=== PATIENT | male | born 1960 | race Caucasian/White ===

== ENCOUNTER → 2016-08-21 | Outpatient (REF) | payer MEDICAID, SELFPAY | LOC: M SMT 13:02 | PROVIDERS: ATTEND Nurse Practitioner Family | DX: R97.20 Elevated prostate specific antigen [PSA] (principal) ==

== ENCOUNTER → 2016-12-20 | Outpatient (CLI) | payer MEDICAID ==
[2016-12-20 13:02] LABS: MEAN CORPUSCULAR HEMOGLOBIN 27.3 pg (27.0-33.0); MEAN CORPUSCULAR HGB CONC 32.2 g/dl (32.0-36.5); MEAN CORPUSCULAR VOLUME 84.7 fl (80.0-96.0); RED CELL DISTRIBUTION WIDTH 13.4 % (11.5-14.5); WHITE BLOOD COUNT 7.4 K/mm3 (4.0-10.0)
[2016-12-20 13:53] LABS: ALKALINE PHOSPHATASE 109 U/L (45-117); ALT/SGPT 53 U/L (12-78); ANION GAP 9 MEQ/L (8-16); AST/SGOT 28 U/L (15-37); BLOOD UREA NITROGEN 16 MG/DL (7-18); CALCIUM LEVEL 9.8 MG/DL (8.5-10.1); CARBON DIOXIDE LEVEL 26 MEQ/L (21-32); CHLORIDE LEVEL 97 MEQ/L (98-107); CREATININE FOR GFR 0.75 MG/DL (0.70-1.30); GLOMERULAR FILTRATION RATE > 60.0 (>56); GLUCOSE, FASTING 99 MG/DL (70-105); SODIUM LEVEL 132 MEQ/L (136-145)
[2016-12-20 13:54] LABS: ALBUMIN 3.5 GM/DL (3.2-5.2); ALBUMIN/GLOBULIN RATIO 0.92 (1.00-1.93); BILIRUBIN,TOTAL 0.2 MG/DL (0.2-1.0); TOTAL PROTEIN 7.3 GM/DL (6.4-8.2)
[2016-12-20 14:11] LABS: POTASSIUM SERUM 5.5 MEQ/L (3.5-5.1)
== END ==
LOC: M WUC 10:09
PROVIDERS: ATTEND Nurse Practitioner Adult Health
DX: G40.909 Epilepsy, unspecified, not intractable, without status epilepticus (principal)

== ENCOUNTER → 2017-01-02 | Outpatient (REF) | payer MEDICAID ==
[2017-01-02 15:55] LABS: MEAN CORPUSCULAR HEMOGLOBIN 27.4 pg (27.0-33.0); MEAN CORPUSCULAR HGB CONC 33.3 g/dl (32.0-36.5); MEAN CORPUSCULAR VOLUME 82.3 fl (80.0-96.0); RED CELL DISTRIBUTION WIDTH 13.5 % (11.5-14.5); WHITE BLOOD COUNT 8.8 K/mm3 (4.0-10.0)
[2017-01-02 16:45] LABS: ALBUMIN 3.6 GM/DL (3.2-5.2); ALBUMIN/GLOBULIN RATIO 0.97 (1.00-1.93); ALKALINE PHOSPHATASE 109 U/L (45-117); ALT/SGPT 46 U/L (12-78); ANION GAP 10 MEQ/L (8-16); AST/SGOT 27 U/L (15-37); BILIRUBIN,TOTAL 0.2 MG/DL (0.2-1.0); BLOOD UREA NITROGEN 18 MG/DL (7-18); CALCIUM LEVEL 10.1 MG/DL (8.5-10.1); CARBON DIOXIDE LEVEL 25 MEQ/L (21-32); CHLORIDE LEVEL 94 MEQ/L (98-107); CREATININE FOR GFR 0.77 MG/DL (0.70-1.30); GLOMERULAR FILTRATION RATE > 60.0 (>56); GLUCOSE, FASTING 92 MG/DL (70-105); SODIUM LEVEL 129 MEQ/L (136-145); TOTAL PROTEIN 7.3 GM/DL (6.4-8.2)
[2017-01-04 14:11] LABS: PSA TOTAL 1.7 ng/mL (0.0-4.0)
== END ==
LOC: M SFHCPLAZ 14:44
PROVIDERS: ATTEND Nurse Practitioner Family
DX: G40.909 Epilepsy, unspecified, not intractable, without status epilepticus (principal); I10 Essential (primary) hypertension; R97.20 Elevated prostate specific antigen [PSA]

== ENCOUNTER → 2017-01-29 | Outpatient (REF) | payer MEDICAID | LOC: M SFHCPLAZ 11:41 | PROVIDERS: ATTEND Nurse Practitioner Adult Health | DX: I10 Essential (primary) hypertension (principal); E03.9 Hypothyroidism, unspecified; M85.80 Other specified disorders of bone density and structure, unspecified site; E55.9 Vitamin D deficiency, unspecified ==

== ENCOUNTER → 2017-01-29 | Outpatient (CLI) | payer MEDICAID ==
[2017-01-29 19:17] LABS: ANION GAP 4 MEQ/L (8-16); BLOOD UREA NITROGEN 16 MG/DL (7-18); CALCIUM LEVEL 9.7 MG/DL (8.5-10.1); CARBON DIOXIDE LEVEL 28 MEQ/L (21-32); CHLORIDE LEVEL 96 MEQ/L (98-107); CREATININE FOR GFR 0.74 MG/DL (0.70-1.30); GLOMERULAR FILTRATION RATE > 60.0 (>56); GLUCOSE, FASTING 99 MG/DL (70-105); SODIUM LEVEL 128 MEQ/L (136-145)
[2017-01-29 19:21] LABS: POTASSIUM SERUM 5.2 MEQ/L (3.5-5.1)
== END ==
LOC: M WUC 13:31
PROVIDERS: ATTEND Nurse Practitioner Adult Health
DX: I10 Essential (primary) hypertension (principal); E03.9 Hypothyroidism, unspecified; M85.80 Other specified disorders of bone density and structure, unspecified site; E55.9 Vitamin D deficiency, unspecified

== ENCOUNTER → 2017-03-21 | Outpatient (CLI) | payer MEDICAID ==
--- NOTE | 2017-03-21 11:35 | REP ---
Chest two views HISTORY: Shortness of breath Comparison: None The lungs are clear. The heart is normal in size. The pulmonary vasculature is normal in appearance. The bony structure is intact. IMPRESSION: No acute disease. Signed by Arcadio Rudoplh MD 03/21/2017 11:25 A
--- NOTE | 2017-03-21 12:32 | REP ---
KUB, ONE VIEW: HISTORY: Bloating. Air is present in small and large intestine. A single dilated loop of intestine is present. There are no air-fluid levels. There is no pneumoperitoneum. A moderate amount of stool is present. IMPRESSION: Nonspecific bowel gas pattern. Signed by Arcadio Rudolph MD 03/21/2017 12:34 P
== END ==
LOC: M WUC 11:00
PROVIDERS: ATTEND Nurse Practitioner Adult Health
DX: R06.02 Shortness of breath (principal); R14.0 Abdominal distension (gaseous)

== ENCOUNTER → 2017-07-02 | Outpatient (REF) | payer MEDICAID ==
[2017-07-02 19:55] LABS: ANION GAP 7 MEQ/L (8-16); BLOOD UREA NITROGEN 17 MG/DL (7-18); CALCIUM LEVEL 9.9 MG/DL (8.5-10.1); CARBON DIOXIDE LEVEL 27 MEQ/L (21-32); CHLORIDE LEVEL 97 MEQ/L (98-107); CREATININE FOR GFR 0.78 MG/DL (0.70-1.30); GLOMERULAR FILTRATION RATE > 60.0 (>56); GLUCOSE, FASTING 94 MG/DL (70-105); POTASSIUM SERUM 5.1 MEQ/L (3.5-5.1); SODIUM LEVEL 131 MEQ/L (136-145)
== END ==
LOC: M SFHCPLAZ 15:01
PROVIDERS: ATTEND Nurse Practitioner Adult Health
DX: E03.9 Hypothyroidism, unspecified (principal); E55.9 Vitamin D deficiency, unspecified; I10 Essential (primary) hypertension

== ENCOUNTER → 2017-11-05 | Outpatient (REF) | payer MEDICAID ==
[2017-11-05 17:53] LABS: TOTAL 25(OH) VITAMIN D 30.3 NG/ML (30.0-100.0)
[2017-11-05 18:01] LABS: ALBUMIN 3.8 GM/DL (3.2-5.2); ALBUMIN/GLOBULIN RATIO 1.06 (1.00-1.93); ALKALINE PHOSPHATASE 79 U/L (45-117); ALT/SGPT 46 U/L (12-78); ANION GAP 6 MEQ/L (8-16); AST/SGOT 36 U/L (7-37); BILIRUBIN,TOTAL 0.1 MG/DL (0.2-1.0); BLOOD UREA NITROGEN 16 MG/DL (7-18); CALCIUM LEVEL 9.6 MG/DL (8.5-10.1); CARBON DIOXIDE LEVEL 27 MEQ/L (21-32); CHLORIDE LEVEL 99 MEQ/L (98-107); CREATININE FOR GFR 0.69 MG/DL (0.70-1.30); FERRITIN 8 NG/ML (26-388); GLOMERULAR FILTRATION RATE > 60.0 (>56); GLUCOSE, FASTING 89 MG/DL (70-100); IRON (FE) 18 UG/DL (65-175); PERCENT SATURATION 3.9 % (19.7-50.0); SODIUM LEVEL 132 MEQ/L (136-145); TOTAL IRON BINDING CAPACITY 462 UG/DL (250-450); TOTAL PROTEIN 7.4 GM/DL (6.4-8.2); VALPROIC ACID (DEPAKOTE) 99.6 UG/ML (50.0-100.0)
[2017-11-05 18:27] LABS: HEMATOCRIT 35.1 % (42.0-52.0); HEMOGLOBIN 10.7 g/dl (14.0-18.0); MEAN CORPUSCULAR HEMOGLOBIN 23.1 pg (27.0-33.0); MEAN CORPUSCULAR HGB CONC 30.5 g/dl (32.0-36.5); MEAN CORPUSCULAR VOLUME 75.8 fl (80.0-96.0); PLATELET COUNT, AUTOMATED 432 10^3/uL (150-450); RED BLOOD COUNT 4.63 10^6/uL (4.30-6.10); WHITE BLOOD COUNT 7.4 10^3/uL (4.0-10.0)
== END ==
LOC: M SFHCPLAZ 15:19
DX: D64.9 Anemia, unspecified (principal); I10 Essential (primary) hypertension; E03.9 Hypothyroidism, unspecified; E55.9 Vitamin D deficiency, unspecified

== ENCOUNTER → 2018-04-22 | Outpatient (CLI) | payer MEDICAID ==
[~2018-04-22] MED LIST: E-Z-PAQUE 96% w/w SUSP 176GM BTL As Ordered; PROHANCE 279.3MG/ML 15ML VIAL (A9576) As Ordered; VARIBAR NECTAR 40% w/v 240ML SUSP BTL As Ordered; VARIBAR PUDDING 40% w/v 230ML TUBE As Ordered
== END ==
LOC: M RAD 09:17
DX: G31.9 Degenerative disease of nervous system, unspecified (principal); F03.90 Unspecified dementia, unspecified severity, without behavioral disturbance, psychotic disturbance, mood disturbance, and anxiety; R56.9 Unspecified convulsions
CPT/HCPCS: A9576

== ENCOUNTER → 2018-04-24 | Outpatient (CLI) | payer MEDICAID | LOC: M ST 13:30 | DX: Q90.9 Down syndrome, unspecified (principal) | CPT/HCPCS: 74230 ==

== ENCOUNTER → 2018-05-07 | Outpatient (REF) | payer MEDICAID ==
[2018-05-07 15:55] LABS: HEMATOCRIT 39.2 % (42.0-52.0); MEAN CORPUSCULAR HGB CONC 33.2 g/dl (32.0-36.5); MEAN CORPUSCULAR VOLUME 78.4 fl (80.0-96.0); PLATELET COUNT, AUTOMATED 359 10^3/uL (150-450); RED CELL DISTRIBUTION WIDTH 17.8 % (11.5-14.5); WHITE BLOOD COUNT 7.7 10^3/uL (4.0-10.0)
[2018-05-07 16:45] LABS: ALBUMIN 3.3 GM/DL (3.2-5.2); ALBUMIN/GLOBULIN RATIO 0.97 (1.00-1.93); ALKALINE PHOSPHATASE 82 U/L (45-117); ALT/SGPT 39 U/L (12-78); ANION GAP 10 MEQ/L (8-16); AST/SGOT 36 U/L (7-37); BILIRUBIN,TOTAL 0.1 MG/DL (0.2-1.0); BLOOD UREA NITROGEN 12 MG/DL (7-18); CALCIUM LEVEL 9.3 MG/DL (8.8-10.2); CARBON DIOXIDE LEVEL 23 MEQ/L (21-32); CHLORIDE LEVEL 91 MEQ/L (98-107); CHOLESTEROL LEVEL 148 MG/DL (<200); CREATININE FOR GFR 0.65 MG/DL (0.70-1.30); FERRITIN 23 NG/ML (26-388); GLOMERULAR FILTRATION RATE > 60.0 (>49); GLUCOSE, FASTING 89 MG/DL (70-100); HDL CHOLESTEROL 54 MG/DL (>40); IRON (FE) 112 UG/DL (65-175); LDL CHOLESTEROL 59 MG/DL (<100); NON-HDL-C 94 MG/DL; PERCENT SATURATION 29.7 % (19.7-50.0); POTASSIUM SERUM 5.3 MEQ/L (3.5-5.1); SODIUM LEVEL 124 MEQ/L (136-145); TOTAL 25(OH) VITAMIN D 34.7 NG/ML (30.0-100.0); TOTAL IRON BINDING CAPACITY 377 UG/DL (250-450); TOTAL PROTEIN 6.7 GM/DL (6.4-8.2); TRIGLYCERIDES LEVEL 175 MG/DL (<150)
== END ==
LOC: M SFHCPLAZ 14:44
DX: E55.9 Vitamin D deficiency, unspecified (principal); E03.9 Hypothyroidism, unspecified; D64.9 Anemia, unspecified; I10 Essential (primary) hypertension; G40.909 Epilepsy, unspecified, not intractable, without status epilepticus

== ENCOUNTER → 2018-11-11 | Outpatient (REF) | payer MEDICAID ==
[2018-11-11 13:27] LABS: HEMATOCRIT 42.1 % (42.0-52.0); HEMOGLOBIN 14.7 g/dl (13.5-17.5); MEAN CORPUSCULAR HGB CONC 34.9 g/dl (32.0-36.5); MEAN CORPUSCULAR VOLUME 91.7 fl (80.0-96.0); PLATELET COUNT, AUTOMATED 346 10^3/uL (150-450); RED BLOOD COUNT 4.59 10^6/uL (4.30-6.10); WHITE BLOOD COUNT 8.8 10^3/uL (4.0-10.0)
[2018-11-11 14:04] LABS: ALBUMIN 3.7 GM/DL (3.2-5.2); ALT/SGPT 49 U/L (12-78); BILIRUBIN,TOTAL 0.3 MG/DL (0.2-1.0); BLOOD UREA NITROGEN 14 MG/DL (7-18); CALCIUM LEVEL 9.9 MG/DL (8.8-10.2); CARBON DIOXIDE LEVEL 28 MEQ/L (21-32); CHLORIDE LEVEL 92 MEQ/L (98-107); CHOLESTEROL LEVEL 189 MG/DL (<200); CHOLESTEROL RISK RATIO 3.258 (<5); CREATININE FOR GFR 0.62 MG/DL (0.70-1.30); FERRITIN 46 NG/ML (26-388); GLOMERULAR FILTRATION RATE > 60.0 (>49); GLUCOSE, FASTING 75 MG/DL (70-100); HDL CHOLESTEROL 58 MG/DL (>40); LDL CHOLESTEROL 82 MG/DL (<100); NON-HDL-C 131 MG/DL; POTASSIUM SERUM 5.2 MEQ/L (3.5-5.1); SODIUM LEVEL 127 MEQ/L (136-145); TOTAL PROTEIN 6.9 GM/DL (6.4-8.2); TRIGLYCERIDES LEVEL 246 MG/DL (<150)
[2018-11-11 14:05] LABS: TOTAL 25(OH) VITAMIN D 38.2 NG/ML (30.0-100.0)
== END ==
LOC: M SFHCPLAZ 11:16
PROVIDERS: ATTEND Nurse Practitioner Adult Health
DX: G40.909 Epilepsy, unspecified, not intractable, without status epilepticus (principal); D64.9 Anemia, unspecified; E03.9 Hypothyroidism, unspecified; E55.9 Vitamin D deficiency, unspecified; I10 Essential (primary) hypertension

== ENCOUNTER → 2019-06-21 | Outpatient (REF) | payer MEDICAID ==
[2019-06-21 12:29] LABS: HEMATOCRIT 44.8 % (42.0-52.0); MEAN CORPUSCULAR HGB CONC 33.5 g/dl (32.0-36.5); MEAN CORPUSCULAR VOLUME 95.5 fl (80.0-96.0); PLATELET COUNT, AUTOMATED 357 10^3/uL (150-450); RED BLOOD COUNT 4.69 10^6/uL (4.30-6.10)
[2019-06-21 13:11] LABS: ALBUMIN 3.7 GM/DL (3.2-5.2); ALT/SGPT 52 U/L (12-78); BILIRUBIN,TOTAL 0.2 MG/DL (0.2-1.0); BLOOD UREA NITROGEN 13 MG/DL (7-18); CALCIUM LEVEL 10.2 MG/DL (8.8-10.2); CARBON DIOXIDE LEVEL 28 MEQ/L (21-32); CHLORIDE LEVEL 96 MEQ/L (98-107); CHOLESTEROL LEVEL 184 MG/DL (<200); CHOLESTEROL RISK RATIO 2.787 (<5); CREATININE FOR GFR 0.62 MG/DL (0.70-1.30); FERRITIN 26 NG/ML (26-388); GLOMERULAR FILTRATION RATE > 60.0 (>49); GLUCOSE, FASTING 71 MG/DL (70-100); HDL CHOLESTEROL 66 MG/DL (>40); IRON (FE) 202 UG/DL (65-175); LDL CHOLESTEROL 71 MG/DL (<100); NON-HDL-C 118 MG/DL; PERCENT SATURATION 55.8 % (19.7-50.0); POTASSIUM SERUM 4.8 MEQ/L (3.5-5.1); SODIUM LEVEL 133 MEQ/L (136-145); TOTAL IRON BINDING CAPACITY 362 UG/DL (250-450); TOTAL PROTEIN 7.2 GM/DL (6.4-8.2); TRIGLYCERIDES LEVEL 234 MG/DL (<150)
[2019-06-21 15:20] LABS: TOTAL 25(OH) VITAMIN D 43.1 NG/ML (30.0-100.0)
== END ==
LOC: M SFHCPLAZ 10:32
PROVIDERS: ATTEND Nurse Practitioner Adult Health
DX: D64.9 Anemia, unspecified (principal); E03.9 Hypothyroidism, unspecified; I10 Essential (primary) hypertension; G40.909 Epilepsy, unspecified, not intractable, without status epilepticus; E55.9 Vitamin D deficiency, unspecified

== ENCOUNTER → 2020-02-17 | Outpatient (REF) | payer MEDICAID ==
[2020-02-17 12:03] LABS: HEMATOCRIT 42.3 % (42.0-52.0); HEMOGLOBIN 14.5 g/dl (13.5-17.5); MEAN CORPUSCULAR HEMOGLOBIN 32.1 pg (27.0-33.0); MEAN CORPUSCULAR HGB CONC 34.3 g/dl (32.0-36.5); MEAN CORPUSCULAR VOLUME 93.6 fl (80.0-96.0); PLATELET COUNT, AUTOMATED 370 10^3/uL (150-450); RED BLOOD COUNT 4.52 10^6/uL (4.30-6.10); WHITE BLOOD COUNT 8.4 10^3/uL (4.0-10.0)
[2020-02-17 12:16] LABS: ALBUMIN 3.6 GM/DL (3.2-5.2); ALT/SGPT 37 U/L (12-78); BILIRUBIN,TOTAL 0.3 MG/DL (0.2-1.0); BLOOD UREA NITROGEN 10 MG/DL (7-18); CALCIUM LEVEL 9.9 MG/DL (8.8-10.2); CARBON DIOXIDE LEVEL 27 MEQ/L (21-32); CHLORIDE LEVEL 93 MEQ/L (98-107); CHOLESTEROL LEVEL 157 MG/DL (<200); CHOLESTEROL RISK RATIO 2.706 (<5); CREATININE FOR GFR 0.65 MG/DL (0.70-1.30); FERRITIN 55 NG/ML (26-388); GLOMERULAR FILTRATION RATE > 60.0 (>49); GLUCOSE, FASTING 72 MG/DL (70-100); HDL CHOLESTEROL 58 MG/DL (>40); LDL CHOLESTEROL 59 MG/DL (<100); NON-HDL-C 99 MG/DL; POTASSIUM SERUM 4.8 MEQ/L (3.5-5.1); SODIUM LEVEL 127 MEQ/L (136-145); TOTAL PROTEIN 6.9 GM/DL (6.4-8.2); TRIGLYCERIDES LEVEL 201 MG/DL (<150)
[2020-02-17 12:18] LABS: TOTAL 25(OH) VITAMIN D 42.7 NG/ML (30.0-100.0)
== END ==
LOC: M SFHCPLAZ 10:02
PROVIDERS: ATTEND Nurse Practitioner Adult Health
DX: D64.9 Anemia, unspecified (principal); I10 Essential (primary) hypertension; G40.909 Epilepsy, unspecified, not intractable, without status epilepticus; E03.9 Hypothyroidism, unspecified; E55.9 Vitamin D deficiency, unspecified

== ENCOUNTER → 2020-07-03 | Outpatient (REF) | payer MEDICAID ==
[2020-07-03 18:13] LABS: HEMATOCRIT 43.7 % (42.0-52.0); MEAN CORPUSCULAR HEMOGLOBIN 32.1 pg (27.0-33.0); MEAN CORPUSCULAR HGB CONC 34.3 g/dl (32.0-36.5); MEAN CORPUSCULAR VOLUME 93.6 fl (80.0-96.0); PLATELET COUNT, AUTOMATED 376 10^3/uL (150-450); RED BLOOD COUNT 4.67 10^6/uL (4.30-6.10); WHITE BLOOD COUNT 8.6 10^3/uL (4.0-10.0)
[2020-07-03 18:43] LABS: ALT/SGPT 27 U/L (12-78); BILIRUBIN,TOTAL 0.3 MG/DL (0.2-1.0); BLOOD UREA NITROGEN 12 MG/DL (7-18); CALCIUM LEVEL 10.3 MG/DL (8.8-10.2); CARBON DIOXIDE LEVEL 28 MEQ/L (21-32); CHLORIDE LEVEL 91 MEQ/L (98-107); CREATININE FOR GFR 0.75 MG/DL (0.70-1.30); GLOMERULAR FILTRATION RATE > 60.0 (>49); GLUCOSE, FASTING 68 MG/DL (70-100); POTASSIUM SERUM 5.3 MEQ/L (3.5-5.1); SODIUM LEVEL 126 MEQ/L (136-145); TOTAL 25(OH) VITAMIN D 46.2 NG/ML (30.0-100.0); TOTAL PROTEIN 7.1 GM/DL (6.4-8.2); VALPROIC ACID (DEPAKOTE) 121.7 UG/ML (50.0-100.0)
== END ==
LOC: M SFHCPLAZ 14:06
PROVIDERS: ATTEND Nurse Practitioner Adult Health
DX: D64.9 Anemia, unspecified (principal); G40.909 Epilepsy, unspecified, not intractable, without status epilepticus; E03.9 Hypothyroidism, unspecified; E55.9 Vitamin D deficiency, unspecified; I10 Essential (primary) hypertension

== ENCOUNTER 2020-11-05 09:13 | Inpatient (IN) | payer MEDICAID ==
[~2020-11-05] VITALS: Ht 167.6 cm; Wt 72.0 kg
[2020-11-05] MEDS ORDERED: ECOT81TA5 PO (09:31)
[2020-11-05] MEDS ORDERED: DIVA250T7 PO ×2 (09:31→15:41)
[2020-11-05] MEDS ORDERED: CALCTAB89 PO (09:31)
[2020-11-05] MEDS ORDERED: FELB600T5 PO (09:36)
[2020-11-05] MEDS ORDERED: VITA-243 PO (09:36)
[2020-11-05] MEDS ORDERED: GABA-282 PO (09:36)
[2020-11-05] MEDS ORDERED: IRON27TA2 PO (09:36)
[2020-11-05] MEDS ORDERED: OXYB10TA23 PO (09:36)
[2020-11-05] MEDS ORDERED: ENAL-36 PO (09:36)
[2020-11-05] MEDS ORDERED: MAGN400C2 PO (09:36)
[2020-11-05] MEDS ORDERED: LEVO50TA5 PO (09:36)
[2020-11-05] MEDS ORDERED: PARO20TA4 PO (09:36)
[2020-11-05] MEDS ORDERED: STOO100C15 PO (09:36)
[2020-11-05] MEDS ORDERED: NS 1,000 ML IV ONE (09:50)
--- NOTE | 2020-11-05 09:57 | REP ---
INDICATION: Syncope/near-syncope. COMPARISON: 03/21/2017 PA and lateral chest. TECHNIQUE: Portable AP chest with the patient sitting. FINDINGS: The left costophrenic angle appears effaced, left pleural effusion versus artifact from portable positioning. Cardiac size appears enlarged, cardiomegaly versus artifact from portable positioning. The lung valdez are otherwise clear. The adriana, mediastinum, and skeletal structures are unremarkable. IMPRESSION: Effaced left costophrenic angle and cardiomegaly versus artifacts from portable positioning. <Electronically signed by Choco Granger > 11/05/20 0953
[2020-11-05 10:33] LABS: BASO % 0.2 % (0.0-1.0); EOS # 0.1 10^3/uL (0.0-0.5); EOS % 0.8 % (0.0-3.0); HEMATOCRIT 34.8 % (42.0-52.0); HEMOGLOBIN 11.8 g/dl (13.5-17.5); LYMPH # 1.7 10^3/uL (1.5-5.0); LYMPH % 15.6 % (24.0-44.0); MEAN CORPUSCULAR HGB CONC 33.9 g/dl (32.0-36.5); MEAN CORPUSCULAR VOLUME 94.3 fl (80.0-96.0); MONO % 17.5 % (2.0-8.0); NEUTROPHILS # 7.1 10^3/uL (1.5-8.5); NEUTROPHILS % 65.3 % (36.0-66.0); PLATELET COUNT, AUTOMATED 370 10^3/uL (150-450); RED BLOOD COUNT 3.69 10^6/uL (4.30-6.10)
[2020-11-05 10:44] LABS: INR 1.04; PROTHROMBIN TIME 13.8 SECONDS (12.5-14.3)
[2020-11-05 10:45] LABS: PARTIAL THROMBOPLASTIN TIME 30.5 SECONDS (24.2-38.5)
[2020-11-05 11:02] LABS: ALBUMIN 2.2 GM/DL (3.2-5.2); ALT/SGPT 148 U/L (12-78); BILIRUBIN,DIRECT 0.3 MG/DL (0.0-0.2); BILIRUBIN,TOTAL 0.4 MG/DL (0.2-1.0); BLOOD UREA NITROGEN 15 MG/DL (7-18); CALCIUM LEVEL 9.8 MG/DL (8.8-10.2); CARBON DIOXIDE LEVEL 28 MEQ/L (21-32); CHLORIDE LEVEL 89 MEQ/L (98-107); CK-MB VALUE MASS < 1.0 NG/ML (<3.6); CPK CREATINE PHOSPHOKINASE 33 U/L (39-308); CREATININE FOR GFR 0.55 MG/DL (0.70-1.30); FREE T4 1.18 NG/DL (0.76-1.46); GLOMERULAR FILTRATION RATE > 60.0 (>49); GLUCOSE, FASTING 94 MG/DL (70-100); MAGNESIUM LEVEL 1.8 MG/DL (1.8-2.4); MB/CK RELATIVE INDEX 3.03 (< OR =4); POTASSIUM SERUM 4.8 MEQ/L (3.5-5.1); SODIUM LEVEL 123 MEQ/L (136-145); TROPONIN I < 0.02 NG/ML (< 0.10); VALPROIC ACID (DEPAKOTE) 84.6 UG/ML (50.0-100.0)
[2020-11-05 11:14] LABS: MONO # 1.9 10^3/uL (0.0-0.8); WHITE BLOOD COUNT 10.8 10^3/uL (4.0-10.0)
[2020-11-05 12:11] LABS: OSMOLALITY URINE 561 MOSM/KG (50-1400)
[2020-11-05 12:34] LABS: SODIUM,RANDOM URINE 17 MEQ/L
[2020-11-05 12:55] LABS: OSMOLALITY SERUM 261 MOSM/KG (280-301)
[2020-11-05 14:27] LABS: LIPASE 27 U/L (73-393)
--- NOTE | 2020-11-05 15:03 | REP ---
INDICATION: elevated lfts. COMPARISON: None. TECHNIQUE: Multiple ultrasonographic images of the abdominal right upper quadrant. FINDINGS: There is no cholelithiasis, gallbladder wall thickening or pericholecystic fluid. There is no intrahepatic or extrahepatic biliary duct dilatation. The common biliary duct measures 5.3 mm in diameter. The hepatic parenchyma is homogeneous and otherwise unremarkable. There are no hepatic masses or cysts. The pancreas is obscured by bowel gas. The right kidney is normal size measuring 12.6 x 6.0 x 5.3 cm. There is no right renal calculus, hydronephrosis, solid mass or cystic mass. There is no abdominal right upper quadrant free fluid. The study is extremely limited and technically difficult, the patient unable to suspend respirations or roll into a decubitus position. Patient has dementia. IMPRESSION: Limited study as discussed above. The pancreas is obscured by bowel gas. Overlies, negative abdominal right upper quadrant ultrasound. <Electronically signed by Choco Granger > 11/05/20 [id number]
[2020-11-05 15:30] LABS: RSV AMPLIFICATION NEGATIVE (NEGATIVE)
[2020-11-05] MEDS ORDERED: FERR325T16 PO (15:41)
[2020-11-05] MEDS ORDERED: D 202000 PO (15:42)
--- NOTE | 2020-11-05 17:24 | HPEPDOC ---
General Date of Admission 11/05/20 Date of Service: Nov 05, 2020 Chief Complaint The patient is a 60-year-old male admitted with a reason for visit of Weakness. Source: Family, RN/, Old records History of Present Illness 60 year old male with Down's syndrome, mental retardation, dementia with occasional behavioral issues, seizure lives at home with 24 x7 care, has gait i nstability and ambulates with a walker has been noticed to be very weak and tired and sometimes listless from 10/31/20. Incidentally he received his first COVID vaccine on 10/27/20. For the past 1 day he has been so weak that the caregiver could not even get him out of the bed. Normally patient is very constipated and has bowel movement every 4 to 5 days this week he has had more bowel movement and are smaller and softer in nature. No noted fever at home. Caregivers have been offering him more fluids this week. As per sister he likes to drink fluids and never refuses any fluid offered to him. His appetite has been variable. As per sister he does have difficulty swallowing as he keeps his head bent forward and he sometimes needs to be fed. Patient denied any SOB . Denied any abdominal pain. He was having difficulty in voiding so a walter was placed. In the ED he was noted to be hyponatremic to 123, also his AST and ALT and ALP were elevated. GB ultrasound did not show any gall stones or GB pathology. But the technologist noted that there may be some fluid around the heart. A stat echo was ordered. Dion was admitted for hyponatremia, transaminitis and suspected large pericardial effusion rule out tamponade. Home Medications Scheduled Ascorbic Acid (Vitamin C) 500 Mg Tablet, 1,000 MG PO DAILY, (Reported) Aspirin (Ecotrin) 81 Mg Tablet.dr, 81 MG PO QHS, (Reported) Calcium Carbonate (Calcium) 600 Mg Tablet, 600 MG PO BID, (Reported) Cholecalciferol (Vitamin D3) (Vitamin D3) 50 Mcg Tablet, 50 MCG PO DAILY, (Reported) Divalproex Sodium (Divalproex Sodium ER) 250 Mg Tab.er.24h, 750 MG PO DAILY, (Reported) Divalproex Sodium (Divalproex Sodium ER) 250 Mg Tab.er.24h, 500 MG PO QHS, (Reported) Docusate Sodium (Stool Softener) 100 Mg Capsule, 200 MG PO BID, (Reported) Enalapril Maleate (Enalapril Maleate) 10 Mg Tablet, 10 MG PO BID, (Reported) Felbamate (Felbamate) 600 Mg Tablet, 1,800 MG PO BID, (Reported) Ferrous Gluconate (Ferrous Gluconate) 324 Mg Tablet, 324 MG PO DAILY, (Reported) Gabapentin (Gabapentin) 300 Mg Capsule, 300 MG PO BID, (Reported) Levothyroxine Sodium (Levothyroxine Sodium) 50 Mcg Tablet, 50 MCG PO DAILY, (Reported) Magnesium Oxide (Magnesium) 400 Mg Capsule, 400 MG PO DAILY, (Reported) Oxybutynin Chloride (Oxybutynin Chloride ER) 10 Mg Tab.er.24, 10 MG PO DAILY, (Reported) Paroxetine HCl (Paroxetine) 20 Mg Tablet, 40 MG PO DAILY, (Reported) Allergies Coded Allergies: No Known Allergies (Verified , 02/21/03) Past Medical History Medical History DOWN SYNDROME WITH MENTAL RETARDATION AND BEHAVIORS SEIZURE DISORDER DEMENTIA MRI OF THE BRAIN 2012 MODERATE GENERALIZED CEREBRAL ATROPHY PERSISTENT BIFRONTAL ENCEPHALOMALACIA, PERSISTENT VENTRICULOMEGALY URINARY INCONTINENCE ESSENTIAL HYPERTENSION VITAMIN D DEFICIENCY OSTEOPOROSIS HYPOTHYROIDISM SEVERE LOU ON CPAP5 CM WATER PRESSURE URINARY INCONTINENCE WITHOUT SENSORY AWARENESS Unsure if urologic or behavioral on oxybutynin. ELEVATED PSA SEVERE CERVICAL SPONDYLOSIS WITH NECK PAIN AND FORAMINAL NERVE COMPRESSION PER CT OF THE SPINE TO 2013. ANGER/ DEPRESSION/ INSOMNIA HEMORRHOIDS, DIVERTICULOSIS COLONIC POLYPS: TUBULAR ADENOMA and TUBULOVILLOUS ADENOMA, OLD COMPRESSION FRACTURE OF THE T1 VERTEBRA Family History FATHER: , TYPE II DIABETES MOTHER: ALIVE SIBLINGS: ALIVE 2 BROTHER(S) , 3 SISTER(S) - HEALTHY. BROTHER HAS HAD KIDNEY STONES Social History * Smoker: Denies Alcohol: Denies Drugs: denies A-FIB/CHADSVASC A-FIB History Current/History of A-Fib/PAF?: No Review of Systems Constitutional: Reports: Weakness, Fatigue; Denies: Chills, Fever, Night Sweats Eyes: Denies: Pain, Vision change ENT: Reports: Dysphagia; Denies: Head Aches, Ear Pain Skin: Denies: Rash, Lesions, Breakdown Pulmonary: Denies: Dyspnea, Cough Cardiovascular: Denies: Chest Pain, Palpitations, Orthopnea, Paroxysmal Noc. Dyspnea, Lt Headedness Gastrointestinal: Reports: Constipation; Denies: Nausea, Vomiting, Abdominal Pain, Diarrhea Genitourinary: Reports: Incontinence; Denies: Dysuria, Frequency, Retention Hematologic: Denies: Bruising, Bleeding Excessively Physical Examination General Exam: Positive: Alert, Cooperative, No Acute Distress Eye Exam: Positive: PERRLA, Conjunctiva & lids normal, EOMI; Negative: Sclera icteric ENT Exam: Positive: Atraumatic, Mucous membr. moist/pink, Pharynx Normal Neck Exam: Positive: Supple; Negative: thyromegaly Chest Exam: Positive: Clear to auscultation, Diminished (at leonardo bases) Heart Exam: Positive: Rate Normal, Regular Rhythm, Normal S1, Normal S2; Negative: Murmurs, Rubs Telemetry: Positive: No significant arrhythmia Abdomen Exam: Positive: Normal bowel sounds, Soft; Negative: Tenderness Extremity Exam: Positive: Edema (trace edema), Normal pulses; Negative: Clubbing, Cyanosis Skin Exam: Positive: Nl turgor and temperature; Negative: Breakdown, Lesion Vital Signs Vital Signs Date Time Temp Pulse Resp B/P (MAP) Pulse Ox O2 Delivery O2 Flow Rate FiO2 11/05/20 16:00 86 129/77 (94) 96 11/05/20 09:37 Room Air 11/05/20 09:26 98.3 18 Laboratory Data Labs 24H Laboratory Tests 2 11/05/20 09:46: Urine Color YELLOW, Urine Appearance HAZY, Urine pH 6.0, Urine Specific Harwood 1.021, Urine Protein 1+H, Urine Glucose (UA) NEGATIVE, Urine Ketones NEGATIVE, Urine Blood 2+H, Urine Nitrite NEGATIVE, Urine Bilirubin NEGATIVE, Urine Urobilinogen 4.0H, Urine Leukocyte Esterase NEGATIVE, Urine WBC (Auto) 3, Urine RBC (Auto) 65H, Urine Hyaline Casts (Auto) 0, Urine Bacteria (Auto) 1+H, Urine Squamous Epithelial Cells 0, Urine Calcium Oxalate Cryst (Auto) SMALL, Urine Amorphous Sediment SMALLH, Urine Mucus (Auto) SMALL, Urine Sperm (Auto) , Urine Osmolality 561, Urine Random Sodium 17 11/05/20 09:58: Immature Granulocyte % (Auto) 0.6, Neutrophils (%) (Auto) 65.3, Lymphocytes (%) (Auto) 15.6L, Monocytes (%) (Auto) 17.5H, Eosinophils (%) (Auto) 0.8, Basophils (%) (Auto) 0.2, Neutrophils # (Auto) 7.1, Lymphocytes # (Auto) 1.7, Monocytes # (Auto) 1.9H, Eosinophils # (Auto) 0.1, Basophils # (Auto) 0.0, Nucleated Red Blood Cells % (auto) 0.0, Prothrombin Time 13.8, Prothromb Time International Ratio 1.04, Activated Partial Thromboplast Time 30.5, Anion Gap 6L, Glomerular Filtration Rate > 60.0, Osmolality 261L, Lactic Acid Level 1.1, Calcium Level 9.8, Magnesium Level 1.8, Total Bilirubin 0.4, Direct Bilirubin 0.3H, Aspartate Amino Transf (AST/SGOT) 103H, Alanine Aminotransferase (ALT/SGPT) 148H, Alkaline Phosphatase 366H, Total Creatine Kinase 33L, Creatine Kinase MB < 1.0, Creatine Kinase MB Relative Index 3.03, Troponin I < 0.02, Total Protein 6.0L, Albumin 2.2L, Albumin/Globulin Ratio 0.6, Lipase 27L, Thyroid Stimulating Hormone (TSH) 2.760, Free Thyroxine 1.18, Valproic Acid (Depakene) Level 84.6 11/05/20 14:43: Coronavirus (COVID-19)(PCR) NEGATIVE, Influenza Type A (RT-PCR) NEGATIVE, Influenza Type B (RT-PCR) NEGATIVE, Respiratory Syncytial Virus (PCR) NEGATIVE CBC/BMP Laboratory Tests 11/05/20 09:58 Assessment/Plan 60 year old male with Down's syndrome, mental retardation, dementia with occasional behavioral issues, seizure, dysphagia, chronic hyponatremia, chronic constipation, lives at home with 24 x7 care, has gait instability and ambulates with a walker has been noticed to be very weak and tired and sometimes listless from 10/31/20. Incidentally he received his first COVID vaccine on 10/27/20. For the past 1 day he has been so weak that the caregiver could not even get him out of the bed. In the ED he was noted to be hyponatremic to 123, also his AST and ALT and ALP were elevated. GB ultrasound did not show any gall stones or GB pathology. But the technologist noted that there may be some fluid around the heart. A stat echo was ordered. Patient was admitted for hyponatremia, tra nsaminitis and suspected large pericardial effusion rule out tamponade. Weakness/ inability to ambulate most likely due to Hyponatremia with baseline gait instability hyponatremia made it worse. Hyponatremia Has low urine sodium and high urine osmolality, urine Na < 20 and high urine osmolality > 200 This could be either due to hypovolemia vs SIADH Patient got 1 L of NS. Will repeat BMP and urine studies now. If sodium lower then likely SIADH. If sodium has improved then likely hypovolemia. Though patient likely has chronic SIADH also as his sodium is always in the 128 range. will put on fluid restriction consult nephrology . Hold paroxetine. Transaminitis: ? hepatic congestion Both Felbamate and valproate can cause elevation of transaminases however patient has been on these for years so less likely Patient may have right heart failure and hepatic congestion. His abdomen is benign so i do not think he has any biliary / GB etiology Pericardial effusion stat echo ordered will get CT chest Consult Dr Siddiqui. Acute urinary retention walter placement produced 500 cc Has h/o urinary incontinence but no major retension issues inteh past managed with oxybutynin. Seizure disorder will continue home meds. valproate and felbamate. Hypertension will hold enalapril at present. Hypothyroid synthroid LOU may use own CPAP. Plan / VTE VTE Prophylaxis Ordered?: Yes MARTIN MIGUEL MD Nov 05, 2020 17:20
[2020-11-05 19:19] LABS: ALBUMIN 2.2 GM/DL (3.2-5.2); ALT/SGPT 131 U/L (12-78); BILIRUBIN,TOTAL 0.4 MG/DL (0.2-1.0); BLOOD UREA NITROGEN 14 MG/DL (7-18); CALCIUM LEVEL 9.2 MG/DL (8.8-10.2); CARBON DIOXIDE LEVEL 25 MEQ/L (21-32); CHLORIDE LEVEL 92 MEQ/L (98-107); CREATININE FOR GFR 0.42 MG/DL (0.70-1.30); GLOMERULAR FILTRATION RATE > 60.0 (>49); GLUCOSE, FASTING 83 MG/DL (70-100); POTASSIUM SERUM 4.7 MEQ/L (3.5-5.1); SODIUM LEVEL 124 MEQ/L (136-145); TOTAL PROTEIN 5.7 GM/DL (6.4-8.2); URIC ACID 3.4 MG/DL (3.5-7.2)
[2020-11-05 19:45] VITALS: BP 137/78
[2020-11-05 20:00] VITALS: BP 127/76
[2020-11-05] MEDS: DIVALPROEX 500MG *ER* TAB PO SCH (20:19)
[2020-11-05] MEDS: GABAPENTIN 300 MG CAP PO SCH (20:19)
[2020-11-05] MEDS: FELBAMATE 600 MG PO SCH (21:00)
[2020-11-05 22:00] VITALS: BP 131/78
[2020-11-05 23:26] LABS: OSMOLALITY URINE 705 MOSM/KG (50-1400)
[2020-11-05 23:57] LABS: SODIUM,RANDOM URINE 14 MEQ/L
[2020-11-06] VITALS: BP 141/86
[2020-11-06] MEDS: SODIUM CHLORIDE 1 GM TAB PO SCH ×3 (00:49→20:35)
[2020-11-06 04:00] VITALS: BP 125/82
[2020-11-06 05:08] LABS: BASO # 0.1 10^3/uL (0.0-0.2); BASO % 0.5 % (0.0-1.0); EOS # 0.3 10^3/uL (0.0-0.5); EOS % 2.1 % (0.0-3.0); HEMATOCRIT 34.2 % (42.0-52.0); HEMOGLOBIN 11.6 g/dl (13.5-17.5); LYMPH # 1.9 10^3/uL (1.5-5.0); LYMPH % 15.6 % (24.0-44.0); MEAN CORPUSCULAR HEMOGLOBIN 32.3 pg (27.0-33.0); MEAN CORPUSCULAR HGB CONC 33.9 g/dl (32.0-36.5); MEAN CORPUSCULAR VOLUME 95.3 fl (80.0-96.0); MONO # 1.8 10^3/uL (0.0-0.8); MONO % 14.9 % (2.0-8.0); NEUTROPHILS # 8.1 10^3/uL (1.5-8.5); NEUTROPHILS % 66.2 % (36.0-66.0); PLATELET COUNT, AUTOMATED 396 10^3/uL (150-450); RED BLOOD COUNT 3.59 10^6/uL (4.30-6.10)
[2020-11-06] MEDS: LEVOTHYROXINE 50MCG TABLET (0.05MG) PO SCH (05:16)
[2020-11-06 05:30] LABS: WHITE BLOOD COUNT 12.2 10^3/uL (4.0-10.0)
[2020-11-06 05:31] LABS: ALBUMIN 2.1 GM/DL (3.2-5.2); ALT/SGPT 117 U/L (12-78); BILIRUBIN,TOTAL 0.5 MG/DL (0.2-1.0); BLOOD UREA NITROGEN 16 MG/DL (7-18); CARBON DIOXIDE LEVEL 26 MEQ/L (21-32); CHLORIDE LEVEL 95 MEQ/L (98-107); CREATININE FOR GFR 0.33 MG/DL (0.70-1.30); GLOMERULAR FILTRATION RATE > 60.0 (>49); GLUCOSE, FASTING 91 MG/DL (70-100); POTASSIUM SERUM 4.7 MEQ/L (3.5-5.1); SODIUM LEVEL 126 MEQ/L (136-145); TOTAL PROTEIN 5.9 GM/DL (6.4-8.2)
--- NOTE | 2020-11-06 07:20 | CR ---
CONSULTATION DATE: 11/05/2020 REASON FOR CONSULTATION: The patient is seen at the request of Dr. Tripp for pericardial effusion. HISTORY OF PRESENT ILLNESS: The patient is a 60-year-old white male with Down syndrome and intellectual disability, who cannot give a very good history. He does not know why he has been brought to the hospital. He is not complaining of shortness of breath nor is he complaining of chest pain. He denies a cough, although I am really not sure if any of what he is telling me is accurate. His family is not here to take a history. According to the medical record of Dr. Tripp, his family has noticed him to be very weak, tired, and listless over the past week. He has been so weak that he could not be gotten out of bed by his funeral pre arrangement specialist. There has been no noted fever. He has been offered more fluids than usual this week. PAST MEDICAL HISTORY: 1. The above Down syndrome. 2. Dementia. 3. Seizures. 4. Urinary incontinence. 5. Osteoporosis. 6. Hypothyroidism. 7. Spondylosis of his neck. 8. Diverticulosis. 9. Colonic polyps. HABITS: Does not smoke. Does not drink. There are no illicit drugs. TRAVEL HISTORY: Unobtainable. OCCUPATIONAL HISTORY: None. FAMILY HISTORY: Not pertinent to the acute situation. REVIEW OF SYSTEMS: Unobtainable. PHYSICAL EXAMINATION: GENERAL: Well-developed, well-nourished white male who responds very slowly to questions. VITAL SIGNS: At the time of examination shows a temperature of 97.6 with a heart rate of 90 in a sinus rhythm, respiratory rate of 22 without the use of accessory muscles who is 92% saturated on 3 liters nasal cannula, and whose blood pressure is 137/78. EYES: Pupils equal, round, and reactive to light. Extraocular muscles intact. Sclerae nonicteric. NOSE: Without deformity. MOUTH: Shows the mucous membranes to be pink and moist. Lips and commisures without lesions and there is no thrush. NECK: Fixed. I cannot tell if there is jugular venous distention. LUNGS: Shows equal breath sounds on either side. I do not hear rhonchi, rales, or rubs. CARDIAC: Shows well-formed heart sounds without murmurs, clicks, gallops, or rubs. In particular, I do not hear a pericardial effusion rub. I cannot feel his PMI. ABDOMEN: Soft and nontender. Bowel sounds are positive. I do not appreciate hepatomegaly. There is no CVA tenderness. EXTREMITIES: Shows trace pretibial edema and 1+ ankle edema. SKIN: Warm, dry, and perfuse without cyanosis or mottling including that of the nail beds and knees. NEUROLOGIC: Shows gross motor and gross sensation intact. Gait is not tested. INVESTIGATIONS: His sodium is 123 with a potassium of 4.8 with a chloride of 89 and a total CO2 of 28. BUN and creatinine are 15 and 0.55. Glucose is 94 with a calcium of 9.8. His albumin is 2.2. His serum osmolality is 261, which is low. TSH is 2.7. PT/INR 13.8 and 1.04 respectively with a PTT of 30 seconds. His white count is 10.8 with a hemoglobin and hematocrit of 11.8 and 34.8 respectively with a platelet count of 360,000. Differential shows 65% neutrophils, 15% lymphocytes, and 17% monocytes. There are no immature forms and no toxic granulations. His random urine sodium is 17 with a urine osmolality of 561. His portable chest x-ray shows an enlarged heart with increased cardiac silhouette. Left costophrenic angle is slightly blunted and the right is fairly sharp. His chest CT shows a concentric pericardial effusion mostly posterior and to the right side. Its maximum measurement posteriorly is 2.3 cm. He has a small left pleural effusion and also a miniscule right pleural effusion. There is some compression atelectasis of the left lower lobe. Adrenals have a normal configuration. His kidneys are not visualized. His echocardiogram does not show diastolic collapse either in the ventricle or the atrium. It looks as though he has some respiratory variation in the IVC. I cannot tell what his pulmonary artery pressures are. IMPRESSION: 1. Pericardial effusion noncompressive. 2. Bilateral pleural effusions small. 3. Hyponatremia clinically slightly hypervolemic. 4. Down syndrome. 5. Hypothyroidism. PLAN AND DISCUSSION: He does not need any acute surgical intervention tonight. We should follow-up with an echo in three days. I would correct his sodium with fluid restriction. He is in no real neurology danger from his hyponatremia at this point in time. I will follow-up with echocardiography tomorrow to see what his pulmonary artery pressures are. There may be an element of right heart failure. Certainly his ejection fraction looked adequate on the echo in the transverse views.
[2020-11-06 08:00] VITALS: BP 123/78
[2020-11-06] MEDS: FELBAMATE 600 MG PO SCH ×3 (09:00→20:35)
--- NOTE | 2020-11-06 09:05 | REP ---
INDICATION: pericadiel effusion. COMPARISON: 11/05/2020. And chest CT of 11/05/2020. TECHNIQUE: Portable AP and lateral views of the chest with the patient semi upright. FINDINGS: On the comparison CT there were bibasilar pleural effusions and bi basilar atelectasis, worse in the left lower lobe. This is again identified today seen to better advantage on the lateral view but much better appreciated on the comparison CT. On the comparison CT there is a pericardial effusion. Cardiac size was enlarged. On the study today cardiomegaly is again identified. There is kyphosis which foreshortens the visualized lung valdez on the AP view. There are mildly distended bowel loops in a nonspecific pattern the visualized upper abdomen. IMPRESSION: Bilateral pleural effusions with bibasilar atelectasis. The findings are worse on the left and similar to the comparison CT. Cardiomegaly. Pericardial effusion on the comparison CT. <Electronically signed by Choco Granger > 11/06/20 0901
--- NOTE | 2020-11-06 09:10 | REP ---
INDICATION: pericardial efussion. Repeat dictation. Preliminary report is provided at the time of the exam by juju CHAPPELL. COMPARISON: No comparison chest CT study is available.. TECHNIQUE: Helical scanning is acquired. 3 mm axial images are generated. Coronal and sagittal MPR and coronal MIP images are generated. 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 The patient is mandible overlies the lung apices. On axial CT images there are small bilateral pleural effusions left larger than right. A moderate pericardial effusion is seen. There is evidence of left atrial enlargement. The ascending aorta is mildly dilated as well measuringrrrrrrrrrrrrrrrrrrr 4.0 cm in AP dimension at the level of the right main pulmonary artery. No hilar or mediastinal mass or adenopathy is observed. There is compressive atelectasis in the lower lobes of the lungs bilaterally, left more so than right. Lung valdez are otherwise clear. IMPRESSION: Moderate pericardial effusion. Small bilateral pleural effusions, left greater than right. 4.0 cm ascending aorta mildly dilated. Compressive atelectasis in the lower lobes of the lungs bilaterally. <Electronically signed by Armin Iraheta > 11/06/20 0906
[2020-11-06] MEDS: oxyBUTYnin *DITROPAN XL* 5 MG TABCR PO SCH (09:26)
[2020-11-06] MEDS: GABAPENTIN 300 MG CAP PO SCH ×2 (09:26→20:35)
[2020-11-06] MEDS: DIVALPROEX 250MG *ER* TAB PO SCH (09:27)
[2020-11-06 09:32] LABS: CORTISOL AM 25.8 UG/DL (4.3-22.4)
--- NOTE | 2020-11-06 09:37 | ECHO ---
DATE OF PROCEDURE: 11/05/2020 Age: 60 Gender: Male PATIENT LOCATION: Emergency department. REFERRING PHYSICIAN: Carlos Zimmer M.D. REASON FOR STUDY: Pericardial effusion. 2D MEASUREMENTS: IVS 0.9 cm LV 3.8 cm LVPW 1.1 cm LA 4.2 cm Aorta 3.2 cm RV 2.2 cm IVC 2.6 cm DOPPLER MEASUREMENT Peak velocity across the aortic valve 1.5 m/s Peak velocity across the LVOT 1.5 m/s Mitral E 0.59 Mitral A 0.42 with a ratio of 1.9 2D COMMENTS: 1. Normal left ventricular size, wall thickness, and normal global left ventricular systolic function. The estimated left ventricular systolic ejection fraction is 60% to 65%. 2. Mildly enlarged left atrium. Normal right atrium and right ventricle. 3. The atrial septum appeared to be normal without evidence of defect or shunt. 4. Moderate to large pericardial effusion noted without any chamber collapse. The inferior vena cava, however, was dilated at 2.6 cm. 5. Mildly calcified aortic valve with normal leaflet excursion. Normal mitral valve and tricuspid valve. The pulmonic valve and proximal pulmonary artery branches were not well visualized. 6. The inferior vena cava was dilated at 2.6 cm without any significant collapse noted with respiration. Doppler detects mild mitral regurgitation. Assessment of the left ventricular diastolic function was normal. IMPRESSION: 1. Normal global left ventricular systolic function. Assessment of the left ventricular diastolic function also appeared to be normal. 2. Mildly enlarged left atrium with mild mitral regurgitation. 3. Not mentioned above, the ascending aorta was mildly enlarged at 3.9 cm. 4. Moderate to large pericardial effusion noted without evidence of chamber collapse, but the inferior vena cava was enlarged without any significant respiratory variation. Also noted were findings consistent with right pleural effusion. Case was discussed with the provider. WESLEY
[2020-11-06 10:02] LABS: SODIUM,RANDOM URINE < 10 MEQ/L
[2020-11-06 10:38] LABS: OSMOLALITY URINE 866 MOSM/KG (50-1400)
--- NOTE | 2020-11-06 11:01 | IPNPDOC ---
Subjective Date Seen The patient was seen on 11/06/20. Subjective Chief Complaint/HPI Patient does not offer any complaint this morning. No issues overnight. Denies any SOB or chest pain. Objective Physical Examination General Exam: Positive: Alert, Cooperative, No Acute Distress Eye Exam: Positive: PERRLA, Conjunctiva & lids normal, EOMI; Negative: Sclera icteric ENT Exam: Positive: Atraumatic, Mucous membr. moist/pink, Pharynx Normal Neck Exam: Positive: Supple; Negative: thyromegaly Chest Exam: Positive: Clear to auscultation, Diminished (at leonardo bases) Heart Exam: Positive: Rate Normal, Regular Rhythm, Normal S1, Normal S2; Negative: Murmurs, Rubs Telemetry: Positive: No significant arrhythmia Abdomen Exam: Positive: Normal bowel sounds, Soft; Negative: Tenderness Extremity Exam: Negative: Clubbing, Cyanosis, Edema Skin Exam: Positive: Nl turgor and temperature; Negative: Breakdown, Lesion Assessment /Plan Assessment 60 year old male with Down's syndrome, mental retardation, dementia with occasional behavioral issues, seizure, dysphagia, chronic hyponatremia, chronic constipation, lives at home with 24 x7 care, has gait instability and ambulates with a walker has been noticed to be very weak and tired and sometimes listless from 10/31/20. Incidentally he received his first COVID vaccine on 10/27/20. For the past 1 day he has been so weak that the caregiver could not even get him out of the bed. In the ED he was noted to be hyponatremic to 123, also his AST and ALT and ALP were elevated. GB ultrasound did not show any gall stones or GB pathology. But the technologist noted that there may be some fluid around the heart. A stat echo was ordered. Patient was admitted for hyponatremia, transaminitis and suspected large pericardial effusion rule out tamponade. Weakness/ inability to ambulate most likely due to Hyponatremia with baseline gait instability hyponatremia made it worse. PT, OT Hyponatremia Has low urine sodium and high urine osmolality, urine Na < 20 and high urine osmolality > 200 This could be either due to hypovolemia vs SIADH Patient got 1 L of NS. not much improvement of Na. Urine studies this morning suggest he is volume depleted at this point. Patient likely has chronic SIADH also as his sodium is always in the 128 range with intravascular depetion at this time. consult nephrology . Hold paroxetine. Transaminitis: ? hepatic congestion Both Felbamate and valproate can cause elevation of transaminases however patient has been on these for years so less likely Patient may have right heart failure and hepatic congestion. His abdomen is benign so i do not think he has any biliary / GB etiology Pericardial effusion non compressive no surgical intervention needed at this time. Dr Siddiqui following scheduled for another echo. Acute urinary retention walter placement produced 500 cc Has h/o urinary incontinence but no major retention issues in the past managed with oxybutynin. Follows with urology Seizure disorder will continue home meds. valproate and felbamate. Hypertension will hold enalapril at present. Hypothyroid synthroid LOU may use own CPAP. Plan/VTE VTE Prophylaxis Ordered?: Yes VS, I&O, 24H, Fishbone Vital Signs/I&O Vital Signs Date Time Temp Pulse Resp B/P (MAP) Pulse Ox O2 Delivery O2 Flow Rate FiO2 11/06/20 04:00 2.0 11/06/20 04:00 98.4 92 20 125/82 (96) 94 Nasal Cannula I&O- Last 24 Hours up to 6 AM 11/06/20 06:00 Intake Total 200 ml Output Total 1250 ml Balance -1050 ml Laboratory Data 24H LABS Laboratory Tests 2 11/05/20 14:43: Coronavirus (COVID-19)(PCR) NEGATIVE, Influenza Type A (RT-PCR) NEGATIVE, Influenza Type B (RT-PCR) NEGATIVE, Respiratory Syncytial Virus (PCR) NEGATIVE 11/05/20 18:09: Anion Gap 7L, Glomerular Filtration Rate > 60.0, Uric Acid 3.4L, Calcium Level 9.2, Total Bilirubin 0.4, Aspartate Amino Transf (AST/SGOT) 77H, Alanine Aminotransferase (ALT/SGPT) 131H, Alkaline Phosphatase 348H, Total Protein 5.7L, Albumin 2.2L, Albumin/Globulin Ratio 0.6 11/05/20 22:00: Urine Osmolality 705, Urine Random Sodium 14 11/06/20 04:47: Anion Gap 5L, Glomerular Filtration Rate > 60.0, Calcium Level 9.0, Total Bilirubin 0.5, Aspartate Amino Transf (AST/SGOT) 60H, Alanine Aminotransferase (ALT/SGPT) 117H, Alkaline Phosphatase 417H, Total Protein 5.9L, Albumin 2.1L, Albumin/Globulin Ratio 0.6, Immature Granulocyte % (Auto) 0.7, Neutrophils (%) (Auto) 66.2H, Lymphocytes (%) (Auto) 15.6L, Monocytes (%) (Auto) 14.9H, Eosinophils (%) (Auto) 2.1, Basophils (%) (Auto) 0.5, Neutrophils # (Auto) 8.1, Lymphocytes # (Auto) 1.9, Monocytes # (Auto) 1.8H, Eosinophils # (Auto) 0.3, Basophils # (Auto) 0.1, Nucleated Red Blood Cells % (auto) 0.0, Cortisol AM Sample 25.8H 11/06/20 09:23: Urine Random Sodium < 10 CBC/BMP Laboratory Tests 11/05/20 18:09 11/06/20 04:47 MARTIN MIGUEL MD Nov 06, 2020 11:01
[2020-11-06 12:00] VITALS: BP 124/87
--- NOTE | 2020-11-06 13:17 | IPN ---
PROGRESS NOTE DATE: 11/06/2020 SUBJECTIVE: The patient is seen and examined at bedside in the ICU. No acute events overnight. He is very slow to respond but denies any current complaints or discomfort. He has no chest pain. He is not short of breath but it was very difficult to get even those limited answers out of him. Per the nursing staff, there have been no changes overnight. OBJECTIVE: VITAL SIGNS: T-max 97.6 overnight, 98.4 this morning, pulse of 92 and regular, respiratory rate of 20, blood pressure is 125/82, satting 94% on 2 liters nasal cannula. GENERAL: The patient is a well-nourished male who appears his stated age, resting comfortably in bed with his head leaned somewhat to the right side. HEENT: Normocephalic, atraumatic. EOMI. Sclera is nonicteric. Mucous membranes are moist. Nares are patent and atraumatic. NECK: No JVD appreciated. No cervical or supraclavicular lymphadenopathy. CARDIOVASCULAR: Regular rate and rhythm. Normal S1 and S2. No murmurs, rubs or gallops. LUNGS: Faint and expiratory crackles were appreciated on examination although it was difficult to really appreciate these as he was not taking full breaths, possibly diminished breath sounds bilaterally. ABDOMEN: Soft, nontender, nondistended. No hepatosplenomegaly. EXTREMITIES: Mild 1+ edema extending up to the level of the knee. LABORATORY DATA: White blood cell count of 12.2, hemoglobin 11.6, hematocrit 34.2, platelet count of 396,000. Sodium of 126, potassium is 4.7, chloride is 95, bicarbonate 26, BUN 16, creatinine 0.33, glucose 91. Calcium is 9. AST is 60, ALT of 117. Alkaline phosphatase of 417. Total protein 5.9. Albumin is 2.1, a.m. cortisol 25.8, UA showing urine osmolality of 866, urine sodium of less than 10, valproic level of 84.6. IMAGING: Two view chest x-ray: cardiomegaly with possible L-sided effusion superimposed on top but difficult to appreciate due to the cardiomegaly. Poor inspiratory effort appreciated as his lung windows are very small. ASSESSMENT/PLAN: Noncompressive pericardial effusion. We will repeat his echocardiogram in 48 hours to track its changes. Currently, there is no surgical intervention regarding her pericardial effusion. Will continue to track his pleural effusion, however imaging today shows them to be relatively small and I see no need for further intervention at this time. Will continue to follow along. [facility]
[2020-11-06] MEDS ORDERED: SLF 3 ML SYR IV PRN (15:50)
[2020-11-06 16:00] VITALS: BP 131/81
[2020-11-06 16:32] LABS: NT-PRO BNP 690 PG/ML (<125)
[2020-11-06] MEDS: FUROSEMIDE 20 MG TAB PO SCH (17:07)
--- NOTE | 2020-11-06 17:27 | ECGEPIP ---
[facility] - ED Test Date: 2020-11-05 Pat Name: LUDY GARCIA Department: Room: - Gender: Male Learning Coordinator: RS : 1960 Requested By: LIANNE Hoskins Order Number: [id number] Reading MD: Heidy Sarmiento Measurements Intervals [place] Rate: 85 P: 37 VA: 168 QRS: 57 QRSD: 88 T: 72 QT: 324 QTc: 385 Interpretive Statements Normal sinus rhythm T wave abnormality, consider ischemia No prior Electronically Signed on 11-06-2020 17:27:07 EDT by Heidy Sarmiento
[2020-11-06 20:00] VITALS: BP 128/85
[2020-11-06] MEDS: DIVALPROEX 500MG *ER* TAB PO SCH (20:35)
[2020-11-06] MEDS: SLF 3 ML SYR IV SCH (20:36)
--- NOTE | 2020-11-06 22:50 | CR ---
CONSULTATION DATE: 11/06/2020 REQUESTING PHYSICIAN: Jenni Tripp M.D. REASON FOR CONSULTATION: Acute on chronic hypoosmolar hyponatremia. HISTORY OF PRESENT ILLNESS: History is obtained from chart review and also with discussion with hospitalist. Mr. Leo Machado is a 60-year-old male with a past medical history of Down Syndrome, mental retardation, dementia with occasional behavioral issues and seizure disorder. He lives at home with 24-hour 7-days a week care. He has a history of chronic hyponatremia on review of prior labs going back to 2018. His serum sodium fluctuates between 123 and 133. The last time the patient had a normal documented serum sodium was back in May of 2016. He is on chronic antiepileptics along with SSRI. The patient had his first COVID vaccine on October 27, 2020 and then over the next two days he was noted to be weak, tired and listless, and caregiver could not get him out of bed one day prior to admission and he was subsequently brought into the Emergency Room for further evaluation. In the Emergency Room, he was noted to have a serum sodium of 123 with elevated LFTs and imaging also showed pleural effusions and pericardial effusion. A nephrology evaluation was requested for help in the management of his acute on chronic hyponatremia. REVIEW OF SYSTEMS: Unable to obtain secondary to clinical condition (Down Syndrome/mental retardation). PAST MEDICAL HISTORY: Down Syndrome with mental retardation, seizure disorder, dementia, cerebral atrophy, bifrontal encephalomalacia, persistent ventriculomegaly, urinary incontinence, hypertension, osteoporosis, hypothyroidism, obstructive sleep apnea, elevated PSA, cervical spondylosis, hemorrhoids, diverticulosis, anger/depression/insomnia, colonic polyps. PAST SURGICAL HISTORY: None is seen in the chart. FAMILY HISTORY: Father is and had diabetes. Mother is alive and brother with kidney stones. SOCIAL HISTORY: No alcohol, drugs or tobacco. ALLERGIES: No known drug allergies. HOME MEDICATIONS: 1. Vitamin C 1,000 mg p.o. daily. 2. Aspirin 81 mg p.o. q.h.s. 3. Calcium carbonate 600 mg p.o. b.i.d. 4. Vitamin D3 50 mcg p.o. daily. 5. Divalproex 750 mg in the morning and 500 mg p.o. q.h.s. 6. Docusate 200 mg p.o. b.i.d. 7. Enalapril 10 mg p.o. b.i.d. 8. Felbamate1.8 grams p.o. b.i.d. 9. Ferrous Gluconate 324 mg p.o. daily. 10.Gabapentin 300 mg p.o. b.i.d. 11.Levothyroxine 50 mcg p.o. daily. 12.Magnesium Oxide 400 mg p.o. daily. 13.Oxybutynin 10 mg p.o. daily. 14.Paroxetine 40 mg p.o. daily. PHYSICAL EXAMINATION: VITAL SIGNS: Temperature 98.2, pulse 98, respiratory rate 24, blood pressure 124/87, saturating 92% on 1 liter nasal cannula. Weight in the bed scale 75 kg. GENERAL: Patient is seen at the bedside, lying in bed with head propped up on a pillow, drowsy but easily arousable, and in no apparent distress. Makes poor eye contact. HEENT: Extraocular muscles are intact. Tongue is moist. Jugular veins are not elevated. HEART: Heart sounds are regular, S1, S2. LUNGS: Show diminished breath sounds at the bases bilaterally, but I could not appreciate crackles. ABDOMEN: Soft and nontender. GENITOURINARY: Shows indwelling Sinha catheter. EXTREMITIES: Show 1+ leg edema bilaterally. NEUROLOGIC: He was awake and alert. He was able to tell me his name, his birthday and that he was in the hospital and was able to count fingers. LABORATORY STUDIES: Today's laboratories studies show sodium 126, potassium 4.7, bicarbonate 26, BUN 16, creatinine 0.3. AST 60, ALT 117, albumin 2.1. TSH and T4 are normal. A.M. Cortisol is 25. Hemoglobin 11.6, platelets 396,000. IMAGING STUDIES: Chest CT done yesterday shows small bilateral pleural effusions and a moderate pericardial effusion. INPATIENT MEDICATIONS: 1. Depakote 500 mg p.o. q.h.s. and 750 mg p.o. daily. 2. Gabapentin 300 mg p.o. b.i.d. 3. Levothyroxine 50 mcg p.o. daily. 4. Oxybutynin 10 mg p.o. daily. 5. Felbamate1.8 grams p.o. b.i.d. 6. Sodium chloride 2 grams p.o. b.i.d. PROBLEMS: 1. Acute on chronic hypo-osmolar hypervolemic hyponatremia: Labs are reviewed back to 2015, patient's serum sodium has ranged from 123 to 133. The last time he was normonatremic was back in May 2016 with Na= 137 at that time. He presently has significantly high urine osmolality (866 on labs today) and hyponatremia is most likely related to chronic SIADH. Interfering medications (paroxetine, antiepileptics) Patient is on salt tablets 2 grams p.o. b.i.d. and sodium has improved from 123 to 126. I would continue with salt tablet at this time. I would not give him I.V. fluid given the moderate pericardial effusion along with small bilateral pleural effusions. Thyroid and AM cortisol studies all returned acceptable. 2. Moderate pericardial effusion and small bilateral pleural effusions: BNP is added on today's labs and is mildly elevated at 690, however, the conundrum being a urine sodium of less than 10 on the most recent urine studies. I am going to give him a small dose of Lasix 20 mg p.o. times one this evening and we will see how he does with it. If patient tolerates low dose loop diuretic without decline in serum sodium, then we will continue diuretic therapy. He is appropriately on 1.5L fluid restriction. 3. Transaminitis: Patient's LFTs are slowly improving and he is given a small dose of diuretic. There is a question of mild hepatic congestion. Felbamate can also cause liver injury, his LFTs however are improving. 4. Hypoalbuminemia: His serum albumin is only 2.1. He may benefit from albumin infusion given the third spacing of his fluid. If he tolerates lasix then I will add albumin 25gm 25% q8h. 5. Hypothyroidism: His thyroid panel was appropriate, he continues on the same dose of Levothyroxine. Likewise his a.m. Cortisol was also acceptable. DISPOSITION: We will not get frequent sodium monitoring as patient is chronically hyponatremic and does not have any new changes in mentation, and indeed his serum sodium already seems to be coming back to his usual baseline. [facility]
[2020-11-07] VITALS: BP 139/89
[2020-11-07 04:00] VITALS: BP 138/86
[2020-11-07 04:26] LABS: BASO # 0.1 10^3/uL (0.0-0.2); BASO % 0.4 % (0.0-1.0); EOS # 0.2 10^3/uL (0.0-0.5); EOS % 1.3 % (0.0-3.0); HEMATOCRIT 33.1 % (42.0-52.0); LYMPH # 1.7 10^3/uL (1.5-5.0); LYMPH % 14.6 % (24.0-44.0); MEAN CORPUSCULAR HEMOGLOBIN 31.5 pg (27.0-33.0); MEAN CORPUSCULAR HGB CONC 33.2 g/dl (32.0-36.5); MEAN CORPUSCULAR VOLUME 94.8 fl (80.0-96.0); MONO % 17.2 % (2.0-8.0); NEUTROPHILS # 7.6 10^3/uL (1.5-8.5); NEUTROPHILS % 65.7 % (36.0-66.0); PLATELET COUNT, AUTOMATED 437 10^3/uL (150-450); RED BLOOD COUNT 3.49 10^6/uL (4.30-6.10)
[2020-11-07 04:29] LABS: WHITE BLOOD COUNT 11.5 10^3/uL (4.0-10.0)
[2020-11-07 04:52] LABS: ALBUMIN 2.1 GM/DL (3.2-5.2); ALT/SGPT 139 U/L (12-78); BILIRUBIN,TOTAL 0.5 MG/DL (0.2-1.0); BLOOD UREA NITROGEN 18 MG/DL (7-18); CALCIUM LEVEL 9.2 MG/DL (8.8-10.2); CARBON DIOXIDE LEVEL 26 MEQ/L (21-32); CHLORIDE LEVEL 98 MEQ/L (98-107); CREATININE FOR GFR 0.52 MG/DL (0.70-1.30); GLOMERULAR FILTRATION RATE > 60.0 (>49); GLUCOSE, FASTING 102 MG/DL (70-100); POTASSIUM SERUM 5.2 MEQ/L (3.5-5.1); SODIUM LEVEL 129 MEQ/L (136-145)
[2020-11-07] MEDS: LEVOTHYROXINE 50MCG TABLET (0.05MG) PO SCH (05:51)
[2020-11-07] MEDS: SLF 3 ML SYR IV SCH ×3 (05:52→20:46)
[2020-11-07 08:00] VITALS: BP 136/78
--- NOTE | 2020-11-07 08:11 | REP ---
INDICATION: pericadiel effusion. COMPARISON: Portable chest dated 11/06/2020. TECHNIQUE: AP portable chest with the patient semi upright. FINDINGS: There are bilateral pleural effusions and bibasilar infiltrates, somewhat worse on the left, unchanged. There is cardiomegaly, unchanged. IMPRESSION: No interval change. <Electronically signed by Choco Granger > 11/07/20 0852
[2020-11-07] MEDS: GABAPENTIN 300 MG CAP PO SCH ×3 (09:59→21:00)
[2020-11-07] MEDS: FELBAMATE 600 MG PO SCH ×3 (09:59→21:00)
[2020-11-07] MEDS: oxyBUTYnin *DITROPAN XL* 5 MG TABCR PO SCH (09:59)
[2020-11-07] MEDS: SODIUM CHLORIDE 1 GM TAB PO SCH ×3 (09:59→21:00)
[2020-11-07] MEDS: DIVALPROEX 250MG *ER* TAB PO SCH (09:59)
--- NOTE | 2020-11-07 10:29 | IPNPDOC ---
Subjective Date Seen The patient was seen on 11/07/20. Subjective Chief Complaint/HPI Denies any abdominal pain or SOB. He does have a very noisy respirations. He keeps his neck bent forward in chin to chest position which as per sister is normal for him. No fever or chills, no chest pain. Nurse noted coughing with every oral intake. he was able to take his pills in apple sauce without any problem. As per mother he always has coughing when he eats at home also. Objective Physical Examination General Exam: Positive: Alert, Cooperative, No Acute Distress Eye Exam: Positive: PERRLA, Conjunctiva & lids normal, EOMI; Negative: Sclera icteric ENT Exam: Positive: Atraumatic, Mucous membr. moist/pink, Pharynx Normal Neck Exam: Positive: Supple; Negative: thyromegaly Chest Exam: Positive: Clear to auscultation, Diminished (at leonardo bases) Heart Exam: Positive: Rate Normal, Regular Rhythm, Normal S1, Normal S2; Negative: Murmurs, Rubs Telemetry: Positive: No significant arrhythmia Abdomen Exam: Positive: Normal bowel sounds, Soft; Negative: Tenderness Extremity Exam: Negative: Clubbing, Cyanosis, Edema Skin Exam: Positive: Nl turgor and temperature; Negative: Breakdown, Lesion Assessment /Plan Assessment 60 year old male with Down's syndrome, mental retardation, dementia with occasional behavioral issues, seizure, dysphagia, chronic hyponatremia, chronic constipation, lives at home with 24 x7 care, has gait instability and ambulates with a walker has been noticed to be very weak and tired and sometimes listless from 10/31/20. Incidentally he received his first COVID vaccine on 10/27/20. For the past 1 day he has been so weak that the caregiver could not even get him out of the bed. In the ED he was noted to be hyponatremic to 123, also his AST and ALT and ALP were elevated. GB ultrasound did not show any gall stones or GB pathology. But the technologist noted that there may be some fluid around the heart. A stat echo was ordered. Patient was admitted for hyponatremia, transaminitis and suspected large pericardial effusion rule out tamponade. Weakness/ inability to ambulate most likely due to Hyponatremia with baseline gait instability hyponatremia made it worse. PT, OT Hyponatremia Due to SIADH with possible intravascular volume depression. Now at baseline. On lasix and salt tabs. Paroxetine stopped. Hyperkalemia given patiromer Transaminitis: ? hepatic congestion Both Felbamate and valproate can cause elevation of transaminases however patient has been on these for years so less likely Patient may have right heart failure and hepatic congestion. His abdomen is benign so i do not think he has any biliary / GB etiology will get hepatitis panel. Pericardial effusion non compressive no surgical intervention needed at this time. Dr Siddiqui following scheduled for another echo. Bilateral pleural effusion with bilateral compressive atelectasis. fluid overload with likely pulmonary hypertension adn right heart failure. Dysphagia will get specch and swallow eval. Acute urinary retention walter placement produced 500 cc Has h/o urinary incontinence but no major retention issues in the past managed with oxybutynin. Follows with urology Seizure disorder will continue home meds. valproate and felbamate. Hypertension will hold enalapril at present. Hypothyroid synthroid LOU may use own CPAP. Plan/VTE VTE Prophylaxis Ordered?: Yes VS, I&O, 24H, Fishbone Vital Signs/I&O Vital Signs Date Time Temp Pulse Resp B/P (MAP) Pulse Ox O2 Delivery O2 Flow Rate FiO2 11/07/20 08:00 98.8 100 20 136/78 (97) 99 Nasal Cannula 1.0 I&O- Last 24 Hours up to 6 AM 11/07/20 06:00 Intake Total 400 ml Output Total 720 ml Balance -320 ml Laboratory Data 24H LABS Laboratory Tests 2 11/07/20 03:52: Immature Granulocyte % (Auto) 0.8, Neutrophils (%) (Auto) 65.7, Lymphocytes (%) (Auto) 14.6L, Monocytes (%) (Auto) 17.2H, Eosinophils (%) (Auto) 1.3, Basophils (%) (Auto) 0.4, Neutrophils # (Auto) 7.6, Lymphocytes # (Auto) 1.7, Monocytes # (Auto) 2.0H, Eosinophils # (Auto) 0.2, Basophils # (Auto) 0.1, Nucleated Red Blood Cells % (auto) 0.0, Anion Gap 5L, Glomerular Filtration Rate > 60.0, Calcium Level 9.2, Total Bilirubin 0.5, Aspartate Amino Transf (AST/SGOT) 85H, Alanine Aminotransferase (ALT/SGPT) 139H, Alkaline Phosphatase 516H, Total Protein 6.0L, Albumin 2.1L, Albumin/Globulin Ratio 0.5 CBC/BMP Laboratory Tests 11/07/20 03:52 MARTIN MIGUEL MD Nov 07, 2020 10:29
[2020-11-07] MEDS ORDERED: PATIROMER SORBITEX CALCIUM 8.4 GM POWDER PACKET (VELTASSA) PO ONE (11:00)
[2020-11-07 11:02] LABS: HEPATITIS B SURFACE ANTIGEN NEGATIVE (NEGATIVE)
[2020-11-07 11:29] LABS: HEPATITIS C VIRUS ABY INDEX < 0.0 INDEX (<0.8)
[2020-11-07 11:30] LABS: HEPATITIS B CORE ANTIBODY IGM NEGATIVE (NEGATIVE)
[2020-11-07 11:32] LABS: HEPATITIS A ANTIBODY IGM NEGATIVE (NEGATIVE)
--- NOTE | 2020-11-07 13:33 | IPN ---
THORACIC SURGERY PROGRESS NOTE DATE: 11/07/2020 SUBJECTIVE: No acute events overnight. Patient is seen and examined at bedside and continues to not endorse any acute complaints. He is able to say hello and does not admit to being in any pain. OBJECTIVE: VITAL SIGNS: Temperature 98.8, pulse 100 with a regular rhythm, respiratory rate 20, blood pressure 136/78, saturating 99% on 1 liter nasal cannula. INTAKE AND OUTPUT: He has had 550 mL of intake in the last 24 hours and 1020 mL of output in the last 24 hours. GENERAL: Patient is a well-nourished male who appears his stated age, resting in bed with his head leaned anteriorly and to the right laterally. He does open his eyes and will respond somewhat to communication. HEENT: Normocephalic, atraumatic. Extraocular movements intact. Sclerae nonicteric. Mucous membranes moist. Nares patent and atraumatic. NECK: No jugular venous distention (JVD) appreciated. No cervical or supraclavicular lymphadenopathy. CARDIOVASCULAR: Regular rate and rhythm. Normal S1, S2. No murmurs, gallops or rubs. LUNGS: Dullness to percussion on the left. E to A egophony on the left. Inspiratory crackles appreciated. No wheezes or rhonchi. Mildly diminished breath sounds bilaterally. ABDOMEN: Soft, nontender. Mildly distended. No hepatosplenomegaly appreciated. EXTREMITIES: Show 1+ pitting edema extending up to the level of the knee bilaterally. PSYCHIATRIC: Patient is alert. Unable to ascertain if he is oriented. LABORATORY DATA: White blood cell count 11.5, hemoglobin 11, hematocrit 33.1, platelet count 437. CMP showing sodium 129, potassium 5.2, chloride 98, bicarbonate 26, BUN 18, creatinine 0.52, glucose 102. Total bilirubin 0.5, AST 85, ALT 139, alkaline phosphatase 516, total protein 6, albumin 2.1. Hepatitis A, B, C serology is pending. IMAGING: Chest x-ray is of poor quality, likely secondary to the patient's inability to sit upright adequately and his overall hunched-forward appearance. The right lung has sharp costophrenic angles and normal mediastinal borders with no evidence of infiltrate. The left lung is obscured by an enlarged heart, as there is definite cardiomegaly on examination, so it is difficult to identify the left costophrenic angle. There are no obvious acute infiltrates on the AP view. On the lateral view, it does seem as though there is some fluid in between the left upper and left lower lobe as well as a spine sign being present, concerning for possible pleural effusion on the left side versus infiltrate ASSESSMENT/PLAN: Patient is a 60-year-old male with left-sided pleural effusions and imaging showing a noncompressive pericardial effusion. He is not showing any signs of going into tamponade or worsening. His sodium level is improving back to baseline. His transaminitis is being worked up by the primary team. Still no current surgical intervention is necessary for his pericardial effusion. We will wait an additional 24 hours and tomorrow we will repeat an echocardiogram to see how the effusion has changed.
[2020-11-07 14:00] VITALS: BP 142/69
[2020-11-07 16:00] VITALS: BP 134/90
[2020-11-07] MEDS: FUROSEMIDE 20 MG TAB PO SCH (18:29)
[2020-11-07 20:00] VITALS: BP 150/87
[2020-11-07] MEDS: DIVALPROEX 500MG *ER* TAB PO SCH ×2 (20:43→21:00)
[2020-11-08] VITALS (7 sets, daily range): BP systolic 140–168; BP diastolic 67–90
[2020-11-08] MEDS: SLF 3 ML SYR IV SCH ×3 (05:42→22:00)
[2020-11-08] MEDS: LEVOTHYROXINE 50MCG TABLET (0.05MG) PO SCH (05:42)
[2020-11-08 05:54] LABS: BASO % 0.3 % (0.0-1.0); EOS # 0.1 10^3/uL (0.0-0.5); EOS % 0.6 % (0.0-3.0); HEMATOCRIT 35.3 % (42.0-52.0); HEMOGLOBIN 11.8 g/dl (13.5-17.5); LYMPH # 1.2 10^3/uL (1.5-5.0); LYMPH % 8.3 % (24.0-44.0); MEAN CORPUSCULAR HEMOGLOBIN 32.2 pg (27.0-33.0); MEAN CORPUSCULAR HGB CONC 33.4 g/dl (32.0-36.5); MEAN CORPUSCULAR VOLUME 96.4 fl (80.0-96.0); MONO # 2.3 10^3/uL (0.0-0.8); MONO % 16.1 % (2.0-8.0); NEUTROPHILS # 10.6 10^3/uL (1.5-8.5); NEUTROPHILS % 74.1 % (36.0-66.0); PLATELET COUNT, AUTOMATED 507 10^3/uL (150-450); RED BLOOD COUNT 3.66 10^6/uL (4.30-6.10)
[2020-11-08 06:17] LABS: ALBUMIN 2.1 GM/DL (3.2-5.2); ALT/SGPT 108 U/L (12-78); BILIRUBIN,TOTAL 0.4 MG/DL (0.2-1.0); BLOOD UREA NITROGEN 19 MG/DL (7-18); CALCIUM LEVEL 9.4 MG/DL (8.8-10.2); CARBON DIOXIDE LEVEL 25 MEQ/L (21-32); CHLORIDE LEVEL 100 MEQ/L (98-107); CREATININE FOR GFR 0.41 MG/DL (0.70-1.30); GLOMERULAR FILTRATION RATE > 60.0 (>49); GLUCOSE, FASTING 103 MG/DL (70-100); POTASSIUM SERUM 4.8 MEQ/L (3.5-5.1); SODIUM LEVEL 133 MEQ/L (136-145); TOTAL PROTEIN 6.2 GM/DL (6.4-8.2); WHITE BLOOD COUNT 14.3 10^3/uL (4.0-10.0)
[2020-11-08] MEDS ORDERED: SODIUM CHLORIDE 1 GM TAB PO SCH (09:00)
[2020-11-08] MEDS: GABAPENTIN 300 MG CAP PO SCH (09:00)
--- NOTE | 2020-11-08 09:05 | REP ---
INDICATION: aspiration pneumonia. COMPARISON: The chest CT dated 11/05/2020. TECHNIQUE: Chest CT without IV contrast. FINDINGS: There are bilateral pleural effusions with the left pleural effusion being larger. This is unchanged. There is a left lower lobe infiltrate versus compression atelectasis from the left pleural effusion. This is slightly larger. The left please the obstruction now and 9-10 at GI of these does the of the brain fundus up wraparound distal soft cast is not subcu line be able see portion better attic fat on the is 2.3 cm depth posterolaterally on the left. This is unchanged.. There is mild compression atelectasis of the right lower lobe from the right pleural effusion. This is unchanged. There are no new infiltrates. There are no upper lobe infiltrates. This is unchanged. There is a pericardial effusion as previously. This measures 2.3 cm depth along the left posterolateral margin of the heart. This is unchanged. Ascending thoracic aorta mildly dilated as previously. IMPRESSION: There are bilateral pleural effusions, left pleural effusion is slightly larger. This is un changed. There is a left lower lobe infiltrate versus compression atelectasis from the effusion, however, this appears to have increased in size. There are no new infiltrates. There are no upper lobe infiltrates. Pericardial effusion, unchanged. No other interval changes. <Electronically signed by Choco Granger > 11/08/20 0902
[2020-11-08] MEDS ORDERED: D5W/0.9% SODIUM CHLORIDE 1,000 ML IV SCH (09:45)
--- NOTE | 2020-11-08 09:50 | IPNPDOC ---
Subjective Date Seen The patient was seen on 11/08/20. Subjective Chief Complaint/HPI having low grade fever over night. Patient likely is having aspirations. WBC is higher also. CT chest with increased Left lower lobe infiltrate vs atelectasis with likely increased left pleural effusion. Pig tail cath placement on th left by IR. Objective Physical Examination General Exam: Positive: Alert, Cooperative, No Acute Distress, Other (keeps his head bent forward in chin to chest position. ) Eye Exam: Positive: PERRLA, Conjunctiva & lids normal, EOMI; Negative: Sclera icteric ENT Exam: Positive: Atraumatic, Mucous membr. moist/pink, Pharynx Normal Neck Exam: Positive: Supple; Negative: thyromegaly Chest Exam: Positive: Diminished (at leonardo bases), Other (bilateral basal crackles. ) Heart Exam: Positive: Rate Normal, Regular Rhythm, Normal S1, Normal S2; Negative: Murmurs, Rubs Telemetry: Positive: No significant arrhythmia Abdomen Exam: Positive: Normal bowel sounds, Soft; Negative: Tenderness Extremity Exam: Negative: Clubbing, Cyanosis, Edema Skin Exam: Positive: Nl turgor and temperature; Negative: Breakdown, Lesion Assessment /Plan Assessment 60 year old male with Down's syndrome, mental retardation, dementia with occasional behavioral issues, seizure, dysphagia, chronic hyponatremia, chronic constipation, lives at home with 24 x7 care, has gait instability and ambulates with a walker has been noticed to be very weak and tired and sometimes listless from 10/31/20. Incidentally he received his first COVID vaccine on 10/27/20. For the past 1 day he has been so weak that the caregiver could not even get him out of the bed. In the ED he was noted to be hyponatremic to 123, also his AST and ALT and ALP were elevated. GB ultrasound did not show any gall stones or GB pathology. But the technologist noted that there may be some fluid around the heart. A stat echo was ordered. Patient was admitted for hyponatremia, transa minitis and suspected large pericardial effusion rule out tamponade. Dysphagia/Aspiration pneumonia having low grade fever over night. Patient likely is having aspirations. WBC is higher also. CT chest with increased Left lower lobe infiltrate vs atelectasis. will start on Zosyn Speech and swallow eval. discussed with Brother Noble about PEG tube placement. Family is discussing will change meds to IV formulations , NPO ivf Blood cultures Hyponatremia Due to SIADH with possible intravascular volume depression. Now at baseline. On lasix and salt tabs. Paroxetine stopped. Pericardial effusion non compressive Dr Siddiqui following scheduled for another echo on 11/08/20 Bilateral pleural effusion with bilateral compressive atelectasis. fluid overload with likely pulmonary hypertension and right heart failure. s/p pig tail catheter placement on the left 500 cc drained Transaminitis: ? hepatic congestion Both Felbamate and valproate can cause elevation of transaminases however patient has been on these for years so less likely Patient may have right heart failure and hepatic congestion. His abdomen is benign so i do not think he has any biliary / GB etiology hepatitis panel is negative. Acute urinary retention walter placement produced 500 cc Has h/o urinary incontinence but no major retention issues in the past managed with oxybutynin which is now held. Follows with urology Weakness/ inability to ambulate most likely due to Hyponatremia with baseline gait instability hyponatremia made it worse. PT, OT Seizure disorder will continue home meds. valproate and felbamate. Hypertension will hold enalapril at present. Hypothyroid synthroid LOU may use own CPAP. Plan/VTE VTE Prophylaxis Ordered?: Yes VS, I&O, 24H, Fishbone Vital Signs/I&O Vital Signs Date Time Temp Pulse Resp B/P (MAP) Pulse Ox O2 Delivery O2 Flow Rate FiO2 11/08/20 08:00 98.9 90 20 168/85 (112) 92 Nasal Cannula 11/07/20 08:00 1.0 I&O- Last 24 Hours up to 6 AM 11/08/20 06:00 Intake Total 120 ml Output Total 650 ml Balance -530 ml Laboratory Data 24H LABS Laboratory Tests 2 11/08/20 05:37: Immature Granulocyte % (Auto) 0.6, Neutrophils (%) (Auto) 74.1H, Lymphocytes (%) (Auto) 8.3L, Monocytes (%) (Auto) 16.1H, Eosinophils (%) (Auto) 0.6, Basophils (%) (Auto) 0.3, Neutrophils # (Auto) 10.6H, Lymphocytes # (Auto) 1.2L, Monocytes # (Auto) 2.3H, Eosinophils # (Auto) 0.1, Basophils # (Auto) 0.0, Nucleated Red Blood Cells % (auto) 0.0, Anion Gap 8, Glomerular Filtration Rate > 60.0, C alcium Level 9.4, Total Bilirubin 0.4, Aspartate Amino Transf (AST/SGOT) 41H, Alanine Aminotransferase (ALT/SGPT) 108H, Alkaline Phosphatase 476H, Total Protein 6.2L, Albumin 2.1L, Albumin/Globulin Ratio 0.5 CBC/BMP Laboratory Tests 11/08/20 05:37 MARTIN MIGUEL MD Nov 08, 2020 09:50
[2020-11-08] MEDS ORDERED: PILL CUTTER 1 EACH XX PRN (09:55)
[2020-11-08] MEDS: FUROSEMIDE 20 MG TAB PO SCH ×2 (10:17→16:18)
[2020-11-08] MEDS: FELBAMATE 600 MG PO SCH ×2 (10:17→22:28)
--- NOTE | 2020-11-08 10:43 | REP ---
INDICATION: pericadiel effusion. COMPARISON: 11/07/2020. TECHNIQUE: Portable AP and lateral chest with the patient semi upright.. FINDINGS: The bilateral pleural effusions and bibasilar infiltrates are unchanged. There is cardiomegaly, unchanged. IMPRESSION: No significant interval change. <Electronically signed by Choco Granger > 11/08/20 [id number]
[2020-11-08 11:11] LABS: LDH LACTATE DEHYDROGENASE 116 U/L (87-241)
[2020-11-08] MEDS ORDERED: DIVALPROEX SPRINKLE 125 MG CAP PO SCH ×2 (12:00→21:00)
--- NOTE | 2020-11-08 12:21 | IPN ---
INPATIENT PROGRESS NOTE DATE: 11/07/2020 SUBJECTIVE: Patient seen and examined this morning at the be0 side. He is a limited historian, but tells me he is comfortable and denies any complaint. His serum sodium continues to correct. PHYSICAL EXAMINATION: Temperature 99.7, pulse 102, respiratory rate 22, blood pressure 142/69, saturating 98% on room air. Intake yesterday was only recorded as 550. Urine output yesterday was recorded as 1 liter. Weight on the bed scale today is 74.7 kg. General: Patient is seen sitting in bed with the head of the bed elevated and with his neck significantly flexed and tilted forward. He is drowsy, but easily arousable and opens his eyes and responds slowly to simple questioning when questions are repeatedly stated. HEENT: Extraocular muscles are intact. Tongue is moist. Neck: Jugular veins were difficult to assess, but did not appear elevated, but the patient was sitting upright. Heart: Sounds are regular S1 and S2. There is no friction murmur. There is clear breath sounds bilaterally in the superior aspect and diminished at the base. Abdomen: Soft and nontender. Extremities: Show 1+ leg edema. Skin: Warm and dry. LABORATORY DATA: White count 11.5, hemoglobin 11, platelets 437. Sodium 129, potassium 5.2, bicarbonate 26, BUN 18, creatinine 0.85. AST and ALT remain elevated. Albumin 2.1. IMAGING: Chest x-ray done today shows bilateral pleural effusions and cardiomegaly. INPATIENT MEDICATIONS: Reviewed by myself. He has gotten 2 doses of Lasix 20 mg by mouth now and he continues salt tab 2 gram by mouth twice a day and Veltassa 8.4 gram by mouth times 1 dose is ordered. Remainder of medications are unchanged as compared to yesterday. PROBLEMS/PLAN: 1. Acute on chronic hypoosmolar hypervolemic hyponatremia: The last time patient had a normal serum sodium was back in May,. He is chronically hyponatremic. I would just try to get his sodium up around 130. Today at 129 his urine osmolality is significantly elevated and hyponatremia is likely related to chronic SIADH with interfering medications including anti-epileptics and SSRI. Given his elevated urine osmolality and pleural effusions and pericardial effusion he is receiving Lasix 20 mg twice a day and he is on an oral fluid restriction of 1.5 liters daily. I am cutting down his salt tablet in view of effusions. 2. Moderate pericardial effusion and small bilateral pleural effusions in the setting of significant hypoalbuminemia with serum albumin of only 2: The patient seems to have a decreased effective circulating volume given urine sodium was less than 10. Continue 1.5 liter fluid restriction and trial of low dose Lasix was given and the patient did tolerate without any drop in his serum sodium hence we will continue with Lasix at this time. 3. Hyperkalemia: Potassium restriction is added to the diet. Lasix will also help with potassium excretion and 1 dose of Veltassa is also ordered. 4. Transaminitis: Etiology is uncertain. LFTs bumped up again today. His alkaline phosphatase is also rising. Defer further work-up to primary service. 5. Urinary retention: Continue with Sinha catheter at this time.
[2020-11-08] MEDS ORDERED: LIDOCAINE 1% MDV 20ML VIAL As Ordered ONE (12:46)
--- NOTE | 2020-11-08 12:49 | IPN ---
THORACIC SURGERY PROGRESS NOTE DATE: 11/08/2020 SUBJECTIVE: No acute events overnight. Patient has had poor oral intake per nursing staff. When asked directly if he was in any discomfort or having any shortness of breath, he says no. He did have a fever overnight and, because of his coughing after eating, a chest CT was ordered after concern for possible aspiration pneumonia by the primary team. OBJECTIVE: VITAL SIGNS: Maximum temperature (T-max) of 100.9 overnight, current temperature as of 0800 hours of 98.9, pulse of 90 and regular, respiratory rate 20, blood pressure 168/85, saturating 92% on nasal cannula. He desaturated as low as 87 on room air, it appears, yesterday evening requiring supplemental oxygen. INTAKE AND OUTPUT: In the last 24 hours, he has had 120 mL of oral intake with 200 mL of urine output. GENERAL: Patient is a well-nourished male who appears stated age with head leaned anteriorly and to the right laterally, laying at a 45 degree angle in bed, in no acute distress. HEENT: Head is normocephalic, atraumatic. Extraocular movements intact. Sclerae nonicteric. Mucous membranes are moist. Nares are patent and atraumatic. NECK: There is no sense of jugular venous distention (JVD). CARDIOVASCULAR: It is difficult to appreciate his heart because of his upper airway breath sounds; however, from what can be heard, there is a regular rate and rhythm and normal S1 and S2. Unable to appreciate a friction rub. No murmurs or gallops. LUNGS: Breath sounds are diminished bilaterally. There continues to be dullness to percussion on the left with E to A egophony on the left and mild inspiratory crackles are appreciated. No wheezes, rhonchi. ABDOMEN: Obese, soft, nontender. Possibly mildly distended. No hepatosplenomegaly appreciated. EXTREMITIES: There is 1-2 mm of pitting edema up to the level of the knee bilaterally. PSYCHIATRIC: Patient is awake and alert. Unable to ascertain if he is oriented, as he only seems to respond with yes or no. LABORATORY DATA: White blood cell count 14.3, hemoglobin 11.8, hematocrit 35.3, platelet count 507. Sodium 133, potassium 4.8, chloride 100, bicarbonate 25, BUN 19, creatinine 0.41, glucose 103. Total bilirubin 0.4, AST 41, ALT 108, alkaline phosphatase 476, LDH is pending, total protein 6.2, albumin 2.1. IMAGING: His chest x-ray is largely unchanged from the days prior, though it is difficult to still see what is happening on the left side. He does have some mild coning of his right costophrenic angle. There is a spine sign appreciated on the lateral view on chest CT. On chest CT, it seems like his left-sided pleural effusion has gotten somewhat larger despite the radiology report. His pericardial effusion also seems to have gotten somewhat larger as well. The right pleural effusion is largely unchanged from the 11/05/2020 study. ASSESSMENT AND PLAN: Patient is a 60-year-old male with a left-sided pleural effusion and a pericardial effusion. We will order a repeat echocardiogram today to look for signs of tamponade given his new chest CT findings. It does seem as though he is having a worsening pleural effusion as well despite his diuresis, so we will also put in for an interventional radiology (IR) guided diagnostic and therapeutic thoracentesis of the effusion in his left lower lobe with pleural fluid analysis and cytology studies. While we were at bedside for his echocardiogram, it did not show overt signs of tamponade. We will await the read from Dr. Putnam regarding the worsening of his pericardial effusion to decide whether or not to take him to the operating room. As such, we will make him nothing by mouth at this time and put him on D5 normal saline. We have reached out to nephrology, as they are currently diuresing him and do not want him to be on intravenous (IV) fluids. They are okay with him being on 30 mL of D5 normal saline while they continue their current management plan. Once the echocardiogram read is back saying that he does not have signs of worsening pericardial effusion, he can be switched back to his pureed diet and taken off of the IV fluids.
--- NOTE | 2020-11-08 14:28 | REP ---
INDICATION: s/p pigtail catheter placement. COMPARISON: 11/08/2020 8:12 a.m. TECHNIQUE: SINGLE PORTABLE AP VIEW OF THE CHEST WAS PERFORMED. FINDINGS: Pigtail drainage catheter overlies the left pleural space inferiorly. There is decreased left pleural fluid. Parenchymal opacities are seen in the lower left lung zone. There is a very tiny left apical pneumothorax. There appears to be a small right effusion with mild right base parenchymal opacity. Cardiac silhouette is moderately enlarged. There is calcification and ectasia of the thoracic aorta. IMPRESSION: Pigtail drainage catheter overlying left inferior pleural space with decreased amount of left pleural fluid and a very tiny left apical pneumothorax. <Electronically signed by Choco Yang > 11/08/20 [id number]
[2020-11-08 14:29] LABS: PH BODY FLUID 7.729 UNITS (NOT ESTABLISHED); SOURCE, BODY FLUID pH PLEURAL
[2020-11-08 14:33] LABS: APPEARANCE, BODY FLUID HAZY (CLEAR); PLEURAL FL COLOR YELLOW (COLORLESS); SOURCE, BODY FLUID PLEURAL
[2020-11-08 15:34] LABS: AMYLASE, BODY FLUID 25 U/L (NOT ESTABLISHED); CHOLESTEROL, BODY FLUID 69 MG/DL (NOT ESTABLISHED); LDH, BODY FLUID 60 U/L (NOT ESTABLISHED); SOURCE, BODY FLUID ALBUMIN PLEURAL; SOURCE, BODY FLUID AMYLASE PLEURAL; SOURCE, BODY FLUID CHOL PLEURAL; SOURCE, BODY FLUID GLUCOSE PLEURAL; SOURCE, BODY FLUID LDH PLEURAL; SOURCE, BODY FLUID TOT PROTEIN PLEURAL; SOURCE, BODY FLUID TRIG PLEURAL; TOTAL PROTEIN, BODY FLUID 3.3 G/DL (NOT ESTABLISHED); TRIGLYCERIDE, BODY FLUID 13 MG/DL (NOT ESTABLISHED)
[2020-11-08] MEDS ORDERED: ALBUTEROL SULFATE 2.5 MG/0.5 ML INH NEB SOLN NEB PRN (16:50)
--- NOTE | 2020-11-08 18:11 | REP ---
INDICATION: PIGTAIL CATHETER. COMPARISON: None. TECHNIQUE: The procedure was performed personal supervision of Dr. Yang. The risks and benefits of the procedure were explained and informed consent obtained by the healthcare proxy. The left pleural effusion was localized using ultrasound guidance. The skin was prepped and draped in a sterile fashion. 1% lidocaine was used as a local anesthetic. Using ultrasound guidance a 10 [place] skater APDL catheter was inserted using trocar technique. 200 cc of yellow fluid was withdrawn and sent to the lab for analysis. The catheter was affixed to the skin a sterile dressing applied. Catheter was connected to a pleura vac. The patient tolerated the procedure and there were no immediate complications after the appropriate amount to monitor convalescence the patient was discharged from department FINDINGS: None IMPRESSION: Ultrasound-guided left thoracentesis with catheter placement. 200 cc of yellow fluid was withdrawn and sent to the lab for analysis <Electronically signed by Eugenio Flores > 11/08/20 [id number] <Electronically signed by Choco Yang > 11/08/20 [id number]
[2020-11-08] MEDS: FUROSEMIDE 20MG/2ML VIAL (J1940) IV SCH (19:15)
[2020-11-08] MEDS: PIPERACILLIN/TAZOBACTAM SOD 3.375 GM in D5W MINI-BAG PLUS 50 ML IV SCH (20:45)
[2020-11-08] MEDS: D5W IV SCH (22:03)
[2020-11-08] MEDS: VALPROATE SOD IV SCH (22:03)
[2020-11-09] VITALS: BP 162/88
[2020-11-09] MEDS: PIPERACILLIN/TAZOBACTAM SOD 3.375 GM in D5W MINI-BAG PLUS 50 ML IV SCH ×4 (01:16→17:15)
[2020-11-09 02:20] VITALS: BP 160/80
--- NOTE | 2020-11-09 03:00 | IPNPDOC ---
Text Note Date of Service The patient was seen on 11/09/20. VS,Fishbone, I+O VS, Fishbone, I+O Laboratory Tests 11/08/20 05:37 Vital Signs Date Time Temp Pulse Resp B/P (MAP) Pulse Ox O2 Delivery O2 Flow Rate FiO2 11/09/20 02:20 99.9 101 36 160/80 (106) 93 Nasal Cannula 2.0 I&O- Last 24 Hours up to 6 AM 11/09/20 06:00 Intake Total 120 ml Output Total 1800 ml Balance -1680 ml LIZZETTE HUNTER MD Nov 09, 2020 03:00
--- NOTE | 2020-11-09 03:14 | IPNPDOC ---
Subjective Date Seen The patient was seen on 11/09/20. Subjective Chief Complaint/HPI The patient is a 60-year-old male with Down syndrome and intellectual disability who had a left-sided pleural effusions and imaging showing a noncompressive pericardial effusion. I was notified by nursing that patient RR is 36 HR 101. I assessed the patient in person and ordered for a STAT XR chest and STAT ABG and fingerstick check. Upon chart reviewing his RR usu runs around 34 and vitals on 11/08/20 at 1600 reported a RR of 30; 2200 report of 19; however, those were readings prior to patient falling asleep. The patient's head and neck is in a flexed posture when he sleeps and i suspect that that may be a component for his breathing as this posturing can cause the chest muscles to tighten which limits further the ability of his rib cage to expand. I will order for a 1x dose of toradol for pain. While in the room with patient, he became more awake and alert and was able to respond to painful stimuli with the ABG draw. Unable to check for airleak as patient gives limited effort when asked to cough. His repeat vitals and bp is 160/80 manually, O2 sat 93% on 2L NC and temp 99.9. Will order for 24h continuous pulse ox monitoring. I was also able to reach out to Resident (Dr. Crouch) communications associate with Cardiothoracic surgery who reports that a bedside ECHO was performed yesterday at bedside per Dr. Putnam who interpreted and no signs of compressive pericardial effusion. Patient is on appropriate IV abx coverage. Will monitor closely tonight. Objective Physical Examination General Exam: Positive: Alert, Cooperative, No Acute Distress, Other (keeps his head bent forward in chin to chest position. ) Eye Exam: Positive: PERRLA, Conjunctiva & lids normal, EOMI; Negative: Sclera icteric ENT Exam: Positive: Atraumatic, Mucous membr. moist/pink, Pharynx Normal Neck Exam: Positive: Supple; Negative: thyromegaly Chest Exam: Positive: Diminished (at leonardo bases), Other (bilateral basal crackles. ) Heart Exam: Positive: Rate Normal, Regular Rhythm, Normal S1, Normal S2; Negative: Murmurs, Rubs Telemetry: Positive: No significant arrhythmia Abdomen Exam: Positive: Normal bowel sounds, Soft; Negative: Tenderness Extremity Exam: Negative: Clubbing, Cyanosis, Edema Skin Exam: Positive: Nl turgor and temperature; Negative: Breakdown, Lesion Assessment /Plan Plan/VTE VTE Prophylaxis Ordered?: Yes VS, I&O, 24H, [facility] Vital Signs/I&O Vital Signs Date Time Temp Pulse Resp B/P (MAP) Pulse Ox O2 Delivery O2 Flow Rate FiO2 11/09/20 02:20 99.9 101 36 160/80 (106) 93 Nasal Cannula 2.0 I&O- Last 24 Hours up to 6 AM 11/09/20 05:59 Intake Total 120 ml Output Total 2200 ml Balance -2080 ml Laboratory Data 24H LABS Laboratory Tests 2 11/08/20 05:37: Immature Granulocyte % (Auto) 0.6, Neutrophils (%) (Auto) 74.1H, Lymphocytes (%) (Auto) 8.3L, Monocytes (%) (Auto) 16.1H, Eosinophils (%) (Auto) 0.6, Basophils (%) (Auto) 0.3, Neutrophils # (Auto) 10.6H, Lymphocytes # (Auto) 1.2L, Monocytes # (Auto) 2.3H, Eosinophils # (Auto) 0.1, Basophils # (Auto) 0.0, Nucleated Red Blood Cells % (auto) 0.0, Anion Gap 8, Glomerular Filtration Rate > 60.0, Calcium Level 9.4, Total Bilirubin 0.4, Aspartate Amino Transf (AST/SGOT) 41H, Alanine Aminotransferase (ALT/SGPT) 108H, Alkaline Phosphatase 476H, Lactate Dehydrogenase 116, Total Protein 6.2L, Albumin 2.1L, Albumin/Globulin Ratio 0.5 11/08/20 13:20: Body Fluid pH 7.729, Body Fluid pH Source PLEURAL, Body Fluid WBC (Auto) 176H, Body Fluid RBC (Auto) 2, Body Fluid Mononuclear Cells % Auto 44.9H, Fluid Polymorphonuclear Cell % Auto 55.1H, Body Fluid Glucose Source PLEURAL, Body Fluid Glucose 114, Body Fluid Protein Source PLEURAL, Body Fluid Total Protein 3.3, Body Fluid Albumin Source PLEURAL, Body Fluid Albumin 1.6, Body Fluid LDH Source PLEURAL, Body Fluid Lactate Dehydrogenase 60, Body Fluid Amylase Source PLEURAL, Body Fluid Amylase 25, Body Fluid Cholesterol 69, Body Fluid Cholesterol Source PLEURAL, Body Fluid Triglyceride Source PLEURAL, Body Fluid Triglycerides 13, Pleural Fluid Source PLEURAL, Pleural Fluid Color YELLOW, Pleural Fluid Appearance HAZY 11/09/20 02:58: Bedside Glucose (Misc Panel) 96 CBC/BMP Laboratory Tests 11/08/20 05:37 Microbiology Microbiology 11/08/20 Blood Culture, Received Pending 11/08/20 Blood Culture, Received Pending 11/08/20 Acid Fast Stain, Received Pending 11/08/20 Mycobacterial Culture, Received Pending 11/08/20 Fungal Smear, Received Pending 11/08/20 Fungal Culture, Received Pending 11/08/20 Gram Stain, Received Pending 11/08/20 Anaerobic Culture, Received Pending 11/08/20 Body Fluid Culture, Received Pending GME ATTESTATION GME ATTESTATION My faculty preceptor for this patient encounter was physically present during the encounter and was fully available. All aspects of the patient interview, examination, medical decision making process, and medical care plan development were reviewed and approved by the faculty preceptor. The faculty preceptor is aware and concurs with the plan as stated in the body of this note and will attest to such by his/her cosignature. Abdoul Sawant DO Nov 09, 2020 03:14 LIZZETTE HUNTER MD Nov 15, 2020 05:32
[2020-11-09] MEDS ORDERED: KETOROLAC 30 MG/ML 1ML VIAL IV ONE (03:20)
[2020-11-09 03:24] LABS: ABG BASE EXCESS 1.5 (-2.0-2.0); ABG HCO3 24.1 MEQ/L (22.0-26.0); ABG O2 SATURATION 96.9 % (95.0-99.0); ABG PARTIAL PRESSURE CO2 31.9 mmHg (35.0-45.0); ABG PARTIAL PRESSURE O2 80.7 mmHg (75.0-100.0); ABG STANDARD HCO3 25.8 MEQ/L (22.0-26.0); ABG TOTAL CO2 25.1 MEQ/L (23.0-31.0); ABG pH (ARTERIAL) 7.496 UNITS (7.350-7.450)
[2020-11-09] MEDS: VALPROATE SOD IV SCH ×4 (04:37→21:39)
[2020-11-09] MEDS: D5W IV SCH ×4 (04:37→21:39)
[2020-11-09 05:59] LABS: BASO % 0.3 % (0.0-1.0); EOS # 0.1 10^3/uL (0.0-0.5); EOS % 0.5 % (0.0-3.0); HEMATOCRIT 36.8 % (42.0-52.0); HEMOGLOBIN 12.1 g/dl (13.5-17.5); LYMPH # 1.7 10^3/uL (1.5-5.0); LYMPH % 12.1 % (24.0-44.0); MEAN CORPUSCULAR HEMOGLOBIN 31.8 pg (27.0-33.0); MEAN CORPUSCULAR HGB CONC 32.9 g/dl (32.0-36.5); MEAN CORPUSCULAR VOLUME 96.6 fl (80.0-96.0); MONO # 2.1 10^3/uL (0.0-0.8); MONO % 15.1 % (2.0-8.0); NEUTROPHILS # 10.1 10^3/uL (1.5-8.5); NEUTROPHILS % 71.3 % (36.0-66.0); PLATELET COUNT, AUTOMATED 537 10^3/uL (150-450); RED BLOOD COUNT 3.81 10^6/uL (4.30-6.10)
[2020-11-09] MEDS: SLF 3 ML SYR IV SCH ×2 (06:01→14:33)
[2020-11-09 06:17] LABS: WHITE BLOOD COUNT 14.2 10^3/uL (4.0-10.0)
[2020-11-09 06:20] LABS: ALT/SGPT 68 U/L (12-78); BILIRUBIN,TOTAL 0.5 MG/DL (0.2-1.0); BLOOD UREA NITROGEN 19 MG/DL (7-18); CALCIUM LEVEL 9.4 MG/DL (8.8-10.2); CARBON DIOXIDE LEVEL 26 MEQ/L (21-32); CHLORIDE LEVEL 99 MEQ/L (98-107); CREATININE FOR GFR 0.47 MG/DL (0.70-1.30); GLOMERULAR FILTRATION RATE > 60.0 (>49); GLUCOSE, FASTING 101 MG/DL (70-100); POTASSIUM SERUM 4.8 MEQ/L (3.5-5.1); SODIUM LEVEL 132 MEQ/L (136-145); TOTAL PROTEIN 6.3 GM/DL (6.4-8.2)
[2020-11-09 08:00] VITALS: BP 153/81
[2020-11-09] MEDS: FELBAMATE 600 MG PO SCH ×2 (09:00→21:00)
[2020-11-09] MEDS: ENOXAPARIN 40MG/0.4ML SYRINGE (J1650 PER 10MG) SC SCH (09:26)
[2020-11-09] MEDS: FUROSEMIDE 20MG/2ML VIAL (J1940) IV SCH ×2 (09:26→17:16)
[2020-11-09] MEDS: KETOROLAC 30 MG/ML 1ML VIAL IV SCH ×3 (09:26→21:38)
--- NOTE | 2020-11-09 09:52 | REP ---
INDICATION: Pericardial effusion COMPARISON: 11/09/2020, 3:14 a.m. TECHNIQUE: PA/Lateral FINDINGS: Pigtail drainage catheter is again seen inferiorly on the left, unchanged. Very small left pneumothorax is stable. Mild parenchymal opacity in the left base is unchanged. Small right effusion is unchanged. The heart is enlarged. The mediastinal silhouette is unchanged. IMPRESSION: Stable exam. <Electronically signed by Choco Yang > 11/09/20 0926
[2020-11-09] MEDS: ALBUTEROL SULFATE 2.5 MG/0.5 ML INH NEB SOLN NEB SCH ×3 (10:16→20:17)
[2020-11-09 12:00] VITALS: BP 163/71
--- NOTE | 2020-11-09 12:06 | IPNPDOC ---
Subjective Date Seen The patient was seen on 11/09/20. Subjective Chief Complaint/HPI Patient has difficulty in holding up his head and always keeps it bent forward. He has h/o epilepsy from the from the age of 2 so he is person with developmental disability and any kind of MOLST form will have to go though the state. Family cannot decide to with hold any kind of treatment. His has been tachypneic since yesterday with very noisy respirations. since this morning and he is lethargic and not very responsive. He is unable to even raise his hands. He continues to have aspiration episodes. Echo from yesterday did not show any tamponade. CXR from today remains unchanged with small right pleural effusion, pig tail cath on the left with minimal pneumothorax Objective Physical Examination General Exam: Positive: Mild Distress, Other (keeps his head bent forward in chin to chest position. lethargic.) ENT Exam: Positive: Atraumatic, Other ENT (dry mucous membranes) Neck Exam: Positive: Supple; Negative: thyromegaly Chest Exam: Positive: Wheezing (mild wheezing), Diminished (at leonardo bases), Other (bilateral basal crackles. ) Heart Exam: Positive: Rate Normal, Regular Rhythm, Normal S1, Normal S2; Negative: Murmurs, Rubs Telemetry: Positive: No significant arrhythmia Abdomen Exam: Positive: Normal bowel sounds, Soft; Negative: Tenderness Extremity Exam: Negative: Clubbing, Cyanosis, Edema Skin Exam: Positive: Nl turgor and temperature; Negative: Breakdown, Lesion Assessment /Plan Assessment 60 year old male with Down's syndrome, mental retardation, dementia with occasional behavioral issues, seizure, dysphagia, chronic hyponatremia, chronic constipation, lives at home with 24 x7 care, has gait instability and ambulates with a walker has been noticed to be very weak and tired and sometimes listless from 10/31/20. Incidentally he received his first COVID vaccine on 10/27/20. For the past 1 day he has been so weak that the caregiver could not even get him out of the bed. In the ED he was noted to be hyponatremic to 123, also his AST and ALT and ALP were elevated. GB ultrasound did not show any gall stones or GB pathology. But the technologist noted that there may be some fluid around the heart. A stat echo was ordered. Patient was admitted for hyponatremia, transaminitis and suspected large pericardial effusion rule out tamponade. Dysphagia/Aspiration pneumonia CT chest with increased Left lower lobe infiltrate vs atelectasis. on Zosyn Speech and swallow eval. discussed with Brother Noble about PEG tube placement. Family is discussing will change meds to IV formulations , NPO ivf Blood cultures Hyponatremia Due to SIADH with possible intravascular volume depression. Now at baseline. On lasix Paroxetine stopped. Pericardial effusion non compressive Dr Siddiqui following another echo on 11/08/20 no features of tamponade. Bilateral pleural effusion with bilateral compressive atelectasis. fluid overload with likely pulmonary hypertension and right heart failure. s/p pig tail catheter placement on the left 500 cc drained Transaminitis: ? hepatic congestion , improving. Patient may have right heart failure and hepatic congestion. hepatitis panel is negative, abdomen benign. Felbamate is another possibility but he has been on it since childhood. Acute urinary retention walter placement produced 500 cc Has h/o urinary incontinence but no major retention issues in the past managed with oxybutynin which is now held. Follows with urology Weakness/ inability to ambulate most likely due to Hyponatremia with baseline gait instability hyponatremia made it worse. PT, OT Seizure disorder from the age of 2 will continue home meds. valproate and felbamate. Hypertension will hold enalapril at present. Hypothyroid synthroid LOU may use own CPAP. Developmental disability brother reports that he does not have Down's syndrome as documented in PMDs records. however he does have epilepsy from the age of 2 so has developmental disability any MOLST decisions has to be through the state. Plan/VTE VTE Prophylaxis Ordered?: Yes VS, I&O, 24H, Fishbone Vital Signs/I&O Vital Signs Date Time Temp Pulse Resp B/P (MAP) Pulse Ox O2 Delivery O2 Flow Rate FiO2 11/09/20 08:00 98.5 90 36 153/81 (105) 94 Nasal Cannula 2.0 I&O- Last 24 Hours up to 6 AM 11/09/20 06:00 Intake Total 320 ml Output Total 2350 ml Balance -2030 ml Laboratory Data 24H LABS Laboratory Tests 2 11/08/20 13:20: Body Fluid pH 7.729, Body Fluid pH Source PLEURAL, Body Fluid WBC (Auto) 176H, Body Fluid RBC (Auto) 2, Body Fluid Mononuclear Cells % Auto 44.9H, Fluid Polymorphonuclear Cell % Auto 55.1H, Body Fluid Glucose Source PLEURAL, Body Fluid Glucose 114, Body Fluid Protein Source PLEURAL, Body Fluid Total Protein 3.3, Body Fluid Albumin Source PLEURAL, Body Fluid Albumin 1.6, Body Fluid LDH Source PLEURAL, Body Fluid Lactate Dehydrogenase 60, Body Fluid Amylase Source PLEURAL, Body Fluid Amylase 25, Body Fluid Cholesterol 69, Body Fluid Ch olesterol Source PLEURAL, Body Fluid Triglyceride Source PLEURAL, Body Fluid Triglycerides 13, Pleural Fluid Source PLEURAL, Pleural Fluid Color YELLOW, Pleural Fluid Appearance HAZY 11/09/20 02:58: Bedside Glucose (Misc Panel) 96 11/09/20 03:15: Blood Gas Bicarbonate Standard 25.8, Arterial Blood pH 7.496H, Arterial Blood Partial Pressure CO2 31.9L, Arterial Blood Partial Pressure O2 80.7, Arterial Blood Total CO2 25.1, Arterial Blood HCO3 24.1, Arterial Blood Base Excess 1.5, Arterial Blood Oxygen Saturation 96.9 11/09/20 05:35: Immature Granulocyte % (Auto) 0.7, Neutrophils (%) (Auto) 71.3H, Lymphocytes (%) (Auto) 12.1L, Monocytes (%) (Auto) 15.1H, Eosinophils (%) (Auto) 0.5, Basophils (%) (Auto) 0.3, Neutrophils # (Auto) 10.1H, Lymphocytes # (Auto) 1.7, Monocytes # (Auto) 2.1H, Eosinophils # (Auto) 0.1, Basophils # (Auto) 0.0, Nucleated Red Blood Cells % (auto) 0.0, Anion Gap 7L, Glomerular Filtration Rate > 60.0, Calcium Level 9.4, Total Bilirubin 0.5, Aspartate Amino Transf (AST/SGOT) 24, Alanine Aminotransferase (ALT/SGPT) 68, Alkaline Phosphatase 451H, Total Protein 6.3L, Albumin 2.0L, Albumin/Globulin Ratio 0.5 CBC/BMP Laboratory Tests 11/09/20 05:35 Microbiology Microbiology 11/08/20 Blood Culture, Received Pending 11/08/20 Blood Culture, Received Pending 11/08/20 Acid Fast Stain, Received Pending 11/08/20 Mycobacterial Culture, Received Pending 11/08/20 Fungal Smear, Received Pending 11/08/20 Fungal Culture, Received Pending 11/08/20 Gram Stain - Final, Resulted 11/08/20 Anaerobic Culture, Resulted Pending 11/08/20 Body Fluid Culture, Received Pending MARTIN MIGUEL MD Nov 09, 2020 11:56
--- NOTE | 2020-11-09 12:38 | IPN ---
PROGRESS NOTE DATE: 11/09/2020 SUBJECTIVE: Called overnight regarding concern from nursing staff about increased tachypnea and possible altered mental status, as well as concerns for possible tamponade; however, I believe this was because the echo report was not in the system. A chest x-ray was done that showed improvement in the left-sided pleural effusions that was largely unchanged from the chest x-ray done post thoracentesis and an ABG was done that showed low pCO2 consistent with his tachypnea. He was also febrile overnight and had been started on Zosyn the day prior. Outside of that, there were no other interventions given outside of giving some Toradol for some supposed pain relief. He was also made n.p.o. status because of concerns for aspiration pneumonia, as he was seen visibly coughing and having food come out of his nostrils. OBJECTIVE: VITAL SIGNS: T-max of 102.5 yesterday afternoon and 100.7 overnight. This morning, temperature of 98.5. Pulse 90, respiratory rate 36, blood pressure 153/81, saturating 94% on 2 liters nasal cannula. INTAKE AND OUTPUT: He had 200 mL of output from the pigtail on initial drainage with a total of 470 yesterday. Urine total of 1860 yesterday and 220 mL of intake yesterday. GENERAL: The patient is a well-nourished appearing male who appears stated age with his head now lying more laterally and breathing somewhat more easily than he has when I have seen him prior, in no acute distress. HEENT: Head is normocephalic, atraumatic. Extraocular movements are intact. Sclerae nonicteric. Mucous membranes are moist. Nares are patent and atraumatic. NECK: No JVD. CARDIOVASCULAR: Regular rate and rhythm. Normal S1 and S2. No appreciable friction rub. No murmurs or gallops. LUNGS: Breath sounds diminished bilaterally; however, they are clearer throughout than they were yesterday. There is no dullness to percussion this morning on either side. There are no wheezes. There are transmitted upper airway sounds that sound similar to rhonchi and he is unable to cough to clear out these sounds. Initially on entering the room this morning, he was doing some abdominal breathing; however, later when he was repositioned, this had lessened significantly. ABDOMEN: Obese, soft, and nontender. Mildly distended. No hepatosplenomegaly appreciated. EXTREMITIES: 1 mm pitting edema to the level of the mid lora bilaterally. PSYCHIATRIC: The patient is awake, alert, and arousable. Unable to establish orientation. LABORATORY DATA: White blood cell count 14.2, hemoglobin 12.1, hematocrit 36.8, platelet count 537,000. BMP showing sodium 132, potassium 4.8, chloride 99, bicarb 26, BUN 19, creatinine 0.47, glucose 101. Total bilirubin 0.5, AST 24, ALT 68, alkaline phosphatase 451, total protein 6.3, albumin 2.0. Serum LDH 116. ABG showing pH 7.496, pCO2 of 31.9, pO2 of 80.7. Pleural fluid showing white blood cells 176, red blood cells 244.9%, mononuclear 55.1% PMNs. Fluid glucose 114. Fluid total protein 3.3. Fluid albumin 1.6. Fluid LDH 60. Fluid amylase 25. Fluid cholesterol 69. Fluid triglycerides 13. Hepatitis panel is negative. Blood cultures are pending. Gram stain is showing no cells or organisms. Pathology and cytology are both pending. IMAGING DATA: Chest x-ray both the portable chest x-ray from early this morning and the PA two view chest x-ray were done and are largely unchanged. They show the pigtail catheter in adequate positioning in the left lower lobe. The left-sided pleural effusions are significantly diminished from baseline and the left-sided heart borders are much clearer than they were previously. There is no tracheal deviation. There are no signs of acute infiltrate. The right lung windows are clear. ASSESSMENT AND PLAN: The patient is a 60-year-old male admitted for left-sided pleural effusion and pericardial effusion. The echocardiogram done yesterday did not show any further signs of compression; but at least at bedside, did appear to demonstrate somewhat enlargement of the fluid within the pericardium. We are still awaiting Dr. Putnam's formal read, however. Dr. Siddiqui spoke with him and there were no signs of compression. We will repeat this study this upcoming Friday in 72 hours to further assess if there is any progression of the pericardial effusion. The patient is n.p.o. status for his aspiration pneumonia and that is likely the cause of his tachypnea, as well as his fevers. He is on Zosyn, which I think is appropriate. He is diuresing well and we will continue with nephrology's plans at this time for diuresis. The thoracentesis results showed findings consistent with a transudative effusion, which is secondary to his showing transudative effusion, which could be consistent with his possible liver disease that he was experiencing on admission that seems to be improving. We will continue to follow along with this patient. Please do not hesitate to reach out to us with any questions or concerns. Dictated by Michele Crouch, DO in conjunction with attending Shayne Santana
[2020-11-09 16:00] VITALS: BP 130/74
[2020-11-09 20:00] VITALS: BP 138/78
--- NOTE | 2020-11-09 21:57 | IPN ---
NEPHROLOGY PROGRESS NOTE DATE: 11/09/2020 SUBJECTIVE: Mr. Machado is seen this morning at his bedside. The patient is non-communicative at present. He is resting in his bed and nursing staff reports periodic episodes of tachycardia with abdominal breathing. His chest tube has been draining pleural fluid. The pericardial effusion was felt to be small in size and did not require a pericardial drainage. In the meantime, the patient has been quite lethargic and not able to swallow appropriately so he has been made n.p.o. OBJECTIVE: PHYSICAL EXAMINATION: VITAL SIGNS: Temperature is 99.3 degrees Fahrenheit, heart rate 92 per minute, respiratory rate is about 30 per minute. Oxygen saturation 95% on 2 liters oxygen. INTAKE AND OUTPUT: Records from yesterday show a total output 2,110 mL. Out of it urine was 1,860 and chest tube output 470 mL. Today his weight is down to 71 kg. HEENT: Head is atraumatic. NECK: His neck is turned to the right side with significant kyphosis deformity. Neck veins are difficult to be assessed. HEART: Regular and without a pericardial friction rub. LUNGS: Diminished breath sounds. ABDOMEN: Soft and bowel sounds present. EXTREMITIES: Without any cyanosis or clubbing. NEUROLOGICAL: He remains poorly responsive. LABORATORY STUDIES: Today's labs show a sodium level of 132, potassium 4.8, CO2 26, BUN 19 and creatinine 0.47. Glucose 101 and calcium 9.4. AST is down to 24, ALT 68 and alkaline phosphatase 451. Total protein 6.3 and albumin 2.0. PROBLEMS: 1. Hyponatremia - sodium level has improved and stabilized without any significant casino change attendant the last 24 hours. At this point we will continue to diurese him as he has been in a negative fluid balance and would avoid any hypotonic fluids. He is receiving Furosemide 20 mg twice daily intravenously and we will continue with the same. 2. Pleural and pericardial effusion probably multifactorial. The patient has very low serum albumin and he can probably benefit from intravenous albumin infusions as he is currently n.p.o. He is being diuresed with good urine output.
[2020-11-10] VITALS (25 sets, daily range): BP systolic 93–174; BP diastolic 59–104
[2020-11-10] MEDS: PIPERACILLIN/TAZOBACTAM SOD 3.375 GM in D5W MINI-BAG PLUS 50 ML IV SCH ×5 (01:04→23:58)
[2020-11-10] MEDS: SLF 3 ML SYR IV SCH ×4 (01:04→22:35)
[2020-11-10] MEDS: ALBUTEROL SULFATE 2.5 MG/0.5 ML INH NEB SOLN NEB SCH ×4 (01:46→19:36)
[2020-11-10] MEDS: KETOROLAC 30 MG/ML 1ML VIAL IV SCH ×4 (02:51→20:11)
[2020-11-10] MEDS: VALPROATE SOD IV SCH ×4 (02:52→20:10)
[2020-11-10] MEDS: D5W IV SCH ×4 (02:52→20:10)
[2020-11-10] MEDS ORDERED: NS 500 ML IV ONE (03:20)
--- NOTE | 2020-11-10 03:22 | IPNPDOC ---
Text Note Date of Service The patient was seen on 11/10/20. NOTE 315am I was informed by the patient's RN that his HR suddenly increased to 170. At the time of my evaluation the patient was very alert and didn't appear to be in pain and was tracking our movements. He was slightly diaphoretic and warm. I was unable to perform vagal massage on him bc his neck was flexed. EKG showed sinus tachycardia #Sinus tachy possibly 2/2 dehydration He is NPO and being diuresed Per 's note we are to avoid hypotonic fluids and may consider albumin Plan: f/u Trop, Mg / I obtained consent from his brother Noble to infuse albumin VS,Hernán, I+O VS, Hernán, I+O Laboratory Tests 11/09/20 05:35 Vital Signs Date Time Temp Pulse Resp B/P (MAP) Pulse Ox O2 Delivery O2 Flow Rate FiO2 11/10/20 00:15 1.0 11/10/20 00:00 99.1 84 20 136/66 (89) 97 Nasal Cannula I&O- Last 24 Hours up to 6 AM 11/10/20 06:00 Intake Total 256.2 ml Output Total 1335 ml Balance -1078.8 ml LIZZETTE HUNTER MD Nov 10, 2020 03:22
[2020-11-10 03:32] LABS: BASO # 0.1 10^3/uL (0.0-0.2); BASO % 0.6 % (0.0-1.0); EOS # 0.6 10^3/uL (0.0-0.5); EOS % 4.6 % (0.0-3.0); HEMATOCRIT 38.2 % (42.0-52.0); HEMOGLOBIN 12.6 g/dl (13.5-17.5); LYMPH # 1.9 10^3/uL (1.5-5.0); LYMPH % 15.3 % (24.0-44.0); MEAN CORPUSCULAR HEMOGLOBIN 31.5 pg (27.0-33.0); MEAN CORPUSCULAR VOLUME 95.5 fl (80.0-96.0); MONO # 1.8 10^3/uL (0.0-0.8); MONO % 14.5 % (2.0-8.0); NEUTROPHILS # 7.9 10^3/uL (1.5-8.5); NEUTROPHILS % 64.4 % (36.0-66.0); PLATELET COUNT, AUTOMATED 555 10^3/uL (150-450)
[2020-11-10 03:40] LABS: WHITE BLOOD COUNT 12.3 10^3/uL (4.0-10.0)
[2020-11-10 03:57] LABS: MAGNESIUM LEVEL 2.1 MG/DL (1.8-2.4); TROPONIN I < 0.02 NG/ML (< 0.10)
[2020-11-10 04:19] LABS: ALBUMIN 2.1 GM/DL (3.2-5.2); ALT/SGPT 50 U/L (12-78); BILIRUBIN,TOTAL 0.6 MG/DL (0.2-1.0); BLOOD UREA NITROGEN 32 MG/DL (7-18); CALCIUM LEVEL 9.2 MG/DL (8.8-10.2); CARBON DIOXIDE LEVEL 26 MEQ/L (21-32); CHLORIDE LEVEL 98 MEQ/L (98-107); CREATININE FOR GFR 0.49 MG/DL (0.70-1.30); GLOMERULAR FILTRATION RATE > 60.0 (>49); GLUCOSE, FASTING 85 MG/DL (70-100); SODIUM LEVEL 134 MEQ/L (136-145); TOTAL PROTEIN 6.6 GM/DL (6.4-8.2)
[2020-11-10] MEDS ORDERED: ISOVUE-370 76% 100ML VIAL As Ordered ONE (05:12)
[2020-11-10 06:21] LABS: BASO # 0.1 10^3/uL (0.0-0.2); BASO % 0.6 % (0.0-1.0); EOS # 0.5 10^3/uL (0.0-0.5); EOS % 3.8 % (0.0-3.0); HEMATOCRIT 37.4 % (42.0-52.0); HEMOGLOBIN 12.5 g/dl (13.5-17.5); LYMPH # 1.3 10^3/uL (1.5-5.0); LYMPH % 9.6 % (24.0-44.0); MEAN CORPUSCULAR HEMOGLOBIN 32.1 pg (27.0-33.0); MEAN CORPUSCULAR HGB CONC 33.4 g/dl (32.0-36.5); MEAN CORPUSCULAR VOLUME 95.9 fl (80.0-96.0); MONO % 14.9 % (2.0-8.0); NEUTROPHILS # 9.6 10^3/uL (1.5-8.5); NEUTROPHILS % 70.7 % (36.0-66.0); PLATELET COUNT, AUTOMATED 562 10^3/uL (150-450)
[2020-11-10 06:39] LABS: WHITE BLOOD COUNT 13.6 10^3/uL (4.0-10.0)
[2020-11-10 06:48] LABS: ALBUMIN 2.3 GM/DL (3.2-5.2); ALT/SGPT 44 U/L (12-78); BILIRUBIN,TOTAL 0.8 MG/DL (0.2-1.0); BLOOD UREA NITROGEN 28 MG/DL (7-18); CALCIUM LEVEL 9.7 MG/DL (8.8-10.2); CARBON DIOXIDE LEVEL 26 MEQ/L (21-32); CHLORIDE LEVEL 97 MEQ/L (98-107); CREATININE FOR GFR 0.46 MG/DL (0.70-1.30); GLOMERULAR FILTRATION RATE > 60.0 (>49); GLUCOSE, FASTING 75 MG/DL (70-100); POTASSIUM SERUM 4.5 MEQ/L (3.5-5.1); SODIUM LEVEL 131 MEQ/L (136-145); TOTAL PROTEIN 6.2 GM/DL (6.4-8.2)
[2020-11-10] MEDS ORDERED: ACETAMINOPHEN 650 MG SUPP PR PRN (07:40)
[2020-11-10] MEDS: FUROSEMIDE 20MG/2ML VIAL (J1940) IV SCH ×2 (08:47→16:16)
[2020-11-10] MEDS: METOPROLOL 5 MG/5 ML VIAL IV SCH ×3 (08:49→09:15)
[2020-11-10] MEDS: ENOXAPARIN 40MG/0.4ML SYRINGE (J1650 PER 10MG) SC SCH (08:49)
[2020-11-10 08:50] LABS: ABG BASE EXCESS 1.9 (-2.0-2.0); ABG O2 SATURATION 98.9 % (95.0-99.0); ABG PARTIAL PRESSURE CO2 34.5 mmHg (35.0-45.0); ABG PARTIAL PRESSURE O2 127.9 mmHg (75.0-100.0); ABG STANDARD HCO3 26.2 MEQ/L (22.0-26.0); ABG TOTAL CO2 26.1 MEQ/L (23.0-31.0); ABG pH (ARTERIAL) 7.478 UNITS (7.350-7.450)
[2020-11-10] MEDS: ACETAMINOPHEN 650 MG SUPP PR PRN (08:50)
[2020-11-10] MEDS ORDERED: COLCHICINE 0.6 MG TABLET NG SCH (09:00)
[2020-11-10] MEDS: GABAPENTIN 300 MG CAP PO SCH ×2 (09:00→20:11)
--- NOTE | 2020-11-10 09:13 | IPNPDOC ---
Subjective Date Seen The patient was seen on 11/10/20. Subjective Chief Complaint/HPI Patient suddenly became tachycardic to 160s overnight . EKG which i reviewed this morning shows Afib with rvr. Patient is also febrile to [address] angio does last night negative for any PE. He is extremely tachypneic breathing in 30s awake but not able to talk except for yes or no. Blood gas this morning showed respiratory alkalosis. Looks like he has sepsis however cannot determine the source. Pig tail cath in place on the left. Pericardial effusion stable Objective Physical Examination General Exam: Positive: Moderate Distress, Other (keeps his head bent forward in chin to chest position. Awake) ENT Exam: Positive: Atraumatic, Other ENT (dry mucous membranes) Neck Exam: Positive: Supple; Negative: thyromegaly Chest Exam: Positive: Wheezing (mild wheezing), Diminished (at leonardo bases), Other (bilateral basal crackles. ) Heart Exam: Positive: Tachycardic, Irregular Rhythm, Normal S1, Normal S2; Negative: Murmurs, Rubs Telemetry: Positive: Atrial fibrillation Abdomen Exam: Positive: BS Hypoactive, Soft; Negative: Tenderness Extremity Exam: Positive: Other (edema inthe hands. ); Negative: Clubbing, Cyanosis, Edema Skin Exam: Positive: Nl turgor and temperature; Negative: Breakdown, Lesion Assessment /Plan Assessment 60 year old male with Down's syndrome, mild mental retardation, dementia, seizure, dysphagia, chronic hyponatremia, chronic constipation, lives at home with 24 x7 care, has gait instability and ambulates with a walker has been noticed to be very weak and tired and sometimes listless from 10/31/20. Incidentally he received his first COVID vaccine on 10/27/20. For the past 1 day he has been so weak that the caregiver could not even get him out of the bed. In the ED he was noted to be hyponatremic to 123, also his AST and ALT and ALP were elevated. GB ultrasound did not show any gall stones or GB pathology. But the technologist noted that there may be some fluid around the heart. A stat echo was ordered. Patient was admitted for hyponatremia, transaminitis and suspected large pericardial effusion rule out tamponade. Now patietn appears to be septic and is in afib with RVR. Afib with RVR will give metoprolol. Sepsis ? source ? infected pericardial effusion Blood cultures negative, cultures from the pleural fluid is also negative. on Zosyn. Pericardial effusion non compressive Dr Siddiqui following another echo on 11/08/20 no features of tamponade. Dysphagia ?Aspiration pneumonia CT chest with increased Left lower lobe infiltrate vs atelectasis. on Zosyn Speech and swallow eval. discussed with Brother Noble about PEG tube placement. Family is discussing will change meds to IV formulations. Blood cultures Hyponatremia Due to SIADH with possible intravascular volume depression. Now at baseline. On lasix Paroxetine stopped. Bilateral pleural effusion with bilateral compressive atelectasis. fluid overload with likely pulmonary hypertension and right heart failure. s/p pig tail catheter placement on the left 500 cc drained Transaminitis: ? hepatic congestion , improving. Patient may have right heart failure and hepatic congestion. hepatitis panel is negative, abdomen benign. Felbamate is another possibility but he has been on it since childhood. Acute urinary retention walter placement produced 500 cc Has h/o urinary incontinence but no major retention issues in the past managed with oxybutynin which is now held. Follows with urology Weakness/ inability to ambulate most likely due to Hyponatremia with baseline gait instability hyponatremia made it worse. PT, OT Seizure disorder from the age of 2 will continue home meds. valproate and felbamate. Hypertension will hold enalapril at present. Hypothyroid synthroid LOU may use own CPAP. Developmental disability brother reports that he does not have Down's syndrome as documented in PMDs records. however he does have epilepsy from the age of 2 so has developmental disability any MOLST decisions has to be through the state. Plan/VTE VTE Prophylaxis Ordered?: Yes VS, I&O, 24H, Fishbone Vital Signs/I&O Vital Signs Date Time Temp Pulse Resp B/P (MAP) Pulse Ox O2 Delivery O2 Flow Rate FiO2 11/10/20 08:49 165 182/81 11/10/20 08:00 102.2 48 97 Nasal Cannula 1.0 11/10/20 06:09 96 I&O- Last 24 Hours up to 6 AM 11/10/20 06:00 Intake Total 306.2 ml Output Total 1655 ml Balance -1348.8 ml Laboratory Data 24H LABS Laboratory Tests 2 11/09/20 15:03: 11/10/20 03:20: Immature Granulocyte % (Auto) 0.6, Neutrophils (%) (Auto) 64.4, Lymphocytes (%) (Auto) 15.3L, Monocytes (%) (Auto) 14.5H, Eosinophils (%) (Auto) 4.6H, Basophils (%) (Auto) 0.6, Neutrophils # (Auto) 7.9, Lymphocytes # (Auto) 1.9, Monocytes # (Auto) 1.8H, Eosinophils # (Auto) 0.6H, Basophils # (Auto) 0.1, Nucleated Red Blood Cells % (auto) 0.0, Anion Gap 10, Glomerular Filtration Rate > 60.0, Calcium Level 9.2, Magnesium Level 2.1, Total Bilirubin 0.6, Aspartate Amino Transf (AST/SGOT) 15, Alanine Aminotransferase (ALT/SGPT) 50, Alkaline Phosphatase 424H, Troponin I < 0.02, Total Protein 6.6, Albumin 2.1L, Albumin/Globulin Ratio 0.5 11/10/20 06:00: Immature Granulocyte % (Auto) 0.4, Neutrophils (%) (Auto) 70.7H, Lymphocytes (%) (Auto) 9.6L, Monocytes (%) (Auto) 14.9H, Eosinophils (%) (Auto) 3.8H, Basophils (%) (Auto) 0.6, Neutrophils # (Auto) 9.6H, Lymphocytes # (Auto) 1.3L, Monocytes # (Auto) 2.0H, Eosinophils # (Auto) 0.5, Basophils # (Auto) 0.1, Nucleated Red Blood Cells % (auto) 0.0, Anion Gap 8, Glomerular Filtration Rate > 60.0, Calcium Level 9.7, Total Bilirubin 0.8, Aspartate Amino Transf (AST/SGOT) 19, Alanine Aminotransferase (ALT/SGPT) 44, Alkaline Phosphatase 377H, Total Protein 6.2L, Albumin 2.3L, Albumin/Globulin Ratio 0.6 11/10/20 08:37: 11/10/20 08:40: Blood Gas Bicarbonate Standard 26.2H, Arterial Blood pH 7.478H, Arterial Blood Partial Pressure CO2 34.5L, Arterial Blood Partial Pressure O2 127.9H, Arterial Blood Total CO2 26.1, Arterial Blood HCO3 25.0, Arterial Blood Base Excess 1.9, Arterial Blood Oxygen Saturation 98.9 CBC/BMP Laboratory Tests 11/10/20 03:20 11/10/20 06:00 Microbiology Microbiology 11/08/20 Blood Culture - Preliminary, Resulted No growth after 24 hours . All specim... 11/08/20 Blood Culture - Preliminary, Resulted No growth after 24 hours . All specim... 11/08/20 Acid Fast Stain, Received Pending 11/08/20 Mycobacterial Culture, Received Pending 11/08/20 Fungal Smear, Received Pending 11/08/20 Fungal Culture, Received Pending 11/08/20 Gram Stain - Final, Complete 11/08/20 Anaerobic Culture - Final, Complete 11/08/20 Body Fluid Culture - Final, Complete MARTIN MIGUEL MD Nov 10, 2020 09:13
[2020-11-10] MEDS ORDERED: BUPIVACAINE LIPOSOME/PF 1.3% 20ML VIAL (13.3MG/ML)(EXPAREL)(C9290 PER1MG) As Ordered ONE (09:40)
[2020-11-10] MEDS ORDERED: BUPIVACAINE HCL 0.5% 10ML VIAL As Ordered ONE (09:40)
[2020-11-10] MEDS: FELBAMATE 600 MG PO SCH ×2 (10:15→20:11)
--- NOTE | 2020-11-10 10:23 | ECGEPIP ---
[facility] Test Date: 2020-11-10 Pat Name: LUDY GARCIA Department: Room: [place] [address] Gender: Male [employer] Brazier: jenifer : 1960 Requested By: LIZZETTE HUNTER Order Number: [id number] Reading MD: Rosendo Meléndez Measurements Intervals [place] Rate: 160 P: AK: QRS: 16 QRSD: 86 T: 3 QT: 282 QTc: 460 Interpretive Statements Atrial fibrillation with rapid ventricular response Nonspecific ST and T wave abnormality Compared to prior tracing of 11/05/2020, atrial fibrillation is new Electronically Signed on 11-10-2020 10:23:33 EDT by Rosendo Meléndez
[2020-11-10] MEDS: COLCHICINE 0.6 MG TABLET PO SCH ×2 (11:12→20:11)
--- NOTE | 2020-11-10 11:31 | IPN ---
PROGRESS NOTE DATE: 11/10/2020 The formal progress note will be dictated by Dr. Crouch. This is a summary of my plan and discussion. SUBJECTIVE: Mr. Machado was found today to be in more clinical distress and respiratory distress with a respiratory rate that ranged between 24 to 48. He was also more obtunded even more than yesterday. His temperature was up to 102.2 at 8 o'clock this morning. Here before we have been assigning his septic picture to continued aspiration pneumonia; however, the pericardial effusion is looming in the background as a potential source of infection. On serial points of physical examination does not show a pericardial friction rub, although he is very tachycardic having gone into atrial fibrillation with a rapid ventricular response up to 165. He is being treated with metoprolol IV to control his heart rate. He has upper extremity peripheral edema on both right and left sides with minimal lower extremity edema. Because of his neck in flexion, I cannot educational technology coordinator jugular venous distention. There is no pulses paradoxus. Even in the absence of tamponade signs, there is the possibility of an infective pericarditis as the source of his fever. CT angio was done today, which did not show a pulmonary embolism and which showed the pericardial effusion to be unchanged posteriorly and laterally and less anteriorly. Most of the effusion is directed on the left side. Prior to making the final decision to take him to the operating room, I obtained yet another stat echocardiogram. The echocardiogram confirms my impression of the CT scan with a great diminution of his pericardial effusion. The left posterior effusion is still about 2 cm, which is the same as it was and the same as on the CT scan. There are absolutely no compressive signs. His IVC is slightly dilated, but has respiratory variation. I do not think that he is at all in tamponade. His white count is still elevated at 13.6, which is not essentially changed since admission. His hyponatremia is markedly better with a sodium of 131 and his BUN and creatinine are 28 and 0.46. His blood gases today showed a pH of 7.47, pCO2 of 34, and a pO2 of 127 with a base excess of 1.9. Blood gas was done on 1 liter nasal cannula. I was nearly committed to taking him to the operating room until I saw the echo. The echocardiogram shows an improvement in his pericardial effusion. If this was truly a bacterial infective pericarditis with a pericardial effusion, I would expect the pericardial effusion to be worse. He is on broad-spectrum antibiotics including Zosyn. I have asked infectious disease to see him; however, I do think that the most probable explanation is his chronic aspiration. He has been seen to choke on food and medications every time they feed him and in fact, he has been made n.p.o. That does not preclude him aspirating his saliva. He has his teeth in place and could certainly be continually aspirating. His pleural fluid was drained a few days ago, which did not grow any organisms and which was essentially transudative with an LDH of 60 in the pleural fluid with a corresponding serum LDH of 116. Pathology cell block is pending, but looked inflammatory to the director recreation. I am therefore going to hold off taking him to the operating room for a pericardial window. His procedure will be quite difficulty, both from an anesthesia point of view with gaining access to his airway because of his neck flexion and also, from a surgical point of view as his pericardium is tucked way under his sternum and it would be a challenging, but not impossible, pericardial drainage and window. One of my biggest concerns is that there is just a small rim of pericardial effusion anteriorly on the CT scan, which measures no more than 5 mm. He is already on Toradol as an anti-inflammatory and I will add cholchicine. I will give him 0.6 mg b.i.d. and watch for GI symptomatology. Nursing staff think that they can get him to swallow his oral medications. Because of his tachypnea, I will transfer him to the ICU.
--- NOTE | 2020-11-10 11:52 | IPN ---
PROGRESS NOTE DATE: 11/10/2020 SUBJECTIVE: Overnight, the patient became tachycardic and nursing called overnight staff to bedside. A CBC, CMP, magnesium, phosphorus, and EKG were performed. The lab work was unremarkable. The EKG was initially read as sinus tachycardia. The patient went down for a CTA out of concern for a pulmonary embolism. The read on the CTA is pending; however, it does not appear that there are any signs of pulmonary emboli on the CT scan. The patient also became more tachypneic despite not requiring increased oxygen demands. Currently he has no new complaints. He has the same level of alertness as he did prior and he is not complaining of any pain currently. The patient was clinically deemed to be dry and that was that assigned reason for the then thought of sinus tachycardia; so per Dr. Ernandez's note, he was given an albumin infusion. OBJECTIVE: VITAL SIGNS: Temperature of 102.2, pulse 154 and irregular, respiratory rate of 48, blood pressure of 149/95, satting 97% on 1 liter nasal cannula. INTAKE AND OUTPUT: 356 of IV intake in the last 24 hours with 1755 output predominantly urine and 175 mL of serosanguineous chest tube drainage with no signs of an air leak. GENERAL: The patient is a sick appearing male who appears stated age, with his head in the same anterolateral position as it typically is, breathing fast with use of accessory muscles for respirations predominantly belly breathing in mild distress. HEENT: Head is normocephalic, atraumatic. Extraocular movements are still intact. Sclerae are nonicteric. Mucous membranes are moist; however, there is leftover food remnants and on a later examination, it was discovered that a pill was found in the posterior pharynx and was swept out. Nares are patent. NECK: Difficult to assess, but on closer exam there are no signs of JVD or cervical or supraclavicular lymphadenopathy. CARDIOVASCULAR: Irregular, tachycardic rate with an irregular rhythm. Normal S1 and S2. No friction rub. No murmurs or gallops. LUNGS: Minimal adventitious breath sounds bilaterally. There are some crackles in the left lower lobe. There is no dullness to percussion bilaterally. There are no wheezes. There continue to be ongoing transmitted upper airway sounds that are difficult to clear. He continues to use secondary muscles of respiration predominantly his abdominal muscles. ABDOMEN: Obese, soft, and nontender. No distention. No hepatosplenomegaly. Bowel sounds are minimally present. EXTREMITIES: 1 to 2 mm of pitting edema greater in the upper extremities than the lower extremities bilaterally up to the level of the elbow. PSYCHIATRIC: The patient is awake, alert, and arousable. NEUROLOGIC: Cranial nerve 2, 3, 4, and 6 are intact. Unable to establish whether 5, 7, or 8 are intact. He is making an attempt to swallow, which is suggestive of cranial nerve 9 being intact. He does still have a gag reflex suggestive of cranial nerve 10. He makes minimal effort on shoulder shrugging. As said previously, it appears cranial nerve 12 may be intact as well, but it is difficult to ascertain as we were unable to truly see inside his mouth and while he does respond to simple commands such as squeezing, he does not appear to respond to others or may be ignoring others. Strength: He has minimal squeezing ability in his bilateral upper extremities at the level of the hands, he will not lift his arms up at all, so probably closer to +1 or +2/5. Lower extremities he makes no effort; however, he does have downgoing Babinski sign. It does appear that he has intact reflexes in his bilateral lower extremities probably 1+/4 at the level of the knees bilaterally. Unable to assess his DTRs in his ankles, +1/4 in his bilateral upper extremities at the level of the elbow for cervical 5 and 6. Unable to assess his gait. It is difficult to assess whether his sensation is intact as he does not seem to cooperate with the examination. LABORATORY DATA: White blood cell count of 13.6, hemoglobin 12.5, hematocrit 37.4, platelet count of 562,000. Sodium 131, potassium 4.5, chloride 97, bicarb 26, BUN 28, creatinine 0.46. Fasting glucose is 75. Lactic acid level of 1.3. Calcium 9.7. Total bilirubin 0.8, AST 19, ALT 44, alkaline phosphatase 377. Overnight troponin less than 0.02. Magnesium 2.1. Total protein 6.2, albumin 2.3 up from prior albumin of 2.1. ABG with pH of 7.478, pCO2 of 34.5, pO2 of 127.9. Karyotype pending. CRP pending. Mycoplasma and MRSA screen pending. Blood cultures x2 after 24 hours are negative. Pleural fluid gram stain is negative. Pleural fluid culture is negative. Acid-fast pending. Cytology and pathology are pending. IMAGING DATA: CT angiogram does show signs of possible enlargement of the left lateral collateral aspect of the pericardium. There are no signs of worsening effusion. No signs of acute infiltrate and on my read, there are no signs of large or medium pulmonary emboli. ASSESSMENT AND PLAN: The patient is a 60-year-old male initially admitted for left-sided pleural effusion and a pericardial effusion that seems to be doing worse. On further review of his EKG, it appears that he is in atrial fibrillation with rapid ventricular response (RVR). The primary team is getting him started on intravenous (IV) metoprolol x3 with some reduction in his overall rate; however, the underlying cause of this is still unknown. Moreover, the fact that he is still febrile in the presence of being on Zosyn for the last 48 hours is somewhat concerning, as is his underlying tachypnea. Nursing staff has spoken with the mother and despite his head positioning being quite abnormal, she says that he typically breaths just fine and is not tachypneic at baseline despite the angulation of his head. An echocardiogram was ordered this morning and the bedside read did not show any signs of a worsening. Out of concern for a possible infective pericarditis, cholchicine was added to the patient's medication list. We will not be taking the patient to the OR at this time, as it does not seem like he is in any overt chest pain; though it is difficult to tell since he does not complain of hardly anything at all. However, it does not seem like it is getting worse. The difficult part about the cholchicine is that his ability to swallow is somewhat diminished. We will wait and see how he does. Moreover, given the patient's new onset tachycardic, the tachypnea, the hypertension and an almost Kussmaul-like breathing, we will also get a CT head as he has a history of intracranial pathology in the past, though no prior history of intracranial bleed and because of, what I suspect is his baseline neurologic status, it would be difficult to tell if he was having an intracranial bleed or if this represents an ischemic stroke. Given that he continues to be febrile in the presence of antibiotics, which should cover most lung pathology, we will also be adding on a mycoplasma IgM and a MRSA to see if we can expand coverage. We have also reached out to Dr. Singleton with infectious disease for consultation, so we can find any other possible sources of infection. We continue to suspect that the likely cause is aspiration pneumonia as silent aspirations themselves despite being n.p.o. could be the cause of his ongoing infection and why the Zosyn is not working. We will await the results of the CT head and the recommendations of infectious disease at this time and continue to follow along with the patient. Dictated by Michele Crouch, DO in conjunction with attending Anatoliy Siddiqui M.D. Attending note: agree with above. I spoke with Dr. Singleton and asked for her input. Anatoliy Siddiqui MD [facility]
[2020-11-10] MEDS ORDERED: METOPROLOL 5 MG/5 ML VIAL IV SCH (12:00)
--- NOTE | 2020-11-10 12:09 | REP ---
INDICATION: r/o ICH. COMPARISON: Comparison CT study is from December 07, 2010.. TECHNIQUE: Helical scanning is acquired. 5 mm axial images were reformatted. Coronal MPR images were generated. FINDINGS: Bone window settings demonstrate an intact bony calvarium. There is no evidence of skull fracture or incidental bony calvarial lesion. No intraorbital abnormality is seen. On soft tissue window setting images; the lateral, third, and fourth ventricles are normal in size and position. Yang-white differentiation pattern is normal above and below the tentorium. There are is no evidence of intracranial hemorrhage. No mass, edema, infarction, or midline shift is seen. No extra-axial fluid collection is appreciated. There is minimal vascular calcification of the carotid siphons. Moderate mucosal thickening is seen in the left maxillary and 2 of the left anterior ethmoid air cells. There is old encephalomalacia in the frontal lobes bilaterally as seen on the 2011 study. There is advanced generalized volume loss and this is a little more pronounced than it was in the 2011 study. Concordant ventriculomegaly is seen. No extra-axial fluid collection is seen. No intracranial hemorrhage or new infarction is seen. IMPRESSION: Extensive bilateral frontal lobe encephalomalacia unchanged from the 2011 study. Moderate generalized volume loss, progressed somewhat since 2011. Mild vascular calcification. No acute intracranial abnormality.. <Electronically signed by Armin Iraheta > 11/10/20 [id number]
--- NOTE | 2020-11-10 12:56 | ECHO ---
DATE OF PROCEDURE: 11/08/2020 Age: 60 Gender: Male PATIENT LOCATION: Room 3227. REFERRING PHYSICIAN: Anatoliy Siddiqui M.D. REASON FOR STUDY: Pericardial effusion. 2D MEASUREMENTS: IVS 0.8 cm LV 4.9 cm LVPW 0.9 cm LA 4.2 cm Aorta 3.3 cm IVC 2.5 cm DOPPLER MEASUREMENT Peak velocity across the aortic valve 1.5 m/s Peak velocity across the LVOT 1.5 m/s Mitral E 0.8 Mitral A 0.6 with a ratio of 1.4 2D COMMENTS: 1. Normal left ventricular size, wall thickness, with a hyperdynamic left ventricle. The estimated left ventricular systolic ejection fraction is 65% to 70%. Mildly enlarged left atrium. Normal right atrium and right ventricle. The atrial septum appeared to be normal without evidence of defect or shunt. 2. Normal aortic root. 3. Moderate pericardial effusion noted, no evidence of chamber collapse. Pleural effusion also noted. 4. Mildly calcified aortic valve with normal leaflet excursion. Mildly calcified mitral annulus with normal anterior mitral valve leaflet motion. Normal tricuspid valve. The pulmonic valve and proximal pulmonary artery branches were not well visualized. 5. The inferior vena cava was dilated, central venous pressure might be elevated. DOPPLER: Detects trace aortic regurgitation, mild tricuspid regurgitation, and moderate mitral regurgitation. Assessment of the left ventricular diastolic function was normal. IMPRESSION: 1. Normal global left ventricular systolic function with a hyperdynamic left ventricle. 2. Mildly enlarged left atrium with moderate mitral regurgitation. 3. Aortic valve sclerosis with trace aortic regurgitation. 4. Mild tricuspid regurgitation. 5. Moderate pericardial effusion noted, no evidence of cardiac tamponade. 6. The inferior vena cava was mildly enlarged, central venous pressure mildly elevated. 7. Assessment of the left ventricular diastolic function was normal. 8. Case was discussed yesterday with the ordering provider. W[facility]LEY
--- NOTE | 2020-11-10 12:59 | IPNPDOC ---
Text Note Date of Service The patient was seen on 11/10/20. NOTE Patient febrile, tachypniec, in afib with rvr, septic from some source yet un determined possible silent aspirations and aspiration pneumonia, possible pericarditis with pericardial effusion. Dr Singleton has also been consulted. He continues to have abnormal head positioning. CT head shows bilateral frontal encephalomalacia. Getting more and more less responsive during the hospit alization. Needs one to one nursing care so moved to ICU. VS,Fishbone, I+O VS, Fishbone, I+O Laboratory Tests 11/10/20 03:20 11/10/20 06:00 Vital Signs Date Time Temp Pulse Resp B/P (MAP) Pulse Ox O2 Delivery O2 Flow Rate FiO2 11/10/20 12:31 100.6 50 167/104 (125) 96 Nasal Cannula 1.0 11/10/20 12:28 139 11/10/20 06:09 96 I&O- Last 24 Hours up to 6 AM 11/10/20 06:00 Intake Total 306.2 ml Output Total 1655 ml Balance -1348.8 ml MARTIN MIGUEL MD Nov 10, 2020 12:59
[2020-11-10] MEDS ORDERED: DIGOXIN INJ 0.5 MG/2 ML AMP (J1160) IV ONE ×2 (13:15→15:30)
[2020-11-10] MEDS ORDERED: diltiaZEM 125 MG in NS 100 ML IV SCH (13:25)
[2020-11-10] MEDS: methylPREDNISolone 40MG 1ML VIAL IV SCH (16:17)
[2020-11-10 17:32] LABS: HIV 1&2 SCREEN CENTAUR NEGATIVE (NEGATIVE)
[2020-11-10] MEDS: DIGOXIN INJ 0.5 MG/2 ML AMP (J1160) IV SCH (20:12)
[2020-11-11] VITALS (18 sets, daily range): BP systolic 85–125; BP diastolic 55–82
[2020-11-11] MEDS: ALBUTEROL SULFATE 2.5 MG/0.5 ML INH NEB SOLN NEB SCH ×4 (01:08→19:32)
[2020-11-11] MEDS: VALPROATE SOD IV SCH ×4 (02:28→20:43)
[2020-11-11] MEDS: DIGOXIN INJ 0.5 MG/2 ML AMP (J1160) IV SCH (02:28)
[2020-11-11] MEDS: D5W IV SCH ×4 (02:28→20:43)
[2020-11-11] MEDS: KETOROLAC 30 MG/ML 1ML VIAL IV SCH ×4 (02:28→20:44)
[2020-11-11 04:37] LABS: BASO # 0.1 10^3/uL (0.0-0.2); BASO % 0.4 % (0.0-1.0); EOS # 0.2 10^3/uL (0.0-0.5); EOS % 1.3 % (0.0-3.0); HEMOGLOBIN 13.7 g/dl (13.5-17.5); LYMPH # 2.2 10^3/uL (1.5-5.0); LYMPH % 19.2 % (24.0-44.0); MEAN CORPUSCULAR HEMOGLOBIN 31.7 pg (27.0-33.0); MEAN CORPUSCULAR HGB CONC 32.6 g/dl (32.0-36.5); MEAN CORPUSCULAR VOLUME 97.2 fl (80.0-96.0); MONO # 1.4 10^3/uL (0.0-0.8); MONO % 12.5 % (2.0-8.0); NEUTROPHILS # 7.4 10^3/uL (1.5-8.5); NEUTROPHILS % 65.7 % (36.0-66.0); PLATELET COUNT, AUTOMATED 630 10^3/uL (150-450); RED BLOOD COUNT 4.32 10^6/uL (4.30-6.10); WHITE BLOOD COUNT 11.3 10^3/uL (4.0-10.0)
[2020-11-11 04:56] LABS: ERYTHROCYTE SEDIMENTATION RATE 64 mm/hr (0-20)
[2020-11-11 05:06] LABS: ALT/SGPT 35 U/L (12-78); BILIRUBIN,TOTAL 0.4 MG/DL (0.2-1.0); BLOOD UREA NITROGEN 37 MG/DL (7-18); CALCIUM LEVEL 9.5 MG/DL (8.8-10.2); CARBON DIOXIDE LEVEL 31 MEQ/L (21-32); CHLORIDE LEVEL 99 MEQ/L (98-107); GLOMERULAR FILTRATION RATE > 60.0 (>49); GLUCOSE, FASTING 104 MG/DL (70-100); POTASSIUM SERUM 4.8 MEQ/L (3.5-5.1); SODIUM LEVEL 134 MEQ/L (136-145); TOTAL PROTEIN 6.1 GM/DL (6.4-8.2)
[2020-11-11] MEDS: SLF 3 ML SYR IV SCH ×3 (06:31→22:34)
[2020-11-11] MEDS: PIPERACILLIN/TAZOBACTAM SOD 3.375 GM in D5W MINI-BAG PLUS 50 ML IV SCH ×4 (06:31→23:05)
--- NOTE | 2020-11-11 08:23 | REP ---
INDICATION: pigtail catheter/pericardial effusion. COMPARISON: Comparison portable chest x-ray November 09, 2020. TECHNIQUE: Portable upright AP chest radiograph. FINDINGS: A left pleural drainage catheter is seen in the region of the left diaphragm unchanged. Moderate cardiac enlargement is is observed. No new infiltrate is seen. There is some increased markings in the left base overlying the heart which appear to be unchanged. The patient's mandible overlies the right lung apex. Pulmonary vasculature is not increased.. IMPRESSION: Left base infiltrate persists unchanged. The pigtail catheter left base.. <Electronically signed by Armin Iraheta > 11/11/20 0818
[2020-11-11] MEDS: FELBAMATE 600 MG PO SCH ×2 (08:33→20:43)
[2020-11-11] MEDS: GABAPENTIN 300 MG CAP PO SCH ×2 (08:34→20:43)
[2020-11-11] MEDS: FUROSEMIDE 20MG/2ML VIAL (J1940) IV SCH (08:34)
[2020-11-11] MEDS: ENOXAPARIN 40MG/0.4ML SYRINGE (J1650 PER 10MG) SC SCH (08:35)
[2020-11-11] MEDS: COLCHICINE 0.6 MG TABLET PO SCH ×2 (08:35→20:43)
[2020-11-11] MEDS ORDERED: DIGOXIN INJ 0.5 MG/2 ML AMP (J1160) IV SCH (09:00)
--- NOTE | 2020-11-11 09:44 | IPN ---
PROGRESS NOTE DATE: 11/10/2020 SUBJECTIVE: Mr. Machado is seen this morning on his bedside. He went into atrial fibrillation through the night and has been treated with digoxin. The patient remains poorly responsive and he also developed fever up to [address] Siddiqui is considering to take him to the OR for possible pericardial window to see if there is any possibility of infectious pericarditis. He also has generalized edema particularly on upper limbs more on the left than right. He continues to drain from his chest tube and also has good urine output with negative fluid balance. He has been on Lasix 20 mg twice a day. PHYSICAL EXAMINATION: The patient is poorly responsive. His temperature was 102 degrees Fahrenheit last night. This morning about 101.8. Heart rate is 118 per minute and respiratory rate is in the 40s. Blood pressure 107/59 mmHg and oxygen saturation 96%. Head is atraumatic. Kyphosis deformity is unchanged. Neck range is difficulty to be assessed. Heart sounds are irregular and tachycardiac and lungs with diminished breath sounds in dependent parts. Abdomen is soft and nontender. Bowel sounds are present. Extremities without cyanosis or clubbing. Both upper extremities have edema and lower extremities have minimal edema. Neurologically, the patient remains unresponsive. LABORATORY: Showed WBC 13.6, hemoglobin 12.5 and hematocrit 37.4, platelets are 62. Blood gas this morning showed pH of 7.47, pCO2 34.5 and pCO2 128. Sodium is 131, potassium 4.5, chloride 97, Co2 26, BUN 28 and creatinine 0.46. Total protein 6.2 and albumin 2.3. PROBLEMS: 1. Hyponatremia. Sodium level is slightly lower today compared to yesterday. The patient is still hypovolemic with generalized edema and will continue with low-dose diuretic, 20 mg twice a day of Lasix. 2. Sepsis. The patient has temperature of 102 degrees Fahrenheit. He remains on broad-spectrum antibiotics and source of sepsis is still not very clear. 3. Atrial fibrillation with rapid ventricular rate. The patient is on digoxin and heart rate has improved. He was also given metoprolol and diltiazem through the night.
[2020-11-11] MEDS: D5W/0.9% SODIUM CHLORIDE 1,000 ML IV SCH (09:59)
[2020-11-11] MEDS ORDERED: DIGOXIN 0.125 MG TAB PO ONE (10:30)
--- NOTE | 2020-11-11 11:25 | CR ---
CONSULTATION DATE: 11/10/2020 REASON FOR CONSULTATION: I was asked to consult by Dr. Siddiqui for evaluation of pericarditis and pleural effusions with fever. HISTORY OF PRESENT ILLNESS: Mr. Machado is a pleasant, 60-year-old gentleman with a history of mild mental retardation and Alzheimer who was brought in by his family after he was not acting himself. He had refused to drink his fluids which he usually drinks a lot of. His appetite was poor. He is having difficulty swallowing and choking on his food. He denies having any shortness of breath or chest pain on admission. They had not noted any fever when he came in. The first day of admission, the patient did not have a fever. The next day, he had a temperature of 100 and since then, his temperature has progressively increased up to 102.2. He denied any abdominal pain. He was having difficulty voiding so a catheter was placed in the emergency room. He was hyponatremic with a sodium of 123. His baseline sodium is about 133. He had elevated liver function tests and a gallbladder ultrasound did not show any gallbladder pathology. There was some pericardial effusion noted on the ultrasound and therefore an echocardiogram showed moderate pericardial effusion. PAST MEDICAL HISTORY: 1. Mental retardation with some issues of behavior but the patient was up until four years ago. His and he moved in with his parents. 2. Seizure disorder. 3. Mild dementia on brain MRI in 2012 with generalized atrophy and bifrontal encephalomalacia with ventriculomegaly. 4. Urinary incontinence. 5. Essential hypertension. 6. Vitamin D deficiency. 7. Osteoporosis. 8. Hypothyroidism. 9. Severe obstructive sleep apnea on CPAP. 10. Elevated PSA. 11. Severe cervical spondylosis with neck pain and foraminal nerve compression. 12. History of depression and anger. 13. Hemorrhoids. 14. Diverticulosis. 15. Colonic polyp. 16. Tubular villous adenoma. 17. T11 compression fracture. FAMILY HISTORY: He lives with his mother. His father . He has two brothers and three sisters that are healthy and care for him as well. SOCIAL HISTORY: He was . His . She was also handicapped. He denies smoking, alcohol use or drug use. He lives with his mother. REVIEW OF SYSTEMS: Could not be obtained other than the patient had a fever and he was very short of breath, apneic when he was examined. I could not obtain any other review of systems. PHYSICAL EXAMINATION: Per his nurse, he never complained of any pain on physical exam. He is a sick-looking gentleman, tachypneic in moderate respiratory discomfort. Temperature 102, pulse up to 141, blood pressure 126/87, O2 sat 97% on one liter nasal canula. Heart: Normal S1, S2, tachycardic. No murmurs appreciated. Lungs: Some stridors heard, expiratory rhonchi, difficult assess for crackles. Abdomen: Soft, nontender, no hepatosplenomegaly. Extremities: No clubbing, cyanosis or edema, no calf tenderness. No rashes on his lower extremities, no petechiae. Neck is in a constantly flexed position. When elevated and moved backward, his stridor improved. Oropharynx: Very poor dentition with periodontal disease and gingival ulcers with thick secretions stuck to his tongue. Left chest in place with pleural fluid that is serous in nature. CT angiogram did not show any pulmonary embolism, showed a pericardial effusion, unchanged posteriorly and laterally. Most of the effusion is on the left side. The effusion on the left side is about 2 cm, the same as previous CT. IVC is slightly dilated. ALLERGIES: No known drug allergies. MEDICATIONS: 1. Digoxin 0.25 mg IV q.6 hours. 2. Colchicine 0.6 mg p.o. b.i.d. started on 11/10. 3. Tylenol p.r.n. 4. Lovenox 40 mg subcu daily. 5. Toradol 15 mg IV q.6 hours. He has far received five doses in the past 24 hours. 6. Valproate 310 mg IV q.6 hours. 7. Furosemide 20 mg IV b.i.d. 8. Zosyn 3.375 gm IV q.6 hours. 9. Albuterol p.r.n. 10. Gabapentin 300 mg p.o. b.i.d. LABORATORY DATA: White count on admission was 10.8. It peeked at [id number] on 11/08, today was 13.6, hemoglobin 12.5, hematocrit 37.4, platelets 562, 70% neutrophils, 9% lymphocytes, 15% monocytes. ESR 68. Sodium 131, potassium 4.5, chloride 97, bicarb 26, BUN 28, creatinine 0.46, glucose 75. Lactic acid 1.3. On admission, his lactic acid was 1.1, calcium 9.7, bilirubin 0.8, AST 19, ALT 44, alk phos 377. AST on admission was 103. ALT was 148.l Total protein 6.2, albumin 2.3, troponin less than 0.02. On 11/08, pleural fluid had no growth aerobically or anaerobically. AFB, fungal now are pending. 11/08, two sets of blood cultures are no growth after 24 hours. Respiratory panel that was ordered by myself today was negative. SARS-CoV-2, influenza A and B were done admission and were negative. Hepatitis A, B and C serology were negative. Head CT shows extensive bilateral frontal encephalomalacia, moderate generalized volume loss, no acute abnormalities. CT angiogram was done, reviewed with Dr. Yang, showed consolidation versus atelectasis at the left lower lobe where there is a pleural effusion, not much change compared to chest CT done on 11/05. CT was done on 11/09, stable exam with a pigtail catheter again seen in the left chest. There is no left pneumothorax, stable, mild parenchymal opacity in the left base and small right effusion. Gallbladder ultrasound on 11/05 shows a pancreas obscured by bowel gas that is negative. Kidneys normal. Hepatic parenchyma homogeneous, otherwise unremarkable. IMPRESSION: This is a 60-year-old gentleman with mild mental retardation who was admitted with decreased appetite, mental status changes and abnormal liver function tests and hyponatremia. The patient has developed worsening fevers on CT, chest and imaging. He has pericardial effusion and pleural effusion which could be suggestive of an inflammatory pericarditis. The patient had recently had a COVID vaccine five days prior to the presentation although this is not a typical side effect of vaccination that should be considered. Viral pericarditis is also in the differential, idiopathic pericarditis with pleural effusion. Repeat respiratory panel was negative to suggest viral pathology although Coxsackie would be the most likely to cause a pericarditis and that is not in the respiratory panel. His procalcitonin done today was less than 0.2 and therefore this is not suggestive of a bacterial infection. There was concern from his RN who took care of him for the past couple of days that he had been aspirating but his CT is not totally consistent with that, either. He has been on Zosyn for the past 48 hours without improvement. PLAN: The case has been discussed with Dr. Tripp and Dr. Siddiqui who both agreed with the fact that his procalcitonin is low that he would need to be placed on IV Solu-Medrol to help with pericarditis. We will start Solu-Medrol at 40 mg IV q.12 hours. I would continue with Zosyn at current dosing 3.375 gm q.6 hours. I would not suggest adding any other broad-spectrum antibiotic including vancomycin. I ordered QuantiFERON-TB Gold for workup of pericardial effusion as well as SAGAR. Thank you for consultation. WESLEY
--- NOTE | 2020-11-11 14:17 | IPNPDOC ---
Subjective Date Seen The patient was seen on 11/11/20. Subjective Chief Complaint/HPI Awake but very tired. Resting comfortably, Just answers yes or no. Not febrile today. No tachypnea today though continues to be in afib/ aflutter with tachycardia. Objective Physical Examination General Exam: Positive: Cooperative, No Acute Distress, Other (keeps his head bent forward in chin to chest position. Awake) ENT Exam: Positive: Atraumatic Neck Exam: Positive: Other (neck stiff at the back but can be straightened out); Negative: thyromegaly Chest Exam: Positive: Wheezing (mild wheezing), Diminished (at leonardo bases), Ot her (bilateral basal crackles. ) Heart Exam: Positive: Tachycardic, Irregular Rhythm, Normal S1, Normal S2; Negative: Murmurs, Rubs Telemetry: Positive: Atrial fibrillation Abdomen Exam: Positive: BS Hypoactive, Soft; Negative: Tenderness Extremity Exam: Positive: Other (edema in the hands. ); Negative: Clubbing, Cyanosis, Edema Skin Exam: Positive: Nl turgor and temperature; Negative: Breakdown, Lesion Assessment /Plan Assessment 60 year old male with Down's syndrome, mild mental retardation, dementia, seizure, dysphagia, chronic hyponatremia, chronic constipation, lives at home with 24 x7 care, has gait instability and ambulates with a walker has been noticed to be very weak and tired and sometimes listless from 10/31/20. Incidentally he received his first COVID vaccine on 10/27/20. For the past 1 day he has been so weak that the caregiver could not even get him out of the bed. In the ED he was noted to be hyponatremic to 123, also his AST and ALT and ALP were elevated. GB ultrasound did not show any gall stones or GB pathology. But the technologist noted that there may be some fluid around the heart. A stat echo was ordered. Patient was admitted for hyponatremia, transaminitis and suspected large pericardial effusion rule out tamponade. Now patietn appears to be septic and is in afib with RVR. Afib/ Aflutter with RVR did not respond to 4 doses of IV metoprolol. Did respond to 2 doses of IV digoxin. Digoxin loading is continued. However patient is back in aflutter / afib with rvr today consulted cardiology on 11/10/20 will reach out to them again if rate is not controlled after dig loading is finished. Sepsis / SIRS Consulted ID. Likely inflammatory viral pericarditis with pericardial and pleural effusion started on methyl pred 40 mg iv daily. started also on colchicine. Blood cultures negative, cultures from the pleural fluid is also negative. CT chest with some infiltrates at the left base which looks more like atelectasis Procalcitonin 0.16 Unlikely this is a bacterial infection. However will continue on Zosyn for now. Pericardial effusion non compressive Dr Siddiqui following had several echos this admission. another echo on 11/10/20 no features of tamponade. Likely Viral infection started on methyl pred and colchicine. Dysphagia ?Aspiration pneumonia CT chest with Left lower lobe infiltrate vs atelectasis. Does not clearly match with repeated aspirations. Will continue on Zosyn Speech and swallow eval done discussed with Brother Noble about PEG tube placement. Family is discussing Poor oral intake with decreasing urine output. have started gentle hydration. Hyponatremia Due to SIADH with possible intravascular volume depression. Now at baseline. On lasix Paroxetine stopped. Bilateral pleural effusion with bilateral compressive atelectasis. fluid overload with likely pulmonary hypertension and right heart failure. s/p pig tail catheter placement on the left 500 cc drained Now improved. Transaminitis: Likely hepatic congestion vs viral transaminitis. Patient may have right heart failure and hepatic congestion. hepatitis panel is negative, abdomen benign. Felbamate is another possibility but he has been on it since childhood. Acute urinary retention walter placement produced 500 cc Has h/o urinary incontinence but no major retention issues in the past managed with oxybutynin which is now held. Follows with urology Weakness/ inability to ambulate most likely due to Hyponatremia with baseline gait instability hyponatremia made it worse. PT, OT Seizure disorder from the age of 2 will continue home meds. valproate IV and felbamate. Hypertension will hold enalapril at present. Hypothyroid synthroid held LOU does not use CPAP. Developmental disability brother reports that he does not have Down's syndrome as documented in PMDs records. however he does have epilepsy from the age of 2 so has developmental disability and mild mental retardation Plan/VTE VTE Prophylaxis Ordered?: Yes VS, I&O, 24H, Fishbone Vital Signs/I&O Vital Signs Date Time Temp Pulse Resp B/P (MAP) Pulse Ox O2 Delivery O2 Flow Rate FiO2 11/11/20 12:00 98.2 145 19 109/76 (87) 97 Room Air 11/11/20 02:00 1.0 11/10/20 06:09 96 I&O- Last 24 Hours up to 6 AM 11/11/20 06:00 Intake Total 250 ml Output Total 1275 ml Balance -1025 ml Laboratory Data 24H LABS Laboratory Tests 2 11/11/20 04:22: Immature Granulocyte % (Auto) 0.9, Neutrophils (%) (Auto) 65.7, Lymphocytes (%) (Auto) 19.2L, Monocytes (%) (Auto) 12.5H, Eosinophils (%) (Auto) 1.3, Basophils (%) (Auto) 0.4, Neutrophils # (Auto) 7.4, Lymphocytes # (Auto) 2.2, Monocytes # (Auto) 1.4H, Eosinophils # (Auto) 0.2, Basophils # (Auto) 0.1, Nucleated Red Blood Cells % (auto) 0.0, Erythrocyte Sedimentation Rate 64H, Anion Gap 4L, Glomerular Filtration Rate > 60.0, Calcium Level 9.5, Total Bilirubin 0.4, Aspartate Amino Transf (AST/SGOT) 19, Alanine Aminotransferase (ALT/SGPT) 35, Alkaline Phosphatase 410H, Total Protein 6.1L, Albumin 2.0L, Albumin/Globulin Ratio 0.5 CBC/BMP Laboratory Tests 11/11/20 04:22 Microbiology Microbiology 11/10/20 Respiratory Virus Panel (PCR) (TING) - Final, Complete 11/08/20 Blood Culture - Preliminary, Resulted No Growth after 48 hours. All Specime... 11/08/20 Blood Culture - Preliminary, Resulted No Growth after 48 hours. All Specime... 11/08/20 Acid Fast Stain, Received Pending 11/08/20 Mycobacterial Culture, Received Pending 11/08/20 Fungal Smear, Received Pending 11/08/20 Fungal Culture, Received Pending 11/08/20 Gram Stain - Final, Complete 11/08/20 Anaerobic Culture - Final, Complete 11/08/20 Body Fluid Culture - Final, Complete MARTIN MIGUEL MD Nov 11, 2020 14:17
[2020-11-11] MEDS ORDERED: DIGOXIN INJ 0.5 MG/2 ML AMP (J1160) IV ONE (15:00)
[2020-11-11] MEDS: methylPREDNISolone 40MG 1ML VIAL IV SCH (16:33)
--- NOTE | 2020-11-11 16:46 | IPN ---
THORACIC SURGERY PROGRESS NOTE DATE: 11/10/2020 SUBJECTIVE: Patient is seen and examined this morning in the intensive care unit (ICU). His atrial fibrillation with rapid ventricular response is now back under control; however, nursing staff does report that he occasionally does go in and out of atrial fibrillation. He is significantly more alert, awake, responding to questions and just generally interactive since being admitted. He was started on Solu-Medrol yesterday by infectious disease, as well as colchicine by thoracic surgery service. He currently states, when asked if he has no pain, he says no. It is difficult to understand him, but he is able to comprehend yes and no questions. Overnight, he was continued on a cooling blanket and only received his daily digoxin dose this morning. Prior to receiving that, he did go back in to atrial fibrillation with rapid ventricular response. OBJECTIVE: VITAL SIGNS: Temperature 97.9 rectal, pulse 77 and irregular, but going in and out of tachycardic rhythms on the monitor while in the room, respiratory rate is significantly improved at 19, blood pressure 117/76, saturating 99% on room air. INTAKE AND OUTPUT: He has had 300 mL of intake in the last 24 hours with 1630 mL of output and 20 mL of chest tube drainage. PHYSICAL EXAMINATION: GENERAL: Patient is a somewhat delayed-appearing male who appears stated age, with his head in the anterolateral position, breathing normally and able to speak in complete sentences without use of accessory muscles of respiration. HEENT: Head is normocephalic, atraumatic. Extraocular movements intact. Sclerae nonicteric. Mucous membranes are moist. There is no food present in the oropharynx. Nares are patent and atraumatic. NECK: No jugular venous distention (JVD) or lymphadenopathy. CARDIOVASCULAR: Irregular rate, intermittent tachycardic rhythm. Normal S1, S2. Difficult to appreciate friction rub at the tachycardic rate. No murmurs or gallops. LUNGS: No adventitious breath sounds on auscultation. There are minimal crackles in the left lower lobe. No dullness to percussion bilaterally. No wheezes. Some transient upper airway sounds that are still unable to be cleared. No use of respiratory muscles or secondary muscles of respiration. ABDOMEN: Obese, soft, nontender. Nondistended. No hepatosplenomegaly. Bowel sounds present. EXTREMITIES: Trace pitting edema is still present in the bilateral upper extremities from the elbows down, none in the bilateral lower extremitas. PSYCHIATRIC: Patient is awake, alert and arousable with appropriate mood and affect. LABORATORY DATA: White blood cell count 11.3, hemoglobin 13.7, hematocrit 42, platelet count 630. Sodium 134, potassium 4.8, chloride 99, bicarbonate 31, BUN 37, creatinine 0.5, glucose 104. Total bilirubin 0.4, AST 19, ALT 35, alkaline phosphatase 410, total protein 6.1, albumin 2.0. Quantiferon Gold test pending. Mycoplasma IgM pending. Respiratory panel is negative. Blood cultures negative times 48 hours. The procalcitonin that was ordered was 0.16. IMAGING: Portable chest x-ray on 11/11/2020 compared to 11/09/2020 is relatively unchanged. Difficult to see the entirety of the right upper lobe, but costophrenic angles are sharp bilaterally. There is still some minimal cephalization in the left lung valdez. No signs of acute infiltrate. Patient is still exhibiting cardiomegaly. Trachea is midline without deviation. Lung valdez extend out to the chest wall bilaterally. Head CT from yesterday demonstrating extensive bilateral frontal lobe and encephalomalacia, which is unchanged from 2011 study. Moderate generalized volume loss progressed somewhat since 2011. Mild vascular calcification. No acute intracranial abnormality. ASSESSMENT AND PLAN: Patient is a 60-year-old male, initially admitted for left-sided pleural effusion and a pericardial effusion. There was a STAT echocardiogram done yesterday at bedside which demonstrated improvement in his pericardial effusion, so decision was made to withhold surgery and just start the patient on colchicine. Given his minimal chest tube drainage, we will pull his pigtail catheter today and order repeat x-ray imaging tomorrow morning. Infectious disease was consulted out of concern for sepsis without a source and the patient was started on Solu-Medrol as well. Today, he inexplicably seems to be doing better with the only real changes being made is his ongoing diuresis, which does seem to be giving him some prerenal azotemia, as well as the addition of colchicine and Solu-Medrol. Still awaiting some of the lab work that infectious disease has ordered. However, I think it is [place] to continue with the Solu-Medrol given how well he is doing on it, as well as to continue with the Zosyn that he is on, though it does not appear as though he is having any sort of a lung infection. Given that we were concerned about sepsis yesterday and given that we do not still have a true source of his infection, we will continue this for the time being. The cause of his underlying issues yesterday may have just been generalized inflammation, although I suspect part of his current problem is that he is somewhat intravascularly depleted, which is necessitated by trying to improve his hyponatremia from his ongoing diuresis. Once again, we will continue with the colchicine. He is doing much better with swallowing today, per nursing staff. We have discontinued his cooling blanket, as we would like to see if he becomes febrile in the absence of the cooling blanket and see how his body responds. We will advise that we should keep the patient in the ICU for critical monitoring, given how sick he was at presentation yesterday. I did have the opportunity to speak with the patient's mother yesterday and explain the situation and what we actions had been taken. She did express some concern over him being out of his anti-seizure medication, Felbamate, so I did phone that into the pharmacy so that it could be brought in for him to get that. GME ATTESTATION.
--- NOTE | 2020-11-11 16:59 | IPN ---
PROGRESS NOTE DATE: 11/11/2020 Mr. Machado is seen this morning on his bedside in intensive care unit. This is the first time he verbally answered to question. He said that he is feeling okay and denied any abdominal pain. He was transferred to intensive care unit yesterday due to atrial fibrillation with rapid ventricular rate and multiple comorbid conditions, including sepsis. He had high-grade fever yesterday. He is currently on Zosyn and also on steroids. He is not requiring pressors as yet. For atrial fibrillation, he has been on digoxin, and ventricular rate is better controlled today. He has been nothing by mouth due to inability to swallow appropriately. He have continued with low-dose intravenous (IV) Lasix in order to get negative fluid balance in view of generalized edema and anasarca. PHYSICAL EXAMINATION: His temperature is 97.9 degrees Fahrenheit, heart rate 114 per minute, respiratory rate 20 per minute, blood pressure 109/76 mmHg, and oxygen saturation 97% on room air. He has severe flexion deformity of his neck. Neck veins are impossible to be assessed. Heart sounds are irregular and tachycardic. Lungs with diminished breath sounds at dependent parts. Left-sided chest tube is draining. Abdomen is soft and nontender, and bowel sounds are normal. Extremities with generalized edema on all four limbs but no cyanosis or clubbing. Neurologically, he is more alert and interactive today. Today's labs show WBC count 11.3, hemoglobin 13.8, hematocrit 42, platelets 630. Sodium 134, potassium 4.8, CO2 of 31, BUN 37, and creatinine 0.50. Glucose 104 and calcium 9.5. Total protein 6.1 and albumin 2.0. PROBLEMS: 1. Acute kidney injury. Kidney function has remained stable, and he has good urine output at this point. 2. Hyponatremia. Sodium level has also improved and has been stable between 131-134 for the last 48 hours. We will continue with current plan for diuresis in view of generalized edema and pericardial effusions. 3. Sepsis. So far cultures have been negative, and he remains on antibiotics. 4. Nutrition. So far, his nutrition has been on hold due to inability to swallow. I will defer to primary care service and thoracic surgery to consider for either total parenteral nutrition (TPN) or wait for resuming his oral feeds when he is able to swallow. %%CCLIST%%
[2020-11-11] MEDS ORDERED: bisoproloL fumarate 5 MG TAB PO ONE ×2 (17:10→23:00)
[2020-11-12] VITALS (13 sets, daily range): BP systolic 90–109; BP diastolic 60–73
[2020-11-12] MEDS: ALBUTEROL SULFATE 2.5 MG/0.5 ML INH NEB SOLN NEB SCH ×4 (02:06→20:48)
[2020-11-12] MEDS: VALPROATE SOD IV SCH ×4 (04:17→22:02)
[2020-11-12] MEDS: D5W IV SCH ×4 (04:17→22:02)
[2020-11-12] MEDS: KETOROLAC 30 MG/ML 1ML VIAL IV SCH ×4 (04:17→22:04)
[2020-11-12 04:55] LABS: BASO % 0.2 % (0.0-1.0); EOS # 0.1 10^3/uL (0.0-0.5); EOS % 0.6 % (0.0-3.0); HEMATOCRIT 38.4 % (42.0-52.0); HEMOGLOBIN 12.7 g/dl (13.5-17.5); LYMPH # 1.9 10^3/uL (1.5-5.0); MEAN CORPUSCULAR HEMOGLOBIN 31.7 pg (27.0-33.0); MEAN CORPUSCULAR HGB CONC 33.1 g/dl (32.0-36.5); MEAN CORPUSCULAR VOLUME 95.8 fl (80.0-96.0); MONO # 0.8 10^3/uL (0.0-0.8); NEUTROPHILS % 67.5 % (36.0-66.0); PLATELET COUNT, AUTOMATED 639 10^3/uL (150-450); RED BLOOD COUNT 4.01 10^6/uL (4.30-6.10); WHITE BLOOD COUNT 8.8 10^3/uL (4.0-10.0)
[2020-11-12 05:24] LABS: ALT/SGPT 33 U/L (12-78); BILIRUBIN,TOTAL 0.3 MG/DL (0.2-1.0); BLOOD UREA NITROGEN 44 MG/DL (7-18); CALCIUM LEVEL 9.1 MG/DL (8.8-10.2); CARBON DIOXIDE LEVEL 30 MEQ/L (21-32); CHLORIDE LEVEL 102 MEQ/L (98-107); CREATININE FOR GFR 0.56 MG/DL (0.70-1.30); GLOMERULAR FILTRATION RATE > 60.0 (>49); GLUCOSE, FASTING 109 MG/DL (70-100); SODIUM LEVEL 136 MEQ/L (136-145); TOTAL PROTEIN 5.8 GM/DL (6.4-8.2)
[2020-11-12] MEDS: SLF 3 ML SYR IV SCH ×3 (05:47→22:05)
[2020-11-12] MEDS: LEVOTHYROXINE 50MCG TABLET (0.05MG) PO SCH (05:47)
[2020-11-12] MEDS: PIPERACILLIN/TAZOBACTAM SOD 3.375 GM in D5W MINI-BAG PLUS 50 ML IV SCH ×4 (05:48→23:58)
[2020-11-12] MEDS: D5W/0.9% SODIUM CHLORIDE 1,000 ML IV SCH (07:20)
--- NOTE | 2020-11-12 08:58 | REP ---
INDICATION: S/P chest tube discontinuation on 11/11/20. COMPARISON: Comparison chest x-ray November 11, 2020. TECHNIQUE: Portable upright AP chest radiograph. FINDINGS: Patient's mandible overlies the superior mediastinum and right lung apex. The pigtail drainage catheter visible on the left on yesterday's radiograph is been removed. There are few linear markings in the left base. No focal infiltrate is seen. The pleural angles are sharp.. Heart remains prominent unchanged. IMPRESSION: The left-sided drainage catheter is been removed.. <Electronically signed by Armin Iraheta > 11/12/20 0817
[2020-11-12] MEDS ORDERED: DIGOXIN INJ 0.5 MG/2 ML AMP (J1160) IV SCH (09:00)
[2020-11-12] MEDS ORDERED: FUROSEMIDE 20MG/2ML VIAL (J1940) IV SCH (09:00)
[2020-11-12] MEDS: bisoproloL fumarate 5 MG TAB PO SCH (10:07)
[2020-11-12] MEDS: ENOXAPARIN 40MG/0.4ML SYRINGE (J1650 PER 10MG) SC SCH (10:08)
[2020-11-12] MEDS: GABAPENTIN 300 MG CAP PO SCH ×2 (10:08→22:04)
[2020-11-12] MEDS: COLCHICINE 0.6 MG TABLET PO SCH ×2 (10:08→22:04)
[2020-11-12] MEDS: FELBAMATE 600 MG PO SCH ×2 (10:08→21:00)
--- NOTE | 2020-11-12 11:15 | IPNPDOC ---
Subjective Date Seen The patient was seen on 11/12/20. Subjective Chief Complaint/HPI More awake and alert today. Able to lift up his hands and follow some commands. Pulse rate has been controlled over night. No fever or chills. Objective Physical Examination General Exam: Positive: Alert, Cooperative, No Acute Distress, Other (keeps his head bent forward in chin to chest position. Following commands) ENT Exam: Positive: Atraumatic, Other ENT Neck Exam: Positive: Other (neck stiff at the back but can be straightened out); Negative: thyromegaly Chest Exam: Positive: Diminished (at leonardo bases), Other (bilateral basal crackles. ) Heart Exam: Positive: Rate Normal, Irregular Rhythm, Normal S1, Normal S2; Negative: Murmurs, Rubs Telemetry: Positive: Atrial fibrillation, Other Telemetry: (atrial flutter) Abdomen Exam: Positive: BS Hypoactive, Soft; Negative: Tenderness Extremity Exam: Positive: Other (edema in the hands. ); Negative: Clubbing, Cyanosis, Edema Skin Exam: Positive: Nl turgor and temperature; Negative: Breakdown, Lesion Assessment /Plan Assessment 60 year old male with Down's syndrome, mild mental retardation, dementia, seizure, dysphagia, chronic hyponatremia, chronic constipation, lives at home with 24 x7 care, has gait instability and ambulates with a walker has been noticed to be very weak and tired and sometimes listless from 10/31/20. Incidentally he received his first COVID vaccine on 10/27/20. For the past 1 day he has been so weak that the caregiver could not even get him out of the bed. In the ED he was noted to be hyponatremic to 123, also his AST and ALT and ALP were elevated. GB ultrasound did not show any gall stones or GB pathology. But the technologist noted that there may be some fluid around the heart. A stat echo was ordered. Patient was admitted for hyponatremia, transaminitis and suspected large pericardial effusion rule out tamponade. Now patietn appears to be septic and is in afib with RVR. Afib/ Aflutter with RVR Now in Afluter rate controlled. Has been loaded with digoxin and started on low dose bisoprolol consulted cardiology on 11/10/20 will continue dig and bisoprolol. Sepsis / SIRS Consulted ID. Likely inflammatory viral pericarditis with pericardial and pleural effusion started on methyl pred 40 mg iv daily. started also on colchicine. Blood cultures negative, cultures from the pleural fluid is also negative. CT chest with some infiltrates at the left base which looks more like atelectasis Procalcitonin 0.16 Unlikely this is a bacterial infection. However will continue on Zosyn for now. Pericardial effusion non compressive Dr Siddiqui following had several echos this admission. another echo on 11/10/20 no features of tamponade. Likely Viral infection started on methyl pred and colchicine. Dysphagia ?Aspiration pneumonia CT chest with Left lower lobe infiltrate vs atelectasis. Does not clearly match with repeated aspirations. Will continue on Zosyn Speech and swallow eval done. As per mom often coughs when he is eating and it is worse if his head in bent forward too much. CT chest does not match recurrent aspirations. He is able to manage his secretions and swallow some crushed pills in apple sauce. will retry clear liquids then advance to pureed diet. Poor oral intake with decreasing urine output. have started gentle hydration. Hyponatremia Due to SIADH with possible intravascular volume depression. Now at baseline. On lasix Paroxetine stopped. Bilateral pleural effusion with bilateral compressive atelectasis. fluid overload with likely pulmonary hypertension and right heart failure. s/p pig tail catheter placement on the left 500 cc drained Now improved. Transaminitis: Likely hepatic congestion vs viral transaminitis. Patient may have right heart failure and hepatic congestion. hepatitis panel is negative, abdomen benign. Felbamate is another possibility but he has been on it since childhood. Acute urinary retention walter placement produced 500 cc Has h/o urinary incontinence but no major retention issues in the past managed with oxybutynin which is now held. Follows with urology Weakness/ inability to ambulate most likely due to Hyponatremia with baseline gait instability hyponatremia made it worse. PT, OT Seizure disorder from the age of 2 will continue home meds. valproate IV and felbamate. Hypertension will hold enalapril at present. Hypothyroid synthroid held LOU does not use CPAP. Developmental disability brother reports that he does not have Down's syndrome as documented in PMDs records. however he does have epilepsy from the age of 2 so has developmental disability and mild mental retardation Plan/VTE VTE Prophylaxis Ordered?: Yes VS, I&O, 24H, Fishbone Vital Signs/I&O Vital Signs Date Time Temp Pulse Resp B/P (MAP) Pulse Ox O2 Delivery O2 Flow Rate FiO2 11/12/20 10:06 75 11/12/20 08:00 97.3 18 105/71 (82) 97 Room Air 11/12/20 07:00 2.0 11/10/20 06:09 96 l I&O- Last 24 Hours up to 6 AM 11/12/20 06:00 Intake Total 1450 ml Output Total 615 ml Balance 835 ml Laboratory Data 24H LABS Laboratory Tests 2 11/11/20 18:29: Bedside Glucose (Misc Panel) 112 11/12/20 04:39: Immature Granulocyte % (Auto) 0.7, Neutrophils (%) (Auto) 67.5H, Lymphocytes (%) (Auto) 22.0L, Monocytes (%) (Auto) 9.0H, Eosinophils (%) (Auto) 0.6, Basophils (%) (Auto) 0.2, Neutrophils # (Auto) 6.0, Lymphocytes # (Auto) 1.9, Monocytes # (Auto) 0.8, Eosinophils # (Auto) 0.1, Basophils # (Auto) 0.0, Nucleated Red Blood Cells % (auto) 0.0, Anion Gap 4L, Glomerular Filtration Rate > 60.0, Calcium Level 9.1, Total Bilirubin 0.3, Aspartate Amino Transf (AST/SGOT) 18, Alanine Aminotransferase (ALT/SGPT) 33, Alkaline Phosphatase 408H, Total Protein 5.8L, Albumin 2.0L, Albumin/Globulin Ratio 0.5 CBC/BMP Laboratory Tests 11/12/20 04:39 Microbiology Microbiology 11/10/20 Respiratory Virus Panel (PCR) (TING) - Final, Complete 11/08/20 Blood Culture - Preliminary, Resulted No Growth after 72 hours. All specime... 11/08/20 Blood Culture - Preliminary, Resulted No Growth after 72 hours. All specime... 11/08/20 Acid Fast Stain, Received Pending 11/08/20 Mycobacterial Culture, Received Pending 11/08/20 Fungal Smear, Received Pending 11/08/20 Fungal Culture, Received Pending 11/08/20 Gram Stain - Final, Complete 11/08/20 Anaerobic Culture - Final, Complete 11/08/20 Body Fluid Culture - Final, Complete MARTIN MIGUEL MD Nov 12, 2020 11:15
[2020-11-12] MEDS: methylPREDNISolone 40MG 1ML VIAL IV SCH (15:17)
[2020-11-12] MEDS ORDERED: ATROPINE SULF 1MG/10ML SYRINGE (J0461) IV PRN (15:55)
--- NOTE | 2020-11-12 17:26 | IPN ---
NEPHROLOGY PROGRESS NOTE DATE: 11/12/2020 SUBJECTIVE: Mr. Machado is seen this morning on his bedside in the intensive care unit. Nursing staff is trying to get him up in the chair with a Khanh lift. Patient is feeling better and he is more verbal today. Nursing staff reports that he has difficulty swallowing and he was not able to eat or drink well. He has diuresed better today. However, yesterday his urine output was only 750 mL with 430 mL positive fluid balance. He had atrial fibrillation with rapid ventricular rate causing low blood pressure yesterday. Today, his ventricular rate is in the 70s and blood pressure has been about 100 mmHg systolic. His chest tube was removed yesterday and he still has a Sinha catheter in place. PHYSICAL EXAMINATION: Temperature 97.4 degrees Fahrenheit, heart rate 72 per minute, respiratory rate 18 per minute, blood pressure 107/72 mmHg, oxygen saturation 97% on 2 liters oxygen. HEAD: Atraumatic. NECK: Chronic flexion deformity towards the right side. He has severe kyphosis also. LUNGS: Diminished breath sounds at the bases. HEART SOUNDS: Irregular. ABDOMEN: Soft and nontender. EXTREMITIES: Without any cyanosis or clubbing. Peripheral edema has improved. LABORATORY DATA: Today's labs show WBC 8.8, hemoglobin 12.7, hematocrit 38.4. Sodium is up to 136, potassium 5.0, chloride 102, CO2 30, BUN 44, creatinine 0.56, glucose 109, calcium 9.1. Total protein 5.8, albumin 2.0. PROBLEMS: 1. Hyponatremia. Sodium level has improved to 136. At this point, his volume level has also improved significantly. I am going to stop his furosemide for now and watch him closely. I feel that he has risk for getting dehydration with intravascular volume depletion with diuresis, as he does have very minimal oral intake. 2. Acute kidney injury. Kidney function has remained stable and BUN is disproportionately elevated due to diuresis. At this point, we will continue without diuresis for now and watch him to see how he does. 3. Sepsis and fever. His fever has improved and he remains on Zosyn. Cultures have been negative so far. 4. Pleural effusion. His chest tube was removed and pericardial effusion was reported to be improved on recent echocardiogram. I would suggest to consider stopping Toradol, as patient is getting volume depleted and would have risk for acute renal failure. From a renal standpoint, patient is doing much better and I am going to sign off the case. Please do not hesitate to call me should you need any further assistance.
[2020-11-13] VITALS: BP 116/75
[2020-11-13] MEDS: ALBUTEROL SULFATE 2.5 MG/0.5 ML INH NEB SOLN NEB SCH ×4 (01:49→20:58)
[2020-11-13] MEDS: KETOROLAC 30 MG/ML 1ML VIAL IV SCH ×4 (03:25→21:40)
[2020-11-13] MEDS: D5W IV SCH ×4 (03:25→21:41)
[2020-11-13] MEDS: VALPROATE SOD IV SCH ×4 (03:25→21:41)
[2020-11-13 04:00] VITALS: BP 113/83
[2020-11-13] MEDS: SLF 3 ML SYR IV SCH ×3 (06:17→21:40)
[2020-11-13] MEDS: PIPERACILLIN/TAZOBACTAM SOD 3.375 GM in D5W MINI-BAG PLUS 50 ML IV SCH (06:17)
[2020-11-13] MEDS: LEVOTHYROXINE 50MCG TABLET (0.05MG) PO SCH (06:17)
[2020-11-13] MEDS: D5W/0.9% SODIUM CHLORIDE 1,000 ML IV SCH (07:30)
[2020-11-13 07:39] VITALS: BP 110/74
--- NOTE | 2020-11-13 08:08 | IPN ---
PROGRESS NOTE DATE: 11/12/2020 SUBJECTIVE: Mr. Machado is a lot more awake and alert today than he was two days ago. He is eating semi-solid food, although the nursing staff tells me he is choking on liquids. He is in atrial flutter with a relatively controlled rate. OBJECTIVE: VITAL SIGNS: Show a T-max of 98.0 with a heart rate that ranges between 71 and 75 in atrial flutter with a respiratory rate of 16-20 without the use of accessory muscles who is 92% to 98% saturated on 2 liters nasal cannula and whose blood pressure is ranging between 93/62 to 109/73. INTAKE AND OUTPUT: Over the past 24 hours has been recorded as 1145 in and 715 out for a positivity of 430 mL. Yesterday his chest catheter was removed. He weighs 70 kg today compared to 72.2 kg yesterday. RESPIRATORY: On physical examination, it is still hard for him to sit up properly. Nonetheless, his percussion note sounds full to the diaphragm. I hear bilateral rales and coarse rhonchi. He does not cough for me so I cannot tell if the rhonchi disappear. CARDIAC: Shows a faint pericardial friction rub heard best over the left sternal border. I cannot feel his PMI. S1 and S2 are normal. ABDOMEN: Soft and nontender. Bowel sounds are positive. There is no hepatomegaly. I cannot test for CVA tenderness. EXTREMITIES: Show trace pretibial edema. No calf tenderness. No differential swelling of the upper extremities. SKIN: Warm, dry, and perfused without cyanosis or mottling, including that of the nail beds and knees. NECK: Supple. There is no jugular venous distention. No subcutaneous emphysema. Trachea is midline. He does keep his head in a flexed position, but we can pull it back for me to examine him. MOUTH: Shows the mucous membranes to be pink and moist. Lips and commisures are without lesions and no thrush. EYES: Show his pupils equal and reactive. Extraocular muscles are intact. Sclerae nonicteric. NEUROLOGIC: Shows II through XII intact. Normal gross motor, gross sensation intact. PSYCHIATRIC: Shows him to be awake and fairly alert, but slow to respond to questions. LABORATORY DATA: His white count today is 8.8 with hemoglobin and hematocrit of 12.7 and 38.4 respectively. Platelet count is 639,000. Differential shows 67% neutrophils, 22% lymphocytes, and 9% monocytes. There are no immature forms and no toxic granulations. His electrolytes are normal with a BUN and creatinine of 44 and 0.56, glucose of 109, and a calcium of 9.1 with a corresponding albumin of 2.0. The albumin is unchanged from yesterday. IMAGING STUDIES: His chest x-ray shows his lungs fully expand to the chest wall. Cardiac silhouette has a larger CT ratio; however, it is a portable film. I do see vascular congestion and cephalization of vessels. Again, this is a portable film and I am not sure exactly how far he has been sat up. IMPRESSION: 1. Pericardial effusion noncompressive and improving as of echo two days ago. 2. Fever of unknown origin maybe purely inflammatory from the pericarditis. 3. At this point, unknown cause of pericarditis. 4. Obesity. 5. Hypothyroidism. 6. Bilateral small pleural effusions. PLAN AND DISCUSSION: I am content that he is looking a whole lot better. We need to still work on his swallowing and obtain another swallowing evaluation from speech therapy. His SAGAR is still pending. I do not see where a rheumatoid factor has been ordered and I will do so. There is always the diagnosis of exclusive of a viral pericarditis. I do not think this is a bacterial pericarditis and does not need to go to the OR for draining. There is no evidence of underlying malignancy and his TSH is normal and I do not think that his pericardial effusion is being caused by hypothyroidism.
--- NOTE | 2020-11-13 08:52 | REP ---
INDICATION: S/P chest tube removal 11/11/20 COMPARISON: 11/12/2020 TECHNIQUE: Portable AP view of the chest FINDINGS: No obvious chest tube identified. Chronic changes with superimposed lower lobe airspace disease and suspected small pleural reactions which may be slightly increased from prior examination. No obvious pneumothorax. Cardiac silhouette is stable. Skeletal structures demonstrate age-related osteopenia and stable degenerative changes. IMPRESSION: 1. No obvious chest tube. 2. Bibasilar airspace disease and small pleural reactions which might be slightly increased from prior examination. <Electronically signed by Kj Gloria > 11/13/20 [id number]
[2020-11-13 09:26] LABS: DIGOXIN LEVEL 1.5 NG/ML (0.5-2.0)
--- NOTE | 2020-11-13 09:36 | CR ---
CONSULTATION DATE: 11/10/2020 REFERRING PHYSICIAN: Jenni Tripp MD REASON FOR CONSULTATION: Atrial fibrillation. HISTORY OF PRESENT ILLNESS: 60-year-old male living at home with 24/7 care and with a history of Down syndrome and mental retardation as well as seizure disorders, chronic hyponatremia and behavioral issues. He was brought to the ER on 11/05/2020 because his behavior has changed and he was not eating well. There is no report of fever. About a week prior to that visit on 10/27/2020, he had his first COVID-19 vaccine shot. In the ER, he was found to be markedly hyponatremic with a serum sodium of 423 and had some abnormal LFTs. He had an ultrasound of the abdomen and incidentally he was found to have a significant amount of fluid on the heart, pericardial effusion. He was admitted for further management and monitoring. A stat echocardiogram was done and it revealed moderate pericardial effusion without evidence of cardiac tamponade, a dilated inferior vena cava, and a normal global left ventricular systolic function. He also was found to have pleural effusion. The patient was seen by cardiothoracic surgeon and we have discussed about the pericardial effusion and he is being monitored. So far, he has two echocardiograms that revealed no significant changes in the size of the pericardial fluid and also no evidence of cardiac tamponade. He has had a chest tube inserted. I was called because of atrial fibrillation and the case was discussed with the hospitalist. He has already received IV Lopressor ___. We have decided to give him IV digoxin because the blood pressure was low and if needed and if blood pressure remains stable, consider IV Cardizem. When I saw Mr. Machado in the ICU, he was supine in bed in no acute distress at rest and sleepy. Most of the information was taken from the chart, the nursing staff and his hospitalist. He has received one dose of digoxin and his heart rate has improved significantly. HOME MEDICATIONS: 1. Vitamin C. 2. Aspirin 81 mg p.o. daily. 3. Calcium carbonate 600 mg p.o. b.i.d. 4. Vitamin D3. 5. Divalproex acid. 6. Docusate sodium 200 mg p.o. b.i.d. for constipation. 7. Enalapril 10 mg p.o. b.i.d. 8. Felbamate 1.8 gm p.o. b.i.d. 9. Ferrous gluconate 324 mg p.o. daily. 10. Gabapentin 300 mg p.o. b.i.d. 11. Levothyroxine 50 mcg p.o. daily. 12. Magnesium oxide 400 mg p.o. daily. 13. Oxybutynin 10 mg p.o. daily. 14. Paroxetine 40 mg p.o. daily. PAST MEDICAL HISTORY: Please report to the HPI. He also has a history of urinary incontinence, vitamin D deficiency, arthritis/osteoporosis, hypothyroidism, obstructive sleep apnea for which he has been on CPAP, arthritis with degenerative joint disease and degenerative diseases, hemorrhoids, diverticulosis and colonic polyps, compression fracture at the level of T1 vertebra. FAMILY HISTORY: Positive for diabetes mellitus. He also has a brother with kidney stones. ALLERGIES: No known drug allergies. ADVANCE DIRECTIVE: THE PATIENT IS A FULL CODE. PHYSICAL EXAMINATION: Patient is alert but sleepy. His vital signs when I saw him reveal a blood pressure of 100/75 with pulse of 84, respirations 20 and his maximum temperature was 98.4 degrees Fahrenheit with an oxygen saturation of 98% on two liters nasal cannula. He had a negative fluid balance of 1.3 liters for 11/09/2020. Examination of the head: Atraumatic. Neck is supple and could not appreciate any JVD. Lungs do not reveal any wheezing but there are upper airway rhonchi heard. Heart examination does not reveal any irregular heart sounds or gallops. The PMI is not displaced. There is no rub. I could not appreciate any murmurs. Abdomen is soft and nontender. Extremities reveal trace lower leg/ankle edema. Neurologic examination was not done. LABORATORY DATA: CBC on 11/10/2020 at 6 o'clock in the morning revealed a WBC of 13.6, hemoglobin 12.5, hematocrit 37.4 and platelets 162,000. BMP at the same time revealed a sodium of 131, potassium 4.5, chloride 97, CO2 26, BUN 28, creatinine 0.46, GFR more than 60, fasting glucose 75, calcium 9.7. Liver enzymes revealed a total bilirubin of 0.8, AST 19, ALT 44, alkaline phosphatase 277, total protein 6.2, albumin 2.3. Urinalysis revealed +1 protein, +2 blood, 65 RBCs, +1 bacteria. Influenza A and B negative. HIV negative. Mycoplasma pneumonia less than 770. MRSA not detected. TB test pending. Echocardiogram on 11/05/2020 revealed a normal LVEF estimated at 60-65%, mildly enlarged left atrium with mild mitral regurgitation, mild dilatation of the aorta at 3.9 cm, moderate to large pericardial effusion without evidence of chamber collapse but with a mildly dilated inferior vena cava. Also noted was finding consistent with pleural effusion. EKG on admission revealed normal sinus rhythm at 85 beats per minute and nonspecific ST-T abnormalities. EKG on 11/10/2020 revealed atrial fibrillation with a rapid ventricular rate of 160 beats per minute, nonspecific ST-T abnormalities. Telemetry at this present time revealed atrial fibrillation with a ventricular rate at about 90-100 beats per minute. IMPRESSION: 1. Atrial fibrillation, newly diagnosed and heart rate is now under control and we will continue to load him with IV digoxin. The case was discussed with the hospitalist. If there is no contraindication, I recommend chronic anticoagulation therapy and we can use of one of the NOACs. If needed in order to control his heart rate while in the hospital, we can add Cardizem. He has a normal LVEF. Regarding chronic atrial fibrillation therapy, we probably should wait pending resolution of his pleural effusion and pericardial effusion. We can give him IV amiodarone as needed and hopefully he will spontaneously cardiovert to a normal sinus rhythm. 2. Pericardial effusion and this is being addressed. He is being monitored closely per CT surgeon, Dr. Siddiqui. He had an echocardiogram done earlier today, no remarkable changes. It was a pleasure to participate in the care of Mr. Leo Machado for his underlying cardiac condition. He appears to be stable and I will monitor him along with you. Dr. Hammonds will be covering this weekend and he will be called if needed.
--- NOTE | 2020-11-13 09:41 | ECHO ---
DATE OF PROCEDURE: 11/10/2020 Age: 60 Gender: Male REFERRING PHYSICIAN: Michele Crouch DO. PATIENT LOCATION: Room 3227. REASON FOR STUDY: Sepsis, pericardial effusion. 2D MEASUREMENTS: IVS 1.3 cm LV 5.5 cm LVPW 1.3 cm LA 3.6 cm Aorta 2.8 cm IVC 2.3 cm DOPPLER MEASUREMENT Peak velocity across the aortic valve 2.5 m/s Peak velocity across the LVOT 0.6 m/s Mitral E 1.2 Mitral A 1.1 with a ratio of 1.1 2D COMMENTS: 1. Please refer to prior echocardiograms done on 11/05/2020 and 11/08/2020, for further details and comparison. 2. The left ventricular size is borderline enlarged with mildly increased left ventricular wall thickness. Left ventricular systolic function is normal, estimated at 65% to 70%. 3. Normal left atrium. Normal right atrium and right ventricle. 4. The atrial septum appeared to be normal without evidence of defect or shunt. 5. Normal aortic root. 6. Moderate pericardial effusion noted, mainly posteriorly. No evidence of cardiac chamber compressions. There was evidence of right pleural effusion. 7. Mildly calcified aortic valve with normal leaflet excursion. Mildly calcified mitral annulus with normal anterior mitral valve leaflet motion. Normal tricuspid valve. The pulmonic valve and proximal pulmonary artery branches were not well visualized. 8. The inferior vena cava is dilated, central venous pressure might be elevated. DOPPLER: No carotid Doppler done in this study. Please refer to prior studies. IMPRESSION: 1. Normal global left ventricular systolic function with a hyperdynamic left ventricle and mild concentric left ventricular hypertrophy. Assessment of the left ventricular diastolic function was limited, the patient at this time was in atrial fibrillation. 2. Moderate pericardial effusion noted mainly posteriorly. No evidence of cardiac tamponade. 3. Pleural effusion also noted, right. 4. There were findings consistent with elevated central venous pressure, the inferior vena cava was mildly enlarged. MTDD
[2020-11-13] MEDS: ENOXAPARIN 40MG/0.4ML SYRINGE (J1650 PER 10MG) SC SCH (10:10)
[2020-11-13] MEDS: GABAPENTIN 300 MG CAP PO SCH ×2 (10:11→21:00)
[2020-11-13] MEDS: COLCHICINE 0.6 MG TABLET PO SCH ×2 (10:11→21:40)
[2020-11-13] MEDS: FELBAMATE 600 MG PO SCH ×2 (10:11→21:00)
[2020-11-13] MEDS: bisoproloL fumarate 5 MG TAB PO SCH (10:11)
[2020-11-13 12:00] VITALS: BP 135/89
[2020-11-13 12:13] LABS: C REACTIVE PROTEIN QUANTITATIV 2.08 MG/DL (0.00-0.30)
--- NOTE | 2020-11-13 12:17 | IPNPDOC ---
Text Note Date of Service The patient was seen on 11/13/20. NOTE SUBJECTIVE: -No acute events overnight -No fever or chills. OBJECTIVE: General: Alert, Cooperative, No Acute Distress, Head bent forward in chin to chest position, per previously noted baseline ENT: Atraumatic, Other ENT Neck: Stiff at the back, contracted in chin to chest position per baseline, no meningisms Chest: Diminished bases with bilateral basilar crackles Heart: Rate Normal, Irregular Rhythm, Normal S1, Normal S2 Abdomen: Normoactive bowel sounds, soft, NTND Extremities: Has bilateral upper extremity edema, no LE edema Skin: Nl turgor and temperature, no breakdown or lesions Labs: Na 136 K 5 Cr 0.56 WBC 8.8 hgb 12.7 platelets 639 ASSESSMENT: 60 year old M with Down's syndrome, mild mental retardation, dementia, seizure, dysphagia, chronic hyponatremia, chronic constipation, lives at home with 24 x7 care, has gait instability and ambulates with a walker who was noticed to be v tino weak and tired and sometimes listless from 10/31/20, 4 days after receiving his first COVID vaccine on 10/27/20 and was found to be hyponatremic to 123, with a transaminitis and with a large pericardial effusion in afib with RVR. Afib/ Aflutter with RVR -In Afluter rate controlled. -Was loaded with digoxin and started on low dose bisoprolol -consulted cardiology on 11/10/20, continue dig and bisoprolol. -will start on eliquis today Sepsis / SIRS Consulted ID. Likely inflammatory viral pericarditis with pericardial and pleural effusion -continue methyl pred 40 mg iv daily. -continue colchicine. -Blood cultures negative, cultures from the pleural fluid is also negative. -CT chest with some infiltrates at the left base which looks more like atelectasis -Procalcitonin 0.16 -day 6 of empiric pip/tazo, with no evidence of bacterial infection, dc abx Pericardial effusion non compressive Dr Siddiqui following had several echos this admission. another echo on 11/10/20 no features of tamponade. Likely Viral infection started on methyl pred and colchicine. Dysphagia ?Aspiration pneumonia CT chest with Left lower lobe infiltrate vs atelectasis. Does not clearly match with repeated aspirations. Will continue on Zosyn Speech and swallow eval done. As per mom often coughs when he is eating and it is worse if his head in bent forward too much. CT chest does not match recurrent aspirations. He is able to manage his secretions and swallow some crushed pills in apple sauce. will retry clear liquids then advance to pureed diet. Poor oral intake with decreasing urine output. have started gentle hydration. Hyponatremia Due to SIADH with possible intravascular volume depression. Now at baseline. On lasix Paroxetine stopped. Bilateral pleural effusion with bilateral compressive atelectasis. fluid overload with likely pulmonary hypertension and right heart failure. s/p pig tail catheter placement on the left 500 cc drained Now improved. Transaminitis: Likely hepatic congestion vs viral transaminitis. Patient may have right heart failure and hepatic congestion. hepatitis panel is negative, abdomen benign. Felbamate is another possibility but he has been on it since childhood. Acute urinary retention walter placement produced 500 cc Has h/o urinary incontinence but no major retention issues in the past managed with oxybutynin which is now held. Follows with urology Weakness/ inability to ambulate most likely due to Hyponatremia with baseline gait instability hyponatremia made it worse. PT, OT Seizure disorder from the age of 2 will continue home meds. valproate IV and felbamate. Hypertension will hold enalapril at present. Hypothyroid synthroid held LOU does not use CPAP. Developmental disability brother reports that he does not have Down's syndrome as documented in EMR however he does have epilepsy from the age of 2 and NOS developmental disability and mild mental retardation VS,Fishbone, I+O VS, Fishbone, I+O Vital Signs Date Time Temp Pulse Resp B/P (MAP) Pulse Ox O2 Delivery O2 Flow Rate FiO2 11/13/20 08:00 2.0 11/13/20 07:39 97.5 97 18 110/74 (86) 96 Nasal Cannula 11/10/20 06:09 96 I&O- Last 24 Hours up to 6 AM 11/13/20 06:00 Intake Total 1995 ml Output Total 650 ml Balance 1345 ml CARLOS CRAWFORD MD Nov 13, 2020 08:54
[2020-11-13] MEDS: methylPREDNISolone 40MG 1ML VIAL IV SCH (15:30)
[2020-11-13 16:20] VITALS: BP 120/76
[2020-11-13 20:00] VITALS: BP 109/69
[2020-11-13] MEDS: APIXABAN 5 MG TAB (ELIQUIS) PO SCH (21:40)
[2020-11-14] VITALS: BP 139/85
[2020-11-14] MEDS: ALBUTEROL SULFATE 2.5 MG/0.5 ML INH NEB SOLN NEB SCH ×4 (02:26→19:24)
[2020-11-14] MEDS: VALPROATE SOD IV SCH ×4 (03:57→21:37)
[2020-11-14] MEDS: D5W IV SCH ×4 (03:57→21:37)
[2020-11-14] MEDS: KETOROLAC 30 MG/ML 1ML VIAL IV SCH (03:57)
[2020-11-14] MEDS: SLF 3 ML SYR IV SCH ×3 (05:41→21:37)
[2020-11-14] MEDS: LEVOTHYROXINE 50MCG TABLET (0.05MG) PO SCH ×2 (05:47→05:50)
[2020-11-14 07:03] LABS: BLOOD UREA NITROGEN 33 MG/DL (7-18); CALCIUM LEVEL 9.1 MG/DL (8.8-10.2); CARBON DIOXIDE LEVEL 30 MEQ/L (21-32); CHLORIDE LEVEL 104 MEQ/L (98-107); CREATININE FOR GFR 0.51 MG/DL (0.70-1.30); GLOMERULAR FILTRATION RATE > 60.0 (>49); GLUCOSE, FASTING 82 MG/DL (70-100); POTASSIUM SERUM 4.2 MEQ/L (3.5-5.1); SODIUM LEVEL 138 MEQ/L (136-145)
[2020-11-14 07:34] VITALS: BP 115/69
[2020-11-14] MEDS: D5W/0.9% SODIUM CHLORIDE 1,000 ML IV SCH (08:23)
[2020-11-14] MEDS: APIXABAN 5 MG TAB (ELIQUIS) PO SCH ×2 (08:56→21:34)
[2020-11-14] MEDS: GABAPENTIN 300 MG CAP PO SCH ×2 (08:56→21:34)
[2020-11-14] MEDS: COLCHICINE 0.6 MG TABLET PO SCH ×2 (08:56→21:34)
[2020-11-14] MEDS: bisoproloL fumarate 5 MG TAB PO SCH (08:56)
[2020-11-14] MEDS: FELBAMATE 600 MG PO SCH ×3 (08:57→21:39)
--- NOTE | 2020-11-14 09:04 | REP ---
INDICATION: pericadiel effusion. COMPARISON: Comparison chest x-ray November 13, 2020. TECHNIQUE: Sitting AP and lateral views... FINDINGS: Cardiomegaly is observed. There is pleural opacity in the left base suggestive of a small left pleural effusion. Pulmonary vasculature is cephalized. The lungs are exposed at a low level of inspiration. No new infiltrate. IMPRESSION: Possible left effusion. Cardiomegaly. Low level of inspiration.. <Electronically signed by Armin Iraheat > 11/14/20 0900
[2020-11-14] MEDS ORDERED: FUROSEMIDE 20MG/2ML VIAL (J1940) IV ONE ×2 (09:15→12:00)
--- NOTE | 2020-11-14 09:50 | IPN ---
PROGRESS NOTE DATE: 11/13/2020 Mr. Machado seems to be doing very well this afternoon. He is alert, oriented, he is talkative, his mother is at the bedside. He states that he does not cook at home, neither does his . His mother states that they have 24-hour care and the caregivers help them with their meals. He has mild shortness of breath. He is still in atrial flutter with rate control. He was seen in consultation by cardiology. He has remained afebrile since steroids were started on Friday. He is currently day #4 of IV Solu-Medrol at the dose of 40 mg every 24 hours and day #6 of IV Zosyn 3.375 grams every 6 hours. PHYSICAL EXAMINATION: Maximum temperature (T-max) of 98, pulse 75, respiratory rate 16-20, oxygen saturation 98% on 2 liters nasal cannula, blood pressure 109/73. Chest tube was removed. Lungs: Bilateral rales and few expiratory rhonchi noted. Left-sided chest tube, where it was removed, there is a pressure dressing. Heart: Normal S1, S2, no murmurs appreciated, could not appreciate the rub. Abdomen: Soft, nontender, no hepatosplenomegaly, no costovertebral angle (CVA) tenderness. Extremities: Trace pretibial edema, no calf tenderness, warm, no rashes. Neck: Supple, no jugular venous distension (JVD), no bruits. Oropharynx pink. Neck with torticollis in flexed position. LABORATORY DATA: White count 8.8, hemoglobin 12.7, hematocrit 38.4, platelets 639, 67% neutrophils, 22% lymphocytes, 9% monocytes, ESR 64, sodium 136, potassium 5, chloride 102, bicarbonate 30, BUN 44, creatinine 0.56, glucose 109, calcium 9.1, bilirubin 0.3, AST 18, ALT 33, alkaline phosphatase 408, CRP 2.08 down from 15.6, albumin 2, lipase 0.5. Blood cultures, two sets from 11/08/2020, were no growth at 5 days, and respiratory panel on 11/10/2020 was negative. Pericardial AFB smear CX and fungal smear and culture are still pending. Chest x-ray from 11/10/2020 status post chest tube removal showed no acute infiltrates, and bilateral air space disease and small pleural reactions are slightly improved from prior exam. IMPRESSION: 1. Pericarditis with effusion improving with Solu-Medrol and colchicine. 2. Fever, most likely was related to inflammatory pericarditis, whether idiopathic, viral, or autoimmune will remain to be determined. 3. Hypoxia has improved. Chest x-ray is not suggestive of pneumonia but more like atelectasis and pleural effusion, with a normal procalcitonin, pneumonia unlikely. PLAN: Discontinue IV Zosyn, agree with the primary team. Switch Solu-Medrol to by mouth prednisone and taper over the next 2 weeks. Infectious disease is signing off. Please make sure you check on QuantiFERON-TB Gold that is still pending and antinuclear antibody (SAGAR) results and call me if QuantiFERON-TB Gold is abnormal. MTDD
[2020-11-14] MEDS: TAMSULOSIN 0.4 MG CAP PO SCH (11:56)
[2020-11-14] MEDS: predniSONE 20 MG TAB PO SCH (11:56)
--- NOTE | 2020-11-14 13:20 | IPNPDOC ---
Text Note Date of Service The patient was seen on 11/14/20. NOTE SUBJECTIVE: -No acute events overnight -No fever or chills. -remains on 2L NC OBJECTIVE: General: Alert, Cooperative, No Acute Distress, Head bent forward in chin to chest position, per previously noted baseline ENT: Atraumatic, Other ENT Neck: Stiff at the back, contracted in chin to chest position per baseline, no meningisms Chest: Diminished bases with bilateral basilar crackles Heart: Rate Normal, Irregular Rhythm, Normal S1, Normal S2 Abdomen: Normoactive bowel sounds, soft, NTND Extremities: Has bilateral upper extremity edema, no LE edema Skin: Nl turgor and temperature, no breakdown or lesions Labs: Reviewed ASSESSMENT: 60 year old M with Down's syndrome, mild mental retardation, dementia, seizure, dysphagia, chronic hyponatremia, chronic constipation, lives at home with 24 x7 care, has gait instability and ambulates with a walker who was noticed to be very weak and tired and sometimes listless from 10/31/20, 4 days after receiving his first COVID vaccine on 10/27/20 and was found to be hyponatremic to 123, with a transaminitis and with a large pericardial effusion in afib with RVR. Afib/ Aflutter with RVR -rate controlled. -Was loaded with digoxin and started on low dose bisoprolol -consulted cardiology on 11/10/20, continue dig and bisoprolol. -continue eliquis Sepsis / SIRS Consulted ID. Likely inflammatory viral pericarditis with pericardial and pleural effusion -switch methyl pred 40 mg iv daily to pred 40 with plan for taper -continue colchicine. -Blood cultures negative, cultures from the pleural fluid is also negative. -CT chest with some infiltrates at the left base which looks more like atelectasis -Procalcitonin 0.16 -s/p 6d of empiric pip/tazo, with no evidence of bacterial infection, dc'd abx 11/13 -SUZAN walter, will start flomax 0.4mg QD, with Q8H bladder scan Pericardial effusion non compressive -Dr Siddiqui following -had several echos this admission. -another echo on 11/10/20 no features of tamponade. -Likely Viral infection -started on methyl pred and colchicine. Dysphagia ?Aspiration pneumonia -CT chest with Left lower lobe infiltrate vs atelectasis. -Does not clearly match with repeated aspirations. -DC'd Zosyn on 11/13 after 6d -Speech and swallow eval done. As per mom often coughs when he is eating and it is worse if his head in bent forward too much. CT chest does not match recurrent aspirations. He is able to manage his secretions and swallow some crushed pills in apple sauce. - advance to pureed diet. Poor oral intake with decreasing urine output. -s/p gentle hydration. Hyponatremia -Due to SIADH with possible intravascular volume depression. -Now at baseline. -On lasix PRN, lasix 20 IV once today -Paroxetine was stopped. Bilateral pleural effusion with bilateral compressive atelectasis. -fluid overload with likely pulmonary hypertension and right heart failure. -s/p pig tail catheter placement on the left 500 cc drained -Now improved. Transaminitis: -Likely hepatic congestion vs viral transaminitis. -Patient may have right heart failure and hepatic congestion. -hepatitis panel is negative, abdomen benign. Felbamate is another possibility but he has been on it since childhood. Acute urinary retention -walter placement produced 500 cc, d/c walter -Has h/o urinary incontinence but no major retention issues in the past -managed with oxybutynin which is now held. -Follows with urology Weakness/ inability to ambulate -most likely due to Hyponatremia with baseline gait instability hyponatremia made it worse. -PT, OT Seizure disorder from the age of 2 -will continue home meds. -valproate IV and felbamate. Hypertension will hold enalapril at present. Hypothyroid -resume synthroid LOU -does not use CPAP. Developmental disability -brother reports that he does not have Down's syndrome as documented in EMR -however he does have epilepsy from the age of 2 and NOS developmental disability and mild mental retardation VS,Fishbone, I+O VS, Fishbone, I+O Laboratory Tests 11/14/20 05:48 Vital Signs Date Time Temp Pulse Resp B/P (MAP) Pulse Ox O2 Delivery O2 Flow Rate FiO2 11/14/20 07:34 98.9 69 18 115/69 (84) 99 Nasal Cannula 2.0 11/10/20 06:09 96 I&O- Last 24 Hours up to 6 AM 11/14/20 06:00 Intake Total 1895 ml Output Total 650 ml Balance 1245 ml CARLOS CRAWFORD MD Nov 14, 2020 08:59
[2020-11-14 16:06] VITALS: BP 109/73
[2020-11-14 18:20] VITALS: O2SAT 93
[2020-11-14 19:59] VITALS: BP 98/60
[2020-11-15] MEDS: ALBUTEROL SULFATE 2.5 MG/0.5 ML INH NEB SOLN NEB SCH ×4 (01:18→19:36)
[2020-11-15 02:00] VITALS: BP 100/70
[2020-11-15] MEDS: D5W IV SCH ×4 (02:48→20:34)
[2020-11-15] MEDS: VALPROATE SOD IV SCH ×4 (02:48→20:34)
[2020-11-15] MEDS: LEVOTHYROXINE 50MCG TABLET (0.05MG) PO SCH (06:01)
[2020-11-15] MEDS: SLF 3 ML SYR IV SCH ×3 (06:02→20:36)
[2020-11-15] MEDS: FELBAMATE 600 MG PO SCH ×2 (09:00→20:35)
[2020-11-15 09:39] LABS: HEMATOCRIT 39.6 % (42.0-52.0); MEAN CORPUSCULAR HEMOGLOBIN 31.9 pg (27.0-33.0); MEAN CORPUSCULAR HGB CONC 32.8 g/dl (32.0-36.5); MEAN CORPUSCULAR VOLUME 97.3 fl (80.0-96.0); PLATELET COUNT, AUTOMATED 621 10^3/uL (150-450); RED BLOOD COUNT 4.07 10^6/uL (4.30-6.10); WHITE BLOOD COUNT 11.4 10^3/uL (4.0-10.0)
[2020-11-15] MEDS: predniSONE 20 MG TAB PO SCH (10:02)
[2020-11-15] MEDS: TAMSULOSIN 0.4 MG CAP PO SCH (10:02)
[2020-11-15] MEDS: GABAPENTIN 300 MG CAP PO SCH ×2 (10:03→20:34)
[2020-11-15] MEDS: APIXABAN 5 MG TAB (ELIQUIS) PO SCH ×2 (10:03→20:34)
[2020-11-15 10:06] LABS: BLOOD UREA NITROGEN 28 MG/DL (7-18); CALCIUM LEVEL 9.4 MG/DL (8.8-10.2); CARBON DIOXIDE LEVEL 29 MEQ/L (21-32); CHLORIDE LEVEL 105 MEQ/L (98-107); CREATININE FOR GFR 0.43 MG/DL (0.70-1.30); GLOMERULAR FILTRATION RATE > 60.0 (>49); GLUCOSE, FASTING 86 MG/DL (70-100); POTASSIUM SERUM 4.5 MEQ/L (3.5-5.1); SODIUM LEVEL 139 MEQ/L (136-145)
[2020-11-15] MEDS: COLCHICINE 0.6 MG TABLET PO SCH ×2 (10:09→20:34)
[2020-11-15] MEDS: bisoproloL fumarate 5 MG TAB PO SCH (10:15)
--- NOTE | 2020-11-15 13:22 | IPNPDOC ---
Text Note Date of Service The patient was seen on 11/15/20. NOTE SUBJECTIVE: -No acute events overnight -Sitting up in chair, was able to have some conversation, now on room air OBJECTIVE: General: Alert, Cooperative, No Acute Distress, Head bent forward in chin to chest position, per previously noted baseline ENT: Atraumatic, Other ENT Neck: Stiff at the back, contracted in chin to chest position per baseline, no meningisms Chest: Diminished bases with bilateral basilar crackles, moving air well at the apices Heart: Rate Normal, Irregular Rhythm, Normal S1, Normal S2 Abdomen: Normoactive bowel sounds, soft, NTND Extremities: Has bilateral upper extremity edema, no LE edema Skin: Nl turgor and temperature, no breakdown or lesions Labs: Reviewed. Pending AM labs ASSESSMENT: 60 year old M with Down's syndrome, mild mental retardation, dementia, seizure, dysphagia, chronic hyponatremia, chronic constipation, lives at home with 24 x7 care, has gait instability and ambulates with a walker who was noticed to be very weak and tired and sometimes listless from 10/31/20, 4 days after receiving his first COVID vaccine on 10/27/20 and was found to be hyponatremic to 123, with a transaminitis and with a large pericardial effusion in afib with RVR. Afib/ Aflutter with RVR -rate controlled. -Was loaded with digoxin and started on low dose bisoprolol -consulted cardiology on 11/10/20, continue dig and bisoprolol. -continue eliquis Sepsis / SIRS Consulted ID. Likely inflammatory viral pericarditis with pericardial and pleural effusion -pred 40 with plan for taper, day 2 of pred 40. -continue colchicine. -Blood cultures negative, cultures from the pleural fluid is also negative. -CT chest with some infiltrates at the left base which looks more like atelectasis -Procalcitonin 0.16 -s/p 6d of empiric pip/tazo, with no evidence of bacterial infection, dc'd abx 11/13 Pericardial effusion non compressive -Dr Siddiqui following -had several echos this admission. -another echo on 11/10/20 no features of tamponade. -Likely Viral infection -started on steroids and colchicine. Dysphagia ?Aspiration pneumonia -CT chest with Left lower lobe infiltrate vs atelectasis. -Does not clearly match with repeated aspirations. -DC'd Zosyn on 11/13 after 6d -Speech and swallow eval done. As per mom often coughs when he is eating and it is worse if his head in bent forward too much. CT chest does not match recurrent aspirations. He is able to manage his secretions and swallow some crushed pills in apple sauce. - advance to pureed diet. Poor oral intake with decreasing urine output. -s/p gentle hydration. Hyponatremia -Due to SIADH with possible intravascular volume depression. -Now at baseline. -On lasix PRN, lasix 20 IV once yesterday -Paroxetine was stopped. Bilateral pleural effusion with bilateral compressive atelectasis. -fluid overload with likely pulmonary hypertension and right heart failure. -s/p pig tail catheter placement on the left 500 cc drained -Now improved. Transaminitis: -Likely hepatic congestion vs viral transaminitis. -Patient may have right heart failure and hepatic congestion. -hepatitis panel is negative, abdomen benign. Felbamate is another possibility but he has been on it since childhood. Acute urinary retention -walter placement produced 500 cc, d/c'd walter yesterday -Has h/o urinary incontinence but no major retention issues in the past -managed with oxybutynin which is now held. -Follows with urology -was started on flomax yesterday Weakness/ inability to ambulate -most likely due to Hyponatremia with baseline gait instability hyponatremia made it worse. -PT, OT Seizure disorder from the age of 2 -will continue home meds. -valproate IV and felbamate. Hypertension will hold enalapril at present. Hypothyroid -continue synthroid LOU -does not use CPAP. Developmental disability -brother reports that he does not have Down's syndrome as documented in EMR -however he does have epilepsy from the age of 2 and NOS developmental disability and mild mental retardation VS,Fishbone, I+O VS, Fishbone, I+O Vital Signs Date Time Temp Pulse Resp B/P (MAP) Pulse Ox O2 Delivery O2 Flow Rate FiO2 11/15/20 05:59 97.6 74 17 95 Nasal Cannula 2.0 11/15/20 02:00 100/70 (80) 11/10/20 06:09 96 I&O- Last 24 Hours up to 6 AM 11/15/20 06:00 Intake Total 60 ml Output Total 800 ml Balance -740 ml [id number],CARLOS V. MD Nov 15, 2020 08:52
[2020-11-15 14:00] VITALS: BP 118/64
[2020-11-15] MEDS: ACETAMINOPHEN 650 MG SUPP PR PRN (16:32)
[2020-11-15 19:00] VITALS: BP 118/82
[2020-11-15] MEDS ORDERED: DIGOXIN INJ 0.5 MG/2 ML AMP (J1160) IV SCH (21:00)
[2020-11-15 22:00] VITALS: BP 90/60
[2020-11-15] MEDS ORDERED: DOXYCYCLINE HYCLATE 100 MG in D5W MINI-BAG PLUS 100 ML IV SCH (22:00)
[2020-11-15] MEDS: DIGOXIN INJ 0.5 MG/2 ML AMP (J1160) IV SCH (22:57)
[2020-11-16] MEDS: ALBUTEROL SULFATE 2.5 MG/0.5 ML INH NEB SOLN NEB SCH ×3 (01:09→14:55)
[2020-11-16] MEDS: D5W IV SCH ×3 (02:48→15:21)
[2020-11-16] MEDS: VALPROATE SOD IV SCH ×3 (02:48→15:21)
[2020-11-16 05:49] LABS: HEMATOCRIT 39.1 % (42.0-52.0); HEMOGLOBIN 12.7 g/dl (13.5-17.5); MEAN CORPUSCULAR HEMOGLOBIN 31.7 pg (27.0-33.0); MEAN CORPUSCULAR HGB CONC 32.5 g/dl (32.0-36.5); MEAN CORPUSCULAR VOLUME 97.5 fl (80.0-96.0); PLATELET COUNT, AUTOMATED 627 10^3/uL (150-450); RED BLOOD COUNT 4.01 10^6/uL (4.30-6.10); WHITE BLOOD COUNT 11.4 10^3/uL (4.0-10.0)
[2020-11-16] MEDS: LEVOTHYROXINE 50MCG TABLET (0.05MG) PO SCH (05:51)
[2020-11-16] MEDS: SLF 3 ML SYR IV SCH ×2 (05:52→15:22)
[2020-11-16 06:00] VITALS: BP 90/60
[2020-11-16 06:22] LABS: BLOOD UREA NITROGEN 18 MG/DL (7-18); CALCIUM LEVEL 9.3 MG/DL (8.8-10.2); CARBON DIOXIDE LEVEL 28 MEQ/L (21-32); CHLORIDE LEVEL 104 MEQ/L (98-107); CREATININE FOR GFR 0.44 MG/DL (0.70-1.30); GLOMERULAR FILTRATION RATE > 60.0 (>49); GLUCOSE, FASTING 79 MG/DL (70-100); POTASSIUM SERUM 4.1 MEQ/L (3.5-5.1); SODIUM LEVEL 135 MEQ/L (136-145)
[2020-11-16 08:09] LABS: ANA (HEP2) Negative (.)
--- NOTE | 2020-11-16 08:31 | REP ---
INDICATION: hypoxemia COMPARISON: 11/14/2020 TECHNIQUE: Portable AP view of the chest FINDINGS: Mediastinum and cardiac silhouette are stable and cardiomegaly cannot be excluded. Left lower lobe/retrocardiac consolidation and effusion noted. Right hemithorax is relatively clear although trace right basilar atelectasis cannot be excluded. No pneumothorax. IMPRESSION: Limited examination with evidence for left lower lobe/retrocardiac consolidation and moderate left effusion. Possible right basilar atelectasis. <Electronically signed by Kj Gloria > 11/16/20 0828
[2020-11-16] MEDS: COLCHICINE 0.6 MG TABLET PO SCH (08:38)
[2020-11-16] MEDS: TAMSULOSIN 0.4 MG CAP PO SCH (08:38)
[2020-11-16] MEDS: GABAPENTIN 300 MG CAP PO SCH (08:38)
[2020-11-16] MEDS: APIXABAN 5 MG TAB (ELIQUIS) PO SCH (08:39)
[2020-11-16] MEDS: predniSONE 20 MG TAB PO SCH (08:39)
[2020-11-16] MEDS: FELBAMATE 600 MG PO SCH (08:42)
[2020-11-16 08:43] VITALS: BP 106/76
[2020-11-16] MEDS: bisoproloL fumarate 5 MG TAB PO SCH (08:43)
[2020-11-16] MEDS: DIGOXIN INJ 0.5 MG/2 ML AMP (J1160) IV SCH (08:45)
--- NOTE | 2020-11-16 09:26 | IPNPDOC ---
Text Note Date of Service The patient was seen on 11/16/20. NOTE SUBJECTIVE: -Went into asymptomatic RVR last night --> given digoxin with good effect -Back on 2L NC, had been on room air for most of the day yesterday OBJECTIVE: General: Alert, Cooperative, No Acute Distress, Head bent forward in chin to chest position, per previously noted baseline ENT: Atraumatic, Other ENT Neck: Stiff at the back, contracted in chin to chest position per baseline, no meningisms Chest: Diminished bases with bilateral basilar crackles, moving air well at the apices Heart: Rate Normal, Irregular Rhythm, Normal S1, Normal S2 Abdomen: Normoactive bowel sounds, soft, NTND Extremities: Has bilateral upper extremity edema, no LE edema Skin: Nl turgor and temperature, no breakdown or lesions Labs: Reviewed. Stable ASSESSMENT: 60 year old M with Down's syndrome, mild mental retardation, dementia, seizure, dysphagia, chronic hyponatremia, chronic constipation, lives at home with 24 x7 care, has gait instability and ambulates with a walker who was noticed to be very weak and tired and sometimes listless from 10/31/20, 4 days after receiving his first COVID vaccine on 10/27/20 and was found to be hyponatremic to 123, with a transaminitis and with a large pericardial effusion in afib with RVR. Afib/ Aflutter with RVR -rate controlled. -Was loaded with digoxin and started on low dose bisoprolol -consulted cardiology on 11/10/20, continue dig and bisoprolol. -continue eliquis Sepsis / SIRS Consulted ID. Likely inflammatory viral pericarditis with pericardial and pleural effusion -pred 40 with plan for taper, day 2 of pred 40. -continue colchicine. -Blood cultures negative, cultures from the pleural fluid is also negative. -CT chest with some infiltrates at the left base which looks more like atelectasis -Procalcitonin 0.16 -s/p 6d of empiric pip/tazo, with no evidence of bacterial infection, dc'd abx 11/13 -was clammy on 11/15 and went into RVR with 11/16 CXR with possible infiltrate --> started on doxycycline on 11/15 overnight. Will continue for now. Pericardial effusion non compressive -Dr Siddiqui following -had several echos this admission. -another echo on 11/10/20 no features of tamponade. -Likely Viral infection -started on steroids and colchicine. Dysphagia ?Aspiration pneumonia -CT chest with Left lower lobe infiltrate vs atelectasis. -Does not clearly match with repeated aspirations. -DC'd Zosyn on 11/13 after 6d -Speech and swallow eval done. As per mom often coughs when he is eating and it is worse if his head in bent forward too much. CT chest does not match recurrent aspirations. He is able to manage his secretions and swallow some crushed pills in apple sauce. - advance to pureed diet. Poor oral intake with decreasing urine output. -s/p gentle hydration. Hyponatremia -Due to SIADH with possible intravascular volume depression. -Now at baseline. -On lasix PRN -Paroxetine was stopped. Bilateral pleural effusion with bilateral compressive atelectasis. -fluid overload with likely pulmonary hypertension and right heart failure. -s/p pig tail catheter placement on the left 500 cc drained -Now improved. Transaminitis: -Likely hepatic congestion vs viral transaminitis. -Patient may have right heart failure and hepatic congestion. -hepatitis panel is negative, abdomen benign. Felbamate is another possibility but he has been on it since childhood. Acute urinary retention -walter placement produced 500 cc, d/c'd walter yesterday -Has h/o urinary incontinence but no major retention issues in the past -managed with oxybutynin which is now held. -Follows with urology -was started on flomax yesterday Weakness/ inability to ambulate -most likely due to Hyponatremia with baseline gait instability hyponatremia made it worse. -PT, OT Seizure disorder from the age of 2 -will continue home meds. -valproate IV and felbamate. Hypertension will hold enalapril at present. Hypothyroid -continue synthroid LOU -does not use CPAP. Developmental disability -brother reports that he does not have Down's syndrome as documented in EMR -however he does have epilepsy from the age of 2 and NOS developmental disability and mild mental retardation VS,Hernán, I+O VS, Hernán, I+O Laboratory Tests 11/15/20 09:19 11/16/20 05:25 Vital Signs Date Time Temp Pulse Resp B/P (MAP) Pulse Ox O2 Delivery O2 Flow Rate FiO2 11/16/20 08:45 77 11/16/20 08:43 106/76 11/16/20 06:00 98.8 18 98 Nasal Cannula 2.0 11/10/20 06:09 96 I&O- Last 24 Hours up to 6 AM 11/16/20 06:00 Intake Total 786 ml Output Total 0 ml Balance 786 ml CARLOS CRAWFORD MD Nov 16, 2020 09:26
[2020-11-16] MEDS ORDERED: DOXYCYCLINE HYCLATE 100 MG in D5W MINI-BAG PLUS 100 ML IV SCH (11:00)
[2020-11-16] MEDS ORDERED: ELIQ5TAB PO (13:38)
[2020-11-16] MEDS ORDERED: COLC0.6T47 PO (13:38)
[2020-11-16] MEDS ORDERED: BISO5TAB14 PO (13:38)
[2020-11-16] MEDS ORDERED: PRED10TA2 PO (13:38)
[2020-11-16] MEDS ORDERED: AUGM875T28 PO (13:52)
[2020-11-16 14:00] VITALS: BP 112/82
--- NOTE | 2020-11-16 14:17 | DS.PDOC ---
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 ELEVATED PSA SEVERE CERVICAL SPONDYLOSIS WITH NECK PAIN AND FORAMINAL NERVE COMPRESSION PER CT OF THE SPINE TO 2013. Hx of ANGER/ DEPRESSION/ INSOMNIA Hxx of HEMORRHOIDS, Hx of DIVERTICULOSIS OLD COMPRESSION FRACTURE OF THE T1 VERTEBRA COMPLICATIONS/CHIEF COMPLAINT: Hyponatremia, Pericardial Effusion, Transaminitis. HISTORY OF PRESENT ILLNESS: 60-year-old man with a history of severe epilepsy since childhood with developmental delay and mental retardation, chronic hyponatremia who was bought the ED on 11/05/2020 because his behavior had changed, was lethargic and had poor PO. There is no report of fever, approximately one week after his first COVID-19 vaccine shot on 10/27/2020. HOSPITAL COURSE: In the ER, he was found to be hyponatremic to sodium of 123, with a transaminitis while US of the abdomen and incidentally found a significant amount of fluid on the heart with a pericardial effusion. He was admitted for further management and monitoring and a stat echocardiogram was done that revealed moderate pericardial effusion without evidence of cardiac tamponade, a dilated inferior vena cava, and a normal global left ventricular systolic funct ion and he also had a pleural effusion. The patient was seen by thoracic surgery and the pericardial effusion was monitored and repeat echocardiograms x 2 revealed no significant changes in the size of the pericardial fluid and also no evidence of cardiac tamponade. Meanwhile, he had chest tube drainage of the pleural effusion that was transudative. His course was c/b new onset Afib with RVR and cardiology was consulted and he was dig loaded and started on bisoprolol 5mg daily. He was given 6d of empiric zosyn with c/f PNA that I discontinued on 11/13. On 11/15 he went back into RVR and was started on digoxin 0.125mg daily with good effect, in addition to the bisoprolol. He was given doxycycline and CXR showed RLL possible opacity and I am now switching him to augmentin for a 7d course for potential recent aspiration PNA. He worked with PT and was assessed by PM&R and deemed appropriate for ARU admission before discharge home. Of note, while inpatient, ID was also consulted given the inflammatory state with +SIRS, pleural and pericardial effusion of unclear etiology and the decision was made to treat wtih steroids without evidence of a bacterial infection and he eventually improved. He will now slowly complete a prednisone taper. DISCHARGE MEDICATIONS: Please see below. ALLERGIES: Please see below. PHYSICAL EXAMINATION ON DISCHARGE: VITAL SIGNS: Please see below. General: Alert, Cooperative, No Acute Distress, Head bent forward in chin to chest position, per previously noted baseline ENT: Atraumatic, Other ENT Neck: Stiff at the back, contracted in chin to chest position per baseline, no meningisms Chest: Diminished bases with bilateral basilar crackles, moving air well at the apices, on 2L NC Heart: Rate Normal, Irregular Rhythm, Normal S1, Normal S2 Abdomen: Normoactive bowel sounds, soft, NTND Extremities: Has bilateral upper extremity edema, no LE edema Skin: Nl turgor and temperature, no breakdown or lesions LABORATORY DATA: Please see below. IMAGING: Admission CXR: The left costophrenic angle appears effaced, left pleural effusion versus artifact from portable positioning. Cardiac size appears enlarged, cardiomegaly versus artifact from portable p ositioning. The lung valdez are otherwise clear. The adriana, mediastinum, and skeletal structures are unremarkable. IMPRESSION: Effaced left costophrenic angle and cardiomegaly versus artifacts from portable positioning. 11/05 gallbladder US: There is no cholelithiasis, gallbladder wall thickening or pericholecystic fluid. There is no intrahepatic or extrahepatic biliary duct dilatation. The common biliary duct measures 5.3 mm in diameter. The hepatic parenchyma is homogeneous and otherwise unremarkable. There are no hepatic masses or cysts. The pancreas is obscured by bowel gas. The right kidney is normal size measuring 12.6 x 6.0 x 5.3 cm. There is no right renal calculus, hydronephrosis, solid mass or cystic mass. There is no abdominal right upper quadrant free fluid. The study is extremely limited and technically difficult, the patient unable to suspend respirations or roll into a decubitus position. Patient has dementia. IMPRESSION: Limited study as discussed above. The pancreas is obscured by bowel gas. Overlies, negative abdominal right upper quadrant ultrasound. 11/05 CT chest without contrast: Preliminary digital human service coordinator radiograph demonstrates evidence of left pleural effusion. The patient is mandible overlies the lung apices. On axial CT images there are small bilateral pleural effusions left larger than right. A moderate pericardial effusion is seen. There is evidence of left atrial enlargement. The ascending aorta is mildly dilated as well measuring 4.0 cm in AP dimension at the level of the right main pulmonary artery. No hilar or mediastinal mass or adenopathy is observed. There is compressive atelectasis in the lower lobes of the lungs bilaterally, left more so than right. Lung valdez are otherwise clear. IMPRESSION: Moderate pericardial effusion. Small bilateral pleural effusions, left greater than right. 4.0 cm ascending aorta mildly dilated. Compressive atelectasis in the lower lobes of the lungs bilaterally. 11/08 CT chest without contrast: There are bilateral pleural effusions with the left pleural effusion being larger. This is unchanged. There is a left lower lobe infiltrate versus compression atelectasis from the left pleural effusion. This is slightly larger. The left please the obstruction now and 9-10 at GI of these does the of the brain fundus up wraparound distal soft cast is not subcu line be able see portion better attic fat on the is 2.3 cm depth posterolaterally on the left. This is unchanged.. There is mild compression atelectasis of the right lower lobe from the right pleural effusion. This is unchanged. There are no new infiltrates. There are no upper lobe infiltrates. This is unchanged. There is a pericardial effusion as previously. This measures 2.3 cm depth along the left posterolateral margin of the heart. This is unchanged. Ascending thoracic aorta mildly dilated as previously. IMPRESSION: There are bilateral pleural effusions, left pleural effusion is slightly larger. This is un changed. There is a left lower lobe infiltrate versus compression atelectasis from the effusion, however, this appears to have increased in size. There are no new infiltrates. There are no upper lobe infiltrates. Pericardial effusion, unchanged. 11/[address]: Bone window settings demonstrate an intact bony calvarium. There is no evidence of skull fracture or incidental bony calvarial lesion. No intraorbital abnormality is seen. On soft tissue window setting images; the lateral, third, and fourth ventricles are normal in size and position. Yang-white differentiation pattern is normal above and below the tentorium. There are is no evidence of intracranial hemorrhage. No mass, edema, infarction, or midline shift is seen. No extra-axial fluid collection is appreciated. There is minimal vascular calcification of the carotid siphons. Moderate mucosal thickening is seen in the left maxillary and 2 of the left anterior ethmoid air cells. There is old encephalomalacia in the frontal lobes bilaterally as seen on the 2011 study. There is advanced generalized volume loss and this is a little more pronounced than it was in the 2011 study. Concordant ventriculomegaly is seen. No extra- axial fluid collection is seen. No intracranial hemorrhage or new infarction is seen. IMPRESSION: Extensive bilateral frontal lobe encephalomalacia unchanged from the 2011 study. Moderate generalized volume loss, progressed somewhat since 2011. Mild vascular calcification. No acute intracranial abnormality. 11/16 CXR: Mediastinum and cardiac silhouette are stable and cardiomegaly cannot be excluded. Left lower lobe/retrocardiac consolidation and effusion noted. Right hemithorax is relatively clear although trace right basilar atelectasis cannot be excluded. No pneumothorax. IMPRESSION: Limited examination with evidence for left lower lobe/retrocardiac consolidation and moderate left effusion. Possible right basilar atelectasis. 11/10 TTE: 2D MEASUREMENTS: IVS 1.3 cm LV 5.5 cm LVPW 1.3 cm LA 3.6 cm Aorta 2.8 cm IVC 2.3 cm DOPPLER MEASUREMENT Peak velocity across the aortic valve 2.5 m/s Peak velocity across the LVOT 0.6 m/s Mitral E 1.2 Mitral A 1.1 with a ratio of 1.1 2D COMMENTS: 1. Please refer to prior echocardiograms done on 11/05/2020 and 11/08/2020, forfurther details and comparison. 2. The left ventricular size is borderline enlarged with mildly increased left ventricular wall thickness. Left ventricular systolic function is normal, estimated at 65% to 70%. 3. Normal left atrium. Normal right atrium and right ventricle. 4. The atrial septum appeared to be normal without evidence of defect or shunt. 5. Normal aortic root. 6. Moderate pericardial effusion noted, mainly posteriorly. No evidence of cardiac chamber compressions. There was evidence of right pleural effusion. 7. Mildly calcified aortic valve with normal leaflet excursion. Mildly calcified mitral annulus with normal anterior mitral valve leaflet motion. Normal tricuspid valve. The pulmonic valve and proximal pulmonary artery branches were not well visualized. 8. The inferior vena cava is dilated, central venous pressure might be elevated. DOPPLER: No carotid Doppler done in this study. Please refer to prior studies. IMPRESSION: 1. Normal global left ventricular systolic function with a hyperdynamic left ventricle and mild concentric left ventricular hypertrophy. Assessment of the left ventricular diastolic function was limited, the patient at this time was inatrial fibrillation. 2. Moderate pericardial effusion noted mainly posteriorly. No evidence of cardiac tamponade. 3. Pleural effusion also noted, right. 4. There were findings consistent with elevated central venous pressure, the inferior vena cava was mildly enlarged. 11/08: repeat TTE 2D MEASUREMENTS: IVS 0.9 cm LV 3.8 cm LVPW 1.1 cm LA 4.2 cm Aorta 3.2 cm RV 2.2 cm IVC 2.6 cm DOPPLER MEASUREMENT Peak velocity across the aortic valve 1.5 m/s Peak velocity across the LVOT 1.5 m/s Mitral E 0.59 Mitral A 0.42 with a ratio of 1.9 2D COMMENTS: 1. Normal left ventricular size, wall thickness, and normal global left ventricular systolic function. The estimated left ventricular systolic ejection fraction is 60% to 65%. 2. Mildly enlarged left atrium. Normal right atrium and right ventricle. 3. The atrial septum appeared to be normal without evidence of defect or shunt. 4. Moderate to large pericardial effusion noted without any chamber collapse. The inferior vena cava, however, was dilated at 2.6 cm. 5. Mildly calcified aortic valve with normal leaflet excursion. Normal mitral valve and tricuspid valve. The pulmonic valve and proximal pulmonary artery branches were not well visualized. 6. The inferior vena cava was dilated at 2.6 cm without any significant collapse noted with respiration. Doppler detects mild mitral regurgitation. Assessment of the left ventricular diastolic function was normal. IMPRESSION: 1. Normal global left ventricular systolic function. Assessment of the left ventricular diastolic function also appeared to be normal. 2. Mildly enlarged left atrium with mild mitral regurgitation. 3. Not mentioned above, the ascending aorta was mildly enlarged at 3.9 cm. 4. Moderate to large pericardial effusion noted without evidence of chamber collapse, but the inferior vena cava was enlarged without any significant respiratory variation. Also noted were findings consistent with right pleural effusion. PROGNOSIS: Good ACTIVITY: As tolerated DIET: Pureed diet DISCHARGE PLAN: ARU DISPOSITION: ARU DISCHARGE INSTRUCTIONS: ARU ITEMS TO FOLLOWUP ON ON OUTPATIENT: Afib/flutter with RVR Pericardial and pleural effusions with pericarditis of unclear etiology Mild hypoxemia resolution DISCHARGE CONDITION: Stable. TIME SPENT ON DISCHARGE: 56 minutes. Vital Signs/I&Os Vital Signs Date Time Temp Pulse Resp B/P (MAP) Pulse Ox O2 Delivery O2 Flow Rate FiO2 11/16/20 08:45 77 11/16/20 08:43 106/76 11/16/20 06:00 98.8 18 98 Nasal Cannula 2.0 11/10/20 06:09 96 I&O- Last 24 Hours up to 6 AM 11/16/20 06:00 Intake Total 786 ml Output Total 0 ml Balance 786 ml Laboratory Data Labs 24H Laboratory Tests 2 11/15/20 19:30: Procalcitonin 0.07, Digoxin Level 0.7 11/16/20 05:25: Nucleated Red Blood Cells % (auto) 0.0, Anion Gap 3L, Glomerular Filtration Rate > 60.0, Calcium Level 9.3 CBC/BMP Laboratory Tests 11/16/20 05:25 Microbiology Microbiology 11/10/20 Respiratory Virus Panel (PCR) (TING) - Final, Complete 11/08/20 Blood Culture - Final, Complete NO GROWTH AFTER 5 DAYS 11/08/20 Blood Culture - Final, Complete NO GROWTH AFTER 5 DAYS 11/08/20 Acid Fast Stain, Received Pending 11/08/20 Mycobacterial Culture, Received Pending 11/08/20 Fungal Smear, Received Pending 11/08/20 Fungal Culture, Received Pending 11/08/20 Gram Stain - Final, Complete 11/08/20 Anaerobic Culture - Final, Complete 11/08/20 Body Fluid Culture - Final, Complete Discharge Medications Scheduled Apixaban (Eliquis) 5 Mg Tablet, 5 MG PO BID Ascorbic Acid (Vitamin C) 500 Mg Tablet, 1,000 MG PO DAILY, (Reported) Aspirin (Ecotrin) 81 Mg Tablet.dr, 81 MG PO QHS, (Reported) Bisoprolol Fumarate (Bisoprolol Fumarate) 5 Mg Tablet, 5 MG PO DAILY Calcium Carbonate (Calcium) 600 Mg Tablet, 600 MG PO BID, (Reported) Cholecalciferol (Vitamin D3) (Vitamin D3) 50 Mcg Tablet, 50 MCG PO DAILY, (Reported) Colchicine (Colchicine) 0.6 Mg Tablet, 0.6 MG PO BID Divalproex Sodium (Divalproex Sodium ER) 250 Mg Tab.er.24h, 750 MG PO DAILY, (Reported) Divalproex Sodium (Divalproex Sodium ER) 250 Mg Tab.er.24h, 500 MG PO QHS, (Reported) Docusate Sodium (Stool Softener) 100 Mg Capsule, 200 MG PO BID, (Reported) Felbamate (Felbamate) 600 Mg Tablet, 1,800 MG PO BID, (Reported) Ferrous Gluconate (Ferrous Gluconate) 324 Mg Tablet, 324 MG PO DAILY, (Reported) Gabapentin (Gabapentin) 300 Mg Capsule, 300 MG PO BID, (Reported) Levothyroxine Sodium (Levothyroxine Sodium) 50 Mcg Tablet, 50 MCG PO DAILY, (Reported) Magnesium Oxide (Magnesium) 400 Mg Capsule, 400 MG PO DAILY, (Reported) Oxybutynin Chloride (Oxybutynin Chloride ER) 10 Mg Tab.er.24, 10 MG PO DAILY, (Reported) Paroxetine HCl (Paroxetine) 20 Mg Tablet, 40 MG PO DAILY, (Reported) Prednisone (Prednisone) 10 Mg Tablet, 1 TAB PO ASDIRECTED 4 tabs daily for 5d, then 3 tabs daily for 5d, then 2 tabs daily for 5d, then 1 tab daily for 5d. Allergies Coded Allergies: No Known Allergies (Verified , 02/21/03) CARLOS CRAWFORD MD Nov 16, 2020 14:17
[2020-11-16] MEDS ORDERED: DIGO0.123 PO (15:41)
[2020-11-16] MEDS ORDERED: DOXYCYCLINE HYCLATE 100MG TABLET PO SCH (21:00)
--- NOTE | 2020-11-17 11:09 | IPN ---
THORACIC SURGERY PROGRESS NOTE DATE: 11/13/2020 ATTENDING PHYSICIAN: Dr. Anatoliy Siddiqui SUBJECTIVE: Patient is seen and examined this morning at bedside. No acute events overnight. Nursing staff reports that he is tolerating a puree diet and continues to swallow much better than he was last week. There has been no resurgence of his fevers. His Afib with RVR is also reported to be under control. He denies being in any pain. OBJECTIVE: VITAL SIGNS: Temperature 97.5, afebrile overnight, pulse 97 and irregular, respiratory rate 18, blood pressure 110/74, sating 96% on 2 liters nasal cannula. INTAKE AND OUTPUT: 1900 of intake with 615 of output. PHYSICAL EXAMINATION: HEENT: Head is normocephalic, atraumatic. He continues to have his head leaned significantly far forward and to the right complicating the exam and making it somewhat challenging. Moreover he does not necessary take deep breaths or cooperative with all of the physical exam in terms of what you would like him to do. EOMI. Sclerae are nonicteric. Mucous membranes are moist. Difficult to appreciate JVD based on positioning of the neck. CARDIOVASCULAR: Irregular rate and rhythm. Normal S1 and S2. Difficult to appreciate friction rub in the presence of his rhonchorus lung sounds. RESPIRATORY: No dullness to percussion. Minimal bilateral crackles. Coarse rhonchi throughout the lung valdez. He will not cough to try and see if these are transmitted upper airway sounds. ABDOMEN: Soft, nontender, non-distended. Bowel sounds present. No hepatosplenomegaly. EXTREMITIES: 1 mm pitting edema below the level of the mid lora bilaterally. No swelling of the upper extremities. SKIN: Warm, dry. No rashes or lesions. NEUROLOGIC: Cranial nerves II-XII are grossly intact. 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 He was able to follow commands regarding squeezing both of my fingers. We did not assess his strength beyond that, however, it is significantly improved from several days prior. PSYCHIATRIC: He is awake and alert. It still remains unclear how oriented he is. LABORATORY DATA: White blood cell count 8.8, hemoglobin 12.7, hematocrit 38.4, platelet count 639,000. Sodium 136, potassium 5.0, chloride 102, bicarb 30, BUN 44, creatinine 0.56, glucose 109, calcium 9.1. Total bilirubin 0.3. AST 18, ALT 33, alkaline phosphatase 408. CRP 2.08 down from 15 on Friday. Total protein 5.8. Albumin 2.0. Digoxin level 1.5. IMAGING: Chest x-ray showing some mild cephalization, consistent with days prior, costophrenic angles are appreciated bilaterally, no winding of the mediastinum. The heart borders are less obscured than they were in days prior. Trachea is midline. Pleura extends out to chest wall. ASSESSMENT: 1. Non-compressive pericardial effusion based on echo done on Friday. 2. History of fever without a source, but possibly from pericarditis. 3. Obesity. 4. Hypothyroidism. 5. Bilateral small pleural effusions. PLAN: Patient continues to improve and it seems like his Afib with RVR is under control. He has been afebrile now for quite some time. I think it is appropriate to discontinue the Zosyn. We still do not have a true cause for his pericardial effusion, but it does seem as though he improved dramatically on the I.V. Solu-Medrol. We will continue to await the results of the SAGAR and the rheumatoid factor, but there is no need to take him to the OR regarding his pericardial effusion. I do recommend repeating an echocardiogram in three weeks and following up with cardiology. At this point, there is nothing left for thoracic surgery to weigh in on, so we will sign off on his care. If you have any further questions, please feel free to reach out. Thank you very much for involving us in the care of this patient. GME attestation WESLEY
== END 2020-11-16 17:30 | DRG 207 ==
LOC: M ED 09:13 → M ED INP 16:55 → ENRESERV 18:43 → M ICU 19:40 → M PCU 11-06 13:12 → M ICU 11-10 12:46 → M PCU 11-12 14:49 → M MSPAV 11-14 17:04
PROVIDERS: ADMIT Internal Medicine Nephrology; ATTEND Internal Medicine
PROC: 0W9B30Z Drainage of Left Pleural Cavity with Drainage Device, Percutaneous Approach (ICD-10-PCS; principal; 2020-11-08 13:00)
PROC: 30233J1 Transfusion of Nonautologous Serum Albumin into Peripheral Vein, Percutaneous Approach (ICD-10-PCS; 2020-11-10)
DX: I30.9 Acute pericarditis, unspecified (principal); J90 Pleural effusion, not elsewhere classified; F03.91 Unspecified dementia, unspecified severity, with behavioral disturbance; E22.2 Syndrome of inappropriate secretion of antidiuretic hormone; E88.09 Other disorders of plasma-protein metabolism, not elsewhere classified; R13.10 Dysphagia, unspecified; E87.5 Hyperkalemia; F70 Mild intellectual disabilities; G40.909 Epilepsy, unspecified, not intractable, without status epilepticus; R26.89 Other abnormalities of gait and mobility; R74.01 Elevation of levels of liver transaminase levels; R32 Unspecified urinary incontinence; M81.0 Age-related osteoporosis without current pathological fracture; R53.1 Weakness; I10 Essential (primary) hypertension; J98.11 Atelectasis; E03.9 Hypothyroidism, unspecified; R33.9 Retention of urine, unspecified; G47.33 Obstructive sleep apnea (adult) (pediatric); F32.9 Major depressive disorder, single episode, unspecified; K59.09 Other constipation; R09.02 Hypoxemia; G47.00 Insomnia, unspecified; R45.4 Irritability and anger; Z86.010 Personal history of colon polyps; Z20.822 Contact with and (suspected) exposure to COVID-19; Z79.82 Long term (current) use of aspirin; R97.20 Elevated prostate specific antigen [PSA]; Z79.899 Other long term (current) drug therapy; M47.812 Spondylosis without myelopathy or radiculopathy, cervical region

== ENCOUNTER 2020-11-16 13:13 | Inpatient (IN) | payer MEDICAID ==
[~2020-11-16] VITALS: Ht 167.6 cm; Wt 62.1 kg
[~2020-11-16 13:13] MED LIST changes: +CALCTAB89 PO; +D 202000 PO; +DIVA250T7 PO; -E-Z-PAQUE 96% w/w SUSP 176GM BTL As Ordered; +ECOT81TA5 PO; +ENAL-36 PO; +FELB600T5 PO; +FERR324T21 PO; +GABA-282 PO; +IRON27TA2 PO; +LEVO50TA5 PO; +MAGN400C2 PO; +OXYB10TA23 PO; +PARO20TA4 PO; -PROHANCE 279.3MG/ML 15ML VIAL (A9576) As Ordered; +STOO100C15 PO; -VARIBAR NECTAR 40% w/v 240ML SUSP BTL As Ordered; -VARIBAR PUDDING 40% w/v 230ML TUBE As Ordered; +VITA-243 PO
[2020-11-16] MEDS ORDERED: PRED10TA2 PO (13:38)
[2020-11-16] MEDS ORDERED: BISO5TAB14 PO (13:38)
[2020-11-16] MEDS ORDERED: COLC0.6T47 PO (13:38)
[2020-11-16] MEDS ORDERED: ELIQ5TAB PO (13:38)
[2020-11-16] MEDS ORDERED: AUGM875T28 PO (13:52)
[2020-11-16] MEDS ORDERED: DIGO0.123 PO (15:41)
[2020-11-16 17:00] VITALS: BP 135/89
[2020-11-16] MEDS ORDERED: BISACODYL 5 MG TAB PO PRN (17:05)
[2020-11-16] MEDS ORDERED: ACETAMINOPHEN TAB 650MG DOSE (2X325MG) PO PRN (17:05)
[2020-11-16] MEDS: LACTOBACILLUS ACIDOPHILUS CAP (BACID) PO SCH ×2 (18:16→21:46)
[2020-11-16] MEDS: IPRATROPIUM 0.5MG/ALBUTEROL 2.5MG INH SOL UD 3ML (DUONEB) NEB SCH (19:49)
[2020-11-16 20:00] VITALS: BP 140/86
[2020-11-16] MEDS: SENNA 8.6 MG TAB (SENOKOT) PO SCH (21:00)
[2020-11-16] MEDS: DOCUSATE SODIUM 100MG CAPSULE PO SCH (21:00)
[2020-11-16] MEDS: GABAPENTIN 300 MG CAP PO SCH (21:46)
[2020-11-16] MEDS: APIXABAN 5 MG TAB (ELIQUIS) PO SCH (21:47)
[2020-11-16] MEDS: AUGMENTIN 875 MG TAB PO SCH (21:47)
[2020-11-16] MEDS: ASPIRIN 81MG ENTERIC TABLET PO SCH (21:47)
[2020-11-16] MEDS: REMEDY PHYTOPLEX Z-GUARD PASTE 113GM TUBE (FROM STOREROOM PRODUCT) TOP SCH (21:48)
[2020-11-16] MEDS: DIVALPROEX 500MG *ER* TAB PO SCH (21:48)
[2020-11-16] MEDS: COLCHICINE 0.6 MG TABLET PO SCH (21:48)
[2020-11-17 06:00] VITALS: BP 120/72
[2020-11-17] MEDS: LEVOTHYROXINE 50MCG TABLET (0.05MG) PO SCH (06:03)
[2020-11-17] MEDS: IPRATROPIUM 0.5MG/ALBUTEROL 2.5MG INH SOL UD 3ML (DUONEB) NEB SCH ×4 (07:06→20:08)
[2020-11-17 07:35] LABS: HEMATOCRIT 39.9 % (42.0-52.0); MEAN CORPUSCULAR HEMOGLOBIN 31.3 pg (27.0-33.0); MEAN CORPUSCULAR HGB CONC 32.6 g/dl (32.0-36.5); MEAN CORPUSCULAR VOLUME 96.1 fl (80.0-96.0); PLATELET COUNT, AUTOMATED 627 10^3/uL (150-450); RED BLOOD COUNT 4.15 10^6/uL (4.30-6.10)
[2020-11-17 07:37] LABS: WHITE BLOOD COUNT 12.7 10^3/uL (4.0-10.0)
[2020-11-17 08:00] LABS: BLOOD UREA NITROGEN 17 MG/DL (7-18); CALCIUM LEVEL 9.1 MG/DL (8.8-10.2); CARBON DIOXIDE LEVEL 25 MEQ/L (21-32); CHLORIDE LEVEL 102 MEQ/L (98-107); CREATININE FOR GFR 0.44 MG/DL (0.70-1.30); GLOMERULAR FILTRATION RATE > 60.0 (>49); GLUCOSE, FASTING 76 MG/DL (70-100); POTASSIUM SERUM 4.7 MEQ/L (3.5-5.1); SODIUM LEVEL 134 MEQ/L (136-145)
[2020-11-17 08:01] LABS: ALBUMIN 2.3 GM/DL (3.2-5.2); ALT/SGPT 90 U/L (12-78); BILIRUBIN,TOTAL 0.2 MG/DL (0.2-1.0); TOTAL PROTEIN 5.9 GM/DL (6.4-8.2)
[2020-11-17 08:07] LABS: ATYPICAL LYMPH 7 % (0-5); EOSINOPHILS 2 % (0-3); LYMPHOCYTES 49 % (16-44); MONOCYTES 6 % (0-5); MYELOCYTES 2 % (0-0); NEUTROPHILS 33 % (28-66); PLATELET ESTIMATE INCREASED (NORMAL)
--- NOTE | 2020-11-17 08:29 | HPEPDOC ---
[facility] [employer] Specialist Note DATE OF ADMISSION: 11-16-20 DATE OF SERVICE: 11-17-20 TIME OF ADMISSION: Please refer to physician's admission order. SOURCE OF ADMISSION INFORMATION: [facility] record CHIEF COMPLAINT: weakness in setting of PNA and pericarditis HISTORY OF PRESENT ILLNESS: 60 M pmh mental retardation, dementia, depression, seizure disorder, urinary incontinence, hypothyroidism, severe cervical spondylolysis, dysphagia, afib on eliquis, colonic polyps, LOU on CPAP, HTN, urinary incontinence who presented to [facility] ED on 11-05-20 with weakness and fatigue following his first Covid vaccine administered 10-27-20. He was found to be extremely hyponatremic with Na of 123 for which he was treated with Lasix, salt tabs, and had his paroxetine discontinued. He had urinary retention for which walter was placed and transaminitis though to be due to right sided heart failure causing hepatic congestion. He also had a pericardial effusion which was followed by Dr. Siddiqui and monitored with repeat ECHOs and ultimately was placed on colchicine and solumedrol. Chest CT 11-08-20 showed There is a left lower lobe infiltrate versus compression atelectasis from the effusion, however, this appears to have increased in size. There are no new infiltrates and he was started on Zosyn for suspected PNA and had a pig-tail catheter placed by IR for compressive bilateral pleural effusions. He was followed closely by infectious disease who eventually discontinued his antibiotic coverage and recommend transitioning to oral steroids for his pericarditis. He developed RVR and a new infiltrate on CXR so oral antibiotics were initiated. He was evaluated by therapy noted to have mobility impairments below his prior level of function and deemed medically appropriate for discharge to ARU on 11-16-20. REVIEW OF SYSTEMS: The following is a completed review of systems and has been reviewed. Review of systems otherwise difficult to assess given patient's impaired communication PAIN: Patient self reports no pain EYES: No recent vision changes EARS, NOSE, & THROAT: +dysphagia CARDIOVASCULAR: Denies chest pain or palpitations PULMONARY: Denies shortness of breath GASTROINTESTINAL: Denies constipation/diarrhea GENITOURINARY: +incontinence MUSCULOSKELETAL: generalized weakness NEUROLOGICAL: + aphasia SKIN: denies rash PSYCHIATRIC:tearful All other review of systems found to be negative. PAST MEDICAL HISTORY: as per HPI ALLERGIES: Please see below. MEDICATIONS: Please see below. FAMILY HISTORY: DM and kidney stones SOCIAL HISTORY: No etoh/illicit drugs/smoking DIET: level 2 and thins PHYSICAL EXAMINATION: VITAL SIGNS: Please see below. GENERAL: Pleasant and cooperative. No acute distress. HEENT: PERRL. Extraocular movements intact. Clear conjunctiva CARDIOVASCULAR: [Regular rate and rhythm. No murmurs, rubs, or gallops LUNGS: Clear to auscultation bilaterally. No wheezes. No rhonchi ABDOMEN: Soft, nontender, nondistended. Positive bowel sounds. Normal active bowel sounds NEUROLOGICAL: Alert and oriented times three. Cranial nerves II through XII grossly intact. Sensation grossly intact EXTREMITIES: 5-\5 strength bilateral upper extremities. 5-\5 strength right lower extremity. 5-/5 strength in left lower extremity. +cervicothoracic kyphosis SKIN: +sacral ulcers LABORATORY DATA: Please see below. IMAGING: Imaging documentation personally reviewed by record FUNCTIONAL STATUS: Premorbid: Modified Independent with all activities of daily life as well as mobility On Admission: Mod-Assist for transfers, ambulation, bed mobility, toileting, dressing GOALS: Contact guard-supervision ambulation RW household distances, dressing, toileting, bathing ASSESSMENT:60-year-old M with past medical history of mental retardation, seizur e disorder, chronic dysphagia, afib who presents status post worsening weakness and altered mental due to hyopnatremia, pericarditis, and pleural effusions PLAN: 1.Rehab- PT/OT advance mobility and ADLs, strengthen/stretch/maintain ROM all 4 limbs -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 Neuro- hx of seizure disorder, c/u felbamate and depakote -dementia, will start back paroxetine at lower dose and monitor for SIADH 3. CArdiac- hx of afib on eliquis and beta-keira and digoxin -HLD- c/u statin, also on ASA for cardioprotection -pericarditis- c/u colchicine and taper prednisone 4. Resp- recent bilat pleural effusions s/p drainage, left sided PNA vs atelectasis s/p course of Zosyn, restarted on Augmentin for concern for new PNA -COPD supplemental 02, DUonebs 5. Endo- hx of hypothyroidism c/u Synthroid 6. GI ppx- protonix 7. DVT ppx- on eliquis 8. Pain- gabepentin and tylenol 9. - hx of incontinence with retention, s\c/u flomax, monitor PVRs 10. Dispo- tbd POST ADMISSION PHYSICIAN EVALUATION: Medical and functional status: Description of medical status, medical assessment: As above. Rehabilitation diagnosis and current and prior cold morbid medical conditions as above. Risk of complications and plans to mitigate them as above. Description of functional status current status is as above. Prior status as above. Status compared to preadmission: There are no clinically significant differences between the patient's current status and the information described on the preadmission screening document. Treatment plan anticipated: Treatment plan is as described above. Required disciplines including physical therapy, occupational therapy, others as noted above Intensity of services: 3 hours a day, 6 days a week. Special considerations: There are no specific special or safety considerations that would likely preclude immediate implementation of an intensive rehabilitation program or subsequently influence the plan of care. ATTESTATION: Considering all the information above, it is my best judgment that this patient requires intensive rehabilitation therapy as described above and an inpatient hospital environment due to the complexity of nursing, medical, and rehabilitation needs required by the patient. Furthermore, this patient can obinna sonably be expected to participate in an benefit from an inpatient rehabilitation stay with an interdisciplinary team approach to the delivery of rehabilitation care under the direction and supervision of rehabilitation physician. PROGNOSIS: good ESTIMATED LENGTH OF STAY: 18-21 days. PROJECTED DISCHARGE DESTINATION: Home with family support and any durable medical equipment required to increase functional safety and mobility. TIME SPENT COUNSELING AND COORDINATING INITIAL CARE: Greater than 70 minutes. Vital Signs Vital Sign - Last 24 Hours 11/16/20 11/16/20 11/17/20 17:00 20:00 06:00 Temp 97.5 97.2 97.0 Pulse 110 121 82 Resp 19 18 18 B/P (MAP) 135/89 (104) 140/86 (104) 120/72 (88) Pulse Ox 97 94 97 O2 Delivery Room Air Room Air Room Air Laboratory Data CBC/BMP Laboratory Tests 11/17/20 06:40 Labs 24H Laboratory Tests 2 11/17/20 06:40: Neutrophils (%) (Auto) , Nucleated Red Blood Cells % (auto) 0.0, Neutrophils 33, Band Neutrophils 1, Lymphocytes (Manual) 49H, Monocytes (Manual) 6H, Eosinophils (Manual) 2, Myelocytes 2H, Atypical Lymphocytes 7H, Red Blood Cell Morphology NORMAL, Platelet Estimate INCREASED, Anion Gap 7L, Glomerular Filtration Rate > 60.0, Calcium Level 9.1, Total Bilirubin 0.2, Aspartate Amino Transf (AST/SGOT) 53H, Alanine Aminotransferase (ALT/SGPT) 90H, Alkaline Phosphatase 345H, Total Protein 5.9L, Albumin 2.3L, Albumin/Globulin Ratio 0.6 Home Medications Scheduled Amoxicillin/Potassium Clav (Augmentin 875-125 Tablet) 1 Each Tablet, 1 TAB PO BID Apixaban (Eliquis) 5 Mg Tablet, 5 MG PO BID Ascorbic Acid (Vitamin C) 500 Mg Tablet, 1,000 MG PO DAILY, (Reported) Aspirin (Ecotrin) 81 Mg Tablet.dr, 81 MG PO QHS, (Reported) Bisoprolol Fumarate (Bisoprolol Fumarate) 5 Mg Tablet, 5 MG PO DAILY Calcium Carbonate (Calcium) 600 Mg Tablet, 600 MG PO BID, (Reported) Cholecalciferol (Vitamin D3) (Vitamin D3) 50 Mcg Tablet, 50 MCG PO DAILY, (Reported) Colchicine (Colchicine) 0.6 Mg Tablet, 0.6 MG PO BID Digoxin (Digoxin) 125 Mcg Tablet, 1 TAB PO DAILY Divalproex Sodium (Divalproex Sodium ER) 250 Mg Tab.er.24h, 750 MG PO DAILY, (Reported) Divalproex Sodium (Divalproex Sodium ER) 250 Mg Tab.er.24h, 500 MG PO QHS, (Reported) Docusate Sodium (Stool Softener) 100 Mg Capsule, 200 MG PO BID, (Reported) Felbamate (Felbamate) 600 Mg Tablet, 1,800 MG PO BID, (Reported) Ferrous Gluconate (Ferrous Gluconate) 324 Mg Tablet, 324 MG PO DAILY, (Reported) Gabapentin (Gabapentin) 300 Mg Capsule, 300 MG PO BID, (Reported) Levothyroxine Sodium (Levothyroxine Sodium) 50 Mcg Tablet, 50 MCG PO DAILY, (Reported) Magnesium Oxide (Magnesium) 400 Mg Capsule, 400 MG PO DAILY, (Reported) Oxybutynin Chloride (Oxybutynin Chloride ER) 10 Mg Tab.er.24, 10 MG PO DAILY, (Reported) Paroxetine HCl (Paroxetine) 20 Mg Tablet, 40 MG PO DAILY, (Reported) Prednisone (Prednisone) 10 Mg Tablet, 1 TAB PO ASDIRECTED 4 tabs daily for 5d, then 3 tabs daily for 5d, then 2 tabs daily for 5d, then 1 tab daily for 5d. Allergies Coded Allergies: No Known Allergies (Verified , 02/21/03) A-FIB/CHADSVASC A-FIB History Current/History of A-Fib/PAF?: Yes Current PO Anticoag Therapy: Yes REGAN LLOYD MD Nov 17, 2020 08:29
[2020-11-17] MEDS: DOCUSATE SODIUM 100MG CAPSULE PO SCH ×2 (09:00→21:00)
[2020-11-17] MEDS: predniSONE 20 MG TAB PO SCH (09:22)
[2020-11-17] MEDS: GABAPENTIN 300 MG CAP PO SCH ×2 (09:22→21:33)
[2020-11-17] MEDS: APIXABAN 5 MG TAB (ELIQUIS) PO SCH ×2 (09:22→21:33)
[2020-11-17] MEDS: FERROUS SULFATE 325MG TAB PO SCH (09:22)
[2020-11-17] MEDS: LACTOBACILLUS ACIDOPHILUS CAP (BACID) PO SCH ×4 (09:22→21:32)
[2020-11-17] MEDS: AUGMENTIN 875 MG TAB PO SCH ×2 (09:22→21:33)
[2020-11-17] MEDS: COLCHICINE 0.6 MG TABLET PO SCH ×2 (09:22→21:33)
[2020-11-17] MEDS: MAGNESIUM OXIDE 400MG TAB (MAG-OX) PO SCH (09:22)
[2020-11-17] MEDS: bisoproloL fumarate 5 MG TAB PO SCH (09:22)
[2020-11-17] MEDS: TAMSULOSIN 0.4 MG CAP PO SCH (09:22)
[2020-11-17] MEDS: DIVALPROEX 250MG *ER* TAB PO SCH (09:22)
[2020-11-17] MEDS: REMEDY PHYTOPLEX Z-GUARD PASTE 113GM TUBE (FROM STOREROOM PRODUCT) TOP SCH ×3 (09:23→21:34)
--- NOTE | 2020-11-17 12:17 | IPNPDOC ---
Text Note Date of Service The patient was seen on 11/17/20. NOTE SUBJECTIVE: -Discharged to the ARU yesterday -No acute events overnight, on room air OBJECTIVE: General: Alert, Cooperative, No Acute Distress, Head bent forward in chin to chest position, per previously noted baseline ENT: Atraumatic, Other ENT Neck: Stiff at the back, contracted in chin to chest position per baseline, no meningisms Chest: Diminished bases with bilateral basilar crackles, moving air well at the apices Heart: Rate Normal, Irregular Rhythm, Normal S1, Normal S2 Abdomen: Normoactive bowel sounds, soft, NTND Extremities: Has bilateral upper extremity edema, no LE edema Skin: Nl turgor and temperature, no breakdown or lesions Labs: Reviewed. Stable ASSESSMENT: 60 year old M with Down's syndrome, mild mental retardation, dementia, seizure, dysphagia, chronic hyponatremia, chronic constipation, lives at home with 24 x7 care, has gait instability and ambulates with a walker who was noticed to be very weak and tired and sometimes listless from 10/31/20, 4 days after receiving his first COVID vaccine on 10/27/20 and was found to be hyponatremic to 123, with a transaminitis and with a large pericardial effusion in afib with RVR. Afib/ Aflutter with RVR -rate controlled. -Was loaded with digoxin and started on low dose bisoprolol. Will continue dig 0.125 daily and bisoprolol 5mg daily. -continue eliquis Recent Sepsis / SIRS -Consulted ID. Likely inflammatory viral pericarditis with pericardial and pleural effusion -pred 40 with plan for taper, day 3 of pred 40, on taper -continue colchicine. -Blood cultures negative, cultures from the pleural fluid were negative. -CT chest with some infiltrates at the left base which looks more like atelectasis -Procalcitonin was negative -was clammy on 11/15 and went into RVR with 11/16 CXR with possible infiltrate --> on day 2 of empiric augmentin that he is on for a 7d course Pericardial effusion non compressive -had 22 TTEs this admission, stable effusion without tamponade. -Likely Viral infection -started on steroids and colchicine. Dysphagia ?Aspiration pneumonia -CT chest with Left lower lobe infiltrate vs atelectasis. -Speech and swallow eval done. As per mom often coughs when he is eating and it is worse if his head in bent forward too much. CT chest does not match recurrent aspirations. He is able to manage his secretions and swallow some crushed pills in apple sauce. -continue pureed diet. Hyponatremia -Due to SIADH with possible intravascular volume depression. -Now at baseline. -On lasix PRN -Paroxetine was stopped. Bilateral pleural effusion with bilateral compressive atelectasis. -fluid overload with likely pulmonary hypertension and right heart failure. -s/p pig tail catheter placement on the left 500 cc drained -Now improved. Transaminitis: -Likely hepatic congestion vs viral transaminitis. -Patient may have right heart failure and hepatic congestion. -hepatitis panel is negative, abdomen benign. Felbamate is another possibility but he has been on it since childhood. Weakness/ inability to ambulate i/s/o recent critical illness -PT, OT per PM&R Seizure disorder from the age of 2 -will continue home meds. -valproate IV and felbamate. Hypertension -on bisoprolol Hypothyroid -continue synthroid LOU -does not use CPAP. Developmental disability -brother reports that he does not have Down's syndrome as documented in EMR, has a pending karyotype to establish true diagnosis about potential trisomy 21 being mentioned in chart. -however he does have epilepsy from the age of 2 and NOS developmental disability and mild mental retardation VS,Hernán, I+O VS, Hernán, I+O Laboratory Tests 11/17/20 06:40 Vital Signs Date Time Temp Pulse Resp B/P (MAP) Pulse Ox O2 Delivery O2 Flow Rate FiO2 11/17/20 06:00 97.0 82 18 120/72 (88) 97 Room Air I&O- Last 24 Hours up to 6 AM 11/17/20 06:00 Intake Total 480 ml Balance 480 ml CARLOS CRAWFORD MD Nov 17, 2020 08:43
[2020-11-17 14:00] VITALS: BP 141/88
[2020-11-17] MEDS: DIGOXIN 0.125 MG TAB PO SCH (16:19)
[2020-11-17] MEDS: PARoxetine 10MG TABLET PO SCH (16:19)
[2020-11-17 20:12] VITALS: BP 130/85
[2020-11-17] MEDS: SENNA 8.6 MG TAB (SENOKOT) PO SCH (21:00)
[2020-11-17] MEDS: ASPIRIN 81MG ENTERIC TABLET PO SCH (21:33)
[2020-11-17] MEDS: DIVALPROEX 500MG *ER* TAB PO SCH (21:33)
[2020-11-17] MEDS: FELBAMATE 600 MG PO SCH (21:50)
[2020-11-18] MEDS: LEVOTHYROXINE 50MCG TABLET (0.05MG) PO SCH (05:51)
[2020-11-18 06:05] VITALS: BP 145/90
[2020-11-18] MEDS: IPRATROPIUM 0.5MG/ALBUTEROL 2.5MG INH SOL UD 3ML (DUONEB) NEB SCH ×4 (07:31→20:06)
[2020-11-18] MEDS: DOCUSATE SODIUM 100MG CAPSULE PO SCH ×2 (09:00→20:56)
[2020-11-18] MEDS: COLCHICINE 0.6 MG TABLET PO SCH ×2 (09:46→20:57)
[2020-11-18] MEDS: predniSONE 20 MG TAB PO SCH (09:46)
[2020-11-18] MEDS: AUGMENTIN 875 MG TAB PO SCH ×2 (09:46→20:57)
[2020-11-18] MEDS: LACTOBACILLUS ACIDOPHILUS CAP (BACID) PO SCH ×4 (09:46→20:57)
[2020-11-18] MEDS: APIXABAN 5 MG TAB (ELIQUIS) PO SCH ×2 (09:47→20:57)
[2020-11-18] MEDS: TAMSULOSIN 0.4 MG CAP PO SCH (09:47)
[2020-11-18] MEDS: MAGNESIUM OXIDE 400MG TAB (MAG-OX) PO SCH (09:47)
[2020-11-18] MEDS: DIVALPROEX 250MG *ER* TAB PO SCH (09:47)
[2020-11-18] MEDS: FERROUS SULFATE 325MG TAB PO SCH (09:47)
[2020-11-18] MEDS: GABAPENTIN 300 MG CAP PO SCH ×2 (09:47→20:56)
[2020-11-18] MEDS: DIGOXIN 0.125 MG TAB PO SCH (09:48)
[2020-11-18] MEDS: PARoxetine 10MG TABLET PO SCH (09:48)
[2020-11-18] MEDS: bisoproloL fumarate 5 MG TAB PO SCH (09:48)
[2020-11-18] MEDS: REMEDY PHYTOPLEX Z-GUARD PASTE 113GM TUBE (FROM STOREROOM PRODUCT) TOP SCH ×3 (09:49→20:58)
[2020-11-18] MEDS: FELBAMATE 600 MG PO SCH ×2 (09:49→20:57)
[2020-11-18 14:00] VITALS: BP 112/73
[2020-11-18 20:00] VITALS: BP 116/87
[2020-11-18 20:52] LABS: BLOOD UREA NITROGEN 18 MG/DL (7-18); CALCIUM LEVEL 9.2 MG/DL (8.8-10.2); CARBON DIOXIDE LEVEL 24 MEQ/L (21-32); CHLORIDE LEVEL 104 MEQ/L (98-107); CREATININE FOR GFR 0.51 MG/DL (0.70-1.30); GLOMERULAR FILTRATION RATE > 60.0 (>49); GLUCOSE, FASTING 116 MG/DL (70-100); MAGNESIUM LEVEL 1.8 MG/DL (1.8-2.4); PHOSPHORUS LEVEL 3.4 MG/DL (2.5-4.9); POTASSIUM SERUM 5.2 MEQ/L (3.5-5.1); SODIUM LEVEL 134 MEQ/L (136-145)
[2020-11-18] MEDS: ASPIRIN 81MG ENTERIC TABLET PO SCH (20:57)
[2020-11-18] MEDS: SENNA 8.6 MG TAB (SENOKOT) PO SCH (20:57)
[2020-11-18] MEDS: DIVALPROEX 500MG *ER* TAB PO SCH (20:57)
[2020-11-18] MEDS ORDERED: MAG SULF 1GM/100ML (MAG RUN) 1 GM in IV 1 EA IV ONE (23:40)
[2020-11-19] MEDS ORDERED: SOD POLYSTYRENE SULFONATE SUSP 15 GM/60 ML UD PO ONE (01:00)
[2020-11-19 05:00] VITALS: BP 125/64
[2020-11-19] MEDS: LEVOTHYROXINE 50MCG TABLET (0.05MG) PO SCH (05:34)
[2020-11-19] MEDS: IPRATROPIUM 0.5MG/ALBUTEROL 2.5MG INH SOL UD 3ML (DUONEB) NEB SCH ×4 (07:28→19:49)
[2020-11-19] MEDS: COLCHICINE 0.6 MG TABLET PO SCH ×2 (08:56→20:16)
[2020-11-19] MEDS: predniSONE 20 MG TAB PO SCH (08:56)
[2020-11-19] MEDS: FELBAMATE 600 MG PO SCH ×2 (08:57→20:19)
[2020-11-19] MEDS: DIVALPROEX 250MG *ER* TAB PO SCH (08:57)
[2020-11-19] MEDS: LACTOBACILLUS ACIDOPHILUS CAP (BACID) PO SCH ×4 (08:57→20:15)
[2020-11-19] MEDS: PARoxetine 10MG TABLET PO SCH (08:57)
[2020-11-19] MEDS: TAMSULOSIN 0.4 MG CAP PO SCH (08:57)
[2020-11-19] MEDS: DIGOXIN 0.125 MG TAB PO SCH (08:58)
[2020-11-19] MEDS: GABAPENTIN 300 MG CAP PO SCH ×2 (08:58→20:15)
[2020-11-19] MEDS: APIXABAN 5 MG TAB (ELIQUIS) PO SCH ×2 (08:58→20:16)
[2020-11-19] MEDS: bisoproloL fumarate 5 MG TAB PO SCH (08:58)
[2020-11-19] MEDS: MAGNESIUM OXIDE 400MG TAB (MAG-OX) PO SCH (08:58)
[2020-11-19] MEDS: AUGMENTIN 875 MG TAB PO SCH ×2 (08:58→20:16)
[2020-11-19] MEDS: FERROUS SULFATE 325MG TAB PO SCH (08:59)
[2020-11-19] MEDS: REMEDY PHYTOPLEX Z-GUARD PASTE 113GM TUBE (FROM STOREROOM PRODUCT) TOP SCH ×3 (08:59→20:20)
[2020-11-19] MEDS: DOCUSATE SODIUM 100MG CAPSULE PO SCH ×2 (09:00→20:15)
[2020-11-19 14:00] VITALS: BP 121/75
[2020-11-19 20:00] VITALS: BP 98/67
[2020-11-19] MEDS: ASPIRIN 81MG ENTERIC TABLET PO SCH (20:15)
[2020-11-19] MEDS: SENNA 8.6 MG TAB (SENOKOT) PO SCH (20:16)
[2020-11-19] MEDS: DIVALPROEX 500MG *ER* TAB PO SCH (20:19)
[2020-11-20] MEDS: LEVOTHYROXINE 50MCG TABLET (0.05MG) PO SCH (05:32)
[2020-11-20 05:48] VITALS: BP 129/86
[2020-11-20] MEDS: IPRATROPIUM 0.5MG/ALBUTEROL 2.5MG INH SOL UD 3ML (DUONEB) NEB SCH ×4 (07:02→19:38)
[2020-11-20 07:50] LABS: BASO % 0.3 % (0.0-1.0); EOS # 0.1 10^3/uL (0.0-0.5); EOS % 0.7 % (0.0-3.0); HEMOGLOBIN 12.8 g/dl (13.5-17.5); LYMPH # 4.8 10^3/uL (1.5-5.0); MEAN CORPUSCULAR HEMOGLOBIN 31.9 pg (27.0-33.0); MEAN CORPUSCULAR HGB CONC 32.8 g/dl (32.0-36.5); MEAN CORPUSCULAR VOLUME 97.3 fl (80.0-96.0); MONO # 0.9 10^3/uL (0.0-0.8); MONO % 6.7 % (2.0-8.0); NEUTROPHILS # 7.4 10^3/uL (1.5-8.5); NEUTROPHILS % 55.7 % (36.0-66.0); PLATELET COUNT, AUTOMATED 672 10^3/uL (150-450); RED BLOOD COUNT 4.01 10^6/uL (4.30-6.10); WHITE BLOOD COUNT 13.4 10^3/uL (4.0-10.0)
[2020-11-20 08:11] LABS: BLOOD UREA NITROGEN 15 MG/DL (7-18); CALCIUM LEVEL 9.6 MG/DL (8.8-10.2); CARBON DIOXIDE LEVEL 26 MEQ/L (21-32); CHLORIDE LEVEL 104 MEQ/L (98-107); CREATININE FOR GFR 0.44 MG/DL (0.70-1.30); GLOMERULAR FILTRATION RATE > 60.0 (>49); GLUCOSE, FASTING 81 MG/DL (70-100); SODIUM LEVEL 135 MEQ/L (136-145)
[2020-11-20] MEDS: DOCUSATE SODIUM 100MG CAPSULE PO SCH ×2 (09:00→20:27)
[2020-11-20] MEDS: APIXABAN 5 MG TAB (ELIQUIS) PO SCH ×2 (09:13→20:27)
[2020-11-20] MEDS: MAGNESIUM OXIDE 400MG TAB (MAG-OX) PO SCH (09:13)
[2020-11-20] MEDS: TAMSULOSIN 0.4 MG CAP PO SCH (09:13)
[2020-11-20] MEDS: LACTOBACILLUS ACIDOPHILUS CAP (BACID) PO SCH ×4 (09:13→20:27)
[2020-11-20] MEDS: FERROUS SULFATE 325MG TAB PO SCH (09:13)
[2020-11-20] MEDS: AUGMENTIN 875 MG TAB PO SCH ×2 (09:14→20:27)
[2020-11-20] MEDS: DIGOXIN 0.125 MG TAB PO SCH (09:14)
[2020-11-20] MEDS: PARoxetine 10MG TABLET PO SCH (09:14)
[2020-11-20] MEDS: DIVALPROEX 250MG *ER* TAB PO SCH (09:14)
[2020-11-20] MEDS: COLCHICINE 0.6 MG TABLET PO SCH ×2 (09:14→20:27)
[2020-11-20] MEDS: predniSONE 20 MG TAB PO SCH (09:14)
[2020-11-20] MEDS: bisoproloL fumarate 5 MG TAB PO SCH (09:14)
[2020-11-20] MEDS: FELBAMATE 600 MG PO SCH ×2 (09:15→20:27)
[2020-11-20] MEDS: GABAPENTIN 300 MG CAP PO SCH ×2 (09:15→20:27)
[2020-11-20] MEDS: REMEDY PHYTOPLEX Z-GUARD PASTE 113GM TUBE (FROM STOREROOM PRODUCT) TOP SCH ×3 (09:16→20:28)
[2020-11-20 14:00] VITALS: BP 108/54
[2020-11-20 20:00] VITALS: BP 113/72
[2020-11-20] MEDS: ASPIRIN 81MG ENTERIC TABLET PO SCH (20:27)
[2020-11-20] MEDS: SENNA 8.6 MG TAB (SENOKOT) PO SCH (20:27)
[2020-11-20] MEDS: DIVALPROEX 500MG *ER* TAB PO SCH (20:27)
[2020-11-21 05:24] VITALS: BP 121/66
[2020-11-21] MEDS: LEVOTHYROXINE 50MCG TABLET (0.05MG) PO SCH (05:58)
[2020-11-21] MEDS: IPRATROPIUM 0.5MG/ALBUTEROL 2.5MG INH SOL UD 3ML (DUONEB) NEB SCH ×2 (07:11→11:37)
[2020-11-21] MEDS: LACTOBACILLUS ACIDOPHILUS CAP (BACID) PO SCH ×2 (07:48→12:10)
[2020-11-21] MEDS: GABAPENTIN 300 MG CAP PO SCH (07:48)
[2020-11-21] MEDS: AUGMENTIN 875 MG TAB PO SCH (07:48)
[2020-11-21] MEDS: bisoproloL fumarate 5 MG TAB PO SCH (07:49)
[2020-11-21] MEDS: APIXABAN 5 MG TAB (ELIQUIS) PO SCH (07:49)
[2020-11-21] MEDS: TAMSULOSIN 0.4 MG CAP PO SCH (07:49)
[2020-11-21] MEDS: MAGNESIUM OXIDE 400MG TAB (MAG-OX) PO SCH (07:49)
[2020-11-21] MEDS: DOCUSATE SODIUM 100MG CAPSULE PO SCH (07:49)
[2020-11-21] MEDS: COLCHICINE 0.6 MG TABLET PO SCH (07:50)
[2020-11-21] MEDS: DIVALPROEX 250MG *ER* TAB PO SCH (07:50)
[2020-11-21] MEDS: DIGOXIN 0.125 MG TAB PO SCH (07:50)
[2020-11-21] MEDS: PARoxetine 10MG TABLET PO SCH (07:50)
[2020-11-21] MEDS: FELBAMATE 600 MG PO SCH (07:51)
[2020-11-21] MEDS: REMEDY PHYTOPLEX Z-GUARD PASTE 113GM TUBE (FROM STOREROOM PRODUCT) TOP SCH (07:52)
[2020-11-21] MEDS: FERROUS SULFATE 325MG TAB PO SCH (07:52)
--- NOTE | 2020-11-21 08:10 | IPNPDOC ---
PM&R Progress Note DATE OF SERVICE: Nov 21, 2020 Financial Services Agent Progress Note Subjective: PAtient seen in his room preting he is tired, but denies chest pain or dizziness. REVIEW OF SYSTEMS: The following is a completed review of systems and has been reviewed. Review of systems otherwise difficult to assess given patient's imp aired communication PAIN: Patient self reports no pain EYES: No recent vision changes EARS, NOSE, & THROAT: +dysphagia CARDIOVASCULAR: Denies chest pain or palpitations PULMONARY: Denies shortness of breath GASTROINTESTINAL: Denies constipation/diarrhea GENITOURINARY: +incontinence MUSCULOSKELETAL: generalized weakness NEUROLOGICAL: + aphasia SKIN: denies rash PSYCHIATRIC:tearful All other review of systems found to be negative. PHYSICAL EXAMINATION: VITAL SIGNS: Please see below. GENERAL: Pleasant and cooperative. No acute distress. HEENT: PERRL. Extraocular movements intact. Clear conjunctiva CARDIOVASCULAR: [Regular rate and rhythm. No murmurs, rubs, or gallops LUNGS: Clear to auscultation bilaterally. No wheezes. No rhonchi ABDOMEN: Soft, nontender, nondistended. Positive bowel sounds. Normal active bowel sounds NEUROLOGICAL: Alert and oriented times three. Cranial nerves II through XII grossly intact. Sensation grossly intact EXTREMITIES: 5-\5 strength bilateral upper extremities. 5-\5 strength right lower extremity. 5-/5 strength in left lower extremity. 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 Neuro- hx of seizure disorder, c/u felbamate and depakote -dementia, will start back paroxetine at lower dose and monitor for SIADH 3. CArdiac- hx of afib on eliquis and beta-keira and digoxin, will increase bisoprolol to 5mg BID for better HR control -HLD- c/u statin, also on ASA for cardioprotection -pericarditis- c/u colchicine and taper prednisone 4. Resp- recent bilat pleural effusions s/p drainage, left sided PNA vs atelectasis s/p course of Zosyn, restarted on Augmentin for concern for new PNA -COPD supplemental 02, DUonebs 5. Endo- hx of hypothyroidism c/u Synthroid 6. GI ppx- protonix 7. DVT ppx- on eliquis 8. Pain- gabepentin and tylenol 9. - hx of incontinence with retention, s\c/u flomax, monitor PVRs -UA negative 10. Leukocytosis- most likel due to steroid use, no clinical suspicion of new infection 11. Dispo- tbd Allergies Coded Allergies: No Known Allergies (Verified , 02/21/03) Vital Signs Vital Signs Date Time Temp Pulse Resp B/P (MAP) Pulse Ox O2 Delivery O2 Flow Rate FiO2 11/21/20 07:50 89 11/21/20 07:49 121/66 11/21/20 05:24 97.9 17 94 Room Air 11/20/20 20:30 2.0 Laboratory Data Labs 24H Laboratory Tests 2 11/20/20 18:01: Urine Color YELLOW, Urine Appearance HAZY, Urine pH 7.0, Urine Specific [place] 1.021, Urine Protein 1+H, Urine Glucose (UA) NEGATIVE, Urine Ketones NEGATIVE, Urine Blood NEGATIVE, Urine Nitrite NEGATIVE, Urine Bilirubin NEGATIVE, Urine Urobilinogen 0.2, Urine Leukocyte Esterase NEGATIVE, Urine WBC (Auto) 1, Urine RBC (Auto) 2, Urine Hyaline Casts (Auto) 0, Urine Bacteria (Auto) NEGATIVE, Urine Squamous Epithelial Cells 0, Urine Mucus (Auto) SMALL, Urine Sperm (Auto) Current Medications Current Medications Current Medications Medications (Trade) Dose Ordered Sig/Kaylin Route PRN Reason Start Time Stop Time Status Last Admin Dose Admin Acetaminophen (Tylenol Tab) 650 mg Q4HP PRN PO fever/MILD PAIN (PS 1-4) 11/16/20 17:05 Albuterol/ Ipratropium (Duoneb (Ipr 0.5mg/Alb 2.5mg)) 3 ml RQID NEB 11/16/20 20:00 11/21/20 07:11 Amoxicillin/ Clavulanate Potassium (Augmentin) 875 mg BID PO 11/16/20 21:00 11/23/20 09:01 11/21/20 07:48 Apixaban (Eliquis) 5 mg BID PO 11/16/20 21:00 11/21/20 07:49 Aspirin (Ecotrin) 81 mg QHS PO 11/16/20 21:00 11/20/20 20:27 Bisacodyl (Dulcolax Tab) 5 mg DAILYPRN PRN PO CONSTIPATION 11/16/20 17:05 Bisoprolol Fumarate (Zebeta) 5 mg DAILY PO 11/17/20 09:00 11/21/20 07:49 Colchicine (Colcrys) 0.6 mg BID PO 11/16/20 21:00 11/21/20 07:50 Digoxin (Lanoxin) 0.125 mg DAILY PO 11/17/20 09:00 11/21/20 07:50 Divalproex Sodium (Depakote Er) 500 mg QHS PO 11/16/20 21:00 11/20/20 20:27 Divalproex Sodium (Depakote Er) 750 mg QAM PO 11/17/20 09:00 11/21/20 07:50 Docusate Sodium (Colace) 100 mg BID PO 11/16/20 21:00 11/21/20 07:49 Ferrous Sulfate (Ferrous Sulfate) 325 mg DAILY PO 11/17/20 09:00 11/21/20 07:52 Gabapentin (Neurontin) 300 mg BID PO 11/16/20 21:00 11/21/20 07:48 Home Med (Med Rec Complete!) ASDIRECTED XX 11/17/20 13:15 11/17/20 13:15 DC Lactobacillus Acidophilus (Bacid) 1 ea WMHS PO 11/16/20 18:00 11/21/20 07:48 Levothyroxine Sodium (Synthroid) 50 mcg DAILY@06 PO 11/17/20 06:00 11/21/20 05:58 Magnesium Oxide (Mag-Ox) 400 mg DAILY PO 11/17/20 09:00 11/21/20 07:49 Miscellaneous (Unresolved Patient Own Med Order) SEE LABEL COMMENTS DAILY XX 11/16/20 09:00 11/18/20 11:50 DC 11/18/20 09:00 Paroxetine HCl (PAXil) 10 mg DAILY PO 11/17/20 09:00 11/21/20 07:50 Patient Own Medication (Patient'S Own Med) felbamate 600mg tabs (aly... BID PO 11/17/20:00 11/21/20 07:51 Prednisone (Deltasone) 30 mg QAM PO 11/21/20 09:00 11/21/20 07:48 Prednisone (Deltasone) 40 mg QAM PO 11/17/20 09:00 11/20/20 09:23 DC 11/20/20 09:14 Senna (Senokot) 1 tab QHS PO 11/16/20 21:00 11/20/20 20:27 Tamsulosin HCl (Flomax) 0.4 mg DAILY PO 11/17/20 09:00 11/21/20 07:49 REGAN LLOYD MD Nov 21, 2020 08:10
[2020-11-21] MEDS ORDERED: predniSONE 10 MG TAB PO SCH (09:00)
[2020-11-21] MEDS ORDERED: DIGOXIN 0.25 MG TAB PO STA (10:44)
[2020-11-21] MEDS ORDERED: bisoproloL fumarate 5 MG TAB PO ONE (11:00)
[2020-11-21 11:45] VITALS: BP 93/61
[2020-11-21 14:00] VITALS: BP 105/68
[2020-11-21 14:35] VITALS: BP 96/69
[2020-11-21] MEDS ORDERED: DIGO0.123 PO (15:20)
[2020-11-21] MEDS ORDERED: RA S8.6T3 PO (15:20)
[2020-11-21] MEDS ORDERED: AUGM875T28 PO (15:20)
[2020-11-21] MEDS ORDERED: COLC0.6T47 PO (15:20)
[2020-11-21] MEDS ORDERED: FLOM0.4C39 PO (15:20)
[2020-11-21] MEDS ORDERED: BACITAB PO (15:20)
[2020-11-21] MEDS ORDERED: ELIQ5TAB PO (15:20)
[2020-11-21] MEDS ORDERED: BISO5TAB14 PO (15:20)
[2020-11-21] MEDS ORDERED: bisoproloL fumarate 5 MG TAB PO SCH ×2 (21:00)
[2020-11-21] MEDS ORDERED: bisoproloL fumarate 10 MG TAB PO SCH (21:00)
--- NOTE | 2020-11-21 21:55 | ECGEPIP ---
[facility] Test Date: 2020-11-21 Pat Name: LUDY GARCIA Department: Room: [place] [address] Gender: Male Residential Director: JAYLIN : 1960 Requested By: REGAN LLOYD Order Number: [id number] Reading MD: Jareth Hutchison Measurements Intervals [place] Rate: 135 P: -11 MA: 126 QRS: 27 QRSD: 96 T: -6 QT: 332 QTc: 498 Interpretive Statements Sinus tachycardia ST & T wave abnormality, consider lateral ischemia Electronically Signed on 11-21-2020 21:55:35 EDT by Jareth Hutchison
[2020-11-23] MEDS ORDERED: DIGO0.123 PO (09:42)
[2020-11-23 15:30] VITALS: BP 100/74
[2020-11-23] MEDS: LACTOBACILLUS ACIDOPHILUS CAP (BACID) PO SCH ×2 (17:44→20:48)
[2020-11-23 20:10] VITALS: BP 105/70
[2020-11-23] MEDS: FELBAMATE 600 MG PO SCH (20:47)
[2020-11-23] MEDS: DIVALPROEX 250MG *ER* TAB PO SCH (20:48)
[2020-11-23] MEDS: GABAPENTIN 300 MG CAP PO SCH (20:48)
[2020-11-23] MEDS: APIXABAN 5 MG TAB (ELIQUIS) PO SCH (20:48)
[2020-11-23] MEDS: COLCHICINE 0.6 MG TABLET PO SCH (20:48)
[2020-11-23] MEDS: AUGMENTIN 875 MG TAB PO SCH (20:48)
[2020-11-23] MEDS: DOCUSATE SODIUM 100MG CAPSULE PO SCH (20:49)
[2020-11-23] MEDS: SENNA 8.6 MG TAB (SENOKOT) PO SCH (20:49)
[2020-11-23] MEDS: bisoproloL fumarate 5 MG TAB PO SCH (20:49)
[2020-11-24] MEDS: LEVOTHYROXINE 50MCG TABLET (0.05MG) PO SCH (05:22)
[2020-11-24 06:28] VITALS: BP 108/80
[2020-11-24] MEDS: bisoproloL fumarate 5 MG TAB PO SCH ×2 (09:00→23:28)
[2020-11-24] MEDS ORDERED: PARoxetine 20MG TABLET PO SCH (09:00)
[2020-11-24 09:23] LABS: BLOOD UREA NITROGEN 19 MG/DL (7-18); CARBON DIOXIDE LEVEL 25 MEQ/L (21-32); CHLORIDE LEVEL 105 MEQ/L (98-107); CREATININE FOR GFR 0.47 MG/DL (0.70-1.30); GLOMERULAR FILTRATION RATE > 60.0 (>49); GLUCOSE, FASTING 87 MG/DL (70-100); POTASSIUM SERUM 4.8 MEQ/L (3.5-5.1); SODIUM LEVEL 137 MEQ/L (136-145)
[2020-11-24 09:27] LABS: HEMATOCRIT 43.2 % (42.0-52.0); HEMOGLOBIN 13.8 g/dl (13.5-17.5); MEAN CORPUSCULAR HEMOGLOBIN 31.6 pg (27.0-33.0); MEAN CORPUSCULAR HGB CONC 31.9 g/dl (32.0-36.5); MEAN CORPUSCULAR VOLUME 98.9 fl (80.0-96.0); PLATELET COUNT, AUTOMATED 595 10^3/uL (150-450); RED BLOOD COUNT 4.37 10^6/uL (4.30-6.10); WHITE BLOOD COUNT 16.4 10^3/uL (4.0-10.0)
[2020-11-24 10:09] LABS: ATYPICAL LYMPH 3 % (0-5); BASOPHILS 1 % (0-1); EOSINOPHILS 1 % (0-3); LYMPHOCYTES 35 % (16-44); MONOCYTES 4 % (0-5); NEUTROPHILS 54 % (28-66)
[2020-11-24 10:10] LABS: PLATELET ESTIMATE INCREASED (NORMAL)
--- NOTE | 2020-11-24 10:45 | IPNPDOC ---
Subjective Date Seen The patient was seen on 11/24/20. Subjective Chief Complaint/HPI Patient is somnolent this morning in no distress. He mumbles some answers which is difficult to understant. He does do better in the later part of the day. Objective Physical Examination General Exam: Positive: Cooperative, No Acute Distress, Other (somnolent) Neck Exam: Positive: Other (neck difficult to hold up , bends forwards.); Negative: JVD Chest Exam: Positive: Clear to auscultation, Normal air movement Heart Exam: Positive: Tachycardic, Irregular Rhythm, Normal S1, Normal S2; Negative: Bradycardic, Regular Rhythm, Gallops, Murmurs, Rubs, Other Abdomen Exam: Positive: Normal bowel sounds, Soft; Negative: Tenderness, Hepatospenomegaly Extremity Exam: Negative: Clubbing, Cyanosis, Edema Neuro Exam: Positive: Other (slowspeech. ) Assessment /Plan Assessment 60 year old male with Epilepsy, developmental delay, mental retardation, dementia, seizure, chronic hyponatremia, chronic constipation, lives at home with (also disabled) with 24 x7 care, has gait instability and ambulates with a walker was initially admitted here from 11/06/2019 to 11/16/20 for Inflammatory Pericarditis, moderate to large pericardial effusion, Pleural effusion , SIRS, new-onset A. fib and a flutter, acute on chronic hyponatremia was subsequently discharged to ARU for continued rehabilitation. Patient was noted to be more somnolent and less active more tired this morning. He was also noted to have a tachycardia in 130s, which was initially irregular however EKG showed sinus tachycardia, but he was having intermittent episodes of irregular tachycardia, so the patient was readmitted to PCU for A. fib/ aflutter with RVR. Afib/ Aflutter with RVR Rate varying from 130s to 90s. Now much better controlled. few spurts of tac hycardia but not sustaining any longer. dig increased to 0.25 , continue bisoprolol 5 bid cannot increase dose further as bp soft continue eliquis, stopped asa. ordered an echo as it is 2 weeks from the last echo. needs to check pericardial effusion. Follow up with Dr Raymond. Recent Pericarditis, pericardial effusion, pleural effusion s/p pig drainage on the left inflammatory in nature likely viral syndrome AANA negative, Quantiferon gold negative, chlamydia neg. mycoplasma neg, Rheumatoid factor neg, Resp panel, HIV, hepc neg. responded to colchicine and steroids will continue now on steroid taper 10 mg every 5 days. New echo ordered. H/o Chronic Hyponatremia Possibly Due to SIADH now sodium normal. H/o urinary incontinence with episode of acute retention in hospital on flomax and oxybutynin Follows with urology Weakness/ Debility PT, OT Epilepsy from the age of 2/ developmental delay/ dementia will continue home meds. valproate and felbamate. paroxetine, gabapentin Hypertension Now hypotensive will try to continue bisoprolol with hold parameters Enalapril has been stopped before. Hypothyroid synthroid LOU does not use CPAP. Developmental disability Mother reports that he does not have Down's syndrome as documented in PMDs records. however he does have epilepsy from the age of 2 so has developmental disability and mild mental retardation blood karyotype has been sent out which is still pending. Plan/VTE VTE Prophylaxis Ordered?: Yes VS, I&O, 24H, Fishbone Vital Signs/I&O Vital Signs Date Time Temp Pulse Resp B/P (MAP) Pulse Ox O2 Delivery O2 Flow Rate FiO2 11/24/20 06:28 98.1 96 18 108/80 (89) 96 Room Air 11/21/20 09:00 2.0 I&O- Last 24 Hours up to 6 AM 11/24/20 06:00 Intake Total 220 ml Balance 220 ml Laboratory Data 24H LABS Laboratory Tests 2 11/24/20 08:21: Neutrophils (%) (Auto) , Nucleated Red Blood Cells % (auto) 0.0, Neutrophils 54, Band Neutrophils 2, Lymphocytes (Manual) 35, Monocytes (Manual) 4, Eosinophils (Manual) 1, Basophils (Manual) 1, Atypical Lymphocytes 3, Platelet Estimate INCREASED, Anion Gap 7L, Glomerular Filtration Rate > 60.0, Calcium Level 10.0 CBC/BMP Laboratory Tests 11/24/20 08:21 MARTIN MIGUEL MD Nov 24, 2020 10:45
[2020-11-24] MEDS: DIVALPROEX 250MG *ER* TAB PO SCH ×2 (11:02→23:25)
[2020-11-24] MEDS: GABAPENTIN 300 MG CAP PO SCH ×2 (11:03→23:26)
[2020-11-24] MEDS: DOCUSATE SODIUM 100MG CAPSULE PO SCH ×2 (11:03→23:26)
[2020-11-24] MEDS: oxyBUTYnin *DITROPAN XL* 5 MG TABCR PO SCH (11:03)
[2020-11-24] MEDS: LACTOBACILLUS ACIDOPHILUS CAP (BACID) PO SCH ×4 (11:03→23:25)
[2020-11-24] MEDS: FERROUS GLUCONATE 324 MG TAB PO SCH (11:03)
[2020-11-24] MEDS: TAMSULOSIN 0.4 MG CAP PO SCH (11:03)
[2020-11-24] MEDS: ASCORBIC ACID 500 MG TAB PO SCH (11:03)
[2020-11-24] MEDS: PARoxetine 20MG TABLET PO SCH (11:03)
[2020-11-24] MEDS: COLCHICINE 0.6 MG TABLET PO SCH ×2 (11:04→23:26)
[2020-11-24] MEDS: APIXABAN 5 MG TAB (ELIQUIS) PO SCH ×2 (11:04→23:26)
[2020-11-24] MEDS: DIGOXIN 0.25 MG TAB PO SCH (11:04)
[2020-11-24] MEDS: AUGMENTIN 875 MG TAB PO SCH ×2 (11:04→23:26)
[2020-11-24] MEDS: MAGNESIUM OXIDE 400MG TAB (MAG-OX) PO SCH (11:04)
[2020-11-24] MEDS: FELBAMATE 600 MG PO SCH ×2 (11:05→23:26)
[2020-11-24] MEDS: predniSONE 10 MG TAB PO SCH (11:07)
--- NOTE | 2020-11-24 12:18 | IPNPDOC ---
PM&R Progress Note DATE OF SERVICE: Nov 24, 2020 [employer] Management Specialist Progress Note Subjective: Patient seen in therapy, appearing tired, but able to follow commands. He denies feeling dizzy or having chest pain. REVIEW OF SYSTEMS: The following is a completed review of systems and has been reviewed. Review of systems otherwise difficult to assess given patient's impaired communication PAIN: Patient self reports no pain EYES: No recent vision changes EARS, NOSE, & THROAT: +dysphagia CARDIOVASCULAR: Denies chest pain or palpitations PULMONARY: Denies shortness of breath GASTROINTESTINAL: Denies constipation/diarrhea GENITOURINARY: +incontinence MUSCULOSKELETAL: generalized weakness NEUROLOGICAL: + aphasia SKIN: denies rash PSYCHIATRIC:tearful All other review of systems found to be negative. PHYSICAL EXAMINATION: VITAL SIGNS: Please see below. GENERAL: Pleasant and cooperative. No acute distress. HEENT: PERRL. Extraocular movements intact. Clear conjunctiva CARDIOVASCULAR: [Regular rate and rhythm. No murmurs, rubs, or gallops LUNGS: Clear to auscultation bilaterally. No wheezes. No rhonchi ABDOMEN: Soft, nontender, nondistended. Positive bowel sounds. Normal active bowel sounds NEUROLOGICAL: Alert and oriented times three. Cranial nerves II through XII grossly intact. Sensation grossly intact EXTREMITIES: 5-\5 strength bilateral upper extremities. 5-\5 strength right lower extremity. 5-/5 strength in left lower extremity. +cervicothoracic kyphosis SKIN: +sacral ulcers ASSESSMENT:60-year-old M with past medical history of mental retardation, seizure disorder, chronic dysphagia, afib who presents status post worsening weakness and altered mental due to hyopnatremia, pericarditis, and pleural effusions PLAN: 1.Rehab- PT/OT advance mobility and ADLs, strengthen/stretch/maintain ROM all 4 limbs -DEVELOPMENT GEOLOGIST c/u to eval and treat for dysphagia 2. Neuro- hx of seizure disorder, c/u felbamate and depakote -dementia, will start back paroxetine at lower dose and monitor for SIADH 3. CArdiac- hx of afib with RVR on eliquis, recently transferred off ARU on 11-21 with interrupted stay for telemetry, had his digoxin dose increased to 0.25 and receive IV amiodarone, discussed case with hospitalist who spoke with cardiolog y, patient stable on current dosing despite HRs going up [id number], patient also with soft bps, but stable, c/u beta-keira judiciously -HLD- c/u statin, -ASa d/c'd -pericarditis- c/u colchicine and tapering prednisone 4. Resp- recent bilat pleural effusions s/p drainage, left sided PNA vs atelectasis s/p course of Zosyn, restarted on Augmentin for concern for new PNA -COPD supplemental 02, DUonebs 5. Endo- hx of hypothyroidism c/u Synthroid 6. GI ppx- protonix 7. DVT ppx- on eliquis 8. Pain- gabepentin and tylenol 9. - hx of incontinence with retention, s\c/u flomax, monitor PVRs -UA negative 10. Leukocytosis- most likely due to steroid use, no clinical suspicion of new infection 11. Dispo- had interrupeted stay due to uncontrolled Afib 11/21-48, d/c tbd Allergies Coded Allergies: No Known Allergies (Verified , 02/21/03) Vital Signs Vital Signs Date Time Temp Pulse Resp B/P (MAP) Pulse Ox O2 Delivery O2 Flow Rate FiO2 11/24/20 11:04 100 11/24/20 09:00 90/66 11/24/20 06:28 98.1 18 96 Room Air 11/21/20 09:00 2.0 Laboratory Data CBC/BMP Laboratory Tests 11/24/20 08:21 Labs 24H Laboratory Tests 2 11/24/20 08:21: Neutrophils (%) (Auto) , Nucleated Red Blood Cells % (auto) 0.0, Neutrophils 54, Band Neutrophils 2, Lymphocytes (Manual) 35, Monocytes (Manual) 4, Eosinophils (Manual) 1, Basophils (Manual) 1, Atypical Lymphocytes 3, Platelet Estimate INCREASED, Anion Gap 7L, Glomerular Filtration Rate > 60.0, Calcium Level 10.0 Current Medications Current Medications Current Medications Medications (Trade) Dose Ordered Sig/Kaylin Route PRN Reason Start Time Stop Time Status Last Admin Dose Admin Acetaminophen (Tylenol Tab) 650 mg Q4HP PRN PO fever/MILD PAIN (PS 1-4) 11/16/20 17:05 11/21/20 16:52 DC Albuterol/ Ipratropium (Duoneb (Ipr 0.5mg/Alb 2.5mg)) 3 ml RQID NEB 11/16/20 20:00 11/21/20 16:52 DC 11/21/20 11:37 Amoxicillin/ Clavulanate Potassium (Augmentin) 875 mg BID PO 11/16/20 21:00 11/21/20 16:52 DC 11/21/20 07:48 Amoxicillin/ Clavulanate Potassium (Augmentin) 875 mg BID PO 11/23/20 21:00 11/24/20 11:04 Apixaban (Eliquis) 5 mg BID PO 11/16/20 21:00 11/21/20 16:52 DC 11/21/20 07:49 Apixaban (Eliquis) 5 mg BID PO 11/23/20 21:00 11/24/20 11:04 Ascorbic Acid (Vitamin C) 1,000 mg DAILY PO 11/24/20 09:00 11/24/20 11:03 Aspirin (Ecotrin) 81 mg QHS PO 11/16/20 21:00 11/21/20 16:52 DC 11/20/20 20:27 Bisacodyl (Dulcolax Tab) 5 mg DAILYPRN PRN PO CONSTIPATION 11/16/20 17:05 11/21/20 16:52 DC Bisoprolol Fumarate (Zebeta) 5 mg BID PO 11/21/20 21:00 11/21/20 10:29 DC Bisoprolol Fumarate (Zebeta) 5 mg BID PO 11/21/20 21:00 11/21/20 16:52 DC Bisoprolol Fumarate (Zebeta) 5 mg BID PO 11/23/20 21:00 11/23/20 20:49 Bisoprolol Fumarate (Zebeta) 5 mg DAILY PO 11/17/20 09:00 11/21/20 08:07 DC 11/21/20 07:49 Bisoprolol Fumarate (Zebeta) 10 mg BID PO 11/21/20 21:00 11/21/20 10:43 DC Colchicine (Colcrys) 0.6 mg BID PO 11/16/20 21:00 11/21/20 16:52 DC 11/21/20 07:50 Colchicine (Colcrys) 0.6 mg BID PO 11/23/20 21:00 11/24/20 11:04 Digoxin (Lanoxin) 0.125 mg DAILY PO 11/17/20 09:00 11/21/20 16:52 DC 11/21/20 07:50 Digoxin (Lanoxin) 0.25 mg DAILY PO 11/24/20 09:00 11/24/20 11:04 Digoxin (Lanoxin) 0.25 mg STAT STAT PO 11/21/20 10:44 11/21/20 10:51 DC 11/21/20 10:56 Divalproex Sodium (Depakote Er) 500 mg QHS PO 11/16/20 21:00 11/21/20 16:52 DC 11/20/20 20:27 Divalproex Sodium (Depakote Er) 500 mg QHS PO 11/23/20 21:00 11/23/20 20:48 Divalproex Sodium (Depakote Er) 750 mg DAILY PO 11/24/20 09:00 11/24/20 11:02 Divalproex Sodium (Depakote Er) 750 mg QAM PO 11/17/20 09:00 11/21/20 16:52 DC 11/21/20 07:50 Docusate Sodium (Colace) 100 mg BID PO 11/16/20 21:00 11/21/20 16:52 DC 11/21/20 07:49 Docusate Sodium (Colace) 200 mg BID PO 11/23/20 21:00 11/24/20 11:03 Ferrous Gluconate (Fergon) 324 mg DAILY PO 11/24/20 09:00 11/24/20 11:03 Ferrous Sulfate (Ferrous Sulfate) 325 mg DAILY PO 11/17/20 09:00 11/21/20 16:52 DC 11/21/20 07:52 Gabapentin (Neurontin) 300 mg BID PO 11/16/20 21:00 11/21/20 16:52 DC 11/21/20 07:48 Gabapentin (Neurontin) 300 mg BID PO 11/23/20 21:00 11/24/20 11:03 Home Med (Med Rec Complete!) ASDIRECTED XX 11/17/20 13:15 11/17/20 13:15 DC Lactobacillus Acidophilus (Bacid) 1 ea WMHS PO 11/16/20 18:00 11/21/20 16:52 DC 11/21/20 12:10 Lactobacillus Acidophilus (Bacid) 1 ea WMHS PO 11/23/20 18:00 11/24/20 11:03 Levothyroxine Sodium (Synthroid) 50 mcg DAILY@06 PO 11/17/20 06:00 11/21/20 16:52 DC 11/21/20 05:58 Levothyroxine Sodium (Synthroid) 50 mcg DAILY@0600 PO 11/24/20 06:00 11/24/20 05:22 Magnesium Oxide (Mag-Ox) 400 mg DAILY PO 11/17/20 09:00 11/21/20 16:52 DC 11/21/20 07:49 Magnesium Oxide (Mag-Ox) 400 mg DAILY PO 11/24/20 09:00 11/24/20 11:04 Miscellaneous (Unresolved Patient Own Med Order) SEE LABEL COMMENTS DAILY XX 11/16/20 09:00 11/18/20 11:50 DC 11/18/20 09:00 Oxybutynin Chloride (Ditropan Xl) 10 mg DAILY PO 11/24/20 09:00 11/24/20 11:03 Paroxetine HCl (PAXil) 10 mg DAILY PO 11/17/20 09:00 11/21/20 16:52 DC 11/21/20 07:50 Paroxetine HCl (PAXil) 20 mg DAILY PO 11/24/20 09:00 11/24/20 11:03 Paroxetine HCl (PAXil) 40 mg DAILY PO 11/24/20 09:00 11/23/20 18:11 DC Patient Own Medication (Patient'S Own Med) Felbamate 600MG TABL... BID PO 11/23/20 21:00 11/24/20 11:05 Patient Own Medication (Patient'S Own Med) felbamate 600mg tabs (aly... BID PO 11/17/20 21:00 11/21/20 16:52 DC 11/21/20 07:51 Prednisone (Deltasone) 30 mg DAILY PO 11/24/20 09:00 11/24/20 11:07 Prednisone (Deltasone) 30 mg QAM PO 11/21/20 09:00 11/21/20 16:52 DC 11/21/20 07:48 Prednisone (Deltasone) 40 mg QAM PO 11/17/20 09:00 11/20/20 09:23 DC 11/20/20 09:14 Senna (Senokot) 1 tab QHS PO 11/16/20 21:00 11/21/20 16:52 DC 11/20/20 20:27 Senna (Senokot) 2 tab QHS PO 11/23/20 21:00 Tamsulosin HCl (Flomax) 0.4 mg DAILY PO 11/17/20 09:00 11/21/20 16:52 DC 11/21/20 07:49 Tamsulosin HCl (Flomax) 0.4 mg DAILY PO 11/24/20 09:00 11/24/20 11:03 REGAN LLOYD MD Nov 24, 2020 12:18
[2020-11-24 14:00] VITALS: BP 103/62
[2020-11-24 20:00] VITALS: BP 98/70
[2020-11-24] MEDS: SENNA 8.6 MG TAB (SENOKOT) PO SCH (23:26)
[2020-11-25 05:14] VITALS: BP 97/72
[2020-11-25] MEDS: LEVOTHYROXINE 50MCG TABLET (0.05MG) PO SCH (05:48)
[2020-11-25] MEDS: bisoproloL fumarate 5 MG TAB PO SCH ×2 (09:00→21:43)
[2020-11-25 09:24] VITALS: BP 92/69
[2020-11-25] MEDS: PARoxetine 20MG TABLET PO SCH (09:25)
[2020-11-25] MEDS: FERROUS GLUCONATE 324 MG TAB PO SCH (09:25)
[2020-11-25] MEDS: LACTOBACILLUS ACIDOPHILUS CAP (BACID) PO SCH ×4 (09:25→21:43)
[2020-11-25] MEDS: DIGOXIN 0.25 MG TAB PO SCH (09:26)
[2020-11-25] MEDS: predniSONE 10 MG TAB PO SCH (09:26)
[2020-11-25] MEDS: DOCUSATE SODIUM 100MG CAPSULE PO SCH ×2 (09:26→21:42)
[2020-11-25] MEDS: TAMSULOSIN 0.4 MG CAP PO SCH (09:26)
[2020-11-25] MEDS: ASCORBIC ACID 500 MG TAB PO SCH (09:26)
[2020-11-25] MEDS: COLCHICINE 0.6 MG TABLET PO SCH ×2 (09:27→21:44)
[2020-11-25] MEDS: AUGMENTIN 875 MG TAB PO SCH ×2 (09:27→21:43)
[2020-11-25] MEDS: MAGNESIUM OXIDE 400MG TAB (MAG-OX) PO SCH (09:27)
[2020-11-25] MEDS: GABAPENTIN 300 MG CAP PO SCH ×2 (09:27→21:42)
[2020-11-25] MEDS: oxyBUTYnin *DITROPAN XL* 5 MG TABCR PO SCH (09:27)
[2020-11-25] MEDS: APIXABAN 5 MG TAB (ELIQUIS) PO SCH ×2 (09:27→21:43)
[2020-11-25] MEDS: DIVALPROEX 250MG *ER* TAB PO SCH ×2 (09:27→21:44)
[2020-11-25] MEDS: FELBAMATE 600 MG PO SCH ×2 (09:28→21:44)
[2020-11-25 12:15] VITALS: BP 100/69
[2020-11-25 14:00] VITALS: BP 101/80
[2020-11-25 20:00] VITALS: BP 100/67
[2020-11-25] MEDS: SENNA 8.6 MG TAB (SENOKOT) PO SCH (21:43)
[2020-11-26 05:15] VITALS: BP 97/66
[2020-11-26] MEDS: LEVOTHYROXINE 50MCG TABLET (0.05MG) PO SCH (06:22)
[2020-11-26] MEDS: TAMSULOSIN 0.4 MG CAP PO SCH (08:07)
[2020-11-26] MEDS: COLCHICINE 0.6 MG TABLET PO SCH ×2 (08:07→21:41)
[2020-11-26] MEDS: AUGMENTIN 875 MG TAB PO SCH ×2 (08:07→21:41)
[2020-11-26] MEDS: predniSONE 20 MG TAB PO SCH (08:07)
[2020-11-26] MEDS: DIVALPROEX 250MG *ER* TAB PO SCH ×2 (08:07→21:41)
[2020-11-26] MEDS: oxyBUTYnin *DITROPAN XL* 5 MG TABCR PO SCH (08:07)
[2020-11-26] MEDS: DOCUSATE SODIUM 100MG CAPSULE PO SCH ×2 (08:07→21:00)
[2020-11-26] MEDS: FERROUS GLUCONATE 324 MG TAB PO SCH (08:07)
[2020-11-26] MEDS: ASCORBIC ACID 500 MG TAB PO SCH (08:08)
[2020-11-26] MEDS: MAGNESIUM OXIDE 400MG TAB (MAG-OX) PO SCH (08:08)
[2020-11-26] MEDS: GABAPENTIN 300 MG CAP PO SCH ×2 (08:08→21:42)
[2020-11-26] MEDS: DIGOXIN 0.25 MG TAB PO SCH (08:08)
[2020-11-26] MEDS: FELBAMATE 600 MG PO SCH ×2 (08:08→21:42)
[2020-11-26] MEDS: PARoxetine 20MG TABLET PO SCH (08:08)
[2020-11-26] MEDS: LACTOBACILLUS ACIDOPHILUS CAP (BACID) PO SCH ×4 (08:08→21:42)
[2020-11-26] MEDS: APIXABAN 5 MG TAB (ELIQUIS) PO SCH ×2 (08:08→21:41)
[2020-11-26] MEDS: bisoproloL fumarate 5 MG TAB PO SCH ×2 (08:09→21:42)
[2020-11-26 14:00] VITALS: BP 112/77
[2020-11-26 20:10] VITALS: BP 106/74
[2020-11-26] MEDS: SENNA 8.6 MG TAB (SENOKOT) PO SCH (21:00)
[2020-11-27 05:57] VITALS: BP 108/77
[2020-11-27] MEDS: LEVOTHYROXINE 50MCG TABLET (0.05MG) PO SCH (06:06)
[2020-11-27 07:35] LABS: BASO % 0.3 % (0.0-1.0); EOS % 0.2 % (0.0-3.0); HEMATOCRIT 42.4 % (42.0-52.0); HEMOGLOBIN 13.8 g/dl (13.5-17.5); LYMPH # 2.7 10^3/uL (1.5-5.0); LYMPH % 17.8 % (24.0-44.0); MEAN CORPUSCULAR HEMOGLOBIN 31.9 pg (27.0-33.0); MEAN CORPUSCULAR HGB CONC 32.5 g/dl (32.0-36.5); MEAN CORPUSCULAR VOLUME 98.1 fl (80.0-96.0); MONO # 2.1 10^3/uL (0.0-0.8); MONO % 14.1 % (2.0-8.0); PLATELET COUNT, AUTOMATED 480 10^3/uL (150-450); RED BLOOD COUNT 4.32 10^6/uL (4.30-6.10)
[2020-11-27 08:05] LABS: BLOOD UREA NITROGEN 20 MG/DL (7-18); CALCIUM LEVEL 9.7 MG/DL (8.8-10.2); CARBON DIOXIDE LEVEL 28 MEQ/L (21-32); CHLORIDE LEVEL 102 MEQ/L (98-107); CREATININE FOR GFR 0.51 MG/DL (0.70-1.30); GLOMERULAR FILTRATION RATE > 60.0 (>49); GLUCOSE, FASTING 106 MG/DL (70-100); POTASSIUM SERUM 5.4 MEQ/L (3.5-5.1); SODIUM LEVEL 136 MEQ/L (136-145)
[2020-11-27 08:31] LABS: WHITE BLOOD COUNT 14.9 10^3/uL (4.0-10.0)
[2020-11-27] MEDS: DOCUSATE SODIUM 100MG CAPSULE PO SCH ×2 (10:19→20:57)
[2020-11-27] MEDS: predniSONE 20 MG TAB PO SCH (10:19)
[2020-11-27] MEDS: LACTOBACILLUS ACIDOPHILUS CAP (BACID) PO SCH ×4 (10:19→20:57)
[2020-11-27] MEDS: ASCORBIC ACID 500 MG TAB PO SCH (10:19)
[2020-11-27] MEDS: MAGNESIUM OXIDE 400MG TAB (MAG-OX) PO SCH (10:19)
[2020-11-27] MEDS: AUGMENTIN 875 MG TAB PO SCH (10:19)
[2020-11-27] MEDS: bisoproloL fumarate 5 MG TAB PO SCH ×2 (10:20→20:59)
[2020-11-27] MEDS: oxyBUTYnin *DITROPAN XL* 5 MG TABCR PO SCH (10:21)
[2020-11-27] MEDS: DIVALPROEX 250MG *ER* TAB PO SCH ×2 (10:21→20:58)
[2020-11-27] MEDS: DIGOXIN 0.25 MG TAB PO SCH (10:21)
[2020-11-27] MEDS: GABAPENTIN 300 MG CAP PO SCH ×2 (10:21→20:58)
[2020-11-27] MEDS: PARoxetine 20MG TABLET PO SCH (10:22)
[2020-11-27] MEDS: COLCHICINE 0.6 MG TABLET PO SCH ×2 (10:22→20:57)
[2020-11-27] MEDS: FERROUS GLUCONATE 324 MG TAB PO SCH (10:22)
[2020-11-27] MEDS: FELBAMATE 600 MG PO SCH (10:22)
[2020-11-27] MEDS: APIXABAN 5 MG TAB (ELIQUIS) PO SCH ×2 (10:23→20:58)
[2020-11-27] MEDS: TAMSULOSIN 0.4 MG CAP PO SCH (10:23)
[2020-11-27] MEDS ORDERED: PATIROMER SORBITEX CALCIUM 8.4 GM POWDER PACKET (VELTASSA) PO ONE (12:00)
--- NOTE | 2020-11-27 12:47 | REP ---
INDICATION: monitor lung and pericardial effusion. COMPARISON: 11/10/2020 the latest prior TECHNIQUE: Noncontrast enhanced helical technique FINDINGS: There is a moderate pericardial effusion which appears to have decreased compared to the prior exam. There are small bilateral pleural effusions left greater than right which may have increased slightly compared to the prior exam particularly on the left. There is no change in the imaged upper abdomen or imaged osseous structures. Evaluation of the lung valdez shows bilateral lower lobe compressive subsegmental atelectatic changes with air bronchograms and left greater than right essentially unchanged to slightly increased compared to the prior exam. IMPRESSION: Findings as described above. <Electronically signed by Tay Stoner > 11/27/20 [id number]
[2020-11-27 14:00] VITALS: BP 104/78
[2020-11-27 20:15] VITALS: BP 105/71
[2020-11-27] MEDS: SENNA 8.6 MG TAB (SENOKOT) PO SCH (20:57)
[2020-11-28] MEDS: FELBAMATE 600 MG PO SCH ×3 (03:29→21:08)
[2020-11-28] MEDS: LEVOTHYROXINE 50MCG TABLET (0.05MG) PO SCH (05:32)
[2020-11-28 06:13] VITALS: BP 128/80
[2020-11-28 08:05] LABS: BLOOD UREA NITROGEN 20 MG/DL (7-18); CALCIUM LEVEL 9.9 MG/DL (8.8-10.2); CARBON DIOXIDE LEVEL 27 MEQ/L (21-32); CHLORIDE LEVEL 101 MEQ/L (98-107); CREATININE FOR GFR 0.48 MG/DL (0.70-1.30); DIGOXIN LEVEL 0.9 NG/ML (0.5-2.0); GLOMERULAR FILTRATION RATE > 60.0 (>49); GLUCOSE, FASTING 113 MG/DL (70-100); POTASSIUM SERUM 4.3 MEQ/L (3.5-5.1); SODIUM LEVEL 135 MEQ/L (136-145)
[2020-11-28] MEDS: LACTOBACILLUS ACIDOPHILUS CAP (BACID) PO SCH ×4 (08:24→21:07)
[2020-11-28] MEDS: DOCUSATE SODIUM 100MG CAPSULE PO SCH ×2 (08:25→21:07)
[2020-11-28] MEDS: MAGNESIUM OXIDE 400MG TAB (MAG-OX) PO SCH (08:25)
[2020-11-28] MEDS: predniSONE 20 MG TAB PO SCH (08:25)
[2020-11-28] MEDS: oxyBUTYnin *DITROPAN XL* 5 MG TABCR PO SCH (08:26)
[2020-11-28] MEDS: APIXABAN 5 MG TAB (ELIQUIS) PO SCH ×2 (08:26→21:07)
[2020-11-28] MEDS: FERROUS GLUCONATE 324 MG TAB PO SCH (08:26)
[2020-11-28] MEDS: ASCORBIC ACID 500 MG TAB PO SCH (08:26)
[2020-11-28] MEDS: GABAPENTIN 300 MG CAP PO SCH (08:27)
[2020-11-28] MEDS: PARoxetine 20MG TABLET PO SCH (08:27)
[2020-11-28] MEDS: TAMSULOSIN 0.4 MG CAP PO SCH (08:27)
[2020-11-28] MEDS: COLCHICINE 0.6 MG TABLET PO SCH ×2 (08:28→21:07)
[2020-11-28] MEDS: DIVALPROEX 250MG *ER* TAB PO SCH ×2 (08:28→21:12)
[2020-11-28] MEDS: DIGOXIN 0.25 MG TAB PO SCH (08:35)
[2020-11-28] MEDS: bisoproloL fumarate 5 MG TAB PO SCH ×2 (08:38→21:08)
[2020-11-28 14:00] VITALS: BP 101/63
[2020-11-28] MEDS: MAGIC MOUTHWASH SUSPENSION BTL XX SCH (18:07)
[2020-11-28 20:03] VITALS: BP 116/86
[2020-11-28] MEDS: GABAPENTIN 100 MG CAP PO SCH (21:07)
[2020-11-28] MEDS: SENNA 8.6 MG TAB (SENOKOT) PO SCH (21:08)
[2020-11-29 04:21] VITALS: BP 134/80
[2020-11-29] MEDS: LEVOTHYROXINE 50MCG TABLET (0.05MG) PO SCH (05:37)
[2020-11-29] MEDS: MAGIC MOUTHWASH SUSPENSION BTL XX SCH ×3 (09:24→16:43)
[2020-11-29] MEDS: TAMSULOSIN 0.4 MG CAP PO SCH (09:24)
[2020-11-29] MEDS: GABAPENTIN 100 MG CAP PO SCH (09:25)
[2020-11-29] MEDS: ASCORBIC ACID 500 MG TAB PO SCH (09:25)
[2020-11-29] MEDS: bisoproloL fumarate 5 MG TAB PO SCH ×2 (09:25→20:20)
[2020-11-29] MEDS: FERROUS GLUCONATE 324 MG TAB PO SCH (09:27)
[2020-11-29] MEDS: APIXABAN 5 MG TAB (ELIQUIS) PO SCH ×2 (09:27→20:19)
[2020-11-29] MEDS: PARoxetine 20MG TABLET PO SCH (09:27)
[2020-11-29] MEDS: oxyBUTYnin *DITROPAN XL* 5 MG TABCR PO SCH (09:27)
[2020-11-29] MEDS: DIVALPROEX 250MG *ER* TAB PO SCH ×2 (09:27→20:20)
[2020-11-29] MEDS: predniSONE 20 MG TAB PO SCH (09:28)
[2020-11-29] MEDS: MAGNESIUM OXIDE 400MG TAB (MAG-OX) PO SCH (09:28)
[2020-11-29] MEDS: DIGOXIN 0.25 MG TAB PO SCH (09:28)
[2020-11-29] MEDS: DOCUSATE SODIUM 100MG CAPSULE PO SCH (09:28)
[2020-11-29] MEDS: FELBAMATE 600 MG PO SCH ×2 (09:30→20:23)
[2020-11-29] MEDS: COLCHICINE 0.6 MG TABLET PO SCH ×2 (09:44→20:20)
[2020-11-29] MEDS: LACTOBACILLUS ACIDOPHILUS CAP (BACID) PO SCH (09:48)
--- NOTE | 2020-11-29 12:20 | IPNPDOC ---
PM&R Progress Note DATE OF SERVICE: Nov 27, 2020 [employer] Progress Note Subjective: Patient seen in his room in PT working on sitting balance, stating he felt ok, had no complaints. REVIEW OF SYSTEMS: The following is a completed review of systems and has been reviewed. Review of systems otherwise difficult to assess given patient's impaired communication PAIN: Patient self reports no pain EYES: No recent vision changes EARS, NOSE, & THROAT: +dysphagia CARDIOVASCULAR: Denies chest pain or palpitations PULMONARY: Denies shortness of breath GASTROINTESTINAL: Denies constipation/diarrhea GENITOURINARY: +incontinence MUSCULOSKELETAL: generalized weakness NEUROLOGICAL: + aphasia SKIN: denies rash PSYCHIATRIC:tearful All other review of systems found to be negative. PHYSICAL EXAMINATION: VITAL SIGNS: Please see below. GENERAL: Pleasant and cooperative. No acute distress. HEENT: PERRL. Extraocular movements intact. Clear conjunctiva CARDIOVASCULAR: [Regular rate and rhythm. No murmurs, rubs, or gallops LUNGS: Clear to auscultation bilaterally. No wheezes. No rhonchi ABDOMEN: Soft, nontender, nondistended. Positive bowel sounds. Normal active bowel sounds NEUROLOGICAL: Alert and oriented times three. Cranial nerves II through XII grossly intact. Sensation grossly intact EXTREMITIES: 5-\5 strength bilateral upper extremities. 5-\5 strength right lower extremity. 5-/5 strength in left lower extremity. 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 Neuro- hx of seizure disorder, c/u felbamate and depakote -dementia, will start back paroxetine at lower dose and monitor for SIADH 3. CArdiac- hx of afib with RVR on eliquis, recently transferred off ARU on 11-21 with interrupted stay for telemetry, had his digoxin dose increased to 0.25 and receive IV amiodarone, discussed case with hospitalist who spoke with cardiology, patient stable on current dosing despite HRs going up [id number], patient also with soft bps, but stable, c/u beta-keira judiciously -HLD- c/u statin, -ASa d/c'd -pericarditis- c/u colchicine and tapering prednisone, repeat CT chest today showing decrease in pericardial effusion 4. Resp- recent bilat pleural effusions s/p drainage, left sided PNA vs atelectasis s/p course of Zosyn, restarted on Augmentin for concern for new PNA -COPD supplemental 02, DUonebs 5. Endo- hx of hypothyroidism c/u Synthroid 6. GI ppx- protonix 7. DVT ppx- on eliquis 8. Pain- gabepentin and tylenol 9. - hx of incontinence with retention, s\c/u flomax, monitor PVRs -UA negative 10. Leukocytosis- most likely due to steroid use, no clinical suspicion of new infection 11. Dispo- had interrupted stay due to uncontrolled Afib 11/21-11/23, discussed patient's functional decline with brother who states he has ability to provide 24-7 nursing care DME- Patient will require a Khanh and hospital bed. He will need frequent repositioning to prevent pressure sores as he is unable to reposition himself in bed or vocalize his needs effectively if he developed pain and needed to be moved. He is high risk aspiration due to his severe cervical-thoracic kyphosis and has beend treated for pneumonias related to this. Being able to adjust the head of the bed will decrease aspiration risk. Allergies Coded Allergies: No Known Allergies (Verified , 02/21/03) Vital Signs Vital Signs Date Time Temp Pulse Resp B/P (MAP) Pulse Ox O2 Delivery O2 Flow Rate FiO2 11/29/20 09:28 70 11/29/20 09:25 130/80 11/29/20 04:21 97.0 18 99 Nasal Cannula 2.0 Laboratory Data CBC/BMP Labs 24H Laboratory Tests 2 11/29/20 11:11: Current Medications Current Medications Current Medications Medications (Trade) Dose Ordered Sig/Kaylin Route PRN Reason Start Time Stop Time Status Last Admin Dose Admin Acetaminophen (Tylenol Tab) 650 mg Q4HP PRN PO fever/MILD PAIN (PS 1-4) 11/16/20 17:05 11/21/20 16:52 DC Albuterol/ Ipratropium (Duoneb (Ipr 0.5mg/Alb 2.5mg)) 3 ml RQID NEB 11/16/20 20:00 11/21/20 16:52 DC 11/21/20 11:37 Amoxicillin/ Clavulanate Potassium (Augmentin) 875 mg BID PO 11/16/20 21:00 11/21/20 16:52 DC 11/21/20 07:48 Amoxicillin/ Clavulanate Potassium (Augmentin) 875 mg BID PO 11/23/20 21:00 11/27/20 11:58 DC 11/27/20 10:19 Apixaban (Eliquis) 5 mg BID PO 11/16/20 21:00 11/21/20 16:52 DC 11/21/20 07:49 Apixaban (Eliquis) 5 mg BID PO 11/23/20 21:00 11/29/20 09:27 Ascorbic Acid (Vitamin C) 1,000 mg DAILY PO 11/24/20 09:00 11/29/20 09:25 Aspirin (Ecotrin) 81 mg QHS PO 11/16/20 21:00 11/21/20 16:52 DC 11/20/20 20:27 Bisacodyl (Dulcolax Tab) 5 mg DAILYPRN PRN PO CONSTIPATION 11/16/20 17:05 11/21/20 16:52 DC Bisoprolol Fumarate (Zebeta) 5 mg BID PO 11/21/20 21:00 11/21/20 10:29 DC Bisoprolol Fumarate (Zebeta) 5 mg BID PO 11/21/20 21:00 11/21/20 16:52 DC Bisoprolol Fumarate (Zebeta) 5 mg BID PO 11/23/20 21:00 11/29/20 09:25 Bisoprolol Fumarate (Zebeta) 5 mg DAILY PO 11/17/20 09:00 11/21/20 08:07 DC 11/21/20 07:49 Bisoprolol Fumarate (Zebeta) 10 mg BID PO 11/21/20 21:00 11/21/20 10:43 DC Colchicine (Colcrys) 0.6 mg BID PO 11/16/20 21:00 11/21/20 16:52 DC 11/21/20 07:50 Colchicine (Colcrys) 0.6 mg BID PO 11/23/20 21:00 11/29/20 09:44 Digoxin (Lanoxin) 0.125 mg DAILY PO 11/17/20 09:00 11/21/20 16:52 DC 11/21/20 07:50 Digoxin (Lanoxin) 0.25 mg DAILY PO 11/24/20 09:00 11/29/20 09:28 Digoxin (Lanoxin) 0.25 mg STAT STAT PO 11/21/20 10:44 11/21/20 10:51 DC 11/21/20 10:56 Divalproex Sodium (Depakote Er) 500 mg QHS PO 11/16/20 21:00 11/21/20 16:52 DC 11/20/20 20:27 Divalproex Sodium (Depakote Er) 500 mg QHS PO 11/23/20 21:00 11/28/20 21:12 Divalproex Sodium (Depakote Er) 750 mg DAILY PO 11/24/20 09:00 11/29/20 09:27 Divalproex Sodium (Depakote Er) 750 mg QAM PO 11/17/20 09:00 11/21/20 16:52 DC 11/21/20 07:50 Docusate Sodium (Colace) 100 mg BID PO 11/16/20 21:00 11/21/20 16:52 DC 11/21/20 07:49 Docusate Sodium (Colace) 200 mg BID PO 11/23/20 21:00 11/29/20 10:25 DC 11/29/20 09:28 Ferrous Gluconate (Fergon) 324 mg DAILY PO 11/24/20 09:00 11/29/20 10:28 DC 11/29/20 09:27 Ferrous Sulfate (Ferrous Sulfate) 325 mg DAILY PO 11/17/20 09:00 11/21/20 16:52 DC 11/21/20 07:52 Gabapentin (Neurontin) 100 mg BID PO 11/28/20 21:00 11/29/20 10:26 DC 11/29/20 09:25 Gabapentin (Neurontin) 300 mg BID PO 11/16/20 21:00 11/21/20 16:52 DC 11/21/20 07:48 Gabapentin (Neurontin) 300 mg BID PO 11/23/20 21:00 11/28/20 14:37 DC 11/28/20 08:27 Home Med (Med Rec Complete!) ASDIRECTED XX 11/17/20 13:15 11/17/20 13:15 DC Lactobacillus Acidophilus (Bacid) 1 ea WMHS PO 11/16/20 18:00 11/21/20 16:52 DC 11/21/20 12:10 Lactobacillus Acidophilus (Bacid) 1 ea WMHS PO 11/23/20 18:00 11/29/20 10:26 DC 11/29/20 09:48 Levothyroxine Sodium (Synthroid) 50 mcg DAILY@06 PO 11/17/20 06:00 11/21/20 16:52 DC 11/21/20 05:58 Levothyroxine Sodium (Synthroid) 50 mcg DAILY@0600 PO 11/24/20 06:00 11/29/20 05:37 Lidocaine/ Diphenhydr/Alum/ Mg/Simeth (Magic Mouthwash) 5ML- wash with swab AC XX 11/28/20 17:30 11/29/20 09:24 Magnesium Oxide (Mag-Ox) 400 mg DAILY PO 11/17/20 09:00 11/21/20 16:52 DC 11/21/20 07:49 Magnesium Oxide (Mag-Ox) 400 mg DAILY PO 11/24/20 09:00 11/29/20 10:25 DC 11/29/20 09:28 Miscellaneous (Unresolved Patient Own Med Order) SEE LABEL COMMENTS DAILY XX 11/16/20 09:00 11/18/20 11:50 DC 11/18/20 09:00 Oxybutynin Chloride (Ditropan Xl) 10 mg DAILY PO 11/24/20 09:00 11/29/20 10:25 DC 11/29/20 09:27 Paroxetine HCl (PAXil) 10 mg DAILY PO 11/17/20 09:00 11/21/20 16:52 DC 11/21/20 07:50 Paroxetine HCl (PAXil) 20 mg DAILY PO 11/24/20 09:00 11/29/20 09:27 Paroxetine HCl (PAXil) 40 mg DAILY PO 11/24/20 09:00 11/23/20 18:11 DC Patient Own Medication (Patient'S Own Med) Felbamate 600MG TABL... BID PO 11/23/20 21:00 11/29/20 09:30 Patient Own Medication (Patient'S Own Med) felbamate 600mg tabs (aly... BID PO 11/17/20 21:00 11/21/20 16:52 DC 11/21/20 07:51 Prednisone (Deltasone) 10 mg DAILY PO 12/01/20 09:00 Prednisone (Deltasone) 20 mg DAILY PO 11/26/20 09:00 11/30/20 12:00 11/29/20 09:28 Prednisone (Deltasone) 30 mg DAILY PO 11/24/20 09:00 11/25/20 18:00 DC 11/25/20 09:26 Prednisone (Deltasone) 30 mg QAM PO 11/21/20 09:00 11/21/20 16:52 DC 11/21/20 07:48 Prednisone (Deltasone) 40 mg QAM PO 11/17/20 09:00 11/20/20 09:23 DC 11/20/20 09:14 Senna (Senokot) 1 tab QHS PO 11/16/20 21:00 11/21/20 16:52 DC 11/20/20 20:27 Senna (Senokot) 2 tab QHS PO 11/23/20 21:00 11/29/20 10:25 DC 11/28/20 21:08 Tamsulosin HCl (Flomax) 0.4 mg DAILY PO 11/17/20 09:00 11/21/20 16:52 DC 11/21/20 07:49 Tamsulosin HCl (Flomax) 0.4 mg DAILY PO 11/24/20 09:00 11/29/20 09:24 REGAN LLOYD MD Nov 29, 2020 12:19
--- NOTE | 2020-11-29 12:28 | IPNPDOC ---
PM&R Progress Note DATE OF SERVICE: Nov 28, 2020 [employer] Progress Note Subjective: Patient seen in his room prior to starting speech therapy, he denies having chest pain or dizziness. REVIEW OF SYSTEMS: The following is a completed review of systems and has been reviewed. Review of systems otherwise difficult to assess given patient's impaired communication PAIN: Patient self reports no pain EYES: No recent vision changes EARS, NOSE, & THROAT: +dysphagia CARDIOVASCULAR: Denies chest pain or palpitations PULMONARY: Denies shortness of breath GASTROINTESTINAL: Denies constipation/diarrhea GENITOURINARY: +incontinence MUSCULOSKELETAL: generalized weakness NEUROLOGICAL: + aphasia SKIN: denies rash PSYCHIATRIC:tearful All other review of systems found to be negative. PHYSICAL EXAMINATION: VITAL SIGNS: Please see below. GENERAL: Pleasant and cooperative. No acute distress. HEENT: PERRL. Extraocular movements intact. Clear conjunctiva CARDIOVASCULAR: irregular rate and rhythm. No murmurs, rubs, or gallops LUNGS: Clear to auscultation bilaterally. No wheezes. No rhonchi ABDOMEN: Soft, nontender, nondistended. Positive bowel sounds. Normal active bowel sounds NEUROLOGICAL: Alert and oriented times three. Cranial nerves II through XII grossly intact. Sensation grossly intact EXTREMITIES: 4\5 strength bilateral upper extremities. 4\5 strength right lower extremity. 4/5 strength in left lower extremity. 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 Neuro- hx of seizure disorder, c/u felbamate and depakote -dementia, will start back paroxetine at lower dose and monitor for SIADH -patient with overall functional decline stating he feels mostly fatigued, no concern at this time for infection, CT chest showing improvement of pericardial effusion, Depakote level WNL and digoxin 0.9 so no concern for digoxin toxicity, he may we weaker due to current steroid use, will taper off gabapentin 3. CArdiac- hx of afib with RVR on eliquis, recently transferred off ARU on 11-21 with interrupted stay for telemetry, had his digoxin dose increased to 0.25 and receive IV amiodarone, discussed case with hospitalist who spoke with cardiology, patient stable on current dosing despite HRs going up [id number], patient also with soft bps, but stable, c/u beta-keira judiciously -HLD- c/u statin, -ASa d/c'd -pericarditis- c/u colchicine and tapering prednisone, repeat CT chest - showing decrease in pericardial effusion 4. Resp- recent bilat pleural effusions s/p drainage, left sided PNA vs atelectasis s/p course of Zosyn and Augmentin for concern for PNA -COPD supplemental 02, DUonebs 5. Endo- hx of hypothyroidism c/u Synthroid 6. GI ppx- protonix 7. DVT ppx- on eliquis 8. Pain- gabepentin (tapering) -tylenol 9. - hx of incontinence with retention, c/u flomax, monitor PVRs -UA negative 10. Leukocytosis- most likely due to steroid use, no clinical suspicion of new infection 11. Dispo- had interrupted stay due to uncontrolled Afib 11/21-11/23, discussed patient's functional decline with brother who states he has ability to provide 24-7 nursing care DME- Patient will require a Khanh and hospital bed. He will need frequent repositioning to prevent pressure sores as he is unable to reposition himself in bed or vocalize his needs effectively if he developed pain and needed to be moved. He is high risk aspiration due to his severe cervical-thoracic kyphosis and has beend treated for pneumonias related to this. Being able to adjust the head of the bed will decrease aspiration risk. Allergies Coded Allergies: No Known Allergies (Verified , 02/21/03) Vital Signs Vital Signs Date Time Temp Pulse Resp B/P (MAP) Pulse Ox O2 Delivery O2 Flow Rate FiO2 11/29/20 09:28 70 11/29/20 09:25 130/80 11/29/20 04:21 97.0 18 99 Nasal Cannula 2.0 Laboratory Data CBC/BMP Labs 24H Laboratory Tests 2 11/29/20 11:11: Current Medications Current Medications Current Medications Medications (Trade) Dose Ordered Sig/Kaylin Route PRN Reason Start Time Stop Time Status Last Admin Dose Admin Acetaminophen (Tylenol Tab) 650 mg Q4HP PRN PO fever/MILD PAIN (PS 1-4) 11/16/20 17:05 11/21/20 16:52 DC Albuterol/ Ipratropium (Duoneb (Ipr 0.5mg/Alb 2.5mg)) 3 ml RQID NEB 11/16/20 20:00 11/21/20 16:52 DC 11/21/20 11:37 Amoxicillin/ Clavulanate Potassium (Augmentin) 875 mg BID PO 11/16/20 21:00 11/21/20 16:52 DC 11/21/20 07:48 Amoxicillin/ Clavulanate Potassium (Augmentin) 875 mg BID PO 11/23/20 21:00 11/27/20 11:58 DC 11/27/20 10:19 Apixaban (Eliquis) 5 mg BID PO 11/16/20 21:00 11/21/20 16:52 DC 11/21/20 07:49 Apixaban (Eliquis) 5 mg BID PO 11/23/20 21:00 11/29/20 09:27 Ascorbic Acid (Vitamin C) 1,000 mg DAILY PO 11/24/20 09:00 11/29/20 09:25 Aspirin (Ecotrin) 81 mg QHS PO 11/16/20 21:00 11/21/20 16:52 DC 11/20/20 20:27 Bisacodyl (Dulcolax Tab) 5 mg DAILYPRN PRN PO CONSTIPATION 11/16/20 17:05 11/21/20 16:52 DC Bisoprolol Fumarate (Zebeta) 5 mg BID PO 11/21/20 21:00 11/21/20 10:29 DC Bisoprolol Fumarate (Zebeta) 5 mg BID PO 11/21/20 21:00 11/21/20 16:52 DC Bisoprolol Fumarate (Zebeta) 5 mg BID PO 11/23/20 21:00 11/29/20 09:25 Bisoprolol Fumarate (Zebeta) 5 mg DAILY PO 11/17/20 09:00 11/21/20 08:07 DC 11/21/20 07:49 Bisoprolol Fumarate (Zebeta) 10 mg BID PO 11/21/20 21:00 11/21/20 10:43 DC Colchicine (Colcrys) 0.6 mg BID PO 11/16/20 21:00 11/21/20 16:52 DC 11/21/20 07:50 Colchicine (Colcrys) 0.6 mg BID PO 11/23/20 21:00 11/29/20 09:44 Digoxin (Lanoxin) 0.125 mg DAILY PO 11/17/20 09:00 11/21/20 16:52 DC 11/21/20 07:50 Digoxin (Lanoxin) 0.25 mg DAILY PO 11/24/20 09:00 11/29/20 09:28 Digoxin (Lanoxin) 0.25 mg STAT STAT PO 11/21/20 10:44 11/21/20 10:51 DC 11/21/20 10:56 Divalproex Sodium (Depakote Er) 500 mg QHS PO 11/16/20 21:00 11/21/20 16:52 DC 11/20/20 20:27 Divalproex Sodium (Depakote Er) 500 mg QHS PO 11/23/20 21:00 11/28/20 21:12 Divalproex Sodium (Depakote Er) 750 mg DAILY PO 11/24/20 09:00 11/29/20 09:27 Divalproex Sodium (Depakote Er) 750 mg QAM PO 11/17/20 09:00 11/21/20 16:52 DC 11/21/20 07:50 Docusate Sodium (Colace) 100 mg BID PO 11/16/20 21:00 11/21/20 16:52 DC 11/21/20 07:49 Docusate Sodium (Colace) 200 mg BID PO 11/23/20 21:00 11/29/20 10:25 DC 11/29/20 09:28 Ferrous Gluconate (Fergon) 324 mg DAILY PO 11/24/20 09:00 11/29/20 10:28 DC 11/29/20 09:27 Ferrous Sulfate (Ferrous Sulfate) 325 mg DAILY PO 11/17/20 09:00 11/21/20 16:52 DC 11/21/20 07:52 Gabapentin (Neurontin) 100 mg BID PO 11/28/20 21:00 11/29/20 10:26 DC 11/29/20 09:25 Gabapentin (Neurontin) 300 mg BID PO 11/16/20 21:00 11/21/20 16:52 DC 11/21/20 07:48 Gabapentin (Neurontin) 300 mg BID PO 11/23/20 21:00 11/28/20 14:37 DC 11/28/20 08:27 Home Med (Med Rec Complete!) ASDIRECTED XX 11/17/20 13:15 11/17/20 13:15 DC Lactobacillus Acidophilus (Bacid) 1 ea WMHS PO 11/16/20 18:00 11/21/20 16:52 DC 11/21/20 12:10 Lactobacillus Acidophilus (Bacid) 1 ea WMHS PO 11/23/20 18:00 11/29/20 10:26 DC 11/29/20 09:48 Levothyroxine Sodium (Synthroid) 50 mcg DAILY@06 PO 11/17/20 06:00 11/21/20 16:52 DC 11/21/20 05:58 Levothyroxine Sodium (Synthroid) 50 mcg DAILY@0600 PO 11/24/20 06:00 11/29/20 05:37 Lidocaine/ Diphenhydr/Alum/ Mg/Simeth (Magic Mouthwash) 5ML- wash with swab AC XX 11/28/20 17:30 11/29/20 09:24 Magnesium Oxide (Mag-Ox) 400 mg DAILY PO 11/17/20 09:00 11/21/20 16:52 DC 11/21/20 07:49 Magnesium Oxide (Mag-Ox) 400 mg DAILY PO 11/24/20 09:00 11/29/20 10:25 DC 11/29/20 09:28 Miscellaneous (Unresolved Patient Own Med Order) SEE LABEL COMMENTS DAILY XX 11/16/20 09:00 11/18/20 11:50 DC 11/18/20 09:00 Oxybutynin Chloride (Ditropan Xl) 10 mg DAILY PO 11/24/20 09:00 11/29/20 10:25 DC 11/29/20 09:27 Paroxetine HCl (PAXil) 10 mg DAILY PO 11/17/20 09:00 11/21/20 16:52 DC 11/21/20 07:50 Paroxetine HCl (PAXil) 20 mg DAILY PO 11/24/20 09:00 11/29/20 09:27 Paroxetine HCl (PAXil) 40 mg DAILY PO 11/24/20 09:00 11/23/20 18:11 DC Patient Own Medication (Patient'S Own Med) Felbamate 600MG TABL... BID PO 11/23/20 21:00 11/29/20 09:30 Patient Own Medication (Patient'S Own Med) felbamate 600mg tabs (aly... BID PO 11/17/20 21:00 11/21/20 16:52 DC 11/21/20 07:51 Prednisone (Deltasone) 10 mg DAILY PO 12/01/20 09:00 Prednisone (Deltasone) 20 mg DAILY PO 11/26/20 09:00 11/30/20 12:00 11/29/20 09:28 Prednisone (Deltasone) 30 mg DAILY PO 11/24/20 09:00 11/25/20 18:00 DC 11/25/20 09:26 Prednisone (Deltasone) 30 mg QAM PO 11/21/20 09:00 11/21/20 16:52 DC 11/21/20 07:48 Prednisone (Deltasone) 40 mg QAM PO 11/17/20 09:00 11/20/20 09:23 DC 11/20/20 09:14 Senna (Senokot) 1 tab QHS PO 11/16/20 21:00 11/21/20 16:52 DC 11/20/20 20:27 Senna (Senokot) 2 tab QHS PO 11/23/20 21:00 11/29/20 10:25 DC 11/28/20 21:08 Tamsulosin HCl (Flomax) 0.4 mg DAILY PO 11/17/20 09:00 11/21/20 16:52 DC 11/21/20 07:49 Tamsulosin HCl (Flomax) 0.4 mg DAILY PO 11/24/20 09:00 11/29/20 09:24 REGAN LLOYD MD Nov 29, 2020 12:28
--- NOTE | 2020-11-29 12:31 | IPNPDOC ---
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 REVIEW OF SYSTEMS: The following is a completed review of systems and has been reviewed. Review of systems otherwise difficult to assess given patient's impaired communication PAIN: Patient self reports no pain EYES: No recent vision changes EARS, NOSE, & THROAT: +dysphagia CARDIOVASCULAR: Denies chest pain or palpitations PULMONARY: Denies shortness of breath GASTROINTESTINAL: Denies constipation/diarrhea GENITOURINARY: +incontinence MUSCULOSKELETAL: generalized weakness NEUROLOGICAL: + aphasia SKIN: denies rash PSYCHIATRIC:tearful All other review of systems found to be negative. PHYSICAL EXAMINATION: VITAL SIGNS: Please see below. GENERAL: Pleasant and cooperative. No acute distress. HEENT: PERRL. Extraocular movements intact. Clear conjunctiva CARDIOVASCULAR: irregular rate and rhythm. No murmurs, rubs, or gallops LUNGS: Clear to auscultation bilaterally. No wheezes. No rhonchi ABDOMEN: Soft, nontender, nondistended. Positive bowel sounds. Normal active bowel sounds NEUROLOGICAL: Alert and oriented times three. Cranial nerves II through XII grossly intact. Sensation grossly intact EXTREMITIES: 4\5 strength bilateral upper extremities. 4\5 strength right lower extremity. 4/5 strength in left lower extremity. 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 Neuro- hx of seizure disorder, c/u felbamate and depakote -dementia, will start back paroxetine at lower dose and monitor for SIADH -patient with overall functional decline stating he feels mostly fatigued, no concern at this time for infection, CT chest showing improvement of pericardial effusion, Depakote level WNL and digoxin 0.9 so no concern for digoxin toxicity, he may be weaker due to current steroid use, tapering off gabapentin and stopping oxybutynin as well to see if contributing to his fatigue, Felbamate levels ordered today 3. CArdiac- hx of afib with RVR on eliquis, recently transferred off ARU on 11-21 with interrupted stay for telemetry, had his digoxin dose increased to 0.25 and receive IV amiodarone, discussed case with hospitalist who spoke with cardiology, patient stable on current dosing despite HRs going up [id number], patient also with soft bps, but stable, c/u beta-keira judiciously -HLD- c/u statin, -ASa d/c'd -pericarditis- c/u colchicine and tapering prednisone, repeat CT chest - showing decrease in pericardial effusion 4. Resp- recent bilat pleural effusions s/p drainage, left sided PNA vs atelectasis s/p course of Zosyn and Augmentin for concern for PNA -COPD supplemental 02, DUonebs 5. Endo- hx of hypothyroidism c/u Synthroid 6. GI ppx- protonix 7. DVT ppx- on eliquis 8. Pain- gabepentin (tapering) -tylenol 9. - hx of incontinence with retention, c/u flomax, monitor PVRs -UA negative 10. Leukocytosis- most likely due to steroid use, no clinical suspicion of new infection 11. Dispo- had interrupted stay due to uncontrolled Afib 11/21-11/23, discussed patient's functional decline with brother who states he has ability to provide 24-7 nursing care DME- Patient will require a Khanh and hospital bed. He will need frequent repositioning to prevent pressure sores as he is unable to reposition himself in bed or vocalize his needs effectively if he developed pain and needed to be moved. He is high risk aspiration due to his severe cervical-thoracic kyphosis and has beend treated for pneumonias related to this. Being able to adjust the head of the bed will decrease aspiration risk. Allergies Coded Allergies: No Known Allergies (Verified , 02/21/03) Vital Signs Vital Signs Date Time Temp Pulse Resp B/P (MAP) Pulse Ox O2 Delivery O2 Flow Rate FiO2 11/29/20 09:28 70 11/29/20 09:25 130/80 11/29/20 04:21 97.0 18 99 Nasal Cannula 2.0 Laboratory Data CBC/BMP Labs 24H Laboratory Tests 2 11/29/20 11:11: Current Medications Current Medications Current Medications Medications (Trade) Dose Ordered Sig/Kaylin Route PRN Reason Start Time Stop Time Status Last Admin Dose Admin Acetaminophen (Tylenol Tab) 650 mg Q4HP PRN PO fever/MILD PAIN (PS 1-4) 11/16/20 17:05 11/21/20 16:52 DC Albuterol/ Ipratropium (Duoneb (Ipr 0.5mg/Alb 2.5mg)) 3 ml RQID NEB 11/16/20 20:00 11/21/20 16:52 DC 11/21/20 11:37 Amoxicillin/ Clavulanate Potassium (Augmentin) 875 mg BID PO 11/16/20 21:00 11/21/20 16:52 DC 11/21/20 07:48 Amoxicillin/ Clavulanate Potassium (Augmentin) 875 mg BID PO 11/23/20 21:00 11/27/20 11:58 DC 11/27/20 10:19 Apixaban (Eliquis) 5 mg BID PO 11/16/20 21:00 11/21/20 16:52 DC 11/21/20 07:49 Apixaban (Eliquis) 5 mg BID PO 11/23/20 21:00 11/29/20 09:27 Ascorbic Acid (Vitamin C) 1,000 mg DAILY PO 11/24/20 09:00 11/29/20 09:25 Aspirin (Ecotrin) 81 mg QHS PO 11/16/20 21:00 11/21/20 16:52 DC 11/20/20 20:27 Bisacodyl (Dulcolax Tab) 5 mg DAILYPRN PRN PO CONSTIPATION 11/16/20 17:05 11/21/20 16:52 DC Bisoprolol Fumarate (Zebeta) 5 mg BID PO 11/21/20 21:00 11/21/20 10:29 DC Bisoprolol Fumarate (Zebeta) 5 mg BID PO 11/21/20 21:00 11/21/20 16:52 DC Bisoprolol Fumarate (Zebeta) 5 mg BID PO 11/23/20 21:00 11/29/20 09:25 Bisoprolol Fumarate (Zebeta) 5 mg DAILY PO 11/17/20 09:00 11/21/20 08:07 DC 11/21/20 07:49 Bisoprolol Fumarate (Zebeta) 10 mg BID PO 11/21/20 21:00 11/21/20 10:43 DC Colchicine (Colcrys) 0.6 mg BID PO 11/16/20 21:00 11/21/20 16:52 DC 11/21/20 07:50 Colchicine (Colcrys) 0.6 mg BID PO 11/23/20 21:00 11/29/20 09:44 Digoxin (Lanoxin) 0.125 mg DAILY PO 11/17/20 09:00 11/21/20 16:52 DC 11/21/20 07:50 Digoxin (Lanoxin) 0.25 mg DAILY PO 11/24/20 09:00 11/29/20 09:28 Digoxin (Lanoxin) 0.25 mg STAT STAT PO 11/21/20 10:44 11/21/20 10:51 DC 11/21/20 10:56 Divalproex Sodium (Depakote Er) 500 mg QHS PO 11/16/20 21:00 11/21/20 16:52 DC 11/20/20 20:27 Divalproex Sodium (Depakote Er) 500 mg QHS PO 11/23/20 21:00 11/28/20 21:12 Divalproex Sodium (Depakote Er) 750 mg DAILY PO 11/24/20 09:00 11/29/20 09:27 Divalproex Sodium (Depakote Er) 750 mg QAM PO 11/17/20 09:00 11/21/20 16:52 DC 11/21/20 07:50 Docusate Sodium (Colace) 100 mg BID PO 11/16/20 21:00 11/21/20 16:52 DC 11/21/20 07:49 Docusate Sodium (Colace) 200 mg BID PO 11/23/20 21:00 11/29/20 10:25 DC 11/29/20 09:28 Ferrous Gluconate (Fergon) 324 mg DAILY PO 11/24/20 09:00 11/29/20 10:28 DC 11/29/20 09:27 Ferrous Sulfate (Ferrous Sulfate) 325 mg DAILY PO 11/17/20 09:00 11/21/20 16:52 DC 11/21/20 07:52 Gabapentin (Neurontin) 100 mg BID PO 11/28/20 21:00 11/29/20 10:26 DC 11/29/20 09:25 Gabapentin (Neurontin) 300 mg BID PO 11/16/20 21:00 11/21/20 16:52 DC 11/21/20 07:48 Gabapentin (Neurontin) 300 mg BID PO 11/23/20 21:00 11/28/20 14:37 DC 11/28/20 08:27 Home Med (Med Rec Complete!) ASDIRECTED XX 11/17/20 13:15 11/17/20 13:15 DC Lactobacillus Acidophilus (Bacid) 1 ea WMHS PO 11/16/20 18:00 11/21/20 16:52 DC 11/21/20 12:10 Lactobacillus Acidophilus (Bacid) 1 ea WMHS PO 11/23/20 18:00 11/29/20 10:26 DC 11/29/20 09:48 Levothyroxine Sodium (Synthroid) 50 mcg DAILY@06 PO 11/17/20 06:00 11/21/20 16:52 DC 11/21/20 05:58 Levothyroxine Sodium (Synthroid) 50 mcg DAILY@0600 PO 11/24/20 06:00 11/29/20 05:37 Lidocaine/ Diphenhydr/Alum/ Mg/Simeth (Magic Mouthwash) 5ML- wash with swab AC XX 11/28/20 17:30 11/29/20 09:24 Magnesium Oxide (Mag-Ox) 400 mg DAILY PO 11/17/20 09:00 11/21/20 16:52 DC 11/21/20 07:49 Magnesium Oxide (Mag-Ox) 400 mg DAILY PO 11/24/20 09:00 11/29/20 10:25 DC 11/29/20 09:28 Miscellaneous (Unresolved Patient Own Med Order) SEE LABEL COMMENTS DAILY XX 11/16/20 09:00 11/18/20 11:50 DC 11/18/20 09:00 Oxybutynin Chloride (Ditropan Xl) 10 mg DAILY PO 11/24/20 09:00 11/29/20 10:25 DC 11/29/20 09:27 Paroxetine HCl (PAXil) 10 mg DAILY PO 11/17/20 09:00 11/21/20 16:52 DC 11/21/20 07:50 Paroxetine HCl (PAXil) 20 mg DAILY PO 11/24/20 09:00 11/29/20 09:27 Paroxetine HCl (PAXil) 40 mg DAILY PO 11/24/20 09:00 11/23/20 18:11 DC Patient Own Medication (Patient'S Own Med) Felbamate 600MG TABL... BID PO 11/23/20 21:00 11/29/20 09:30 Patient Own Medication (Patient'S Own Med) felbamate 600mg tabs (aly... BID PO 11/17/20 21:00 11/21/20 16:52 DC 11/21/20 07:51 Prednisone (Deltasone) 10 mg DAILY PO 12/01/20 09:00 Prednisone (Deltasone) 20 mg DAILY PO 11/26/20 09:00 11/30/20 12:00 11/29/20 09:28 Prednisone (Deltasone) 30 mg DAILY PO 11/24/20 09:00 11/25/20 18:00 DC 11/25/20 09:26 Prednisone (Deltasone) 30 mg QAM PO 11/21/20 09:00 11/21/20 16:52 DC 11/21/20 07:48 Prednisone (Deltasone) 40 mg QAM PO 11/17/20 09:00 11/20/20 09:23 DC 11/20/20 09:14 Senna (Senokot) 1 tab QHS PO 11/16/20 21:00 11/21/20 16:52 DC 11/20/20 20:27 Senna (Senokot) 2 tab QHS PO 11/23/20 21:00 11/29/20 10:25 DC 11/28/20 21:08 Tamsulosin HCl (Flomax) 0.4 mg DAILY PO 11/17/20 09:00 11/21/20 16:52 DC 11/21/20 07:49 Tamsulosin HCl (Flomax) 0.4 mg DAILY PO 11/24/20 09:00 11/29/20 09:24 REGAN LLOYD MD Nov 29, 2020 12:31
[2020-11-29 12:57] LABS: BLOOD UREA NITROGEN 17 MG/DL (7-18); CALCIUM LEVEL 10.6 MG/DL (8.8-10.2); CARBON DIOXIDE LEVEL 27 MEQ/L (21-32); CHLORIDE LEVEL 101 MEQ/L (98-107); CREATININE FOR GFR 0.31 MG/DL (0.70-1.30); GLOMERULAR FILTRATION RATE > 60.0 (>49); GLUCOSE, FASTING 105 MG/DL (70-100); POTASSIUM SERUM 4.9 MEQ/L (3.5-5.1); SODIUM LEVEL 134 MEQ/L (136-145)
[2020-11-29 14:00] VITALS: BP 101/71
[2020-11-29 20:00] VITALS: BP 99/66
[2020-11-30 05:22] VITALS: BP 117/90
[2020-11-30] MEDS: LEVOTHYROXINE 50MCG TABLET (0.05MG) PO SCH (05:50)
[2020-11-30] MEDS: ASCORBIC ACID 500 MG TAB PO SCH ×2 (09:00→09:54)
[2020-11-30] MEDS: PARoxetine 20MG TABLET PO SCH ×2 (09:00→09:54)
[2020-11-30] MEDS: TAMSULOSIN 0.4 MG CAP PO SCH ×2 (09:00→09:55)
[2020-11-30] MEDS: DIVALPROEX 250MG *ER* TAB PO SCH ×2 (09:00→09:55)
[2020-11-30] MEDS ORDERED: COLCHICINE 0.6 MG TABLET PO SCH (09:00)
[2020-11-30] MEDS: MAGIC MOUTHWASH SUSPENSION BTL XX SCH ×3 (09:50→17:49)
[2020-11-30] MEDS: bisoproloL fumarate 5 MG TAB PO SCH ×2 (09:53→21:09)
[2020-11-30] MEDS: DIGOXIN 0.25 MG TAB PO SCH (09:53)
[2020-11-30] MEDS: APIXABAN 5 MG TAB (ELIQUIS) PO SCH ×2 (09:54→21:09)
[2020-11-30] MEDS: predniSONE 20 MG TAB PO SCH (09:54)
[2020-11-30] MEDS: COLCHICINE 0.6 MG TABLET PO SCH (09:54)
[2020-11-30] MEDS: FELBAMATE 600 MG PO SCH ×2 (09:56→21:10)
--- NOTE | 2020-11-30 11:23 | REP ---
INDICATION: r/o bleed/stroke- decline in function. COMPARISON: CT head, 11/10/2020. TECHNIQUE: Axial CT images with multiplanar reformations. FINDINGS: No acute bleed or acute large vessel territorial infarct. Ventricles, cisterns and sulci are prominent consistent with age-related volume loss. There is subcortical and cortical hypodensity in the bilateral frontal lobes, consistent with sequelae of prior infarcts. Paranasal sinuses and mastoid air cells are clear. When compared to prior study 11/10/2020, no definite changes. IMPRESSION: No acute findings. Age-related volume loss and sequelae of prior infarcts, unchanged from previous. <Electronically signed by Gary Meza > 11/30/20 [id number]
--- NOTE | 2020-11-30 11:46 | IPNPDOC ---
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 REVIEW OF SYSTEMS: The following is a completed review of systems and has been reviewed. Review of systems otherwise difficult to assess given patient's impaired communication PAIN: Patient self reports no pain EYES: No recent vision changes EARS, NOSE, & THROAT: +dysphagia CARDIOVASCULAR: Denies chest pain or palpitations PULMONARY: Denies shortness of breath GASTROINTESTINAL: Denies constipation/diarrhea GENITOURINARY: +incontinence MUSCULOSKELETAL: generalized weakness NEUROLOGICAL: + aphasia SKIN: denies rash PSYCHIATRIC:tearful All other review of systems found to be negative. PHYSICAL EXAMINATION: VITAL SIGNS: Please see below. GENERAL: Pleasant and cooperative. No acute distress. HEENT: PERRL. Extraocular movements intact. Clear conjunctiva CARDIOVASCULAR: irregular rate and rhythm. No murmurs, rubs, or gallops LUNGS: Clear to auscultation bilaterally. No wheezes. No rhonchi ABDOMEN: Soft, nontender, nondistended. Positive bowel sounds. Normal active bowel sounds NEUROLOGICAL: Alert and oriented times three. Cranial nerves II through XII grossly intact. Sensation grossly intact EXTREMITIES: 4\5 strength bilateral upper extremities. 4\5 strength right lower extremity. 4/5 strength in left lower extremity. 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 Neuro- hx of seizure disorder, c/u felbamate and depakote -dementia, started back paroxetine at lower dose and monitor for SIADH -patient with overall functional decline stating he feels mostly fatigued, no concern at this time for infection, CT chest showing improvement of pericardial effusion, Depakote level WNL and digoxin 0.9 so no concern for digoxin toxicity, he may be weaker due to current steroid use, taperied off gabapentin and stopped oxybutynin as well to see if contributing to his fatigue-patient a little more alert today -Felbamate levels pending 3. CArdiac- hx of afib with RVR on eliquis, recently transferred off ARU on 11-21 with interrupted stay for telemetry, had his digoxin dose increased to 0.25 and receive IV amiodarone, discussed case with hospitalist who spoke with cardiology, patient stable on current dosing despite HRs going up [id number], patient also with soft bps, starting to improve, c/u beta-keira judiciously -HLD- c/u statin, -ASa d/c'd -pericardial effusion- discussed case today with Dr. Siddiqui who recommends discontinuing colchicine as it may be contributing to generalized weakness, however, noting that the pericardial effusion itself can contribute to malaise- -recent CT chest showing improvement in effusion, have ordered ECHO per Dr. Siddiqui's recs to better evaluate heart function- recs appreciated -c/u tapering prednisone, repeat CT chest - showing decrease in pericardial effusion 4. Resp- recent bilat pleural effusions s/p drainage, left sided PNA vs atelectasis s/p course of Zosyn and Augmentin for concern for PNA -COPD supplemental 02, DUonebs 5. Endo- hx of hypothyroidism c/u Synthroid 6. GI ppx- protonix 7. DVT ppx- on eliquis 8. Pain- d/c'd gabapentin -tylenol 9. - hx of incontinence with retention, c/u flomax, monitor PVRs -UA negative 10. Leukocytosis- most likely due to steroid use, no clinical suspicion of new infection 11. Hypercalcemia- although mild elevation, may be contributing to overall let hargy, have asked medicine to weigh in on correcting this 12. 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 He will need frequent repositioning to prevent pressure sores as he is unable to reposition himself in bed or vocalize his needs effectively if he developed pain and needed to be moved. He is high risk aspiration due to his severe cervical-thoracic kyphosis and has beend treated for pneumonias related to this. Being able to adjust the head of the bed will decrease aspiration risk. Allergies Coded Allergies: No Known Allergies (Verified , 02/21/03) Vital Signs Vital Signs Date Time Temp Pulse Resp B/P (MAP) Pulse Ox O2 Delivery O2 Flow Rate FiO2 11/30/20 09:53 130 11/30/20 09:53 138/96 11/30/20 05:22 98.1 18 96 Nasal Cannula 2.0 Current Medications Current Medications Current Medications Medications (Trade) Dose Ordered Sig/Kaylin Route PRN Reason Start Time Stop Time Status Last Admin Dose Admin Acetaminophen (Tylenol Tab) 650 mg Q4HP PRN PO fever/MILD PAIN (PS 1-4) 11/16/20 17:05 11/21/20 16:52 DC Albuterol/ Ipratropium (Duoneb (Ipr 0.5mg/Alb 2.5mg)) 3 ml RQID NEB 11/16/20 20:00 11/21/20 16:52 DC 11/21/20 11:37 Amoxicillin/ Clavulanate Potassium (Augmentin) 875 mg BID PO 11/16/20 21:00 11/21/20 16:52 DC 11/21/20 07:48 Amoxicillin/ Clavulanate Potassium (Augmentin) 875 mg BID PO 11/23/20 21:00 11/27/20 11:58 DC 11/27/20 10:19 Apixaban (Eliquis) 5 mg BID PO 11/16/20 21:00 11/21/20 16:52 DC 11/21/20 07:49 Apixaban (Eliquis) 5 mg BID PO 11/23/20 21:00 11/30/20 09:54 Ascorbic Acid (Vitamin C) 1,000 mg DAILY PO 11/24/20 09:00 11/30/20 09:54 Aspirin (Ecotrin) 81 mg QHS PO 11/16/20 21:00 11/21/20 16:52 DC 11/20/20 20:27 Bisacodyl (Dulcolax Tab) 5 mg DAILYPRN PRN PO CONSTIPATION 11/16/20 17:05 11/21/20 16:52 DC Bisoprolol Fumarate (Zebeta) 5 mg BID PO 11/21/20 21:00 11/21/20 10:29 DC Bisoprolol Fumarate (Zebeta) 5 mg BID PO 11/21/20 21:00 11/21/20 16:52 DC Bisoprolol Fumarate (Zebeta) 5 mg BID PO 11/23/20 21:00 11/30/20 09:53 Bisoprolol Fumarate (Zebeta) 5 mg DAILY PO 11/17/20 09:00 11/21/20 08:07 DC 11/21/20 07:49 Bisoprolol Fumarate (Zebeta) 10 mg BID PO 11/21/20 21:00 11/21/20 10:43 DC Colchicine (Colcrys) 0.6 mg BID PO 11/16/20 21:00 11/21/20 16:52 DC 11/21/20 07:50 Colchicine (Colcrys) 0.6 mg BID PO 11/30/20 09:00 11/30/20 11:24 DC Colchicine (Colcrys) 0.6 mg BID PO 11/23/20 21:00 11/30/20 10:14 DC 11/30/20 09:54 Digoxin (Lanoxin) 0.125 mg DAILY PO 11/17/20 09:00 11/21/20 16:52 DC 11/21/20 07:50 Digoxin (Lanoxin) 0.25 mg DAILY PO 11/24/20 09:00 11/30/20 09:53 Digoxin (Lanoxin) 0.25 mg STAT STAT PO 11/21/20 10:44 11/21/20 10:51 DC 11/21/20 10:56 Divalproex Sodium (Depakote Er) 500 mg QHS PO 11/16/20 21:00 11/21/20 16:52 DC 11/20/20 20:27 Divalproex Sodium (Depakote Er) 500 mg QHS PO 11/23/20 21:00 11/29/20 20:20 Divalproex Sodium (Depakote Er) 750 mg DAILY PO 11/24/20 09:00 11/30/20 09:55 Divalproex Sodium (Depakote Er) 750 mg QAM PO 11/17/20 09:00 11/21/20 16:52 DC 11/21/20 07:50 Docusate Sodium (Colace) 100 mg BID PO 11/16/20 21:00 11/21/20 16:52 DC 11/21/20 07:49 Docusate Sodium (Colace) 200 mg BID PO 11/23/20 21:00 11/29/20 10:25 DC 11/29/20 09:28 Ferrous Gluconate (Fergon) 324 mg DAILY PO 11/24/20 09:00 11/29/20 10:28 DC 11/29/20 09:27 Ferrous Sulfate (Ferrous Sulfate) 325 mg DAILY PO 11/17/20 09:00 11/21/20 16:52 DC 11/21/20 07:52 Gabapentin (Neurontin) 100 mg BID PO 11/28/20 21:00 11/29/20 10:26 DC 11/29/20 09:25 Gabapentin (Neurontin) 300 mg BID PO 11/16/20 21:00 11/21/20 16:52 DC 11/21/20 07:48 Gabapentin (Neurontin) 300 mg BID PO 11/23/20 21:00 11/28/20 14:37 DC 11/28/20 08:27 Home Med (Med Rec Complete!) ASDIRECTED XX 11/17/20 13:15 11/17/20 13:15 DC Lactobacillus Acidophilus (Bacid) 1 ea WMHS PO 11/16/20 18:00 11/21/20 16:52 DC 11/21/20 12:10 Lactobacillus Acidophilus (Bacid) 1 ea WMHS PO 11/23/20 18:00 11/29/20 10:26 DC 11/29/20 09:48 Levothyroxine Sodium (Synthroid) 50 mcg DAILY@06 PO 11/17/20 06:00 11/21/20 16:52 DC 11/21/20 05:58 Levothyroxine Sodium (Synthroid) 50 mcg DAILY@0600 PO 11/24/20 06:00 11/30/20 05:50 Lidocaine/ Diphenhydr/Alum/ Mg/Simeth (Magic Mouthwash) 5ML- wash with swab AC XX 11/28/20 17:30 11/30/20 09:50 Magnesium Oxide (Mag-Ox) 400 mg DAILY PO 11/17/20 09:00 11/21/20 16:52 DC 11/21/20 07:49 Magnesium Oxide (Mag-Ox) 400 mg DAILY PO 11/24/20 09:00 11/29/20 10:25 DC 11/29/20 09:28 Miscellaneous (Unresolved Patient Own Med Order) SEE LABEL COMMENTS DAILY XX 11/16/20 09:00 11/18/20 11:50 DC 11/18/20 09:00 Oxybutynin Chloride (Ditropan Xl) 10 mg DAILY PO 11/24/20 09:00 11/29/20 10:25 DC 11/29/20 09:27 Paroxetine HCl (PAXil) 10 mg DAILY PO 11/17/20 09:00 11/21/20 16:52 DC 11/21/20 07:50 Paroxetine HCl (PAXil) 20 mg DAILY PO 11/24/20 09:00 11/30/20 09:54 Paroxetine HCl (PAXil) 40 mg DAILY PO 11/24/20 09:00 11/23/20 18:11 DC Patient Own Medication (Patient'S Own Med) Felbamate 600MG TABL... BID PO 11/23/20 21:00 11/30/20 09:56 Patient Own Medication (Patient'S Own Med) felbamate 600mg tabs (aly... BID PO 11/17/20 21:00 11/21/20 16:52 DC 11/21/20 07:51 Prednisone (Deltasone) 10 mg DAILY PO 12/01/20 09:00 Prednisone (Deltasone) 20 mg DAILY PO 11/26/20 09:00 11/30/20 12:00 11/30/20 09:54 Prednisone (Deltasone) 30 mg DAILY PO 11/24/20 09:00 11/25/20 18:00 DC 11/25/20 09:26 Prednisone (Deltasone) 30 mg QAM PO 11/21/20 09:00 11/21/20 16:52 DC 11/21/20 07:48 Prednisone (Deltasone) 40 mg QAM PO 11/17/20 09:00 11/20/20 09:23 DC 11/20/20 09:14 Senna (Senokot) 1 tab QHS PO 11/16/20 21:00 11/21/20 16:52 DC 11/20/20 20:27 Senna (Senokot) 2 tab QHS PO 11/23/20 21:00 11/29/20 10:25 DC 11/28/20 21:08 Tamsulosin HCl (Flomax) 0.4 mg DAILY PO 11/17/20 09:00 11/21/20 16:52 DC 11/21/20 07:49 Tamsulosin HCl (Flomax) 0.4 mg DAILY PO 11/24/20 09:00 11/30/20 09:55 REGAN LLOYD MD Nov 30, 2020 11:45
[2020-11-30 12:56] LABS: ALBUMIN 2.2 GM/DL (3.2-5.2); ALT/SGPT 118 U/L (12-78); BILIRUBIN,TOTAL 0.2 MG/DL (0.2-1.0); BLOOD UREA NITROGEN 14 MG/DL (7-18); CALCIUM LEVEL 9.7 MG/DL (8.8-10.2); CARBON DIOXIDE LEVEL 26 MEQ/L (21-32); CHLORIDE LEVEL 104 MEQ/L (98-107); CHOLESTEROL LEVEL 137 MG/DL (< 200); CPK CREATINE PHOSPHOKINASE 28 U/L (39-308); CREATININE FOR GFR 0.36 MG/DL (0.70-1.30); GLOMERULAR FILTRATION RATE > 60.0 (>49); GLUCOSE, FASTING 106 MG/DL (70-100); LDH LACTATE DEHYDROGENASE 176 U/L (87-241); PHOSPHORUS LEVEL 3.3 MG/DL (2.5-4.9); POTASSIUM SERUM 4.7 MEQ/L (3.5-5.1); SODIUM LEVEL 135 MEQ/L (136-145); TOTAL PROTEIN 6.3 GM/DL (6.4-8.2); TRIGLYCERIDES LEVEL 111 MG/DL (<150)
[2020-11-30 14:00] VITALS: BP 122/92
--- NOTE | 2020-11-30 17:08 | IPN ---
PROGRESS NOTE DATE: 11/30/2020 Patient is seen again at the request of Dr. Waggoner of the physical rehabilitation service. Patient is known to me from his prior admission in late October prior to be transferred to the acute rehabilitation unit. At that time he was found to have a pericardial effusion after being noted to go into atrial fibrillation with rapid ventricular response and increasing obtundation with a fever and leukocytosis. It was initially felt that the symptoms could be explained by chronic aspiration pneumonia, but a CT showed him to have a pericardial effusion, particularly posteriorly, measuring 2 cm. His echocardiogram was equivocal for compression, although he did have a dilated superior vena cava (SVC). I did not think that he was in clinical tamponade and therefore recommended we treat him as an inflammatory pericarditis. Over the course of his hospitalization, his pericardial effusion became smaller on CT scan. It was also noted to be smaller on serial echocardiography. He was eventually transferred to the acute rehabilitation unit, and Dr. Waggoner has noted he has again become more obtunded and lethargic. CT scan was done yesterday, which shows even more of a diminution of his pericardial effusion. An echocardiogram on November [address] Hutchison as equivocal compression. Difficult to tell because of his atrial fibrillation. His vital signs show a maximum temperature of 98.1 with a heart rate of 108-130 with a regular rate and rhythm, respiratory rate that is constant at 18, who is 96% saturated on 2 liters nasal cannula and whose blood pressure is 117/90 to 138/96. I do not feel a pulsus paradoxus. Cardiac exam shows an irregular rate and rhythm.. I cannot feel his point of maximal impulse (PMI). S1 and S2 are normal. I do not appreciate murmurs, clicks, gallops, or rubs. His lungs are difficult to examine, although he does sit up marginally. I heard coarse breath sounds with rhonchi. It is difficult to percuss down to the costophrenic angles; however, anteriorly his percussion note is resonant. Abdomen is soft and nontender. Bowel sounds are positive. Extremities show 1+ pretibial edema. No calf tenderness. There is no differential swelling of the upper extremities. Skin is warm, dry, and perfused without cyanosis or mottling, including that of the nailbeds and knees. Neck can be moved, although it is not supple. He does not seem to be painful to move his neck. Trachea is deviated to the right secondary to his neck flexion. There is no jugular venous distention. Eyes show his pupils to be equal and reactive. Extraocular motion intact. Sclerae anicteric. Neurologic shows him to be awake but very slow to answer questions. He seems quite slow in his responses, but this is no different from what I noted when he was in the acute care hospital throughout my time consulting on him. DIAGNOSTIC INVESTIGATIONS: His white count on 11/27/2020 was 14.9 with a hemoglobin and hematocrit of 13.8 and 42.4. Platelet count is 480. Differential shows 67% neutrophils, 17% lymphocytes, 14% monocytes. There are no immature forms or toxic granulations. His chemistries yesterday show a calcium of 10.6 and today of 9.7. Albumin is 2.2, and he therefore corrects to a calcium of 11.7. His electrolytes are essentially normal, and his BUN and creatinine are 14 and 0.36. IMPRESSION: 1. Pericardial effusion, improved. 2. Lethargy, observed by the rehabilitation unit to be worse. 3. Hypercalcemia. 4. Atrial fibrillation. 5. Chronic aspiration. 6. Seizure disorder from the age of 2. 7. Hypertension. 8. Hypothyroidism. 9. Sleep apnea. PLAN AND DISCUSSION: I am not at all keen on draining his pericardial effusion, as it is indeed improving on CT scan. I will obtain another echocardiogram to look at compression and cardiac function. I do note that he is hypercalcemic, which might explain observed increasing lethargy. Origin of the hypercalcemia is unknown. He has been on colchicine for the last 3 weeks, and while it is unusual for colchicine to manifest itself with lethargy, it is certainly reported, and I would therefore discontinue it. His current medications include prednisone 10 mg daily, and I would have no objection to the prednisone being tapered slowly. We have assigned by exclusion that his pericardial effusion and pericarditis were secondary to a viral syndrome. I do not think it is bacterial. His thyroid stimulating hormone (TSH) is 2.7, which is within normal limits, neither do I think that is pericardial effusion is secondary to hypothyroidism.
[2020-11-30 19:35] LABS: TOTAL PROTEIN 6.1 GM/DL (6.4-8.2)
[2020-11-30 20:00] VITALS: BP 126/87
[2020-11-30] MEDS: DIVALPROEX SPRINKLE 125 MG CAP PO SCH (21:09)
--- NOTE | 2020-11-30 21:25 | IPNPDOC ---
Date Seen The patient was seen on 11/30/20. Progress Note SUBJECTIVE: patient was seen and examined at bedside. His sister was present. He is awake, and is speaking in limited sentences. He is not in acute distress and is alert, moving all extremities. He squeezes my hand on command. OBJECTIVE PHYSICAL EXAMINATION: VITAL SIGNS: Please see below. GENERAL: not in distress, alert HEENT: perrla, eomi CARDIOVASCULAR: irregular rate and rhythm. no murmurs rubs or gallps RESPIRATORY: patient's movement limited, air entry bilaterally is fair. rhonchi appreaciated diffusely in bl lung valdez ABDOMINAL: soft non tender, non distended EXTREMITIES: 1+ edema NEUROLOGICAL: moving extremities LABORATORY DATA, IMAGING STUDIES, MICROBIOLOGY: Please see below. Echocardiogram: repeat echo ordered on 11/30/[address] Siddiqui to assess for size of pericardial effusion. DVT prophylaxis ordered?: Y ASSESSMENT AND PLAN: Lethargy, likely multifactorial - patient has been deconditioned and ongoing rehab - it is possible it is a consequence of colchicine use, as well as steroids, which are now being tapered and colchicine has been discontinued - other possibility includes hypercalcemia (see below) Hypercalcemia - corrected calcium 11.1 - etiology is at this time unknown - will start with checking PTH, vit D, as well as panel for multiple myeloma, which included SPEP, UPEP and serum light chain assay (kappa and lambda) - if PTH is elevated, will ordered a NM parathyroid scan. Of note, patient's sister did report a hx of hyperparathyroidism in the patient's mother. - for the time being, there is no indicated for treatment of hypercalcemia with a Ca++ level of 11.1. - given persistent bilateral pleural effusions and pericardial effusion, will d efer IV fluids at this time. - I discussed the case with Dr. Claus Ernandez, who agrees with the above plan Pericardial effusion - followed by Dr. Siddiqui - diminished in size based on CT from prior - inflammatory in nature likely viral syndrome, AANA negative, Quantiferon gold negative, chlamydia neg. mycoplasma neg, Rheumatoid factor neg, Resp panel, HIV, hepc neg. - repeat echocardiogram ordered on 11/30/20 to assess for compression - colchicine has been discontinued Afib/ Aflutter with RVR Rate varying from 130s to 90s. Now much better controlled. few spurts of tachycardia but not sustaining any longer. dig increased to 0.25 , continue bisoprolol 5 bid cannot increase dose further as bp soft continue eliquis, stopped asa. ordered an echo as it is 2 weeks from the last echo. needs to check pericardial effusion. Follow up with Dr Raymond. H/o Chronic Hyponatremia - Possibly Due to SIADH - now sodium normal. H/o urinary incontinence with episode of acute retention in hospital - on flomax. oxybutinin is held - Follows with urology Weakness/ Debility - ongoing ARU Epilepsy from the age of 2/ developmental delay/ dementia - will continue home meds. - valproate and felbamate - paroxetine - hold gabapentin Hypertension - bisoprolol has been resumed Hypothyroid - c/w synthroid LOU - does not use CPAP. Developmental disability - Mother reports that he does not have Down's syndrome as documented in PMDs records. - however he does have epilepsy from the age of 2 so has developmental disability and mild mental retardation blood karyotype has been sent out which is still pending. VS, I&O, 24H, Fishbone Vital Signs/I&O Vital Signs Date Time Temp Pulse Resp B/P (MAP) Pulse Ox O2 Delivery O2 Flow Rate FiO2 11/30/20 14:00 98.4 120 22 122/92 (102) 96 Room Air 11/30/20 05:22 2.0 I&O- Last 24 Hours up to 6 AM 11/30/20 06:00 Intake Total 320 ml Balance 320 ml Laboratory Data 24H LABS Laboratory Tests 2 11/30/20 11:41: Anion Gap 5L, Glomerular Filtration Rate > 60.0, Calcium Level 9.7, Phosphorus Level 3.3, Total Bilirubin 0.2, Aspartate Amino Transf (AST/SGOT) 39H, Alanine Aminotransferase (ALT/SGPT) 118H, Alkaline Phosphatase 303H, Lactate Dehydrogenase 176, Total Creatine Kinase 28L, Total Protein 6.3L, Albumin 2.2L, Albumin/Globulin Ratio 0.5, Triglycerides Level 111, Cholesterol Level 137 11/30/20 15:32: Whole Blood Ionized Calcium 4.9, Total Protein (PEP) 6.1L CBC/BMP Laboratory Tests 11/30/20 11:41 NICOLE READ MD Nov 30, 2020 21:25
[2020-12-01] MEDS: LEVOTHYROXINE 50MCG TABLET (0.05MG) PO SCH (05:49)
[2020-12-01 06:00] VITALS: BP 128/71
[2020-12-01 06:56] LABS: BASO # 0.1 10^3/uL (0.0-0.2); BASO % 0.7 % (0.0-1.0); EOS # 0.3 10^3/uL (0.0-0.5); EOS % 2.4 % (0.0-3.0); HEMATOCRIT 48.5 % (42.0-52.0); HEMOGLOBIN 14.6 g/dl (13.5-17.5); LYMPH # 4.4 10^3/uL (1.5-5.0); LYMPH % 31.7 % (24.0-44.0); MEAN CORPUSCULAR HEMOGLOBIN 31.9 pg (27.0-33.0); MEAN CORPUSCULAR HGB CONC 30.1 g/dl (32.0-36.5); MEAN CORPUSCULAR VOLUME 106.1 fl (80.0-96.0); MONO # 1.9 10^3/uL (0.0-0.8); NEUTROPHILS % 50.8 % (36.0-66.0); PLATELET COUNT, AUTOMATED 336 10^3/uL (150-450); RED BLOOD COUNT 4.57 10^6/uL (4.30-6.10)
[2020-12-01 06:57] LABS: WHITE BLOOD COUNT 13.7 10^3/uL (4.0-10.0)
[2020-12-01 08:54] VITALS: BP 130/84
[2020-12-01] MEDS: MAGIC MOUTHWASH SUSPENSION BTL XX SCH ×3 (08:58→17:51)
[2020-12-01] MEDS: APIXABAN 5 MG TAB (ELIQUIS) PO SCH ×2 (08:58→21:40)
[2020-12-01] MEDS: predniSONE 10 MG TAB PO SCH (08:59)
[2020-12-01] MEDS: PARoxetine 20MG TABLET PO SCH (08:59)
[2020-12-01] MEDS: TAMSULOSIN 0.4 MG CAP PO SCH (08:59)
[2020-12-01] MEDS: DIVALPROEX SPRINKLE 125 MG CAP PO SCH ×2 (08:59→21:41)
[2020-12-01] MEDS: ASCORBIC ACID 500 MG TAB PO SCH (08:59)
[2020-12-01] MEDS: bisoproloL fumarate 5 MG TAB PO SCH ×2 (09:00→21:40)
[2020-12-01] MEDS: FELBAMATE 600 MG PO SCH ×2 (09:00→21:40)
[2020-12-01] MEDS: DIGOXIN 0.25 MG TAB PO SCH (09:00)
[2020-12-01 10:41] LABS: TOTAL 25(OH) VITAMIN D 35.3 NG/ML (30.0-100.0)
[2020-12-01 10:42] LABS: PTH INTACT 26.5 PG/ML (18.5-88.0)
[2020-12-01 14:00] VITALS: BP 125/89
[2020-12-01 20:30] VITALS: BP 123/85
[2020-12-02] MEDS: LEVOTHYROXINE 50MCG TABLET (0.05MG) PO SCH (05:28)
[2020-12-02 05:54] VITALS: BP 135/76
[2020-12-02] MEDS: APIXABAN 5 MG TAB (ELIQUIS) PO SCH ×2 (08:40→21:07)
[2020-12-02] MEDS: DIVALPROEX SPRINKLE 125 MG CAP PO SCH ×2 (08:40→21:07)
[2020-12-02] MEDS: TAMSULOSIN 0.4 MG CAP PO SCH (08:40)
[2020-12-02] MEDS: FELBAMATE 600 MG PO SCH ×2 (08:41→21:08)
[2020-12-02] MEDS: PARoxetine 20MG TABLET PO SCH (08:41)
[2020-12-02] MEDS: DIGOXIN 0.25 MG TAB PO SCH (08:41)
[2020-12-02] MEDS: ASCORBIC ACID 500 MG TAB PO SCH (08:41)
[2020-12-02] MEDS: predniSONE 10 MG TAB PO SCH (08:41)
[2020-12-02] MEDS: MAGIC MOUTHWASH SUSPENSION BTL XX SCH ×3 (08:41→18:24)
[2020-12-02] MEDS: bisoproloL fumarate 5 MG TAB PO SCH ×2 (08:42→21:08)
[2020-12-02 14:00] VITALS: BP 105/62
[2020-12-02 18:10] LABS: FREE KAPPA LIGHT CHAINS SERUM 31.9 mg/L (3.3-19.4); FREE LAMBDA LIGHT CHAINS SERUM 26.5 mg/L (5.7-26.3); KAPPA/LAMBDA RATIO SERUM 1.2 (0.26-1.65)
[2020-12-02 21:00] VITALS: BP 112/62
[2020-12-03 06:00] VITALS: BP 98/63
[2020-12-03] MEDS: LEVOTHYROXINE 50MCG TABLET (0.05MG) PO SCH (06:30)
[2020-12-03] MEDS: MAGIC MOUTHWASH SUSPENSION BTL XX SCH ×3 (08:14→18:27)
[2020-12-03] MEDS: TAMSULOSIN 0.4 MG CAP PO SCH (08:14)
[2020-12-03] MEDS: DIVALPROEX SPRINKLE 125 MG CAP PO SCH ×2 (08:15→20:59)
[2020-12-03] MEDS: ASCORBIC ACID 500 MG TAB PO SCH (08:15)
[2020-12-03] MEDS: FELBAMATE 600 MG PO SCH ×2 (08:15→21:00)
[2020-12-03] MEDS: bisoproloL fumarate 5 MG TAB PO SCH ×2 (08:16→21:00)
[2020-12-03] MEDS: PARoxetine 20MG TABLET PO SCH (08:16)
[2020-12-03] MEDS: DIGOXIN 0.25 MG TAB PO SCH (08:16)
[2020-12-03] MEDS: predniSONE 10 MG TAB PO SCH (08:17)
[2020-12-03] MEDS: APIXABAN 5 MG TAB (ELIQUIS) PO SCH ×2 (08:17→21:00)
[2020-12-03] MEDS ORDERED: LEVO50TA5 PO (10:49)
[2020-12-03] MEDS ORDERED: PARO20TA3 PO (10:49)
[2020-12-03] MEDS ORDERED: ELIQ5TAB PO (10:49)
[2020-12-03] MEDS ORDERED: PRED5TA PO (10:49)
[2020-12-03] MEDS ORDERED: DIGO0.253 PO (10:49)
[2020-12-03] MEDS ORDERED: DIVA1CAP PO ×2 (10:49)
[2020-12-03] MEDS ORDERED: BISO5TAB14 PO (10:49)
[2020-12-03] MEDS ORDERED: ASCO50TA PO (10:49)
[2020-12-03 11:18] LABS: BASO % 0.2 % (0.0-1.0); EOS # 0.2 10^3/uL (0.0-0.5); EOS % 1.4 % (0.0-3.0); HEMATOCRIT 40.1 % (42.0-52.0); HEMOGLOBIN 13.2 g/dl (13.5-17.5); LYMPH # 2.3 10^3/uL (1.5-5.0); LYMPH % 21.2 % (24.0-44.0); MEAN CORPUSCULAR HEMOGLOBIN 31.8 pg (27.0-33.0); MEAN CORPUSCULAR HGB CONC 32.9 g/dl (32.0-36.5); MEAN CORPUSCULAR VOLUME 96.6 fl (80.0-96.0); MONO % 9.2 % (2.0-8.0); NEUTROPHILS # 7.5 10^3/uL (1.5-8.5); NEUTROPHILS % 67.5 % (36.0-66.0); PLATELET COUNT, AUTOMATED 392 10^3/uL (150-450); RED BLOOD COUNT 4.15 10^6/uL (4.30-6.10)
[2020-12-03 11:44] LABS: ALBUMIN 2.2 GM/DL (3.2-5.2); ALT/SGPT 85 U/L (12-78); BILIRUBIN,TOTAL 0.2 MG/DL (0.2-1.0); BLOOD UREA NITROGEN 19 MG/DL (7-18); CALCIUM LEVEL 10.1 MG/DL (8.8-10.2); CARBON DIOXIDE LEVEL 26 MEQ/L (21-32); CHLORIDE LEVEL 102 MEQ/L (98-107); CREATININE FOR GFR 0.38 MG/DL (0.70-1.30); GLOMERULAR FILTRATION RATE > 60.0 (>49); GLUCOSE, FASTING 102 MG/DL (70-100); MAGNESIUM LEVEL 1.8 MG/DL (1.8-2.4); POTASSIUM SERUM 4.7 MEQ/L (3.5-5.1); SODIUM LEVEL 134 MEQ/L (136-145)
[2020-12-03 14:00] VITALS: BP 117/78
--- NOTE | 2020-12-03 19:03 | IPNPDOC ---
Date Seen The patient was seen on 12/03/20. Progress Note SUBJECTIVE: patient was seen and examined at bedside. He is awake, and is speaking in limited sentences. He is not in acute distress and is alert, moving all extremities. He squeezes my hand on command. OBJECTIVE PHYSICAL EXAMINATION: VITAL SIGNS: Please see below. GENERAL: not in distress, alert HEENT: perrla, eomi CARDIOVASCULAR: irregular rate and rhythm. no murmurs rubs or gallps RESPIRATORY: patient's movement limited, air entry bilaterally is fair. rhonchi appreaciated diffusely in bl lung valdez ABDOMINAL: soft non tender, non distended EXTREMITIES: 1+ edema NEUROLOGICAL: moving extremities LABORATORY DATA, IMAGING STUDIES, MICROBIOLOGY: Please see below. Echocardiogram: repeat echo ordered on 11/30/[address] Siddiqui to assess for size of pericardial effusion. DVT prophylaxis ordered?: Y ASSESSMENT AND PLAN: Lethargy, likely multifactorial - patient has been deconditioned and ongoing rehab - it is possible it is a consequence of colchicine use, as well as steroids, which are now being tapered and colchicine has been discontinued - other possibility includes hypercalcemia (see below) Hypercalcemia - etiology is at this time unknown - will start with checking PTH, vit D, as well as panel for multiple myeloma, which included SPEP, UPEP and serum light chain assay (kappa and lambda) - if PTH is elevated, will ordered a NM parathyroid scan. Of note, patient's si ster did report a hx of hyperparathyroidism in the patient's mother. - for the time being, there is no indicated for treatment of hypercalcemia with a Ca++ level of 11.1. - repeat corrected Ca 12.5. Ionized calcium 5.1 - kappa and lambda light chains midly elevated, d/w Dr. Ernandez, not sufficiently high to suggest multiple myeloma - SPEP and UPEP pending - negative PTH Pericardial effusion - followed by Dr. Siddiqui - diminished in size based on CT from prior - inflammatory in nature likely viral syndrome, AANA negative, Quantiferon gold negative, chlamydia neg. mycoplasma neg, Rheumatoid factor neg, Resp panel, HIV, hepc neg. - repeat echocardiogram ordered on 11/30/20 to assess for compression, completed, report pending - colchicine has been discontinued Afib/ Aflutter with RVR Rate varying from 130s to 90s. Now much better controlled. few spurts of tachycardia but not sustaining any longer. dig increased to 0.25 , continue bisoprolol 5 bid cannot increase dose further as bp soft continue eliquis, stopped asa. ordered an echo as it is 2 weeks from the last echo. needs to check pericardial effusion. Follow up with Dr Raymond. H/o Chronic Hyponatremia - Possibly Due to SIADH - now sodium normal. H/o urinary incontinence with episode of acute retention in hospital - on flomax. oxybutinin is held - Follows with urology Weakness/ Debility - ongoing ARU Epilepsy from the age of 2/ developmental delay/ dementia - will continue home meds. - valproate and felbamate - paroxetine - hold gabapentin Hypertension - bisoprolol has been resumed Hypothyroid - c/w synthroid LOU - does not use CPAP. Developmental disability - Mother reports that he does not have Down's syndrome as documented in PMDs records. - however he does have epilepsy from the age of 2 so has developmental disability and mild mental retardation blood karyotype has been sent out which is still pending. VS, I&O, 24H, Fishbone Vital Signs/I&O Vital Signs Date Time Temp Pulse Resp B/P (MAP) Pulse Ox O2 Delivery O2 Flow Rate FiO2 12/03/20 14:00 97.5 99 18 117/78 (91) 100 Nasal Cannula 2.0 I&O- Last 24 Hours up to 6 AM 12/03/20 06:00 Intake Total 200 ml Balance 200 ml Laboratory Data 24H LABS Laboratory Tests 2 12/03/20 06:47: Valproic Acid (Depakene) Level 66.7 12/03/20 10:34: Immature Granulocyte % (Auto) 0.5, Neutrophils (%) (Auto) 67.5H, Lymphocytes (%) (Auto) 21.2L, Monocytes (%) (Auto) 9.2H, Eosinophils (%) (Auto) 1.4, Basophils (%) (Auto) 0.2, Neutrophils # (Auto) 7.5, Lymphocytes # (Auto) 2.3, Monocytes # (Auto) 1.0H, Eosinophils # (Auto) 0.2, Basophils # (Auto) 0.0, Nucleated Red Blood Cells % (auto) 0.0, Anion Gap 6L, Glomerular Filtration Rate > 60.0, Calcium Level 10.1, Whole Blood Ionized Calcium 5.1, Magnesium Level 1.8, Total Bilirubin 0.2, Aspartate Amino Transf (AST/SGOT) 31, Alanine Aminotransferase (ALT/SGPT) 85H, Alkaline Phosphatase 250H, Total Protein 6.0L, Albumin 2.2L, Albumin/Globulin Ratio 0.6 CBC/BMP Laboratory Tests 12/03/20 10:34 NICOLE READ MD Dec 03, 2020 19:02
[2020-12-03 20:00] VITALS: BP 100/60
--- NOTE | 2020-12-03 22:09 | IPNPDOC ---
Date Seen The patient was seen on 12/03/20. Progress Note redundant note VS, I&O, 24H, Fishbone Vital Signs/I&O Vital Signs Date Time Temp Pulse Resp B/P (MAP) Pulse Ox O2 Delivery O2 Flow Rate FiO2 12/03/20 21:00 102 100/60 12/03/20 20:00 97.4 19 96 Nasal Cannula 2.0 I&O- Last 24 Hours up to 6 AM 12/03/20 06:00 Intake Total 200 ml Balance 200 ml Laboratory Data 24H LABS Laboratory Tests 2 12/03/20 06:47: Valproic Acid (Depakene) Level 66.7 12/03/20 10:34: Immature Granulocyte % (Auto) 0.5, Neutrophils (%) (Auto) 67.5H, Lymphocytes (%) (Auto) 21.2L, Monocytes (%) (Auto) 9.2H, Eosinophils (%) (Auto) 1.4, Basophils (%) (Auto) 0.2, Neutrophils # (Auto) 7.5, Lymphocytes # (Auto) 2.3, Monocytes # (Auto) 1.0H, Eosinophils # (Auto) 0.2, Basophils # (Auto) 0.0, Nucleated Red Blood Cells % (auto) 0.0, Anion Gap 6L, Glomerular Filtration Rate > 60.0, Calcium Level 10.1, Whole Blood Ionized Calcium 5.1, Magnesium Level 1.8, Total Bilirubin 0.2, Aspartate Amino Transf (AST/SGOT) 31, Alanine Aminotransferase (ALT/SGPT) 85H, Alkaline Phosphatase 250H, Total Protein 6.0L, Albumin 2.2L, Albumin/Globulin Ratio 0.6 CBC/BMP Laboratory Tests 12/03/20 10:34 NICOLE READ MD Dec 03, 2020 22:09
[2020-12-04 05:30] VITALS: BP 109/75
[2020-12-04] MEDS: LEVOTHYROXINE 50MCG TABLET (0.05MG) PO SCH (05:38)
[2020-12-04] MEDS ORDERED: FLOM0.4C39 PO (07:33)
--- NOTE | 2020-12-04 08:19 | ECHO ---
DATE OF PROCEDURE: 12/01/2020 Age: 60 Gender: Male REFERRING PROVIDER: REGAN LLOYD PATIENT LOCATION: Room [address] REASON FOR TESTING: Pleural effusion. 2D MEASUREMENTS: IVS 1.1 cm LV 3.9 cm LVPW 0.9 cm LA 3.8 cm Aorta 3.4 cm IVC 2.1 cm DOPPLER MEASUREMENT Peak velocity across the aortic valve .085 m/s Peak velocity across the LVOT 0.7 m/s Peak gradient across the aortic valve 8 mmHg Maximum tricuspid valve velocity 2.1 m/s Mitral E 0.9 2D COMMENTS: 1. Normal left ventricular size and wall thickness. Left ventricular systolic function is estimated at 50% to 55%. 2. Subjectively, the left atrium is enlarged. The right atrium and the right ventricle appeared to be normal in size. 3. The atrial septum appeared to be normal without evidence of defect or shunt. 4. Normal aortic root. 5. Only small pericardial effusion was noted, no evidence of cardiac tamponade. 6. Mildly calcified aortic valve with normal leaflet excursion. Mildly calcified mitral annulus with normal anterior mitral valve leaflet motion. Normal tricuspid valve. The pulmonic valve and proximal pulmonary artery branches were not well visualized. 7. The inferior vena cava is dilated, central venous pressure is most likely elevated. IMPRESSION: 1. Low-normal global left ventricular systolic. Assessment of the left ventricular diastolic function was diminutive in view of the underlying cardiac arrhythmia, atrial fibrillation. 2. Aortic valve sclerosis with trace aortic regurgitation, but no aortic stenosis. 3. Mitral annular calcification with moderate mitral regurgitation. Subjectively, the left atrium is enlarged. 4. Mild tricuspid regurgitation. 5. A small pericardial effusion was noted, no evidence of cardiac tamponade. 6. There are some features of elevated central venous pressure; the inferior vena cava was mildly enlarged. 7. When compared with prior echocardiograms, the pericardial effusion is much less. The inferior vena cava also is smaller. Left ventricular systolic function was thought to be lower when compared to prior echocardiogram. MTDD
[2020-12-04] MEDS: FELBAMATE 600 MG PO SCH (08:21)
[2020-12-04] MEDS: MAGIC MOUTHWASH SUSPENSION BTL XX SCH ×2 (08:21→12:47)
[2020-12-04] MEDS ORDERED: ELIQ5TAB PO (08:22)
[2020-12-04] MEDS: TAMSULOSIN 0.4 MG CAP PO SCH (08:22)
[2020-12-04] MEDS: predniSONE 10 MG TAB PO SCH (08:22)
[2020-12-04] MEDS: PARoxetine 20MG TABLET PO SCH (08:22)
[2020-12-04] MEDS: DIVALPROEX SPRINKLE 125 MG CAP PO SCH (08:22)
[2020-12-04 08:23] VITALS: BP 105/64
[2020-12-04] MEDS: bisoproloL fumarate 5 MG TAB PO SCH (08:23)
[2020-12-04] MEDS: ASCORBIC ACID 500 MG TAB PO SCH (08:24)
[2020-12-04] MEDS: DIGOXIN 0.25 MG TAB PO SCH (08:24)
[2020-12-04] MEDS: APIXABAN 5 MG TAB (ELIQUIS) PO SCH (08:24)
[2020-12-04] MEDS ORDERED: ASCO50TA PO (08:27)
[2020-12-04] MEDS ORDERED: DIVA1CAP PO ×2 (08:27→08:28)
[2020-12-04] MEDS ORDERED: DIGO0.253 PO (08:27)
[2020-12-04] MEDS ORDERED: BISO5TAB14 PO (08:27)
[2020-12-04] MEDS ORDERED: PARO20TA3 PO (08:28)
[2020-12-04] MEDS ORDERED: LEVO50TA5 PO (08:28)
--- NOTE | 2020-12-04 11:39 | IPNPDOC ---
Text Note Date of Service The patient was seen on 12/04/20. NOTE Patient was seen and examined at bedside. He is not in acute distress and is participating in therapy PHYSICAL EXAMINATION: GENERAL: not in distress, alert HEENT: perrla, eomi CARDIOVASCULAR: irregular rate and rhythm. no murmurs rubs or gallps RESPIRATORY: patient's movement limited, air entry bilaterally is fair. rhonchi appreaciated diffusely in bl lung valdez ABDOMINAL: soft non tender, non distended EXTREMITIES: 1+ edema NEUROLOGICAL: moving extremities ASSESSMENT AND PLAN: 1) Lethargy, likely multifactorial: patient has been deconditioned and ongoing rehab, med list reviewed. it is possible it is a consequence of colchicine use? , as well as steroids, which are now being tapered and colchicine has been discontinued. hold gabapentin 2) Hypercalcemia: Mild now resolved, PTH normal, kappa/lambda ratio normal, SPEP pending. etiology is at this time unknown. Will get PTH like peptide and PSA 3) Pericardial effusion: followed by Dr. Siddiqui, diminished in size based on CT from prior, inflammatory in nature likely viral syndrome, AANA negative, Quantiferon gold negative, chlamydia neg. mycoplasma neg, Rheumatoid factor neg, Resp panel, HIV, hepc neg. repeat echocardiogram ordered on 11/30/20 to assess for compression, completed, report pending 4) Afib/ Aflutter with RVR: dig 0.25 , continue bisoprolol 5 bid , continue eliquis, stopped asa. Follow up with Dr Raymond. 5) Weakness/ Debility: ongoing ARU 6) Epilepsy from the age of 2/ developmental delay/ dementia: will continue home meds. valproate and felbamate, paroxetine 7) Hypothyroid: c/w synthroid 8) LOU: does not use CPAP. 9) Developmental disability: Mother reports that he does not have Down's syndrome as documented in PMDs records. Disposition as per primary VS,Ciscobone, I+O VS, Fishtiane, I+O Vital Signs Date Time Temp Pulse Resp B/P (MAP) Pulse Ox O2 Delivery O2 Flow Rate FiO2 12/04/20 08:24 88 12/04/20 08:23 105/64 12/04/20 05:30 96.8 19 94 Nasal Cannula 2.0 I&O- Last 24 Hours up to 6 AM 12/04/20 06:00 Intake Total 370 ml Balance 370 ml BERONICA SIGALA MD Dec 04, 2020 11:39
[2020-12-04 15:16] LABS: ALBUMIN 2.53 GM/DL (3.29-5.55); ALBUMIN % 41.4 % (55.8-66.1); ALPHA-1-GLOBULIN % 8.3 % (2.9-4.9); ALPHA-1-GLOBULINS 0.51 GM/DL (0.17-0.41); ALPHA-2-GLOBULINS 1.14 GM/DL (0.42-0.99); ALPHA-2-GLOBULINS % 18.7 % (7.1-11.8); BETA-1-GLOBULINS 0.41 GM/DL (0.28-0.60); BETA-1-GLOBULINS % 6.8 % (4.7-7.2); BETA-2-GLOBULINS 0.44 GM/DL (0.19-0.55); BETA-2-GLOBULINS % 7.2 % (3.2-6.5); GAMMA GLOBULIN % 17.6 % (11.1-18.8); GAMMA GLOBULINS 1.07 GM/DL (0.65-1.58)
[2020-12-12 21:07] LABS: PTH RELATED PEPTIDE < 2.0 pmol/L (.)
--- NOTE | 2020-12-25 14:11 | PMRDS ---
NAME: LUDY GARCIA [facility] WT ID#: [id number] JOB: [id number] LORRAINE: 12/04/2020 ACCT: [id number] DOCTOR: REGAN LLOYD MD PMR DISCHARGE SUMMARY DATE OF ADMISSION: 11/16/2020 DATE OF DISCHARGE: 12/04/2020 CHIEF COMPLAINT/DISCHARGE DIAGNOSIS: Weakness in the setting of pneumonia and pericarditis. HISTORY OF PRESENT ILLNESS: This is a 60-year-old man with a past medical history of mental retardation, dementia, depression, seizure disorder, urinary incontinence, hypothyroidism, severe cervical spondylolysis, dysphagia, atrial fibrillation on Eliquis, colonic polyps, LOU on CPAP, hypertension, urinary incontinence who presented to [facility] ED on 11/05/2020 with weakness and fatigue following his first COVID vaccine administered 10/27/2020. He was found to be extremely hyponatremic with a sodium of 123 for which he was treated with Lasix, salt tablets and had his paroxetine discontinued. He had urinary retention for which Sinha was placed and transaminitis thought to be due to right-sided heart failure causing hepatic congestion. He also had a pericardial effusion which was followed by Dr. Siddiqui and monitored with repeat echos and ultimately was placed on Colchicine and Solu-Medrol. CT of the chest 11/08/2020 showed "There is a left lower lobe infiltrate versus compression atelectasis from the effusion. However, this appears to have increased in size. There are no new infiltrates." He was started on Zosyn for suspected pneumonia and had a pigtail catheter placed by IR for compressive bilateral pleural effusions. He was followed closely by Infectious Disease who eventually discontinued his antibiotic coverage and recommended transitioning to oral steroids for his pericarditis. He developed RVR and a new infiltrate on chest x-ray. Oral antibiotics were initiated. He was evaluated by therapy and noted to have mobility impairment below his prior level of function and deemed medically appropriate for discharge to ARU on 11/16/2020. PAST MEDICAL HISTORY: As per HPI. HOSPITAL COURSE: The patient was admitted and enrolled in comprehensive PT/OT, speech language pathology program. He received 24-hour nursing supervision and weekly team meetings were held to discuss his progress. On initial presentation, the patient was quite tearful and so he was started back on a lower dose of paroxetine with improvement in his mood. The patient was noted to have significant fatigue and poor therapy tolerance, made modest gains initially, however had to be discharged off the floor for closer monitoring in the setting of atrial fibrillation with RVR. He was sent back to ARU after an interrupted stay on a higher dose of Digoxin. He finished up a course of Augmentin for aspiration pneumonia and was noted to have considerable dysphagia, downgraded to puree. The patient was unable to make gains in therapy and was noted to have increasing fatigue. In order to treat this fatigue the patient was tapered off Gabapentin and his Oxybutynin discontinued. The patient had modest improvements in his level of alertness. His Depakote level was found to be within normal limits and there was concern that possibly the Colchicine dosing that he was on was contributing to his weakness and malaise. Case was discussed with Dr. Siddiqui, thoracic surgeon, who agreed that the patient had had a sufficient amount of Colchicine for his pericarditis and the patient was taken off the Colchicine. The patient's family was able to come in for training and was educated on new level of support which the patient would need for his overall mobility and ADLs. The patient required a total assist on discharge. DISPOSITION: The patient was discharged to home. DISCHARGE MEDICATIONS: As per instructions. FUNCTIONAL HISTORY ON DISCHARGE: The patient was max to total assist for bed mobility, functional transfers, and toileting. Thank you for this referral.
== END 2020-12-04 14:02 | disposition home health service (06) | DRG 861 ==
LOC: M PM&R 17:25 → UNDODISIN 11-21 14:20
PROVIDERS: ADMIT Physical Medicine & Rehabilitation; ATTEND Physical Medicine & Rehabilitation
DX: R53.1 Weakness (principal); I31.9 Disease of pericardium, unspecified; E87.1 Hypo-osmolality and hyponatremia; I48.92 Unspecified atrial flutter; I27.20 Pulmonary hypertension, unspecified; E83.52 Hypercalcemia; R47.01 Aphasia; F03.90 Unspecified dementia, unspecified severity, without behavioral disturbance, psychotic disturbance, mood disturbance, and anxiety; I48.91 Unspecified atrial fibrillation; I10 Essential (primary) hypertension; R13.10 Dysphagia, unspecified; I36.0 Nonrheumatic tricuspid (valve) stenosis; F79 Unspecified intellectual disabilities; F32.9 Major depressive disorder, single episode, unspecified; G40.909 Epilepsy, unspecified, not intractable, without status epilepticus; R32 Unspecified urinary incontinence; E03.9 Hypothyroidism, unspecified; M47.812 Spondylosis without myelopathy or radiculopathy, cervical region; G47.33 Obstructive sleep apnea (adult) (pediatric); Z86.010 Personal history of colon polyps; Z74.09 Other reduced mobility; Z79.01 Long term (current) use of anticoagulants; Z79.899 Other long term (current) drug therapy; K59.00 Constipation, unspecified; J44.9 Chronic obstructive pulmonary disease, unspecified; D72.829 Elevated white blood cell count, unspecified

== ENCOUNTER 2020-11-21 13:19 | Observation (INO) | payer MEDICAID ==
[~2020-11-21] VITALS: Ht 167.6 cm; Wt 62.7 kg
[~2020-11-21 13:19] MED LIST changes: +AUGM875T28 PO; +BISO5TAB14 PO; +COLC0.6T47 PO; +DIGO0.123 PO; +ELIQ5TAB PO; -FERR324T21 PO; +FERR325T16 PO; +PRED10TA2 PO
[2020-11-21 14:20] VITALS: BP 96/69
[2020-11-21] MEDS ORDERED: RA S8.6T3 PO (15:20)
[2020-11-21] MEDS ORDERED: DIGO0.123 PO (15:20)
[2020-11-21] MEDS ORDERED: FLOM0.4C39 PO (15:20)
[2020-11-21] MEDS ORDERED: ELIQ5TAB PO (15:20)
[2020-11-21] MEDS ORDERED: BISO5TAB14 PO (15:20)
[2020-11-21] MEDS ORDERED: BACITAB PO (15:20)
[2020-11-21] MEDS ORDERED: COLC0.6T47 PO (15:20)
[2020-11-21] MEDS ORDERED: AUGM875T28 PO (15:20)
[2020-11-21 16:00] VITALS: BP 94/70
--- NOTE | 2020-11-21 16:55 | HPEPDOC ---
General Date of Admission Nov 21, 2020 at 14:15 Date of Service: Nov 21, 2020 Chief Complaint The patient is a 60-year-old male admitted with a reason for visit of Artrial Fib/Flutter Transient. History of Present Illness 60 year old male with Epilepsy from childhood, developmental delay, mental retardation, dementia, chronic hyponatremia was initially admitted here from 11/06/2019 to 11/16/20 for Pericarditis. moderate to large pericardial effusion, Pleural effusion , SIRS, new-onset A. fib and a flutter, acute on chronic hyponatremia was subsequently discharged to ARU for continued rehabilitation. Patient was noted to be more somnolent and less active more tired this morning. He was also noted to have a tachycardia in 130s, which was initially irregular however EKG showed sinus tachycardia, but he was having intermittent episodes of irregular tachycardia, so the patient was readmitted to PCU for A. fib with RVR. Patient is somnolent, and the not talking much. He at baseline only talks less and slow to response. Did not complain of any chest pain or palpitation or shortness of breath. However, he was noted to be cold and clammy with low blood pressure in ARU. Home Medications Scheduled Amoxicillin/Potassium Clav (Augmentin 875-125 Tablet) 1 Each Tablet, 875 MG PO BID, (Reported) STARTED 11/16/20 FOR 7 DAYS - STARTED AT [facility] Apixaban (Eliquis) 5 Mg Tablet, 5 MG PO BID, (Reported) Ascorbic Acid (Vitamin C) 500 Mg Tablet, 1,000 MG PO DAILY, (Reported) Aspirin (Ecotrin) 81 Mg Tablet.dr, 81 MG PO QHS, (Reported) Bisoprolol Fumarate (Bisoprolol Fumarate) 5 Mg Tablet, 5 MG PO BID, (Reported) Calcium Carbonate (Calcium) 600 Mg Tablet, 600 MG PO BID, (Reported) Cholecalciferol (Vitamin D3) (Vitamin D3) 50 Mcg Tablet, 50 MCG PO DAILY, (Reported) Colchicine (Colchicine) 0.6 Mg Tablet, 0.6 MG PO BID, (Reported) Digoxin (Digoxin) 125 Mcg Tablet, 125 MCG PO DAILY, (Reported) Divalproex Sodium (Divalproex Sodium ER) 250 Mg Tab.er.24h, 750 MG PO DAILY, (Reported) Divalproex Sodium (Divalproex Sodium ER) 250 Mg Tab.er.24h, 500 MG PO QHS, (Reported) Docusate Sodium (Stool Softener) 100 Mg Capsule, 200 MG PO BID, (Reported) Felbamate (Felbamate) 600 Mg Tablet, 1,800 MG PO BID, (Reported) Ferrous Gluconate (Ferrous Gluconate) 324 Mg Tablet, 324 MG PO DAILY, (Reported) Gabapentin (Gabapentin) 300 Mg Capsule, 300 MG PO BID, (Reported) L.acidoph/L.bulg/B.bif/S.therm (Bacid Caplet) 1 Each Tablet, 1 TAB PO WMHS, (Reported) STARTED AT [facility] Levothyroxine Sodium (Levothyroxine Sodium) 50 Mcg Tablet, 50 MCG PO DAILY, (Reported) Magnesium Oxide (Magnesium) 400 Mg Capsule, 400 MG PO DAILY, (Reported) Oxybutynin Chloride (Oxybutynin Chloride ER) 10 Mg Tab.er.24, 10 MG PO DAILY, (Reported) Paroxetine HCl (Paroxetine) 20 Mg Tablet, 40 MG PO DAILY, (Reported) Prednisone (Prednisone) 10 Mg Tablet, 1 TAB PO ASDIRECTED 4 tabs daily for 5d, then 3 tabs daily for 5d, then 2 tabs daily for 5d, then 1 tab daily for 5d. Sennosides (Senna Lax) 8.6 Mg Tablet, 8.6 MG PO QHS, (Reported) STARTED AT [facility] Tamsulosin HCl (Flomax) 0.4 Mg Capsule, 0.4 MG PO DAILY, (Reported) STARTED AT [facility] Allergies Coded Allergies: No Known Allergies (Verified , 02/21/03) Past Medical History Medical History AFIB and Aflutter new in last admission Pericarditis with Moderate to large pericardial effusion Pleural effusion s/p pig tail catheter drainage Epilepsy from [facility] with developmental delay and mental retardation with 24 x 7 care for the past 8 years. ? 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 SEVERE CERVICAL SPONDYLOSIS WITH NECK PAIN AND FORAMINAL NERVE COMPRESSION PER CT OF THE SPINE TO 2013. ANGER/ DEPRESSION/ INSOMNIA HEMORRHOIDS, DIVERTICULOSIS COLONIC POLYPS: TUBULAR ADENOMA and TUBULOVILLOUS ADENOMA, OLD COMPRESSION FRACTURE OF THE T1 VERTEBRA Family History FATHER: , TYPE II DIABETES MOTHER: ALIVE SIBLINGS: ALIVE 2 BROTHER(S) , 3 SISTER(S) - HEALTHY. BROTHER HAS HAD KIDNEY STONES A-FIB/CHADSVASC A-FIB History Current/History of A-Fib/PAF?: Yes Current PO Anticoag Therapy: Yes Review of Systems Constitutional: Reports: Fatigue, Lethargy; Denies: Chills, Fever, Night Sweats Eyes: Denies: Pain, Vision change ENT: Denies: Head Aches, Ear Pain, Dysphagia Skin: Denies: Rash, Lesions, Breakdown Pulmonary: Denies: Dyspnea, Cough Cardiovascular: Denies: Chest Pain, Palpitations, Orthopnea Gastrointestinal: Denies: Nausea, Vomiting, Abdominal Pain, Diarrhea Physical Examination General Exam: Positive: Cooperative, No Acute Distress, Other (somnolent) Eye Exam: Positive: PERRLA, Conjunctiva & lids normal, EOMI; Negative: Sclera icteric ENT Exam: Positive: Atraumatic, Mucous membr. moist/pink, Pharynx Normal Neck Exam: Negative: JVD, thyromegaly Chest Exam: Positive: Other (basal crackles) Heart Exam: Positive: Tachycardic, Irregular Rhythm, Normal S1, Normal S2 Telemetry: Positive: Atrial fibrillation, Other Telemetry: (atrial flutter) Abdomen Exam: Positive: Normal bowel sounds, Soft Extremity Exam: Negative: Clubbing, Cyanosis, Edema Vital Signs Vital Signs Date Time Temp Pulse Resp B/P (MAP) Pulse Ox O2 Delivery O2 Flow Rate FiO2 11/21/20 14:20 97.7 130 20 96/69 (78) 95 Room Air Assessment/Plan 60 year old male with Epilepsy, developmental delay, mental retardation, dementia, seizure, chronic hyponatremia, chronic constipation, lives at home with (also disabled) with 24 x7 care, has gait instability and ambulates with a walker was initially admitted here from 11/06/2019 to 11/16/20 for Inflammatory Pericarditis, moderate to large pericardial effusion, Pleural effusion , SIRS, new-onset A. fib and a flutter, acute on chronic hyponatremia was subsequently discharged to ARU for continued rehabilitation. Patient was noted to be more somnolent and less active more tired this morning. He was also noted to have a tachycardia in 130s, which was initially irregular however EKG showed sinus tachycardia, but he was having intermittent episodes of irregular tachycardia, so the patient was readmitted to PCU for A. fib with RVR. Afib/ Aflutter with RVR Rate varying from 130s to 90s. Intermittently has sinus tachy also BP soft digoxin given extra dose today and dose increased bisoprolol continued at 5 twice a day blood pressure permitting Patient was moved from ARU to PCU because of fluctuating heart rate and mostly heart rate being in 130s with low bps. Monitor intake and output. continue eliquis, will stop asa. Recent Pericarditis, pericardial effusion, pleural effusion s/p pig drainage on the left inflammatory in nature responded to colchicine and steroids will continue now on steroid taper. Chronic Hyponatremia Possibly Due to SIADH Now at baseline. h/o urinary incontinence with episode of acute retention in hospital on flomax and oxybutynin Follows with urology Weakness/ Debility PT, OT Epilepsy from the age of 2/ developmental delay/ dementia will continue home meds. valproate and felbamate. paroxetine, gabapentin Hypertension Now hypotensive will try to continue bisoprolol with hold parameters Enalapril has been stopped before. Hypothyroid synthroid LOU does not use CPAP. Developmental disability Mother reports that he does not have Down's syndrome as documented in PMDs records. however he does have epilepsy from the age of 2 so has developmental disability and mild mental retardation Plan / VTE VTE Prophylaxis Ordered?: Yes MARTIN MIGUEL MD Nov 21, 2020 16:55
[2020-11-21] MEDS: LACTOBACILLUS ACIDOPHILUS CAP (BACID) PO SCH ×2 (17:08→21:22)
[2020-11-21 20:00] VITALS: BP 104/77
[2020-11-21] MEDS ORDERED: NON-FORMULARY 1 EA EA PO SCH (21:00)
[2020-11-21] MEDS ORDERED: ASPIRIN 81MG ENTERIC TABLET PO SCH (21:00)
[2020-11-21] MEDS: AUGMENTIN 875 MG TAB PO SCH (21:22)
[2020-11-21] MEDS: APIXABAN 5 MG TAB (ELIQUIS) PO SCH (21:22)
[2020-11-21] MEDS: GABAPENTIN 300 MG CAP PO SCH (21:22)
[2020-11-21] MEDS: SENNA 8.6 MG TAB (SENOKOT) PO SCH (21:22)
[2020-11-21] MEDS: DIVALPROEX 250MG *ER* TAB PO SCH (21:23)
[2020-11-21] MEDS: COLCHICINE 0.6 MG TABLET PO SCH (21:23)
[2020-11-21] MEDS: FELBAMATE 600 MG PO SCH (21:23)
[2020-11-21] MEDS: DOCUSATE SODIUM 100MG CAPSULE PO SCH (21:23)
[2020-11-21] MEDS: bisoproloL fumarate 5 MG TAB PO SCH (21:24)
[2020-11-22] VITALS (8 sets, daily range): BP systolic 94–110; BP diastolic 57–80
[2020-11-22] MEDS: LEVOTHYROXINE 50MCG TABLET (0.05MG) PO SCH (05:46)
[2020-11-22 08:51] LABS: HEMATOCRIT 42.4 % (42.0-52.0); HEMOGLOBIN 13.4 g/dl (13.5-17.5); MEAN CORPUSCULAR HEMOGLOBIN 31.1 pg (27.0-33.0); MEAN CORPUSCULAR HGB CONC 31.6 g/dl (32.0-36.5); MEAN CORPUSCULAR VOLUME 98.4 fl (80.0-96.0); PLATELET COUNT, AUTOMATED 670 10^3/uL (150-450); RED BLOOD COUNT 4.31 10^6/uL (4.30-6.10)
[2020-11-22 08:54] LABS: WHITE BLOOD COUNT 11.9 10^3/uL (4.0-10.0)
[2020-11-22] MEDS ORDERED: DIGOXIN 0.125 MG TAB PO SCH (09:00)
[2020-11-22 09:09] LABS: ANISOCYTOSIS 1+; ATYPICAL LYMPH 5 % (0-5); EOSINOPHILS 2 % (0-3); HYPOCHROMASIA 1+; LYMPHOCYTES 36 % (16-44); MONOCYTES 7 % (0-5); NEUTROPHILS 49 % (28-66)
[2020-11-22 09:10] LABS: PLATELET CLUMPS SMALL AMT; PLATELET ESTIMATE INCREASED (NORMAL)
[2020-11-22 09:11] LABS: MICROCYTOSIS 1+
[2020-11-22 09:19] LABS: ALBUMIN 2.6 GM/DL (3.2-5.2); ALT/SGPT 90 U/L (12-78); BILIRUBIN,TOTAL 0.1 MG/DL (0.2-1.0); BLOOD UREA NITROGEN 19 MG/DL (7-18); CALCIUM LEVEL 9.9 MG/DL (8.8-10.2); CARBON DIOXIDE LEVEL 24 MEQ/L (21-32); CHLORIDE LEVEL 106 MEQ/L (98-107); CREATININE FOR GFR 0.65 MG/DL (0.70-1.30); GLOMERULAR FILTRATION RATE > 60.0 (>49); GLUCOSE, FASTING 122 MG/DL (70-100); SODIUM LEVEL 136 MEQ/L (136-145); TOTAL PROTEIN 6.7 GM/DL (6.4-8.2)
[2020-11-22] MEDS: FELBAMATE 600 MG PO SCH ×2 (09:49→21:55)
[2020-11-22] MEDS: PARoxetine 20MG TABLET PO SCH (09:50)
[2020-11-22] MEDS: predniSONE 10 MG TAB PO SCH (09:51)
[2020-11-22] MEDS: DIGOXIN 0.25 MG TAB PO SCH (09:52)
[2020-11-22] MEDS: bisoproloL fumarate 5 MG TAB PO SCH ×2 (09:54→21:57)
[2020-11-22] MEDS: TAMSULOSIN 0.4 MG CAP PO SCH (09:55)
[2020-11-22] MEDS: GABAPENTIN 300 MG CAP PO SCH ×2 (09:55→21:54)
[2020-11-22] MEDS: oxyBUTYnin *DITROPAN XL* 5 MG TABCR PO SCH (09:56)
[2020-11-22] MEDS: APIXABAN 5 MG TAB (ELIQUIS) PO SCH ×2 (09:56→21:54)
[2020-11-22] MEDS: FERROUS GLUCONATE 324 MG TAB PO SCH (09:56)
[2020-11-22] MEDS: LACTOBACILLUS ACIDOPHILUS CAP (BACID) PO SCH ×4 (09:56→21:54)
[2020-11-22] MEDS: DOCUSATE SODIUM 100MG CAPSULE PO SCH ×2 (09:56→21:54)
[2020-11-22] MEDS: AUGMENTIN 875 MG TAB PO SCH ×2 (09:57→21:54)
[2020-11-22] MEDS: COLCHICINE 0.6 MG TABLET PO SCH ×2 (09:57→21:54)
[2020-11-22] MEDS: DIVALPROEX 250MG *ER* TAB PO SCH ×2 (09:59→21:55)
[2020-11-22] MEDS ORDERED: AMIODARONE HCL 150 MG in IV 1 EA IV STA (17:55)
--- NOTE | 2020-11-22 19:18 | IPNPDOC ---
Subjective Date Seen The patient was seen on 11/22/20. Subjective Chief Complaint/HPI No complaints but continues to have short episodes of tachycardia in 130s lasting for 15 to 30 minutes. He is going from flutter in the slower rates to fibrillation when pulse rate rises. Objective Physical Examination General Exam: Positive: Cooperative, No Acute Distress, Other (somnolent) Eye Exam: Positive: PERRLA, Conjunctiva & lids normal, EOMI; Negative: Sclera icteric ENT Exam: Positive: Atraumatic, Mucous membr. moist/pink, Pharynx Normal Neck Exam: Negative: JVD, thyromegaly Chest Exam: Positive: Other (basal crackles) Heart Exam: Positive: Tachycardic, Irregular Rhythm, Normal S1, Normal S2 Telemetry: Positive: Atrial fibrillation, Other Telemetry: (atrial flutter) Abdomen Exam: Positive: Normal bowel sounds, Soft Extremity Exam: Negative: Clubbing, Cyanosis, Edema Assessment /Plan Assessment 60 year old male with Epilepsy, developmental delay, mental retardation, dementia, seizure, chronic hyponatremia, chronic constipation, lives at home with (also disabled) with 24 x7 care, has gait instability and ambulates with a walker was initially admitted here from 11/06/2019 to 11/16/20 for Inflammatory Pericarditis, moderate to large pericardial effusion, Pleural effusion , SIRS, new-onset A. fib and a flutter, acute on chronic hyponatremia was subsequently discharged to ARU for continued rehabilitation. Patient was noted to be more somnolent and less active more tired this morning. He was also noted to have a tachycardia in 130s, which was initially irregular however EKG showed sinus tachycardia, but he was having intermittent episodes of irregular t achycardia, so the patient was readmitted to PCU for A. fib/ aflutter with RVR. Afib/ Aflutter with RVR Rate varying from 130s to 90s. Intermittently has sinus tachy also BP soft dig increased to 0.25 , continue bisoprolol 5 bid cannot increase dose further as bp soft still having intermittent episodes of afib with rates of 130s lasting about 15 to 30 mins. had 3 episodes today. Asymptomatic Discussed with Dr Putnam will give 1 dose of amiodarone 150 mg IV. continue eliquis, will stop asa. Recent Pericarditis, pericardial effusion, pleural effusion s/p pig drainage on the left inflammatory in nature likely viral syndrome AANA negative, Quantiferon gold negative, chlamydia neg. mycoplasma neg, Rheumatoid facter neg, resp panel, hiv, hepc neg. responded to colchicine and steroids will continue now on steroid taper 10 mg every 5 days. Chronic Hyponatremia Possibly Due to SIADH Now at baseline. h/o urinary incontinence with episode of acute retention in hospital on flomax and oxybutynin Follows with urology Weakness/ Debility PT, OT Epilepsy from the age of 2/ developmental delay/ dementia will continue home meds. valproate and felbamate. paroxetine, gabapentin Hypertension Now hypotensive will try to continue bisoprolol with hold parameters Enalapril has been stopped before. Hypothyroid synthroid LOU does not use CPAP. Developmental disability Mother reports that he does not have Down's syndrome as documented in PMDs records. however he does have epilepsy from the age of 2 so has developmental disability and mild mental retardation blood karyotype has been sent out which is still pending. Plan/VTE VTE Prophylaxis Ordered?: Yes VS, I&O, 24H, Fishbone Vital Signs/I&O Vital Signs Date Time Temp Pulse Resp B/P (MAP) Pulse Ox O2 Delivery O2 Flow Rate FiO2 11/22/20 15:13 97.1 96 18 105/67 (80) 97 Room Air 11/21/20 20:00 1.0 I&O- Last 24 Hours up to 6 AM 11/22/20 07:00 Intake Total 240 ml Output Total 0 ml Balance 240 ml Laboratory Data 24H LABS Laboratory Tests 2 11/22/20 08:35: Neutrophils (%) (Auto) , Nucleated Red Blood Cells % (auto) 0.0, Neutrophils 49, Band Neutrophils 1, Lymphocytes (Manual) 36, Monocytes (Manual) 7H, Eosinophils (Manual) 2, Atypical Lymphocytes 5, Hypochromasia 1+, Anisocytosis 1+, Microcytosis 1+, Platelet Estimate INCREASED, Clumped Platelets SMALL AMT, Anion Gap 6L, Glomerular Filtration Rate > 60.0, Calcium Level 9.9, Total Bilirubin 0.1L, Aspartate Amino Transf (AST/SGOT) 18, Alanine Aminotransferase (ALT/SGPT) 90H, Alkaline Phosphatase 247H, Total Protein 6.7, Albumin 2.6L, Albumin/Globulin Ratio 0.6 CBC/BMP Laboratory Tests 11/22/20 08:35 MARTIN MIGUEL MD Nov 22, 2020 19:18
[2020-11-22] MEDS: SENNA 8.6 MG TAB (SENOKOT) PO SCH (21:54)
[2020-11-23] VITALS: BP 111/82
[2020-11-23 04:00] VITALS: BP 98/63
[2020-11-23] MEDS: LEVOTHYROXINE 50MCG TABLET (0.05MG) PO SCH (06:43)
[2020-11-23 07:11] VITALS: BP 126/78
[2020-11-23] MEDS: COLCHICINE 0.6 MG TABLET PO SCH (08:55)
[2020-11-23] MEDS: DIVALPROEX 250MG *ER* TAB PO SCH (08:55)
[2020-11-23 08:56] VITALS: BP 126/78
[2020-11-23] MEDS: LACTOBACILLUS ACIDOPHILUS CAP (BACID) PO SCH ×2 (08:56→12:17)
[2020-11-23] MEDS: bisoproloL fumarate 5 MG TAB PO SCH (08:56)
[2020-11-23] MEDS: predniSONE 10 MG TAB PO SCH (08:56)
[2020-11-23] MEDS: PARoxetine 20MG TABLET PO SCH (08:57)
[2020-11-23] MEDS: AUGMENTIN 875 MG TAB PO SCH (08:57)
[2020-11-23] MEDS: oxyBUTYnin *DITROPAN XL* 5 MG TABCR PO SCH (08:57)
[2020-11-23] MEDS: DOCUSATE SODIUM 100MG CAPSULE PO SCH (08:57)
[2020-11-23] MEDS: GABAPENTIN 300 MG CAP PO SCH (08:58)
[2020-11-23] MEDS: DIGOXIN 0.25 MG TAB PO SCH (08:58)
[2020-11-23] MEDS: TAMSULOSIN 0.4 MG CAP PO SCH (08:58)
[2020-11-23] MEDS: APIXABAN 5 MG TAB (ELIQUIS) PO SCH (08:58)
[2020-11-23] MEDS: FERROUS GLUCONATE 324 MG TAB PO SCH (08:58)
[2020-11-23] MEDS ORDERED: DIGO0.123 PO (09:42)
--- NOTE | 2020-11-23 10:17 | IPNPDOC ---
Subjective Date Seen The patient was seen on 11/23/20. Subjective Chief Complaint/HPI No issues overnight. Pulse mostly rate controlled remains in a flutter. Few short nonsustained bursts in 130s asymptomatic. Had a good breakfast. Echo ordered for follow up on pericardial effusion. Ok to go back to ARU. Needs the dig level checks in 2 days. Objective Physical Examination General Exam: Positive: Cooperative, No Acute Distress, Other (somnolent) Eye Exam: Positive: PERRLA, Conjunctiva & lids normal, EOMI; Negative: Sclera icteric ENT Exam: Positive: Atraumatic, Mucous membr. moist/pink, Pharynx Normal Neck Exam: Negative: JVD, thyromegaly Chest Exam: Positive: Other (basal crackles) Heart Exam: Positive: Tachycardic, Irregular Rhythm, Normal S1, Normal S2 Telemetry: Positive: Atrial fibrillation, Other Telemetry: (atrial flutter) Abdomen Exam: Positive: Normal bowel sounds, Soft Extremity Exam: Negative: Clubbing, Cyanosis, Edema Assessment /Plan Assessment 60 year old male with Epilepsy, developmental delay, mental retardation, dementia, seizure, chronic hyponatremia, chronic constipation, lives at home with (also disabled) with 24 x7 care, has gait instability and ambulates with a walker was initially admitted here from 11/06/2019 to 11/16/20 for Inflammatory Pericarditis, moderate to large pericardial effusion, Pleural effusion , SIRS, new-onset A. fib and a flutter, acute on chronic hyponatremia was subsequently discharged to ARU for continued rehabilitation. Patient was noted to be more somnolent and less active more tired this morning. He was also noted to have a tachycardia in 130s, which was initially irregular however EKG showed sinus tachycardia, but he was having intermittent episodes of irregular tachycardia, so the patient was readmitted to PCU for A. fib/ aflutter with RVR. Afib/ Aflutter with RVR Rate varying from 130s to 90s. Now much better controlled. few spurts of tachycardia but not sustaining any longer. dig increased to 0.25 , continue bisoprolol 5 bid cannot increase dose further as bp soft continue eliquis, will stop asa. ordered an echo as it is 2 weeks from the last echo. needs to check pericardial effusion. Follow up with Dr Raymond. Recent Pericarditis, pericardial effusion, pleural effusion s/p pig drainage on the left inflammatory in nature likely viral syndrome AANA negative, Quantiferon gold negative, chlamydia neg. mycoplasma neg, Rheumatoid facter neg, resp panel, hiv, hepc neg. responded to colchicine and steroids will continue now on steroid taper 10 mg every 5 days. New echo ordered. H/o Chronic Hyponatremia Possibly Due to SIADH now sodium normal. H/o urinary incontinence with episode of acute retention in hospital on flomax and oxybutynin Follows with urology Weakness/ Debility PT, OT Epilepsy from the age of 2/ developmental delay/ dementia will continue home meds. valproate and felbamate. paroxetine, gabapentin Hypertension Now hypotensive will try to continue bisoprolol with hold parameters Enalapril has been stopped before. Hypothyroid synthroid LOU does not use CPAP. Developmental disability Mother reports that he does not have Down's syndrome as documented in PMDs records. however he does have epilepsy from the age of 2 so has developmental disability and mild mental retardation blood karyotype has been sent out which is still pending. Plan/VTE VTE Prophylaxis Ordered?: Yes VS, I&O, 24H, Fishbone Vital Signs/I&O Vital Signs Date Time Temp Pulse Resp B/P (MAP) Pulse Ox O2 Delivery O2 Flow Rate FiO2 11/23/20 08:58 106 11/23/20 08:56 126/78 11/23/20 07:11 97.0 18 97 11/23/20 04:00 Room Air 11/21/20 20:00 1.0 I&O- Last 24 Hours up to 6 AM 11/23/20 06:00 Intake Total 780 ml Balance 780 ml MARTIN MIGUEL MD Nov 23, 2020 10:17
[2020-11-23] MEDS: FELBAMATE 600 MG PO SCH (10:35)
[2020-11-23 11:18] VITALS: BP 100/74
--- NOTE | 2020-11-23 13:55 | CR ---
CARDIOLOGY CONSULTATION DATE: 11/23/2020 REFERRING PHYSICIAN: Jenni Tripp MD CONSULTING PHYSICIAN: Randall Raymond MD REASON FOR CONSULTATION: Atrial Fibrillation with RVR; Pericardial Effusion HISTORY OF PRESENT ILLNESS: Mr. Machado is a 60-year-old male with a past medical history significant for developmental delay, intellectual disability, epilepsy, chronic hyponatremia and a recent diagnosis of atrial fibrillation with RVR who was initially admitted to [facility] on 11/05/2020 and discharged on 11/16/2020 for new onset atrial fibrillation with rapid ventricular response as well as a moderately large pericardial effusion and SIRS. The patient had been loaded with IV Digoxin and continued on oral digoxin as well as Zebeta. The patient had done well in the ARU, however was noted to become more somnolent and less active. He was then found to be more tachycardic with heart rate in the 130s. He was transferred back to PCU for evaluation. The patient was noted once again to be in atrial fibrillation with RVR. Yesterday he had received 150 mg of amiodarone. He was continued on oral digoxin. There have been no other adverse events. The patient himself does not talk much at baseline. He is slow with speech. He currently denies any chest pain or palpitations or shortness of breath. Cardiology was consulted for further evaluation and management of the patient's atrial fibrillation as well as his echocardiogram findings of pericardial effusion. PAST MEDICAL HISTORY: 1. Atrial fibrillation/atrial flutter. 2. Pericarditis with moderate to large pericardial effusion. 3. Pleural effusion, status post pigtail catheter drainage. 4. Epilepsy. 5. Developmental delay/intellectual disability. 6. Dementia. 7. Urinary incontinence. 8. Essential hypertension. 9. Vitamin B deficient. 10. Osteoporosis. 11. Hypothyroidism. 12. LOU, noncompliant with CPAP. 13. Urinary incontinence. 14. Severe cervical spondylosis with neck pain and foraminal nerve compression. 15. Anger/depression/insomnia. 16. Diverticulosis. 17. Colon polyps. SURGICAL HISTORY: Colonoscopy. FAMILY HISTORY: Father , a history of type 2 diabetes. Mother is alive and well. He has two brothers, three sisters, all alive and healthy. His brother has a family history of kidney stones. SOCIAL HISTORY: The patient currently lives at home with his . He does have 24/7 care. He is able to eat and feed himself. Completes most of his ADLs independently. REVIEW OF SYSTEMS: Constitutional: Denies fevers, chills, night sweats, unintentional weight loss. Admits to fatigue. HEENT: Denies vision change, denies odynophagia or dysphagia. Pulmonary: Currently denies any shortness of breath, cough. Denies any wheezing. Cardiovascular: Denies chest pain, denies palpations. Denies feelings of heart racing. Denies chest pressure. Gastrointestinal: Denies nausea or vomiting. Denies abdominal pain, diarrhea or constipation. Genitourinary: The patient admits to urinary incontinence, denies any dysuria or increased frequency. Skin: The patient denies any rashes or lesions. Musculoskeletal: The patient admits to chronic neck pain. Extremities: The patient denies any swelling. He denies any pain in his calves. Hematologic: The patient denies any history of easy bleeding or bruising. He denies any history of DVT or pulmonary embolism. Endocrine: The patient denies any heat intolerance or cold intolerance. He denies any history of diabetes mellitus. PHYSICAL EXAMINATION: VITAL SIGNS: Temperature 97.0, pulse 119, respiratory rate 18, blood pressure 126/78, pulse oximetry 97% on room air. GENERAL: The patient is awake, alert. He is oriented. He does not appear in any acute distress. He does appear somewhat frail. He answers questions appropriately although slow with response. HEENT: Atraumatic, normocephalic. Eyes are nonicteric. Trachea is midline. Mucous membranes are pink and white. The patient has forward of his neck. PULMONARY: The patient has vesicular breath sounds bilaterally. somewhat diminished breath sounds overall. There is symmetric chest expansion. There are no wheezes, rhonchi or rales noted. CARDIAC: There is a normal S1, S2. There is an irregularly irregular rhythm with a tachycardic rate. There are no clicks, rubs or murmurs auscultated. No JVD present. ABDOMEN: Soft, nondistended, nontender, normoactive bowel sounds. EXTREMITIES: No edema. Full equal pulses, bilateral upper and lower extremities. NEUROLOGIC: No focal neurological deficits. The patient has baseline developmental delay. He is slow to respond, however, answers questions appropriately. PSYCHIATRIC: Mood and affect appear appropriate. CARDIAC MEDICATIONS: 1. Digoxin 0.25 mg daily. 2. Bisoprolol 5 mg b.i.d. p.o. 3. Colchicine 0.6 mg b.i.d. 4. Eliquis 5 mg b.i.d. p.o. ASSESSMENT AND PLAN: 1. Atrial fibrillation/atrial flutter with rapid ventricular response. The patient had developed what was believed to be new onset atrial fibrillation with a rapid ventricular response originally on 11/05/2020. At the time, he had an abdominal ultrasound demonstrating a pericardial effusion. This was followed up with a stat echocardiogram which apparently moderate pericardial effusion, however, without tamponade. The patient at the time was treated with IV digoxin loading dose as well as Lopressor. Since that time, he has been continued on digoxin as well as started on Zebeta. He has been anticoagulated with Eliquis since that time as well. He was initially discharged to ARU and then apparently had developed more somnolence and was sent back for A fib with RVR again. On presentation, he was given a 150 mg dose of amiodarone yesterday. He continued on his normal medications of digoxin, bisoprolol and Eliquis. Currently, he is fairly well rate controlled. After review of his echocardiogram from 11/10 which is his most recent one, it does demonstrate a pericardial effusion although it does not appear to be large. There is no cardiac tamponade present. He does have biatrial enlargement which would likely mean that successful rhythm control would be unlikely and therefore, rate control would likely be a better option for him. That being said, IV amiodarone may not be the most suitable medication moving forward. At this current time, he is fairly well controlled rate-[place]. Therefore, would recommend continuing his digoxin at 0.25 mg daily as well as his Zebeta 5 mg b.i.d. He is currently anticoagulated with Eliquis which is appropriate. Would recommend ordering an echocardiogram as it has been approximately two weeks since he received his last echocardiogram. This will better assess resolution of his pericardial effusion. 2. Pericarditis. The patient was originally discharged with pericarditis. He was started on colchicine and steroids at that time. The patient is not complaining of any pain. Regarding pericarditis treatment, would recommend colchicine and NSAIDs over the use of prednisone as prednisone has been show to increase rates of relapse of pericarditis. RECOMMENDATIONS: Recommend continuing current medical therapies including digoxin 0.25 mg daily, bisoprolol 5 mg b.i.d. p.o. and Eliquis 5 mg b.i.d. p.o. Recommend repeating echocardiogram to further assess pericardial effusion. Thank you for this consultation. WESLEY
--- NOTE | 2020-11-27 08:03 | ECHO ---
DATE OF PROCEDURE: 11/23/2020 Age: 60 Gender: Male Height: 66 inches Weight: 138 pounds Body surface area: 1.72 m2 PATIENT LOCATION: Inpatient PCU, Room 3211. REFERRING PHYSICIAN: Jenni Tripp MD. INDICATION: Pericardial effusion. MEASUREMENTS: 2D Measurements: RV 3.2 cm LV 3.4 cm Septum 1.1 cm Posterior wall 1.1 cm Aortic Root 3.0 cm LA 4.2 cm LVEF 75% Doppler Measurements: AV 1.0 m/s LVOT 0.75 m/s LVOT diameter 2.2 cm MV-E 78 Early mitral deceleration time 100 msec E prime medial 11, E prime lateral 13 Average E/E prime ratio 6.5/PCWP - 10 mmHg PV 0.55 m/s Pulmonary artery acceleration time 116 msec RVSP 37 mmHg IVC 2.2 cm COMMENTS: Underlying atrial flutter with somewhat rapid ventricular response. No interventricular conduction disturbance. M-mode and two-dimensional echocardiography was performed with pulse, continuous wave, color flow, and tissue Doppler studies. Left ventricular wall thickness upper limits of normal with hyperkinetic wall motion. At least moderately dilated left atrium. Unable to define LV diastolic function with his atrial tachyarrythmia, but his estimated mean left atrial pressure at this time appeared to be normal. Normal right heart chamber sizes and motion with Doppler estimated pulmonary arterial pressure mildly increased. Dilated IVC with absent respiratory collapse in keeping with an elevated central venous pressure. Normal aortic diameters. Mild aortic valvular sclerosis without functional abnormality. Mild mitral annular thickening, but normal leaflet thickness and excursion with no posterior systolic buckling, but at least mild and possibly moderate insufficiency. Normal appearing tricuspid valve with trace insufficiency. No apparent intracardiac mass. Moderate sized pericardial effusion measuring 1.0 cm posteriorly, 0.5 cm anteriorly, and 0.8 cm beside the right atrium. No evidence of cardiac chamber compression despite a dilated IVC that does not collapse. There was some respiratory variation to Doppler flow signals suggesting an element of cardiac compression. Cardiac tamponade is a clinical diagnosis, but there were some echocardiographic features to suggest an element of cardiac compression, although this is challenging with patients underlying atrial flutter. Clinical correlation is advised. I will plan on discussing this with her primary provider directly. WESLEY
== END 2020-11-23 15:13 ==
LOC: M PCU 14:15
PROVIDERS: ADMIT Internal Medicine Nephrology; ATTEND Internal Medicine Nephrology
DX: I48.91 Unspecified atrial fibrillation (principal); I48.92 Unspecified atrial flutter; I31.3 Pericardial effusion (noninflammatory); I30.9 Acute pericarditis, unspecified; G40.909 Epilepsy, unspecified, not intractable, without status epilepticus; F79 Unspecified intellectual disabilities; E87.1 Hypo-osmolality and hyponatremia; I10 Essential (primary) hypertension; F03.90 Unspecified dementia, unspecified severity, without behavioral disturbance, psychotic disturbance, mood disturbance, and anxiety; R32 Unspecified urinary incontinence; D51.9 Vitamin B12 deficiency anemia, unspecified; M81.0 Age-related osteoporosis without current pathological fracture; G47.33 Obstructive sleep apnea (adult) (pediatric); E03.9 Hypothyroidism, unspecified; M48.02 Spinal stenosis, cervical region; G47.00 Insomnia, unspecified; F32.9 Major depressive disorder, single episode, unspecified; K57.90 Diverticulosis of intestine, part unspecified, without perforation or abscess without bleeding; Z79.01 Long term (current) use of anticoagulants; Z79.52 Long term (current) use of systemic steroids; Z79.82 Long term (current) use of aspirin; Z79.899 Other long term (current) drug therapy; E55.9 Vitamin D deficiency, unspecified
CPT/HCPCS: 36415; 80053; 85025; 93306; 96374; J0282

== ENCOUNTER → 2020-12-29 | Outpatient (REF) | payer MEDICAID ==
[~2020-12-29] MED LIST changes: +ASCO50TA PO; +BACITAB PO; +DIGO0.253 PO; +DIVA1CAP PO; +FERR324T21 PO; -FERR325T16 PO; +FLOM0.4C39 PO; +PARO20TA3 PO; +PRED5TA PO; +RA S8.6T3 PO
[2020-12-29 14:13] LABS: HEMOGLOBIN 13.2 g/dl (13.5-17.5); MEAN CORPUSCULAR HEMOGLOBIN 31.1 pg (27.0-33.0); MEAN CORPUSCULAR HGB CONC 32.2 g/dl (32.0-36.5); MEAN CORPUSCULAR VOLUME 96.7 fl (80.0-96.0); PLATELET COUNT, AUTOMATED 396 10^3/uL (150-450); RED BLOOD COUNT 4.24 10^6/uL (4.30-6.10); WHITE BLOOD COUNT 10.3 10^3/uL (4.0-10.0)
[2020-12-29 14:57] LABS: ALBUMIN 2.3 GM/DL (3.2-5.2); ALT/SGPT 105 U/L (12-78); BILIRUBIN,TOTAL 0.2 MG/DL (0.2-1.0); BLOOD UREA NITROGEN 9 MG/DL (7-18); CARBON DIOXIDE LEVEL 24 MEQ/L (21-32); CHLORIDE LEVEL 96 MEQ/L (98-107); CREATININE FOR GFR 0.26 MG/DL (0.70-1.30); DIGOXIN LEVEL 1.1 NG/ML (0.5-2.0); GLOMERULAR FILTRATION RATE > 60.0 (>49); GLUCOSE, FASTING 99 MG/DL (70-100); POTASSIUM SERUM 4.4 MEQ/L (3.5-5.1); SODIUM LEVEL 129 MEQ/L (136-145); TOTAL PROTEIN 6.2 GM/DL (6.4-8.2); VALPROIC ACID (DEPAKOTE) 95.3 UG/ML (50.0-100.0)
== END ==
LOC: M LAB REF 13:43
PROVIDERS: ATTEND Nurse Practitioner Adult Health
DX: G40.909 Epilepsy, unspecified, not intractable, without status epilepticus (principal); I10 Essential (primary) hypertension; Z09 Encounter for follow-up examination after completed treatment for conditions other than malignant neoplasm; D64.9 Anemia, unspecified

== ENCOUNTER 2021-01-07 10:39 | Inpatient (IN) | payer MEDICAID ==
[~2021-01-07] VITALS: Ht 167.6 cm; Wt 61.0 kg
[2021-01-07 12:02] LABS: BASO # 0.1 10^3/uL (0.0-0.2); BASO % 0.3 % (0.0-1.0); EOS # 0.1 10^3/uL (0.0-0.5); EOS % 0.4 % (0.0-3.0); HEMATOCRIT 38.6 % (42.0-52.0); HEMOGLOBIN 12.5 g/dl (13.5-17.5); LYMPH # 2.8 10^3/uL (1.5-5.0); LYMPH % 15.8 % (24.0-44.0); MEAN CORPUSCULAR HEMOGLOBIN 31.3 pg (27.0-33.0); MEAN CORPUSCULAR HGB CONC 32.4 g/dl (32.0-36.5); MEAN CORPUSCULAR VOLUME 96.5 fl (80.0-96.0); MONO # 2.3 10^3/uL (0.0-0.8); MONO % 12.9 % (2.0-8.0); NEUTROPHILS # 12.2 10^3/uL (1.5-8.5); PLATELET COUNT, AUTOMATED 467 10^3/uL (150-450)
[2021-01-07 12:20] LABS: ALBUMIN 2.1 GM/DL (3.2-5.2); ALT/SGPT 44 U/L (12-78); BILIRUBIN,DIRECT 0.1 MG/DL (0.0-0.2); BILIRUBIN,TOTAL 0.3 MG/DL (0.2-1.0); BLOOD UREA NITROGEN 9 MG/DL (7-18); CALCIUM LEVEL 9.8 MG/DL (8.8-10.2); CARBON DIOXIDE LEVEL 26 MEQ/L (21-32); CHLORIDE LEVEL 102 MEQ/L (98-107); CK-MB VALUE MASS < 1.0 NG/ML (<3.6); CPK CREATINE PHOSPHOKINASE 26 U/L (39-308); CREATININE FOR GFR 0.41 MG/DL (0.70-1.30); GLOMERULAR FILTRATION RATE > 60.0 (>49); GLUCOSE, FASTING 87 MG/DL (70-100); MB/CK RELATIVE INDEX 3.85 (< OR =4); NT-PRO BNP 1347 PG/ML (<125); POTASSIUM SERUM 4.5 MEQ/L (3.5-5.1); SODIUM LEVEL 133 MEQ/L (136-145); THYROXINE (T4) 6.6 UG/DL (4.5-12.0); TROPONIN I < 0.02 NG/ML (< 0.10)
[2021-01-07 12:25] LABS: WHITE BLOOD COUNT 17.5 10^3/uL (4.0-10.0)
--- NOTE | 2021-01-07 12:32 | REP ---
INDICATION: DYSPNEA/COUGH. COMPARISON: Comparison chest radiograph November 16, 2020. TECHNIQUE: Portable upright AP chest radiograph. FINDINGS: There is a new infiltrate in the right upper lobe abutting the minor fissure. There also increased markings behind the heart in the left base. Pleural angles are sharp. Heart is enlarged. EKG electrodes are seen. Pulmonary vasculature is somewhat cephalized.. IMPRESSION: Right upper lobe and possibly, left lower lobe pneumonia.. <Electronically signed by Armin Iraheta > 01/07/21 [id number]
[2021-01-07] MEDS ORDERED: AZITHROMYCIN INJ 500 MG, VIAL MATE ADAPTER 1 EACH in NS 250 ML IV ONE (13:35)
[2021-01-07] MEDS ORDERED: cefTRIAXone SOD 2 GM in D5W MINI-BAG PLUS 50 ML IV ONE (13:35)
[2021-01-07] MEDS ORDERED: VALPROATE SOD INJ 500 MG in D5W 50 ML IV ONE (14:00)
--- NOTE | 2021-01-07 14:13 | HPEPDOC ---
[facility] Medical History & Physical Date of Admission January 07, 2021 Date of Service: January 07, 2021 Attending Physician: Rupinder Silva MD History and Physical CHIEF COMPLAINT: Increased SOB, cough HISTORY OF PRESENT ILLNESS: The patient is a 60-year-old male with extensive past medical history including atrial fib/flutter on Ahlquist, seizure disorder, dementia, urinary incontinence, hypertension, LOU on CPAP, recent aspiration pneumonia with dysphasia diagnosis on pured diet, other chronic illnesses listed below who presented to [facility] emergency room today with a chief complaint of increased coughing, hypoxia and not being able to keep down his medications. The patient was not a good historian due to his mental status and his brother was at the bedside who gave me most of the details along with the emergency room provider. According to notes, the patient had a recent hospitalization stay from /08/2020 for hypoxemia, aspiration pneumonia, pericardial effusion, pleural effusion, pericarditis. He was discharged from inpatient and immediately admitted to ARU from / after being treated for weakness in the setting of aspiration pneumonia and pericarditis. At the time of discharge the patient was max total assist for bed mobility, functional transfers and toileting. The patient was discharged back to home with 247 care with home health aides. He also has a very supportive family which has been trying to help him as well as. The patient lives behind his mother's house and close to his brothers who help. Today his home health nurse noticed that the patient's O2 sat had dropped into the 80's with coughing, he was unable to keep down his home sei zure medications. In the past when the patient has gotten sick and not kept his home seizure medications down the patient has had seizures shortly after. They had noticed increased lethargy over the past 24 hours as well as. There was no documented fevers, chest pain, signs or symptoms of abdominal pain. The patient is limited in his communication at baseline since his return home. He can sometimes talk in small sentences or say some words, laugh at jokes. He has had a significant decline from previously. He is a Khanh 24/7 and cannot stand on his own more than 24 seconds. The patient has a history of aspiration pneumonia from his last hospitalization and there was concern that he could have developed another pneumonia. He was brought to the ER for further evaluation today. In the emergency room vital signs were stable. WBC 17.5, H&H 12/30.6, platelets 467. Sodium was slightly low at 133. AST slightly elevated at 41, BNP 1347, increased from last hospitalization. Valproic acid level was 106. Blood cultures 2 sets were collected as well as a sputum culture. Covid was negative. Chest x- ray showed right upper lobe infiltrate and questionable left lower lung pneumonia. The patient was lethargic when examined, would not converse at all but did follow some directions (i.e. when asked to take a deep breath he would do so). He did not have any lower extremity swelling or upper extremity swelling. He had no open wounds. The patient was ultimately admitted under inpatient status for ? bilateral healthcare associated pneumonia vs. aspiration pneumonia. REVIEW OF SYSTEMS: Unable to obtain from patient due to hx of MR, lethargic PMH: Hx of aspiration PNA, dysphagia (last hospitalization mentioned above) Afib/flutter on eliquis Pericarditis of unclear etiology (s/p tx last hospitalization) Pericardial effusion Pleural effusion DOWN SYNDROME WITH MENTAL RETARDATION , BEHAVIORS SEIZURE DISORDER DEMENTIA URINARY INCONTINENCE ESSENTIAL HYPERTENSION VITAMIN D DEFICIENCY OSTEOPOROSIS HYPOTHYROIDISM SEVERE LOU ON CPAP URINARY INCONTINENCE WITHOUT SENSORY AWARENESS Unsure if urologic or behavioral on oxybutynin. ELEVATED PSA SEVERE CERVICAL SPONDYLOSIS WITH NECK PAIN AND FORAMINAL NERVE COMPRESSION PER CT OF THE [facility] TO 2013. Hx of ANGER/ DEPRESSION/ INSOMNIA Hx of HEMORRHOIDS Hx of DIVERTICULOSIS OLD COMPRESSION FRACTURE OF THE T1 VERTEBRA PAST SURGICAL HISTORY: Nose surgery SOCIAL HISTORY: No smoking alcohol or drug use history. Lives with his locally, has 10/03 care givers plus family who is very engaged with his healthcare. Khanh 10/03. PCP- Hanna Mena, Oil Heater Installer- Dr. Putnam, Neurology referral placed but has not been able to follow up with them as of yet. Previously following in [place] but that was >4 yrs ago. Full code. No HCP or living will in place. Emergency contact is his brother Nikko [phone]. FAMILY HX: FATHER: , TYPE II DIABETES MOTHER: ALIVE SIBLINGS: ALIVE 2 BROTHER(S) , 3 SISTER(S) - HEALTHY. BROTHER HAS HAD KIDNEY STONES ALLERGIES: Please see below. HOME MEDICATIONS: Please see below. PHYSICAL EXAMINATION: VS: 97.6F, HR 85, RR 16, BP 113/86, 92% on RA CONSTITUTIONAL: No acute distress, resting in bed, did not answer questions of orientation, lethargic, would look up slightly from his head in a forward position only intermittently. EYES: PERRLA, EOM intact HENT, MOUTH: Normocephalic, atraumatic, moist mucous membranes NECK: SUPPLE, no JVD, no lymphadenopathy, no carotid bruit CV: Irregularly irregular, S1S2 normal, no murmurs/rubs/gallops RESPIRATORY: Clear to auscultation bilaterally, no rales/rhonchi/wheezes GI: BS positive in 4 quadrants, soft, nontender, nondistended, no rebound or guarding, no organomegaly : Deferred MUSCULOSKELETAL: ROM not tested. No cyanosis, clubbing, joint deformity, mild nonpitting upper extremity edema INTEGUMENTARY: Intact, no rashes, no lesions, no erythema NEUROLOGIC: No focal deficits LABORATORY DATA: Please see below IMAGING: CXR: Right upper lobe and possibly, left lower lobe pneumonia. Last echo 11/30/20: EF 50-55% 1. Low-normal global left ventricular systolic. Assessment of the left ventricular diastolic function was limited in view of the underlying cardiac arrhythmia, atrial fibrillation. 2. Aortic valve sclerosis with trace aortic regurgitation, but no aortic stenosis. 3. Mitral annular calcification with moderate mitral regurgitation. Subjectively, the left atrium is enlarged. 4. Mild tricuspid regurgitation. 5. A small pericardial effusion was noted, no evidence of cardiac tamponade. 6. There are some features of elevated central venous pressure; the inferior vena cava was mildly enlarged. 7. When compared with prior echocardiograms, the pericardial effusion is much less. The inferior vena cava also is smaller. Left ventricular systolic function was thought to be lower when compared to prior echocardiogram. ASSESSMENT: 60-year-old male with extensive past medical history including atrial fib/flutter on Ahlquist, seizure disorder, dementia, urinary incontinence, hypertension, LOU on CPAP, recent aspiration pneumonia with dysphasia diagnosis on pured diet, other chronic illnesses listed above admitted under inpatient status for ? bilateral healthcare associated pneumonia vs. aspiration pneumonia. PLAN: Bilateral healthcare associated pneumonia vs. aspiration pneumonia vs. both -Concerns for increased dysphagia today by home health nurse, increased lethargy. Hx of aspiration PNA, dysphagia and on pureed diet at home -WBC 17.5, afebrile, hemodynamically stable currently saturating 92% on room air -Chest x-ray above -Follow up blood cultures and sputum culture, MRSA test -Started on broad spectrum abx: Vancomycin, levofloxacin, cefepime. If MRSA neg, stop Vancomycin -Aspiration precautions, HOB elevated. -F/u ST recommendations- Note: has been seeing speech therapist as o/p so perhaps our ST can touch base with them to get more information -NPO for now Afib/flutter on eliquis -Rate controlled -Holding PO BB and eliquis -IV digoxin while NPO, lovenox for px -Tele Mild hyponatremia -Na 133, hx of severe hyponatremia on last hospitalization -Monitor daily -Will get some fluids with IV abx. With incr BNP not adding additional fluids at this time. Hx of pericarditis of unclear etiology (s/p tx last hospitalization), pericardial effusion, pleural effusion -BNP mildly elevated at 1347, no overt s/s of fluid overload on CXR or exam -Last BNP 690 11/06/20 -Last echo from 11/30/20 above -Has followed up with virtualization architect since ARU discharge, told that next echo will be in 04/2021 -Monitor for s/s of worsening overload, will not repeat echo at this time -Can intermittently diurese if needed Seizure d/o -Has been stable at home -Was to follow up with neurologist locally after ARU discharge but has not seen yet -Valproic acid level: 106, slightly high -C/w divalproex IV QAM and QHS -Add seizure precautions if seizure activity seen Dementia / Down syndrome with MR / behaviors -Lives with his who has cerebral palsy, 10/03 caregivers plus family who helps with him -Khanh -Not currently at baseline per brother -Resume PO meds after clearance from Urinary incontinence -Resume PO meds after clearance from HTN -Stable -Resume PO meds after clearance from Hypothyroidism -TSH -Resume PO meds after clearance from Severe LOU on CPAP -Asked if family can bring in home CPAP GI px -PPI DVT px -Holding PO eliquis due to NPO status, lovenox SC daily DISPOSITION: Admitted as acute inpatient. ST ordered for tomorrow to see. Family would like home at discharge as before. Vital Signs Vital Signs Date Time Temp Pulse Resp B/P (MAP) Pulse Ox O2 Delivery O2 Flow Rate FiO2 01/07/21 13:00 85 16 113/86 (95) 92 Room Air 01/07/21 10:50 97.6 Laboratory Data Labs 24H Laboratory Tests 2 01/07/21 11:03: Immature Granulocyte % (Auto) 0.6, Neutrophils (%) (Auto) 70.0H, Lymphocytes (%) (Auto) 15.8L, Monocytes (%) (Auto) 12.9H, Eosinophils (%) (Auto) 0.4, Basophils (%) (Auto) 0.3, Neutrophils # (Auto) 12.2H, Lymphocytes # (Auto) 2.8, Monocytes # (Auto) 2.3H, Eosinophils # (Auto) 0.1, Basophils # (Auto) 0.1, Nucleated Red Blood Cells % (auto) 0.0, Anion Gap 5L, Glomerular Filtration Rate > 60.0, Lactic Acid Level 1.2, Calcium Level 9.8, Total Bilirubin 0.3, Direct Bilirubin 0.1, Aspartate Amino Transf (AST/SGOT) 41H, Alanine Aminotransferase (ALT/SGPT) 44, Alkaline Phosphatase 255H, Total Creatine Kinase 26L, Creatine Kinase MB < 1.0, Creatine Kinase MB Relative Index 3.85, Troponin I < 0.02, GY-Xio-E-Type Natriuretic Peptide 1347H, Total Protein 7.0, Albumin 2.1L, Albumin/Globulin Ratio 0.4, Thyroid Stimulating Hormone (TSH) 2.550, Thyroxine (T4) 6.6, Valproic Acid (Depakene) Level 106.0H CBC/BMP Laboratory Tests 01/07/21 11:03 Microbiology Microbiology 01/07/21 Respiratory Virus Panel (PCR) (TING) - Final, Complete 01/07/21 Blood Culture, Received Pending 01/07/21 Blood Culture, Received Pending Home Medications Scheduled Apixaban (Eliquis) 5 Mg Tablet, 5 MG PO BID Ascorbic Acid (Vitamin C) 500 Mg Tablet, 1,000 MG PO DAILY Bisoprolol Fumarate (Bisoprolol Fumarate) 5 Mg Tablet, 5 MG PO BID Cholecalciferol (Vitamin D3) (Vitamin D3) 50 Mcg Tablet, 50 MCG PO DAILY Digoxin (Digoxin) 250 Mcg Tablet, 0.25 MG PO DAILY Divalproex Sodium (Divalproex Sodium ER) 250 Mg Tab.er.24h, 750 MG PO DAILY Divalproex Sodium (Divalproex Sodium ER) 250 Mg Tab.er.24h, 500 MG PO QHS Felbamate (Felbamate) 600 Mg Tablet, 1,800 MG PO BID Ferrous Gluconate (Ferrous Gluconate) 324 Mg Tablet, 324 MG PO DAILY Levothyroxine Sodium (Levothyroxine Sodium) 50 Mcg Tablet, 50 MCG PO DAILY@0600 Magnesium Oxide (Magnesium) 400 Mg Capsule, 400 MG PO DAILY Paroxetine HCl (Paroxetine HCl) 20 Mg Tablet, 20 MG PO DAILY Tamsulosin HCl (Flomax) 0.4 Mg Capsule, 0.4 MG PO DAILY STARTED AT [facility] Allergies Coded Allergies: No Known Allergies (Verified , 02/21/03) A-FIB/CHADSVASC A-FIB History Current/History of A-Fib/PAF?: Yes Current PO Anticoag Therapy: Yes Age/Risk Factor Scoring CHADSVASC: CHADSVASC Response (Comments) Value Age Risk Factor Age < 65 years old 0 Gender Risk Factor Male 0 Hx of CHF No 0 Hx of HTN Yes 1 Hx of Stroke/TIA/or VTE No 0 Hx of Diabetes No 0 Hx of Vascular Disease No 0 Total 1 Treatment Treatment ordered: Other Other anticoagulant ordered: Rupinder Wyman MD January 07, 2021 14:13
[2021-01-07] MEDS ORDERED: SYNT50TA PO (16:00)
[2021-01-07] MEDS ORDERED: PARO20TA3 PO (16:00)
[2021-01-07] MEDS ORDERED: PANTOPRAZOLE 40MG VIAL (C9113 PER 1) IV SCH (16:00)
[2021-01-07] MEDS ORDERED: VITA500C24 PO (16:00)
[2021-01-07] MEDS ORDERED: BISO5TAB14 PO (16:00)
[2021-01-07] MEDS ORDERED: TAMS1CAP17 PO (16:00)
[2021-01-07] MEDS ORDERED: DEPA1CAP PO ×2 (16:00)
[2021-01-07] MEDS ORDERED: DIGO0.253 PO (16:00)
[2021-01-07 16:37] VITALS: BP 128/94
[2021-01-07] MEDS ORDERED: BELLADONNA 16.2mg/OPIUM 60mg 1 EA SUPP PR ONE (16:55)
[2021-01-07] MEDS ORDERED: VANCOMYCIN HCL 1,000 MG, VIAL MATE ADAPTER 1 EACH in NS 250 ML IV ONE (20:00)
--- NOTE | 2021-01-07 20:38 | ECGEPIP ---
[facility] - ED Test Date: 2021-01-07 Pat Name: LUDY GARCIA Department: Room: [place] [address] Gender: Male Sas Analyst: ED : 1960 Requested By: LIANNE Hoskins Order Number: [id number] Reading MD: Nj Frances Measurements Intervals [place] Rate: 87 P: 13 VA: QRS: 20 QRSD: 94 T: 201 QT: 336 QTc: 404 Interpretive Statements Atrial flutter with variable AV block Nonspecific ST and T wave abnormality RHYTHM/RATE CHANGE COMPARED TO 11/21/20 Electronically Signed on 01-07-2021 20:38:28 EDT by Nj Frances
[2021-01-07] MEDS ORDERED: VALPROATE SOD INJ 500 MG in D5W 50 ML IV SCH (21:00)
[2021-01-07 22:00] VITALS: BP 131/88
[2021-01-07] MEDS ORDERED: LevoFLOXacin IV 500 MG in IV 1 EA IV SCH (23:00)
[2021-01-08] MEDS: CEFEPIME HCL 1 GM in D5W MINI-BAG PLUS 50 ML IV SCH ×2 (01:30→13:44)
[2021-01-08] MEDS: VANCOMYCIN HCL 750 MG, VIAL MATE ADAPTER 1 EACH in NS 250 ML IV SCH ×3 (04:38→20:08)
[2021-01-08 06:00] VITALS: BP 120/81
[2021-01-08 07:42] LABS: HEMATOCRIT 43.7 % (42.0-52.0); HEMOGLOBIN 13.9 g/dl (13.5-17.5); MEAN CORPUSCULAR HGB CONC 31.8 g/dl (32.0-36.5); MEAN CORPUSCULAR VOLUME 97.5 fl (80.0-96.0); PLATELET COUNT, AUTOMATED 405 10^3/uL (150-450); RED BLOOD COUNT 4.48 10^6/uL (4.30-6.10); WHITE BLOOD COUNT 13.4 10^3/uL (4.0-10.0)
[2021-01-08 08:08] LABS: ALBUMIN 2.4 GM/DL (3.2-5.2); ALT/SGPT 38 U/L (12-78); BILIRUBIN,TOTAL 0.3 MG/DL (0.2-1.0); BLOOD UREA NITROGEN 13 MG/DL (7-18); CALCIUM LEVEL 9.9 MG/DL (8.8-10.2); CARBON DIOXIDE LEVEL 25 MEQ/L (21-32); CHLORIDE LEVEL 101 MEQ/L (98-107); GLOMERULAR FILTRATION RATE > 60.0 (>49); GLUCOSE, FASTING 75 MG/DL (70-100); POTASSIUM SERUM 4.5 MEQ/L (3.5-5.1); SODIUM LEVEL 133 MEQ/L (136-145); TOTAL PROTEIN 7.1 GM/DL (6.4-8.2)
[2021-01-08] MEDS ORDERED: ENOXAPARIN 40MG/0.4ML SYRINGE (J1650 PER 10MG) SC SCH (09:00)
[2021-01-08] MEDS ORDERED: DIGOXIN INJ 0.5 MG/2 ML AMP (J1160) IV SCH (09:00)
[2021-01-08] MEDS ORDERED: VALPROATE SOD INJ 750 MG in D5W 50 ML IV SCH (09:00)
[2021-01-08] MEDS ORDERED: VALPROATE SOD INJ 250 MG in D5W 50 ML IV SCH (09:00)
[2021-01-08] MEDS: LEVOTHYROXINE 50MCG TABLET (0.05MG) PO SCH (12:02)
[2021-01-08] MEDS: PARoxetine 20MG TABLET PO SCH (12:03)
[2021-01-08] MEDS: MAGNESIUM OXIDE 400MG TAB (MAG-OX) PO SCH (12:03)
[2021-01-08] MEDS: TAMSULOSIN 0.4 MG CAP PO SCH (12:03)
[2021-01-08] MEDS: ASCORBIC ACID 500 MG TAB PO SCH (12:03)
[2021-01-08] MEDS: bisoproloL fumarate 5 MG TAB PO SCH ×2 (12:04→20:15)
[2021-01-08] MEDS: APIXABAN 5 MG TAB (ELIQUIS) PO SCH ×2 (12:04→20:13)
[2021-01-08] MEDS: FERROUS GLUCONATE 324 MG TAB PO SCH (12:05)
[2021-01-08 12:38] LABS: INR 1.27; PROTHROMBIN TIME 16.2 SECONDS (12.5-14.3)
[2021-01-08 12:40] LABS: PARTIAL THROMBOPLASTIN TIME 39.4 SECONDS (24.2-38.5)
[2021-01-08] MEDS: DIVALPROEX SPRINKLE 125 MG CAP PO SCH ×2 (13:44→20:15)
[2021-01-08 14:00] VITALS: BP 128/84
[2021-01-08] MEDS: AZITHROMYCIN 250MG TABLET PO SCH (15:06)
--- NOTE | 2021-01-08 19:20 | IPNPDOC ---
Date Seen The patient was seen on 01/08/21. Progress Note SUBJECTIVE: ST cleared today for pureed diet, honey thickened liquids. More awake and answering some questions. Updated brother Noble. No acute events overnight. OBJECTIVE: PHYSICAL EXAMINATION: VS: Please see below CONSTITUTIONAL: No acute distress, resting in bed, making eye contact with me, answering yes and no to some questions- per family this is closer to his baseline EYES: PERRLA, EOM intact HENT, MOUTH: Normocephalic, atraumatic, moist mucous membranes NECK: SUPPLE, no JVD, no lymphadenopathy, no carotid bruit CV: Irregularly irregular, S1S2 normal, no murmurs/rubs/gallops RESPIRATORY: Clear to auscultation bilaterally, no rales/rhonchi/wheezes GI: BS positive in 4 quadrants, soft, nontender, nondistended, no rebound or guarding, no organomegaly : Deferred MUSCULOSKELETAL: ROM not tested. No cyanosis, clubbing, joint deformity, mild nonpitting upper extremity edema INTEGUMENTARY: Intact, no rashes, no lesions, no erythema NEUROLOGIC: No focal deficits LABORATORY DATA: Please see below IMAGING: CXR: Right upper lobe and possibly, left lower lobe pneumonia. Last echo 11/30/20: EF 50-55% 1. Low-normal global left ventricular systolic. Assessment of the left ventricular diastolic function was limited in view of the underlying cardiac arrhythmia, atrial fibrillation. 2. Aortic valve sclerosis with trace aortic regurgitation, but no aortic stenosis. 3. Mitral annular calcification with moderate mitral regurgitation. Subjectively, the left atrium is enlarged. 4. Mild tricuspid regurgitation. 5. A small pericardial effusion was noted, no evidence of cardiac tamponade. 6. There are some features of elevated central venous pressure; the inferior vena cava was mildly enlarged. 7. When compared with prior echocardiograms, the pericardial effusion is much less. The inferior vena cava also is smaller. Left ventricular systolic function was thought to be lower when compared to prior echocardiogram. ASSESSMENT: 60-year-old male with extensive past medical history including atrial fib/flutter on Ahlquist, seizure disorder, dementia, urinary incontinence, hypertension, LOU on CPAP, recent aspiration pneumonia with dysphasia diagnosis on pured diet, other chronic illnesses listed above admitted under inpatient status for ? bilateral healthcare associated pneumonia vs. aspiration pneumonia. PLAN: Bilateral healthcare associated pneumonia vs. aspiration pneumonia vs. both -Saturating well on RA -WBC improved to 13.4, afebrile -Chest x-ray above -Follow up blood cultures and sputum culture, MRSA test -Aspiration precautions, HOB elevated. -ST recommendations: pureed diet with honey thickened liquids -Started on broad spectrum abx: Vancomycin, azithromybin, cefepime. If MRSA neg, stop Vancomycin. Deescalate abx as cx return. Afib/flutter on eliquis -Rate controlled -Holding PO BB and eliquis -IV digoxin while NPO, lovenox for px -Tele Mild hyponatremia -Na 133 persists, hx of severe hyponatremia on last hospitalization -Monitor daily -Will get some fluids with IV abx. With incr BNP not adding additional fluids at this time. Hx of pericarditis of unclear etiology (s/p tx last hospitalization), pericard ial effusion, pleural effusion -BNP mildly elevated at 1347, no overt s/s of fluid overload on CXR or exam -Last BNP 690 11/06/20 -Last echo from 11/30/20 above -Has followed up with section gang worker since ARU discharge, told that next echo will be in 04/2021 -Monitor for s/s of worsening overload, will not repeat echo at this time -Can intermittently diurese if needed Seizure d/o -Has been stable at home -Was to follow up with neurologist locally after ARU discharge but has not seen yet -Valproic acid level: 106, slightly high -C/w divalproex PO QAM and QHS -Add seizure precautions if seizure activity seen Dementia / Down syndrome with MR / behaviors -Lives with his who has cerebral palsy, 10/03 caregivers plus family who helps with him -Khanh -Not currently at baseline per brother -C/w home med Urinary incontinence -C/w home med HTN -Stable -c/w home med Hypothyroidism -TSH -C/w home med Severe LOU on CPAP -Asked if family can bring in home CPAP GI px -PPI DVT px -eliquis DISPOSITION: Patient's brothers Noble and Leo are very active in his healthcare planning. Talked to Noble today, who said eLo would like to be HCP. There is no documentation from the patient himself stating this is official- they never filled these papers out while he was able. Discussed with PFS, Felipe, about wishes of family to help patient make medical decisions. He was going to [place] with family to see what would need to be done to help family through this process of becoming HCP. Family's goal is still to take patient home with 10/03 care from caregivers available. VS, I&O, 24H, Fishbone Vital Signs/I&O Vital Signs Date Time Temp Pulse Resp B/P (MAP) Pulse Ox O2 Delivery O2 Flow Rate FiO2 01/08/21 14:00 98.4 67 16 128/84 (99) 95 Room Air I&O- Last 24 Hours up to 6 AM 01/08/21 06:00 Intake Total 630 ml Balance 630 ml Laboratory Data 24H LABS Laboratory Tests 2 01/08/21 07:13: Nucleated Red Blood Cells % (auto) 0.0, Anion Gap 7L, Glomerular Filtration Rate > 60.0, Calcium Level 9.9, Total Bilirubin 0.3, Aspartate Amino Transf (AST/SGOT) 23, Alanine Aminotransferase (ALT/SGPT) 38, Alkaline Phosphatase 273H, Total Protein 7.1, Albumin 2.4L, Albumin/Globulin Ratio 0.5 01/08/21 10:56: Vancomycin Level Trough 11.8 01/08/21 12:12: Prothrombin Time 16.2H, Prothromb Time International Ratio 1.27, Activated Partial Thromboplast Time 39.4H CBC/BMP Laboratory Tests 01/08/21 07:13 Microbiology Microbiology 01/07/21 Respiratory Virus Panel (PCR) (TING) - Final, Complete 01/07/21 Blood Culture - Preliminary, Resulted No growth after 24 hours . All specim... 01/07/21 Blood Culture - Preliminary, Resulted No growth after 24 hours . All specim... Rupinder Silva MD January 08, 2021 19:20
[2021-01-08 22:00] VITALS: BP 146/80
[2021-01-09] MEDS: CEFEPIME HCL 1 GM in D5W MINI-BAG PLUS 50 ML IV SCH ×2 (00:45→14:22)
[2021-01-09] MEDS: VANCOMYCIN HCL 750 MG, VIAL MATE ADAPTER 1 EACH in NS 250 ML IV SCH (03:30)
[2021-01-09 06:00] VITALS: BP 141/81
[2021-01-09 06:54] LABS: HEMATOCRIT 38.1 % (42.0-52.0); HEMOGLOBIN 12.4 g/dl (13.5-17.5); MEAN CORPUSCULAR HEMOGLOBIN 30.8 pg (27.0-33.0); MEAN CORPUSCULAR HGB CONC 32.5 g/dl (32.0-36.5); MEAN CORPUSCULAR VOLUME 94.8 fl (80.0-96.0); PLATELET COUNT, AUTOMATED 365 10^3/uL (150-450); RED BLOOD COUNT 4.02 10^6/uL (4.30-6.10); WHITE BLOOD COUNT 11.7 10^3/uL (4.0-10.0)
[2021-01-09 07:14] LABS: ALT/SGPT 63 U/L (12-78); BILIRUBIN,TOTAL 0.4 MG/DL (0.2-1.0); BLOOD UREA NITROGEN 11 MG/DL (7-18); CALCIUM LEVEL 9.8 MG/DL (8.8-10.2); CARBON DIOXIDE LEVEL 23 MEQ/L (21-32); CHLORIDE LEVEL 103 MEQ/L (98-107); CREATININE FOR GFR 0.35 MG/DL (0.70-1.30); GLOMERULAR FILTRATION RATE > 60.0 (>49); GLUCOSE, FASTING 92 MG/DL (70-100); POTASSIUM SERUM 3.8 MEQ/L (3.5-5.1); SODIUM LEVEL 133 MEQ/L (136-145); TOTAL PROTEIN 6.9 GM/DL (6.4-8.2)
[2021-01-09] MEDS: APIXABAN 5 MG TAB (ELIQUIS) PO SCH ×2 (09:51→20:29)
[2021-01-09] MEDS: TAMSULOSIN 0.4 MG CAP PO SCH (09:51)
[2021-01-09] MEDS: MAGNESIUM OXIDE 400MG TAB (MAG-OX) PO SCH (09:51)
[2021-01-09] MEDS: DIVALPROEX SPRINKLE 125 MG CAP PO SCH ×2 (09:51→20:30)
[2021-01-09] MEDS: AZITHROMYCIN 250MG TABLET PO SCH (09:52)
[2021-01-09] MEDS: LEVOTHYROXINE 50MCG TABLET (0.05MG) PO SCH (09:52)
[2021-01-09] MEDS: ASCORBIC ACID 500 MG TAB PO SCH (09:52)
[2021-01-09] MEDS: FERROUS GLUCONATE 324 MG TAB PO SCH (09:52)
[2021-01-09] MEDS: bisoproloL fumarate 5 MG TAB PO SCH ×2 (09:52→20:30)
[2021-01-09] MEDS: PARoxetine 20MG TABLET PO SCH (09:52)
--- NOTE | 2021-01-09 11:10 | IPN ---
PROGRESS NOTE DATE: 01/09/2021 SUBJECTIVE: Leo was seen in [address] [place] [address]. He was admitted two days ago with bilateral healthcare associated versus aspiration pneumonia. He is on Vancomycin, Azithromycin and Cefepime. Still waiting for his MRSA screen to come back to decide on continuing the Vancomycin. He has history of atrial fibrillation/flutter on anticoagulation therapy with Eliquis, mild hyponatremia (history of severe hyponatremia last hospitalization), history of pericarditis, pleural effusion, pericardial effusion last admission, probably due to volume overload, history of dementia and Down's Syndrome with mental retardation behavior disturbance. He lives with his , who has cerebral palsy, has 24/7 caregivers in the home. He has severe LOU on CPAP, and is supposed to be using this. Family is supposed to bring in his home CPAP. Speech therapy cleared him yesterday for pureed diet with honey thickened liquids. His mental status has been intermittent and he was sleepy and not terribly arousable today. PHYSICAL EXAMINATION: VITAL SIGNS: Blood pressure 120/70, afebrile, O2 saturation 93% on room air. GENERAL APPEARANCE: He is drowsy and did not awaken to follow commands. LUNGS: Basically clear. HEART: Regular rhythm. ABDOMEN: Soft, nontender. NEUROLOGIC: Non-testable./ LABORATORY DATA: White count 11.7, hemoglobin 12.4, platelets 365,000. Sodium 133, potassium 3.8, BUN 11, creatinine 0.35, glucose 92. MRSA screen still pending. IMPRESSION: 1. Healthcare associated versus aspiration pneumonia: On I.V. Vancomycin, I.V. Cefepime and oral Azithromycin. It is unlikely that this is atypical pneumonitis, so I am stopping the Azithromycin. The MRSA screen is pending, and Vancomycin could be discontinued if this is negative. Hard to assess for a clinical response as he is sleeping. 2. Atrial fibrillation: Rate is controlled and he is on Eliquis for thromboembolic prophylaxis. Will restart his oral Digoxin. Continue his Bisoprolol. 3. Hypothyroidism: TSH normal on current dose of Levothyroxine. 4. BPH: Continue his Tamsulosin. Try to ambulate to avoid acute urinary retention. 5. Recent episode of pericardial effusion: He had an echocardiogram on 11/30/2020; ejection fraction of 50 to 55%, small pericardial effusion without evidence of chamber compression. 6. History of severe hyponatremia: Sodium is stable, needs to be followed on a daily basis. 7. Seizure disorder: Valproic acid level was elevated on admission. Received some I.V. Valproic acid. He is now taking oral and we can restart his oral regimen.
[2021-01-09] MEDS: VANCOMYCIN HCL 1,000 MG, VIAL MATE ADAPTER 1 EACH in NS 250 ML IV SCH ×2 (12:37→20:28)
[2021-01-09] MEDS: DIGOXIN 0.25 MG TAB PO SCH (12:37)
[2021-01-09 14:00] VITALS: BP 131/75
[2021-01-09 22:00] VITALS: BP 134/75
[2021-01-10] MEDS: CEFEPIME HCL 1 GM in D5W MINI-BAG PLUS 50 ML IV SCH ×2 (00:09→14:39)
[2021-01-10 00:19] VITALS: BP 166/100
[2021-01-10] MEDS ORDERED: ACETAMINOPHEN TAB 650MG DOSE (2X325MG) PO PRN (00:40)
[2021-01-10] MEDS ORDERED: METOPROLOL TART 25 MG TABLET PO ONE (01:15)
[2021-01-10 01:47] VITALS: BP 136/64
[2021-01-10] MEDS: NS 1,000 ML IV SCH ×2 (02:08→12:34)
[2021-01-10] MEDS: VANCOMYCIN HCL 1,000 MG, VIAL MATE ADAPTER 1 EACH in NS 250 ML IV SCH ×2 (03:41→12:34)
[2021-01-10 06:00] VITALS: BP 120/68
[2021-01-10 06:33] LABS: HEMATOCRIT 34.9 % (42.0-52.0); HEMOGLOBIN 11.5 g/dl (13.5-17.5); MEAN CORPUSCULAR HEMOGLOBIN 31.1 pg (27.0-33.0); MEAN CORPUSCULAR VOLUME 94.3 fl (80.0-96.0); PLATELET COUNT, AUTOMATED 358 10^3/uL (150-450); WHITE BLOOD COUNT 11.5 10^3/uL (4.0-10.0)
[2021-01-10 06:56] LABS: BLOOD UREA NITROGEN 11 MG/DL (7-18); CALCIUM LEVEL 9.5 MG/DL (8.8-10.2); CARBON DIOXIDE LEVEL 24 MEQ/L (21-32); CHLORIDE LEVEL 102 MEQ/L (98-107); CREATININE FOR GFR 0.26 MG/DL (0.70-1.30); GLOMERULAR FILTRATION RATE > 60.0 (>49); GLUCOSE, FASTING 89 MG/DL (70-100); SODIUM LEVEL 133 MEQ/L (136-145)
[2021-01-10] MEDS: FERROUS GLUCONATE 324 MG TAB PO SCH (09:27)
[2021-01-10] MEDS: APIXABAN 5 MG TAB (ELIQUIS) PO SCH ×2 (09:27→20:26)
[2021-01-10] MEDS: MAGNESIUM OXIDE 400MG TAB (MAG-OX) PO SCH (09:27)
[2021-01-10] MEDS: DIVALPROEX SPRINKLE 125 MG CAP PO SCH ×2 (09:28→20:28)
[2021-01-10] MEDS: ASCORBIC ACID 500 MG TAB PO SCH (09:28)
[2021-01-10] MEDS: TAMSULOSIN 0.4 MG CAP PO SCH (09:28)
[2021-01-10] MEDS: LEVOTHYROXINE 50MCG TABLET (0.05MG) PO SCH (09:28)
[2021-01-10] MEDS: bisoproloL fumarate 5 MG TAB PO SCH ×2 (09:30→20:29)
[2021-01-10] MEDS: PARoxetine 20MG TABLET PO SCH (09:30)
[2021-01-10] MEDS: DIGOXIN 0.25 MG TAB PO SCH (09:31)
[2021-01-10 12:02] LABS: VANCOMYCIN LEVEL TROUGH 15.4 UG/ML (10.0-20.0)
[2021-01-10 14:00] VITALS: BP 166/86
--- NOTE | 2021-01-10 14:06 | REP ---
INDICATION: PNA COMPARISON: 01/07/2021 TECHNIQUE: PA and lateral. FINDINGS: Mediastinum and cardiac silhouette are stable. Chronic interstitial changes again noted. Small area of infiltrate along the basilar right upper lobe and possible small subtle patchy bilateral infiltrates including posterior basilar infiltrate identified on lateral radiograph. No definite effusion. No pneumothorax. Skeletal structures are stable. IMPRESSION: Chronic changes with patchy infiltrates again suggested. Follow-up to resolution recommended. <Electronically signed by Kj Gloria > 01/10/21 [id number]
[2021-01-10 14:41] LABS: VALPROIC ACID (DEPAKOTE) 105.8 UG/ML (50.0-100.0)
[2021-01-10 15:23] VITALS: BP 160/83
--- NOTE | 2021-01-10 15:55 | IPNPDOC ---
Text Note Date of Service The patient was seen on 01/10/21. NOTE Hospitalist Progress Note Subjective: Patient seems more awake today than he was described to be in the past few days. He is answering my questions with yes/no. He does not have any pain at this time, he does not have any cough, and he overall seems to be feeling well. Objective: General: Awake, alert. Not in any acute distress. HEENT: Head normocephalic, atraumatic, sclera are nonicteric. Hearing is grossly intact to conversation. Respiratory: Clear to auscultation bilaterally with no wheezes, rales, or rhonchi. Cardiovascular: Regular rate and rhythm, with no rubs, gallops, or murmur. Abdomen: Soft, nontender, nondistended, no hepatosplenomegaly appreciated. Bowel sounds present. Extremities: 2+ pulses in the radial and dorsalis pedis bilaterally. No evidence of clubbing or cyanosis. Assessment: Healthcare associated versus aspiration pneumonia Atrial fibrillation, rate controlled Hypothyroidism Benign prostatic hypertrophy Pericardial effusion without evidence of compression History of chronic hyponatremia Seizure disorder Plan: We have now resume the patient's home med of valproic acid, but he did have a seizure-like event overnight, and then he had another one this afternoon. Appare ntly he is also taking an additional medication at home for seizures that is not available in our formulary Felbamate 1800mg BID, I have put in an order that we can use the patient's own med. Repeat valproic acid level today shows that it is just barely above the target level upper limit, which is essentially identical to where he was when he came in on admission. Additionally he did spike a fever last night, however his leukocytosis continues to trend down nicely. Repeat chest x-ray today shows mild patchy infiltrates in the right upper lobe, possibly the bilateral lower lobes, largely unchanged since his last chest x-ray a few days ago. Also, after discussion with the patient's brother Noble Machado , it appears that the family is in agreement and stated that they would like to have the patient made DNR. I am agreeable with this course of action, PFS is actively trying to get paperwork arranged so that this can be done properly. VS,Hernán, I+O VS, Hernán, I+O Laboratory Tests 01/10/21 05:53 Vital Signs Date Time Temp Pulse Resp B/P (MAP) Pulse Ox O2 Delivery O2 Flow Rate FiO2 01/10/21 15:23 160/83 (108) 01/10/21 14:00 99.9 74 20 94 01/10/21 06:00 Room Air I&O- Last 24 Hours up to 6 AM 01/10/21 06:00 Intake Total 1770 ml Output Total 665 ml Balance 1105 ml LEONA BARRY DO January 10, 2021 15:54
[2021-01-10] MEDS: FELBAMATE 600 MG PO SCH (16:16)
[2021-01-10 22:00] VITALS: BP 144/79
[2021-01-11] MEDS: CEFEPIME HCL 1 GM in D5W MINI-BAG PLUS 50 ML IV SCH ×2 (00:51→13:27)
[2021-01-11 06:00] VITALS: BP 121/77
[2021-01-11 06:53] LABS: HEMATOCRIT 35.6 % (42.0-52.0); HEMOGLOBIN 11.6 g/dl (13.5-17.5); MEAN CORPUSCULAR HEMOGLOBIN 31.1 pg (27.0-33.0); MEAN CORPUSCULAR HGB CONC 32.6 g/dl (32.0-36.5); MEAN CORPUSCULAR VOLUME 95.4 fl (80.0-96.0); PLATELET COUNT, AUTOMATED 338 10^3/uL (150-450); RED BLOOD COUNT 3.73 10^6/uL (4.30-6.10)
[2021-01-11 07:16] LABS: BLOOD UREA NITROGEN 8 MG/DL (7-18); CALCIUM LEVEL 9.3 MG/DL (8.8-10.2); CARBON DIOXIDE LEVEL 25 MEQ/L (21-32); CHLORIDE LEVEL 101 MEQ/L (98-107); CREATININE FOR GFR 0.34 MG/DL (0.70-1.30); GLOMERULAR FILTRATION RATE > 60.0 (>49); GLUCOSE, FASTING 80 MG/DL (70-100); POTASSIUM SERUM 4.2 MEQ/L (3.5-5.1); SODIUM LEVEL 132 MEQ/L (136-145)
[2021-01-11] MEDS: FERROUS GLUCONATE 324 MG TAB PO SCH (09:00)
[2021-01-11] MEDS: LEVOTHYROXINE 50MCG TABLET (0.05MG) PO SCH (09:48)
[2021-01-11] MEDS: bisoproloL fumarate 5 MG TAB PO SCH ×2 (09:48→22:17)
[2021-01-11] MEDS: PARoxetine 20MG TABLET PO SCH (09:49)
[2021-01-11] MEDS: DIVALPROEX SPRINKLE 125 MG CAP PO SCH ×2 (09:49→22:15)
[2021-01-11] MEDS: APIXABAN 5 MG TAB (ELIQUIS) PO SCH ×2 (09:49→22:16)
[2021-01-11] MEDS: ASCORBIC ACID 500 MG TAB PO SCH (09:50)
[2021-01-11] MEDS: MAGNESIUM OXIDE 400MG TAB (MAG-OX) PO SCH (09:50)
[2021-01-11] MEDS: TAMSULOSIN 0.4 MG CAP PO SCH (09:50)
[2021-01-11] MEDS: DIGOXIN 0.25 MG TAB PO SCH (09:50)
[2021-01-11] MEDS: FELBAMATE 600 MG PO SCH ×2 (09:51→22:13)
[2021-01-11] MEDS ORDERED: OXYMETAZOLINE 0.05% NASAL SPRAY (AFRIN) PRN (10:15)
[2021-01-11 14:00] VITALS: BP 129/79
--- NOTE | 2021-01-11 14:45 | IPNPDOC ---
Text Note Date of Service The patient was seen on 01/11/21. NOTE Hospitalist Progress Note Subjective: Patient was asleep on ranitidine room, but I was able to arouse him. He does not really answer any questions today though. Objective: General: Awake, alert. Not in any acute distress. HEENT: Head normocephalic, atraumatic, sclera are nonicteric. Hearing is grossly intact to conversation. Respiratory: He did cough once or twice was in the room, lungs sounds are little difficult to assess today due to heavy breathing sounds, and he is leaning very far forward, but it sounds as though they are clear at this time. Cardiovascular: Also difficult to auscultate, but it sounds as though he has regular rate and rhythm, with no rubs, gallops, or murmur. Abdomen: Soft, nontender, nondistended, no hepatosplenomegaly appreciated. Bowel sounds present. Extremities: 2+ pulses in the radial and dorsalis pedis bilaterally. No evidence of clubbing or cyanosis. Assessment: Healthcare associated vs. aspiration pneumonia Atrial fibrillation, rate controlled Hypothyroidism Benign prostatic hypertrophy Pericardial effusion without evidence of compression History of chronic hyponatremia Seizure disorder Plan: -Since resuming his home dose of his usual seizure medications yesterday he has not had any additional seizure-like activity. -White count continues to trend down and he did not spike any fevers yesterday, therefore we will de-escalate from IV antibiotic cefepime which he was on for 3 days from 01/08/2021-01/11/2021, and I will start him on moxifloxacin 400 mg once daily which will start tomorrow 01/12/2021. -Speech therapy has seen and evaluated him this morning using FEES (flexible endoscopic evaluation of swallowing). It appears that he is aspirating on his secretions regardless of the type of food/drink is taking, and cognitively he was be unable to use any compensatory strategies. This certainly poses a unique problem. Speech therapy will discuss the issue with family members and see how they would like to proceed. VS,Fishbone, I+O VS, Fishbone, I+O Laboratory Tests 01/11/21 06:31 Vital Signs Date Time Temp Pulse Resp B/P (MAP) Pulse Ox O2 Delivery O2 Flow Rate FiO2 01/11/21 09:50 69 01/11/21 09:48 131/81 01/11/21 06:00 98.0 18 97 Room Air I&O- Last 24 Hours up to 6 AM 01/11/21 05:59 Intake Total 1080 ml Output Total 945 ml Balance 135 ml LEONA BARRY DO January 11, 2021 14:45
--- NOTE | 2021-01-11 16:53 | ECGEPIP ---
[facility] Test Date: 2021-01-10 Pat Name: LUDY GARCIA Department: Room: [place] [address] Gender: Male Manual Qa Tester: FERMIN : 1960 Requested By: JAQUELINE Duffy Order Number: [id number] Reading MD: Rosendo Meléndez Measurements Intervals [place] Rate: 120 P: SC: QRS: 61 QRSD: 88 T: 220 QT: 306 QTc: 432 Interpretive Statements Atrial fibrillation with rapid ventricular response Nonspecific ST-T wave abnormalities Compared to prior tracing of 01/07/2021, ventricular response is faster and r repolarization abnormalites have increased Electronically Signed on 01-11-2021 16:53:38 EDT by Rosendo Meléndez
[2021-01-11 22:00] VITALS: BP 120/80
[2021-01-12] MEDS: MOXIFLOXACIN 400 MG TAB PO SCH (05:41)
[2021-01-12 06:00] VITALS: BP 129/81
[2021-01-12 07:08] LABS: HEMATOCRIT 34.9 % (42.0-52.0); HEMOGLOBIN 11.4 g/dl (13.5-17.5); MEAN CORPUSCULAR HGB CONC 32.7 g/dl (32.0-36.5); MEAN CORPUSCULAR VOLUME 94.8 fl (80.0-96.0); PLATELET COUNT, AUTOMATED 378 10^3/uL (150-450); RED BLOOD COUNT 3.68 10^6/uL (4.30-6.10); WHITE BLOOD COUNT 9.8 10^3/uL (4.0-10.0)
[2021-01-12 07:36] LABS: BLOOD UREA NITROGEN 9 MG/DL (7-18); CARBON DIOXIDE LEVEL 24 MEQ/L (21-32); CHLORIDE LEVEL 100 MEQ/L (98-107); CREATININE FOR GFR 0.28 MG/DL (0.70-1.30); GLOMERULAR FILTRATION RATE > 60.0 (>49); GLUCOSE, FASTING 88 MG/DL (70-100); POTASSIUM SERUM 4.7 MEQ/L (3.5-5.1); SODIUM LEVEL 131 MEQ/L (136-145)
[2021-01-12] MEDS: bisoproloL fumarate 5 MG TAB PO SCH ×2 (09:00→20:10)
[2021-01-12] MEDS: APIXABAN 5 MG TAB (ELIQUIS) PO SCH ×2 (10:24→20:09)
[2021-01-12] MEDS: LEVOTHYROXINE 50MCG TABLET (0.05MG) PO SCH (10:25)
[2021-01-12] MEDS: DIVALPROEX SPRINKLE 125 MG CAP PO SCH ×2 (10:25→20:09)
[2021-01-12] MEDS: ASCORBIC ACID 500 MG TAB PO SCH (10:25)
[2021-01-12] MEDS: FELBAMATE 600 MG PO SCH ×2 (10:26→20:10)
[2021-01-12] MEDS: PARoxetine 20MG TABLET PO SCH (10:26)
[2021-01-12] MEDS: MAGNESIUM OXIDE 400MG TAB (MAG-OX) PO SCH (10:26)
[2021-01-12] MEDS: FERROUS GLUCONATE 324 MG TAB PO SCH (10:26)
[2021-01-12] MEDS: TAMSULOSIN 0.4 MG CAP PO SCH (10:26)
[2021-01-12] MEDS: DIGOXIN 0.25 MG TAB PO SCH (10:27)
[2021-01-12 14:00] VITALS: BP 99/62
--- NOTE | 2021-01-12 18:23 | IPNPDOC ---
Text Note Date of Service The patient was seen on 01/12/21. NOTE Subjective: No any acute events overnight. He does not really answer any ques tions today though. Objective: GENERAL APPEARANCE: NAD HEENT: no scleral icterus, no JVD, EOMI CARDIOVASCULAR: S1S2 LUNGS: CTA ABDOMEN: soft & not tender w palpitation MUSCULOSKELETAL: no cyanosis, no swelling INTEGUMENT: no generalized pallor NEUROLOGICAL: cranial nerve function from 2-12 intact intact Assessment and plan Patient is 60 years old male with past history of cognitive impairment presented hospital with aspiration pneumonia. Patient received treatment with antibiotics, patient was found to have oropharyngeal dysfunction. Healthcare associated vs. aspiration pneumonia Continue moxifloxacin Patient was evaluated by speech specialist, flexible endoscopic evaluation was done It appears that he is aspirating on his secretions regardless of the type of food/drink is taking, and cognitively he was be unable to use any compensatory strategies Aspiration precaution Follow speech specialist recommendation Afib/flutter on eliquis -Rate controlled Continue home cardioprotective medication Hyponatremia We'll check urine osmolarity and blood osmolarity, urine lites Fluid restriction Hx of pericarditis of unclear etiology (s/p tx last hospitalization), pericardial effusion, pleural effusion -BNP mildly elevated at 1347, no overt s/s of fluid overload on CXR or exam -Last BNP 690 11/06/20 -Last echo from 11/30/20 above -Has followed up with load dispatcher since ARU discharge, told that next echo will be in 04/2021 -Monitor for s/s of worsening overload, will not repeat echo at this time Seizure disorder Continue home meds Dementia - 10/03 caregivers plus family who helps with him - Khanh Urinary incontinence -C/w home med HTN -Stable -c/w home med Hypothyroidism -TSH -C/w home med Severe LOU on CPAP GI px -PPI VS,Fishbone, I+O VS, Fishbone, I+O Laboratory Tests 01/12/21 06:42 Vital Signs Date Time Temp Pulse Resp B/P (MAP) Pulse Ox O2 Delivery O2 Flow Rate FiO2 01/12/21 14:00 98.1 66 18 99/62 (74) 94 Room Air I&O- Last 24 Hours up to 6 AM 01/12/21 06:00 Intake Total 460 ml Output Total 630 ml Balance -170 ml RAFAL AYALA DO January 12, 2021 18:23
[2021-01-12 22:00] VITALS: BP 123/77
[2021-01-13] MEDS: MOXIFLOXACIN 400 MG TAB PO SCH (05:29)
[2021-01-13 06:00] VITALS: BP 123/74
[2021-01-13 06:38] LABS: HEMOGLOBIN 11.6 g/dl (13.5-17.5); MEAN CORPUSCULAR HEMOGLOBIN 31.4 pg (27.0-33.0); MEAN CORPUSCULAR HGB CONC 33.1 g/dl (32.0-36.5); MEAN CORPUSCULAR VOLUME 94.6 fl (80.0-96.0); PLATELET COUNT, AUTOMATED 400 10^3/uL (150-450); WHITE BLOOD COUNT 9.2 10^3/uL (4.0-10.0)
[2021-01-13 07:25] LABS: BLOOD UREA NITROGEN 9 MG/DL (7-18); CALCIUM LEVEL 9.5 MG/DL (8.8-10.2); CARBON DIOXIDE LEVEL 25 MEQ/L (21-32); CHLORIDE LEVEL 97 MEQ/L (98-107); GLOMERULAR FILTRATION RATE > 60.0 (>49); GLUCOSE, FASTING 82 MG/DL (70-100); SODIUM LEVEL 131 MEQ/L (136-145)
[2021-01-13] MEDS: APIXABAN 5 MG TAB (ELIQUIS) PO SCH ×2 (08:01→20:48)
[2021-01-13] MEDS: bisoproloL fumarate 5 MG TAB PO SCH ×2 (08:01→20:49)
[2021-01-13] MEDS: MAGNESIUM OXIDE 400MG TAB (MAG-OX) PO SCH (08:01)
[2021-01-13] MEDS: LEVOTHYROXINE 50MCG TABLET (0.05MG) PO SCH (08:01)
[2021-01-13] MEDS: FELBAMATE 600 MG PO SCH ×2 (08:01→20:47)
[2021-01-13] MEDS: FERROUS GLUCONATE 324 MG TAB PO SCH (08:01)
[2021-01-13] MEDS: DIGOXIN 0.25 MG TAB PO SCH (08:02)
[2021-01-13] MEDS: ASCORBIC ACID 500 MG TAB PO SCH (08:02)
[2021-01-13] MEDS: TAMSULOSIN 0.4 MG CAP PO SCH (08:02)
[2021-01-13] MEDS: PARoxetine 20MG TABLET PO SCH (09:16)
[2021-01-13] MEDS: DIVALPROEX SPRINKLE 125 MG CAP PO SCH ×2 (09:16→20:48)
[2021-01-13 14:00] VITALS: BP 122/76
[2021-01-13 22:00] VITALS: BP 124/73
[2021-01-14 06:00] VITALS: BP 111/72
[2021-01-14 06:29] LABS: HEMATOCRIT 35.7 % (42.0-52.0); HEMOGLOBIN 11.9 g/dl (13.5-17.5); MEAN CORPUSCULAR HGB CONC 33.3 g/dl (32.0-36.5); PLATELET COUNT, AUTOMATED 374 10^3/uL (150-450); RED BLOOD COUNT 3.84 10^6/uL (4.30-6.10)
[2021-01-14 07:06] LABS: BLOOD UREA NITROGEN 7 MG/DL (7-18); CALCIUM LEVEL 9.2 MG/DL (8.8-10.2); CARBON DIOXIDE LEVEL 23 MEQ/L (21-32); CHLORIDE LEVEL 98 MEQ/L (98-107); CREATININE FOR GFR 0.29 MG/DL (0.70-1.30); GLOMERULAR FILTRATION RATE > 60.0 (>49); GLUCOSE, FASTING 82 MG/DL (70-100); POTASSIUM SERUM 5.1 MEQ/L (3.5-5.1); SODIUM LEVEL 129 MEQ/L (136-145)
[2021-01-14] MEDS: DIVALPROEX SPRINKLE 125 MG CAP PO SCH ×2 (09:49→22:14)
[2021-01-14] MEDS: PARoxetine 20MG TABLET PO SCH (09:49)
[2021-01-14] MEDS: FERROUS GLUCONATE 324 MG TAB PO SCH (09:49)
[2021-01-14] MEDS: DIGOXIN 0.25 MG TAB PO SCH (09:50)
[2021-01-14] MEDS: ASCORBIC ACID 500 MG TAB PO SCH (09:50)
[2021-01-14] MEDS: TAMSULOSIN 0.4 MG CAP PO SCH (09:50)
[2021-01-14] MEDS: LEVOTHYROXINE 50MCG TABLET (0.05MG) PO SCH (09:50)
[2021-01-14] MEDS: MAGNESIUM OXIDE 400MG TAB (MAG-OX) PO SCH (09:50)
[2021-01-14] MEDS: bisoproloL fumarate 5 MG TAB PO SCH ×2 (09:50→22:14)
[2021-01-14] MEDS: APIXABAN 5 MG TAB (ELIQUIS) PO SCH ×2 (09:50→22:13)
[2021-01-14] MEDS: FELBAMATE 600 MG PO SCH ×2 (09:51→22:19)
[2021-01-14 14:00] VITALS: BP 122/76
[2021-01-14 22:00] VITALS: BP 114/74
[2021-01-15 06:00] VITALS: BP 107/66
[2021-01-15 06:36] LABS: HEMATOCRIT 35.8 % (42.0-52.0); HEMOGLOBIN 11.6 g/dl (13.5-17.5); MEAN CORPUSCULAR HEMOGLOBIN 30.4 pg (27.0-33.0); MEAN CORPUSCULAR HGB CONC 32.4 g/dl (32.0-36.5); MEAN CORPUSCULAR VOLUME 93.7 fl (80.0-96.0); PLATELET COUNT, AUTOMATED 429 10^3/uL (150-450); RED BLOOD COUNT 3.82 10^6/uL (4.30-6.10); WHITE BLOOD COUNT 8.7 10^3/uL (4.0-10.0)
[2021-01-15 07:03] LABS: BLOOD UREA NITROGEN 8 MG/DL (7-18); CALCIUM LEVEL 9.1 MG/DL (8.8-10.2); CARBON DIOXIDE LEVEL 24 MEQ/L (21-32); CHLORIDE LEVEL 99 MEQ/L (98-107); CREATININE FOR GFR 0.34 MG/DL (0.70-1.30); GLOMERULAR FILTRATION RATE > 60.0 (>49); GLUCOSE, FASTING 77 MG/DL (70-100); POTASSIUM SERUM 4.8 MEQ/L (3.5-5.1); SODIUM LEVEL 131 MEQ/L (136-145)
[2021-01-15] MEDS: FERROUS GLUCONATE 324 MG TAB PO SCH (09:00)
[2021-01-15] MEDS: FELBAMATE 600 MG PO SCH ×2 (09:54→22:34)
[2021-01-15] MEDS: DIVALPROEX SPRINKLE 125 MG CAP PO SCH ×2 (09:54→22:34)
[2021-01-15] MEDS: PARoxetine 20MG TABLET PO SCH (09:55)
[2021-01-15] MEDS: MAGNESIUM OXIDE 400MG TAB (MAG-OX) PO SCH (09:55)
[2021-01-15] MEDS: APIXABAN 5 MG TAB (ELIQUIS) PO SCH ×2 (09:55→22:34)
[2021-01-15] MEDS: LEVOTHYROXINE 50MCG TABLET (0.05MG) PO SCH (09:55)
[2021-01-15] MEDS: TAMSULOSIN 0.4 MG CAP PO SCH (09:55)
[2021-01-15] MEDS: bisoproloL fumarate 5 MG TAB PO SCH ×2 (09:55→22:35)
[2021-01-15] MEDS: ASCORBIC ACID 500 MG TAB PO SCH (09:56)
[2021-01-15] MEDS: DIGOXIN 0.25 MG TAB PO SCH (09:56)
[2021-01-15 14:00] VITALS: BP 105/70
[2021-01-15] MEDS ORDERED: MIRALAX *UNIT DOSE* 17GM PACKET PO PRN (16:05)
[2021-01-15 22:00] VITALS: BP 139/80
[2021-01-16 06:00] VITALS: BP 143/83
[2021-01-16 07:18] LABS: HEMATOCRIT 39.5 % (42.0-52.0); MEAN CORPUSCULAR HEMOGLOBIN 30.7 pg (27.0-33.0); MEAN CORPUSCULAR HGB CONC 32.9 g/dl (32.0-36.5); MEAN CORPUSCULAR VOLUME 93.2 fl (80.0-96.0); PLATELET COUNT, AUTOMATED 462 10^3/uL (150-450); RED BLOOD COUNT 4.24 10^6/uL (4.30-6.10); WHITE BLOOD COUNT 7.7 10^3/uL (4.0-10.0)
[2021-01-16 07:36] LABS: BLOOD UREA NITROGEN 7 MG/DL (7-18); CALCIUM LEVEL 9.3 MG/DL (8.8-10.2); CARBON DIOXIDE LEVEL 25 MEQ/L (21-32); CHLORIDE LEVEL 96 MEQ/L (98-107); CREATININE FOR GFR 0.34 MG/DL (0.70-1.30); GLOMERULAR FILTRATION RATE > 60.0 (>49); GLUCOSE, FASTING 82 MG/DL (70-100); POTASSIUM SERUM 4.9 MEQ/L (3.5-5.1); SODIUM LEVEL 129 MEQ/L (136-145)
[2021-01-16] MEDS: FERROUS GLUCONATE 324 MG TAB PO SCH (09:00)
[2021-01-16] MEDS: FELBAMATE 600 MG PO SCH (09:14)
[2021-01-16 09:16] VITALS: BP 121/76
[2021-01-16] MEDS: DIGOXIN 0.25 MG TAB PO SCH (09:16)
[2021-01-16] MEDS: TAMSULOSIN 0.4 MG CAP PO SCH (09:16)
[2021-01-16] MEDS: bisoproloL fumarate 5 MG TAB PO SCH (09:16)
[2021-01-16] MEDS: LEVOTHYROXINE 50MCG TABLET (0.05MG) PO SCH (09:16)
[2021-01-16] MEDS: ASCORBIC ACID 500 MG TAB PO SCH (09:16)
[2021-01-16] MEDS: MAGNESIUM OXIDE 400MG TAB (MAG-OX) PO SCH (09:17)
[2021-01-16] MEDS: PARoxetine 20MG TABLET PO SCH (09:17)
[2021-01-16] MEDS: DIVALPROEX SPRINKLE 125 MG CAP PO SCH (09:17)
[2021-01-16] MEDS: APIXABAN 5 MG TAB (ELIQUIS) PO SCH (09:17)
--- NOTE | 2021-01-16 13:25 | DS.PDOC ---
Discharge Summary General Date of Admission January 07, 2021 at 14:59 Date of Discharge 01/16/21 Discharge Summary PROCEDURES PERFORMED DURING STAY: [None]. ADMITTING DIAGNOSES: Healthcare associated vs. aspiration pneumonia Afib/flutter on eliquis Hyponatremia Hx of pericarditis of unclear etiology (s/p tx last hospitalization), pericardial effusion, pleural effusion Seizure disorder Dementia HTN Urinary incontinence Hypothyroidism Severe LOU on CPAP DISCHARGE DIAGNOSES: Healthcare associated vs. aspiration pneumonia Afib/flutter on eliquis Hyponatremia Hx of pericarditis of unclear etiology (s/p tx last hospitalization), pericardial effusion, pleural effusion Seizure disorder Dementia HTN Urinary incontinence Hypothyroidism Severe LOU on CPAP COMPLICATIONS/CHIEF COMPLAINT: Dysphagia,Pneumonia. HISTORY OF PRESENT ILLNESS: The patient is a 60-year-old male with extensive past medical history including atrial fib/flutter on [place], seizure disorder, dementia, urinary incontinence, hypertension, LOU on CPAP, recent aspiration pn eumonia with dysphasia diagnosis on pured diet, other chronic illnesses listed below who presented to [facility] emergency room today with a chief complaint of increased coughing, hypoxia and not being able to keep down his medications. The patient was not a good historian due to his mental status and his brother was at the bedside who gave me most of the details along with the emergency room provider. According to notes, the patient had a recent hospitalization stay from /08/2020 for hypoxemia, aspiration pneumonia, pericardial effusion, pleural effusion, pericarditis. He was discharged from inpatient and immediately admitted to ARU from / after being treated for weakness in the setting of aspiration pneumonia and pericarditis. At the time of discharge the patient was max total assist for bed mobility, functional transfers and toileting. The patient was discharged back to home with 24/7 care with home health aides. He also has a very supportive family which has been trying to help him as well as. The patient lives behind his mother's house and close to his brothers who help. Today his home health nurse noticed that the patient's O2 sat had dropped into the 80's with coughing, he was unable to keep down his home seizure medications. In the past when the patient has gotten sick and not kept his home seizure medications down the patient has had seizures shortly after. They had noticed increased lethargy over the past 24 hours as well as. There was no documented fevers, chest pain, signs or symptoms of abdominal pain. The patient is limited in his communication at baseline since his return home. He can sometimes talk in small sentences or say some words, laugh at jokes. He has had a significant decline from previously. He is a Khanh 10/03 and cannot stand on his own more than 24 seconds. The patient has a history of aspiration pneumonia from his last hospitalization and there was concern that he could have developed another pneumonia. He was brought to the ER for further evaluation today. In the emergency room vital signs were stable. WBC 17.5, H&H 12/30.6, platelets 467. Sodium was slightly low at 133. AST slightly elevated at 41, BNP 1347, increased from last hospitalization. Valproic acid level was 106. Blood cultures 2 sets were collected as well as a sputum culture. Covid was negative. Chest x-ray showed right upper lobe infiltrate and questionable left lower lung pneumonia. The patient was lethargic when examined, would not converse at all but did follow some directions (i.e. when asked to take a deep breath he would do so). He did not have any lower extremity swelling or upper extremity swelling. He had no open wounds. The patient was ultimately admitted under inpatient status for ? bilateral healthcare associated pneumonia vs. aspiration pneumonia. HOSPITAL COURSE: During the hospital stay with following issues addressed Healthcare associated vs. 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 Fluid restriction Hx of pericarditis of unclear etiology (s/p tx last hospitalization), pericardi al effusion, pleural effusion -BNP mildly elevated at 1347, no overt s/s of fluid overload on CXR or exam -Last BNP 690 11/06/20 -Last echo from 11/30/20 above -Has followed up with college service officer since ARU discharge, told that next echo will be in 04/2021 Seizure disorder Continue home meds Dementia - 10/03 caregivers plus family who helps with him - Khanh Urinary incontinence -C/w home med HTN -Stable -c/w home med Hypothyroidism -TSH -C/w home med Severe LOU on CPAP DISCHARGE MEDICATIONS: Please see below. ALLERGIES: Please see below. PHYSICAL EXAMINATION ON DISCHARGE: VITAL SIGNS: Please see below. GENERAL APPEARANCE: NAD HEENT: no scleral icterus, no JVD, EOMI CARDIOVASCULAR: S1S2 LUNGS: CTA ABDOMEN: soft & not tender w palpitation MUSCULOSKELETAL: no cyanosis, no swelling INTEGUMENT: no generalized pallor NEUROLOGICAL: cranial nerve function from 2-12 intact intact LABORATORY DATA: Please see below. IMAGING: see above PROGNOSIS: Guarded ACTIVITY: [As tolerated]. DIET: Follow speech specialist recommendation DISPOSITION: Home, Self-Care. DISCHARGE INSTRUCTIONS: Follow-up with PCP and neurologist DISCHARGE CONDITION: [Stable]. TIME SPENT ON DISCHARGE: 40 minutes. Vital Signs/I&Os Vital Signs Date Time Temp Pulse Resp B/P (MAP) Pulse Ox O2 Delivery O2 Flow Rate FiO2 01/16/21 09:16 67 01/16/21 09:16 121/76 01/16/21 06:00 97.2 18 95 Room Air I&O- Last 24 Hours up to 6 AM 01/16/21 06:00 Intake Total 530 ml Output Total 1180 ml Balance -650 ml Laboratory Data Labs 24H Laboratory Tests 2 01/16/21 06:48: Nucleated Red Blood Cells % (auto) 0.0, Anion Gap 8, Glomerular Filtration Rate > 60.0, Calcium Level 9.3 CBC/BMP Laboratory Tests 01/16/21 06:48 Microbiology Microbiology 01/07/21 Respiratory Virus Panel (PCR) (TING) - Final, Complete 01/07/21 Blood Culture - Final, Complete NO GROWTH AFTER 5 DAYS 01/07/21 Blood Culture - Final, Complete NO GROWTH AFTER 5 DAYS Discharge Medications Scheduled Apixaban (Eliquis) 5 Mg Tablet, 5 MG PO BID, (Reported) Ascorbic Acid (Vitamin C) 500 Mg Capsule, 1,000 MG PO DAILY, (Reported) Bisoprolol Fumarate (Bisoprolol Fumarate) 5 Mg Tablet, 5 MG PO BID, (Reported) Cholecalciferol (Vitamin D3) (Vitamin D3) 50 Mcg Tablet, 50 MCG PO QHS, (Reported) Digoxin (Digoxin) 250 Mcg Tablet, 250 MCG PO DAILY, (Reported) Divalproex Sodium (Depakote Sprinkle) 125 Mg Cap., 750 MG PO DAILY, (Reported) Divalproex Sodium (Depakote Sprinkle) 125 Mg Cap., 500 MG PO QHS, (Reported) Felbamate (Felbamate) 600 Mg Tablet, 1,800 MG PO BID, (Reported) Ferrous Gluconate (Ferrous Gluconate) 324 Mg Tablet, 324 MG PO DAILY, (Reported) Levothyroxine Sodium (Synthroid) 50 Mcg Tablet, 50 MCG PO DAILY, (Reported) Magnesium Oxide (Magnesium) 400 Mg Capsule, 400 MG PO DAILY, (Reported) Paroxetine HCl (Paroxetine HCl) 20 Mg Tablet, 20 MG PO DAILY, (Reported) Tamsulosin Hcl (Tamsulosin HCl) 0.4 Mg Capsule, 0.4 MG PO DAILY, (Reported) Allergies Coded Allergies: No Known Allergies (Verified , 02/21/03) RAFAL AYALA DO Jan 16, 2021 13:25
== END 2021-01-16 11:58 | disposition home health service (06) | DRG 137 ==
LOC: M ED 10:39 → M ED INP 14:59 → ENRESERV 15:24 → M MSPAV 16:30
PROVIDERS: ADMIT Internal Medicine; ATTEND Internal Medicine
DX: J69.0 Pneumonitis due to inhalation of food and vomit (principal); F03.91 Unspecified dementia, unspecified severity, with behavioral disturbance; I48.92 Unspecified atrial flutter; E87.1 Hypo-osmolality and hyponatremia; R13.12 Dysphagia, oropharyngeal phase; I48.91 Unspecified atrial fibrillation; G40.909 Epilepsy, unspecified, not intractable, without status epilepticus; I10 Essential (primary) hypertension; J18.9 Pneumonia, unspecified organism; Q90.9 Down syndrome, unspecified; Z66 Do not resuscitate; E03.9 Hypothyroidism, unspecified; R32 Unspecified urinary incontinence; M47.812 Spondylosis without myelopathy or radiculopathy, cervical region; N40.1 Benign prostatic hyperplasia with lower urinary tract symptoms; G47.33 Obstructive sleep apnea (adult) (pediatric); F79 Unspecified intellectual disabilities; E55.9 Vitamin D deficiency, unspecified; M81.0 Age-related osteoporosis without current pathological fracture; Z20.822 Contact with and (suspected) exposure to COVID-19; Z79.01 Long term (current) use of anticoagulants; Z79.899 Other long term (current) drug therapy; Y95 Nosocomial condition

== ENCOUNTER → 2021-03-27 | Outpatient (CLI) | payer MEDICAID ==
[~2021-03-27] MED LIST changes: +DEPA1CAP PO; +SYNT50TA PO; +TAMS1CAP17 PO; +VITA500C24 PO
--- NOTE | 2021-03-29 10:33 | EEG ---
ELECTROENCEPHALOGRAM DATE: 03/27/2021 REFERRING PHYSICIAN: Dr. Zen Licea. DIAGNOSIS: Altered mental status. EEG#: [id number]. HISTORY: Patient is a 61-year-old man with history of atrial fibrillation, seizures, dementia, and urinary incontinence who was referred for EEG for altered mental status. He is currently taking felbamate, Eliquis, bisoprolol, ferrous sulfate, Paxil, Flomax, digoxin, etc. TECHNICAL DESCRIPTION: This digital electroencephalogram (EEG) was recorded by 21 scalp, ear, and two electrocardiogram (EKG) electrodes and was reviewed in bipolar and referential montages following reformatting in 10-20 international electrode placement system. INTERPRETATION: Patient was noted to be in awake and drowsy states during this EEG. Resting and awake background rhythm consisted of 6-7 Hz theta activity measuring 15-20 microvolts amplitude which was symmetric and reactive to eye opening. Attentuation of posterior ____ that was seen during transition into drowsiness. No sleep was achieved. Hyperventilation was not performed. Photic stimulation remained unremarkable. EKG revealed irregular heart rhythm, possible atrial fibrillation. No focal, lateralizing, or epileptiform abnormalities were seen. No relevant clinical activity was noted. CONCLUSION: This EEG in awake and drowsy states is abnormal due to presence of mild generalized slowing and disorganization of background consistent with nonspecific diffuse cerebral dysfunction such as seen in encephalopathy and dementia. No epileptiform abnormalities were seen. Clinical correlation is recommended.
== END ==
LOC: M SLEEP 08:46
PROVIDERS: ATTEND Psychiatry & Neurology Neurology
DX: R41.82 Altered mental status, unspecified (principal)

== ENCOUNTER → 2021-05-29 | Outpatient (CLI) | payer MEDICAID ==
--- NOTE | 2021-05-29 16:59 | REP ---
INDICATION: IDIOPATHIC EPILEPSY, CEREBRAL INFARCTION. COMPARISON: 04/22/2018. TECHNIQUE: Multiple sequences obtained in the axial and sagittal planes. FINDINGS: There is moderate diffuse cerebral and cerebellar atrophy with chronic encephalomalacia in the bilateral frontal lobes, unchanged since the prior exam. There is ex vacuo dilatation of the lateral ventricles which is also stable. There is no acute intracranial hemorrhage. There is no restricted diffusion to suggest acute infarct. There is no acute edema or midline shift. Chronic periventricular microangiopathic ischemic change is suspected, with scattered areas of increased T2 and FLAIR signal in these regions appearing stable. No calvarial lesion is seen. There is mild mucosal thickening in the maxillary sinuses. No abnormal signal seen in the mastoids. Orbital regions appear unremarkable. IMPRESSION: No acute intracranial abnormality. Chronic changes as discussed above appear stable compared to the prior study. <Electronically signed by Choco Yang > 05/29/21 [id number]
== END ==
LOC: M RAD 11:20
PROVIDERS: ATTEND Psychiatry & Neurology Neurology
DX: G40.309 Generalized idiopathic epilepsy and epileptic syndromes, not intractable, without status epilepticus (principal); I63.9 Cerebral infarction, unspecified; G93.89 Other specified disorders of brain; J32.0 Chronic maxillary sinusitis

== ENCOUNTER → 2021-06-18 | Outpatient (CLI) | payer MEDICAID ==
[2021-06-18 18:39] LABS: HEMATOCRIT 45.9 % (42.0-52.0); HEMOGLOBIN 15.6 g/dl (13.5-17.5); MEAN CORPUSCULAR HEMOGLOBIN 31.1 pg (27.0-33.0); MEAN CORPUSCULAR VOLUME 91.4 fl (80.0-96.0); PLATELET COUNT, AUTOMATED 247 10^3/uL (150-450); RED BLOOD COUNT 5.02 10^6/uL (4.30-6.10); WHITE BLOOD COUNT 7.8 10^3/uL (4.0-10.0)
[2021-06-18 19:15] LABS: ALBUMIN 3.3 GM/DL (3.2-5.2); ALT/SGPT 71 U/L (12-78); BILIRUBIN,TOTAL 0.2 MG/DL (0.2-1.0); BLOOD UREA NITROGEN 13 MG/DL (7-18); CALCIUM LEVEL 10.5 MG/DL (8.8-10.2); CARBON DIOXIDE LEVEL 27 MEQ/L (21-32); CHLORIDE LEVEL 95 MEQ/L (98-107); CREATININE FOR GFR 0.58 MG/DL (0.70-1.30); DIGOXIN LEVEL 1.3 NG/ML (0.5-2.0); GLOMERULAR FILTRATION RATE > 60.0 (>49); GLUCOSE, FASTING 83 MG/DL (70-100); POTASSIUM SERUM 4.6 MEQ/L (3.5-5.1); SODIUM LEVEL 128 MEQ/L (136-145); TOTAL PROTEIN 7.2 GM/DL (6.4-8.2)
== END ==
LOC: M PLALAB 13:55
PROVIDERS: ATTEND Nurse Practitioner Adult Health
DX: E03.9 Hypothyroidism, unspecified (principal); G40.909 Epilepsy, unspecified, not intractable, without status epilepticus; I10 Essential (primary) hypertension; I48.0 Paroxysmal atrial fibrillation; D64.9 Anemia, unspecified

== ENCOUNTER 2021-09-12 11:34 | Emergency (ER) | payer MEDICAID ==
[~2021-09-12 11:34] MED LIST changes: -D 202000 PO; +DIVA125C6 PO; -DIVA1CAP PO; +VITA200032 PO
[2021-09-12] MEDS ORDERED: LACT10SO3 (12:13)
[2021-09-12] MEDS ORDERED: PRED20TA PO (13:32)
[2021-09-12 13:48] VITALS: BP 121/82
== END 2021-09-12 13:58 | disposition home or self-care (01) ==
LOC: M ED 11:34
DX: R05.9 Cough, unspecified (principal); U09.9 Post COVID-19 condition, unspecified; I48.91 Unspecified atrial fibrillation; I10 Essential (primary) hypertension; Z87.01 Personal history of pneumonia (recurrent); G47.33 Obstructive sleep apnea (adult) (pediatric); E03.9 Hypothyroidism, unspecified; R56.9 Unspecified convulsions; F03.90 Unspecified dementia, unspecified severity, without behavioral disturbance, psychotic disturbance, mood disturbance, and anxiety; F80.9 Developmental disorder of speech and language, unspecified; Z79.01 Long term (current) use of anticoagulants; Z79.899 Other long term (current) drug therapy

== ENCOUNTER → 2021-11-22 | Outpatient (CLI) | payer MEDICAID ==
[~2021-11-22] MED LIST changes: +LACT10SO3; +PRED20TA PO
[2021-11-22 16:15] LABS: HEMATOCRIT 41.9 % (42.0-52.0); HEMOGLOBIN 14.4 g/dl (13.5-17.5); MEAN CORPUSCULAR HEMOGLOBIN 33.3 pg (27.0-33.0); MEAN CORPUSCULAR HGB CONC 34.4 g/dl (32.0-36.5); PLATELET COUNT, AUTOMATED 253 10^3/uL (150-450); RED BLOOD COUNT 4.32 10^6/uL (4.30-6.10); WHITE BLOOD COUNT 8.8 10^3/uL (4.0-10.0)
[2021-11-22 16:37] LABS: ALBUMIN 3.3 GM/DL (3.2-5.2); ALT/SGPT 37 U/L (12-78); BILIRUBIN,TOTAL 0.3 MG/DL (0.2-1.0); BLOOD UREA NITROGEN 13 MG/DL (7-18); CALCIUM LEVEL 9.9 MG/DL (8.8-10.2); CARBON DIOXIDE LEVEL 25 MEQ/L (21-32); CHLORIDE LEVEL 96 MEQ/L (98-107); CREATININE FOR GFR 0.62 MG/DL (0.70-1.30); DIGOXIN LEVEL 1.6 NG/ML (0.5-2.0); FERRITIN 100 NG/ML (26-388); GLOMERULAR FILTRATION RATE > 60.0 (>49); GLUCOSE, FASTING 94 MG/DL (70-100); IRON (FE) 80 UG/DL (65-175); PERCENT SATURATION 22.7 % (19.7-50.0); POTASSIUM SERUM 4.9 MEQ/L (3.5-5.1); SODIUM LEVEL 129 MEQ/L (136-145); TOTAL IRON BINDING CAPACITY 352 UG/DL (250-450); TOTAL PROTEIN 7.4 GM/DL (6.4-8.2); VALPROIC ACID (DEPAKOTE) 118.4 UG/ML (50.0-100.0)
[2021-11-22 16:58] LABS: TOTAL 25(OH) VITAMIN D 37.1 NG/ML (30.0-100.0)
== END ==
LOC: M PLALAB 11:44
PROVIDERS: ATTEND Nurse Practitioner Adult Health
DX: E55.9 Vitamin D deficiency, unspecified (principal); D64.9 Anemia, unspecified; G40.909 Epilepsy, unspecified, not intractable, without status epilepticus; E03.9 Hypothyroidism, unspecified; I10 Essential (primary) hypertension; I48.0 Paroxysmal atrial fibrillation

== ENCOUNTER → 2022-02-05 | Outpatient (CLI) | payer MEDICAID | LOC: M PLAIMG 08:39 | PROVIDERS: ATTEND Psychiatry & Neurology Neurology | DX: R53.1 Weakness (principal); R26.81 Unsteadiness on feet; M50.01 Cervical disc disorder with myelopathy, high cervical region; M50.021 Cervical disc disorder at C4-C5 level with myelopathy; M50.03 Cervical disc disorder with myelopathy, cervicothoracic region; M47.12 Other spondylosis with myelopathy, cervical region ==

== ENCOUNTER 2022-04-05 14:36 | Emergency (ER) | payer MEDICAID ==
[~2022-04-05] VITALS: Ht 165.1 cm; Wt 72.7 kg
[2022-04-05] MEDS ORDERED: BEBTELOVIMAB 175MG 2ML VIAL (EUA) IV ONE ×2 (18:40→19:15)
[2022-04-05 19:49] VITALS: BP 153/76
== END 2022-04-05 20:48 | disposition home or self-care (01) ==
LOC: M ED 14:36
DX: U07.1 COVID-19 (principal); Z20.822 Contact with and (suspected) exposure to COVID-19; I48.91 Unspecified atrial fibrillation; I10 Essential (primary) hypertension; F03.90 Unspecified dementia, unspecified severity, without behavioral disturbance, psychotic disturbance, mood disturbance, and anxiety; E03.9 Hypothyroidism, unspecified; K57.92 Diverticulitis of intestine, part unspecified, without perforation or abscess without bleeding; F32.9 Major depressive disorder, single episode, unspecified; R56.9 Unspecified convulsions; F79 Unspecified intellectual disabilities; Z87.01 Personal history of pneumonia (recurrent); Z79.01 Long term (current) use of anticoagulants; Z79.890 Hormone replacement therapy; Z79.899 Other long term (current) drug therapy
CPT/HCPCS: 99283; M0222

== ENCOUNTER → 2022-05-30 | Outpatient (CLI) | payer MEDICAID ==
[2022-05-30 15:41] LABS: HEMATOCRIT 42.7 % (42.0-52.0); HEMOGLOBIN 14.2 g/dl (13.5-17.5); MEAN CORPUSCULAR HGB CONC 33.3 g/dl (32.0-36.5); MEAN CORPUSCULAR VOLUME 99.3 fl (80.0-96.0); PLATELET COUNT, AUTOMATED 212 10^3/uL (150-450); WHITE BLOOD COUNT 7.2 10^3/uL (4.0-10.0)
[2022-05-30 17:34] LABS: ALT/SGPT 25 U/L (12-78); BILIRUBIN,TOTAL 0.2 MG/DL (0.2-1.0); BLOOD UREA NITROGEN 15 MG/DL (7-18); CALCIUM LEVEL 9.8 MG/DL (8.8-10.2); CARBON DIOXIDE LEVEL 24 MEQ/L (21-32); CHLORIDE LEVEL 94 MEQ/L (98-107); CHOLESTEROL LEVEL 178 MG/DL (<200); CREATININE FOR GFR 0.72 MG/DL (0.70-1.30); GLOMERULAR FILTRATION RATE > 60.0 (>49); GLUCOSE, FASTING 98 MG/DL (70-100); HDL CHOLESTEROL 59 MG/DL (>40); POTASSIUM SERUM 4.3 MEQ/L (3.5-5.1); SODIUM LEVEL 126 MEQ/L (136-145); TRIGLYCERIDES LEVEL 164 MG/DL (<150)
[2022-05-30 17:35] LABS: ALBUMIN 3.2 GM/DL (3.2-5.2); CHOLESTEROL RISK RATIO 3.016 (<5); DIGOXIN LEVEL 0.9 NG/ML (0.5-2.0); FERRITIN 122 NG/ML (26-388); IRON (FE) 57 UG/DL (65-175); LDL CHOLESTEROL 86 MG/DL (<100); NON-HDL-C 119 MG/DL; PERCENT SATURATION 15.6 % (19.7-50.0); TOTAL IRON BINDING CAPACITY 365 UG/DL (250-450); TOTAL PROTEIN 7.6 GM/DL (6.4-8.2); VALPROIC ACID (DEPAKOTE) 109.3 UG/ML (50.0-100.0)
[2022-05-30 18:05] LABS: TOTAL 25(OH) VITAMIN D 44.3 NG/ML (30.0-100.0)
== END ==
LOC: M PLALAB 11:51
PROVIDERS: ATTEND Nurse Practitioner Adult Health
DX: D64.9 Anemia, unspecified (principal); G40.909 Epilepsy, unspecified, not intractable, without status epilepticus; I10 Essential (primary) hypertension; I48.0 Paroxysmal atrial fibrillation; E03.9 Hypothyroidism, unspecified

== ENCOUNTER → 2022-06-12 | Outpatient (REF) | payer MEDICAID | LOC: M SFHCPLAZ 16:41 | PROVIDERS: ATTEND Nurse Practitioner Adult Health | DX: R31.9 Hematuria, unspecified (principal) ==

== ENCOUNTER → 2022-08-15 | Outpatient (REF) | payer MEDICAID ==
[2022-08-15 16:12] LABS: APPEARANCE, URINE MANUAL CLOUDY (CLEAR); COLOR, URINE MANUAL AMBER (YELLOW)
[2022-08-15 16:13] LABS: BILIRUBIN, URINE MANUAL NEGATIVE (NEGATIVE); BLOOD URINE MANUAL POSITIVE (NEGATIVE); GLUCOSE, URINE (UA) MANUAL NEGATIVE (NEGATIVE); KETONE, URINE MANUAL NEGATIVE (NEGATIVE); LEUKOCYTE ESTERASE, URINE MAN POSITIVE (NEGATIVE); NITRITE, URINE MANUAL NEGATIVE (NEGATIVE); PH,URINE MAN 5.5 UNITS (5.0 - 7.0); PROTEIN, URINE MANUAL 2+ mg/dL (NEGATIVE); UROBILINOGEN, URINE MANUAL 1 MG mg/dl (NORMAL)
[2022-08-15 16:20] LABS: BACTERIA, URINE NONE SEEN; RBC, URINE TNTC /hpf (0-3); SQUAMOUS EPITHELIAL CELL URINE NONE SEEN /hpf (SMALL AMT); TRANSITIONAL EPI CELLS, URINE SMALL AMOUNT /hpf; WBC, URINE TNTC /hpf (0-3)
[2022-08-15 16:21] LABS: HYALINE CAST, URINE NONE SEEN /lpf (0-1)
== END ==
LOC: M SMT 16:01
PROVIDERS: ATTEND Nurse Practitioner Women's Health
DX: R39.89 Other symptoms and signs involving the genitourinary system (principal)

== ENCOUNTER → 2022-09-06 | Outpatient (REF) | payer MEDICAID ==
[~2022-09-06] MED LIST changes: -ENAL-36 PO; +ENAL1TAB50 PO
[2022-09-06 19:38] LABS: APPEARANCE, URINE MANUAL HAZY (CLEAR); COLOR, URINE MANUAL YELLOW (YELLOW)
[2022-09-06 19:39] LABS: BILIRUBIN, URINE MANUAL NEGATIVE (NEGATIVE); BLOOD URINE MANUAL POSITIVE (NEGATIVE); GLUCOSE, URINE (UA) MANUAL NEGATIVE (NEGATIVE); KETONE, URINE MANUAL NEGATIVE (NEGATIVE); LEUKOCYTE ESTERASE, URINE MAN TRACE (NEGATIVE); NITRITE, URINE MANUAL NEGATIVE (NEGATIVE); PROTEIN, URINE MANUAL TRACE mg/dL (NEGATIVE); UROBILINOGEN, URINE MANUAL NORMAL (NORMAL)
[2022-09-06 20:22] LABS: RBC, URINE TNTC /hpf (0-3); WBC, URINE 15-20 /hpf (0-3)
[2022-09-06 20:23] LABS: BACTERIA, URINE SMALL AMOUNT; HYALINE CAST, URINE NONE SEEN /lpf (0-1); MUCUS, URINE SMALL AMOUNT (NEGATIVE); SQUAMOUS EPITHELIAL CELL URINE SMALL AMOUNT /hpf (SMALL AMT)
== END ==
LOC: M SMT 17:03
PROVIDERS: ATTEND Urology
DX: R31.0 Gross hematuria (principal); R82.998 Other abnormal findings in urine

== ENCOUNTER → 2022-09-18 | Outpatient (CLI) | payer MEDICAID ==
[~2022-09-18] MED LIST changes: +ENAL-36 PO; -ENAL1TAB50 PO; +ISOVUE-370 76% 100ML VIAL As Ordered ONE
== END ==
LOC: M RAD 09:14
PROVIDERS: ATTEND Nurse Practitioner Women's Health
DX: R31.0 Gross hematuria (principal); I51.7 Cardiomegaly; N28.1 Cyst of kidney, acquired

== ENCOUNTER → 2022-09-18 | Outpatient (CLI) | payer MEDICAID ==
[~2022-09-18] MED LIST changes: -ISOVUE-370 76% 100ML VIAL As Ordered ONE
== END ==
LOC: M LAB 09:12
PROVIDERS: ATTEND Urology
DX: Z12.5 Encounter for screening for malignant neoplasm of prostate (principal)

== ENCOUNTER → 2022-11-06 | Outpatient (CLI) | payer MEDICAID ==
[~2022-11-06] MED LIST changes: -ENAL-36 PO; +ENAL1TAB50 PO
== END ==
LOC: M RAD 09:46
PROVIDERS: ATTEND Nurse Practitioner Adult Health
DX: R93.89 Abnormal findings on diagnostic imaging of other specified body structures (principal)

== ENCOUNTER → 2022-12-02 | Outpatient (CLI) | payer MEDICAID ==
[2022-12-02 12:56] LABS: HEMATOCRIT 45.2 % (42.0-52.0); HEMOGLOBIN 15.3 g/dl (13.5-17.5); MEAN CORPUSCULAR HEMOGLOBIN 32.6 pg (27.0-33.0); MEAN CORPUSCULAR HGB CONC 33.8 g/dl (32.0-36.5); MEAN CORPUSCULAR VOLUME 96.2 fl (80.0-96.0); PLATELET COUNT, AUTOMATED 303 10^3/uL (150-450); WHITE BLOOD COUNT 6.6 10^3/uL (4.0-10.0)
[2022-12-02 13:22] LABS: ALBUMIN 3.4 G/DL (3.2-5.2); ALKALINE PHOSPHATASE 88 U/L (46-116); ALT/SGPT 19 U/L (7.0-40); AST/SGOT 24 U/L (<34); BILIRUBIN,TOTAL 0.3 MG/DL (0.3-1.2); BLOOD UREA NITROGEN 17 MG/DL (9-23); CALCIUM LEVEL 9.7 MG/DL (8.3-10.6); CARBON DIOXIDE LEVEL 24 MMOL/L (20-31); CHLORIDE LEVEL 98 MMOL/L (98-107); CREATININE FOR GFR 0.59 MG/DL (0.70-1.30); GLOMERULAR FILTRATION RATE > 60.0 (>49); GLUCOSE, FASTING 76 MG/DL (74-106); POTASSIUM SERUM 4.8 MMOL/L (3.5-5.1); SODIUM LEVEL 128 MMOL/L (136-145); TOTAL PROTEIN 7.7 G/DL (5.7-8.2)
== END ==
LOC: M WUC 08:55
PROVIDERS: ATTEND Urology
DX: R31.0 Gross hematuria (principal)

== ENCOUNTER → 2022-12-04 | Outpatient (CLI) | payer MEDICAID ==
[~2022-12-04] MED LIST changes: +CARB25TA9 PO; +FERR325T19 PO; +LEVO75TA4 PO
== END ==
LOC: M WUC 11:06
PROVIDERS: ATTEND Urology
DX: R31.0 Gross hematuria (principal)

== ENCOUNTER → 2022-12-09 | Outpatient (CLI) | payer MEDICAID | LOC: M WUC 12:02 | PROVIDERS: ATTEND Urology | DX: R31.0 Gross hematuria (principal) ==

== ENCOUNTER 2022-12-16 06:15 | Day surgery (SDC) | payer MEDICAID ==
[~2022-12-16] VITALS: Ht 160 cm; Wt 68.0 kg
[2022-12-16] MEDS ORDERED: ceFAZolin SOD 2 GM in IV 1 EA IV ONE (06:30)
[2022-12-16] MEDS ORDERED: LR 1,000 ML IV SCH ×2 (06:50→08:20)
[2022-12-16] MEDS ORDERED: LIDOCAINE 1% SDV 5ML VIAL SC PRN (06:50)
[2022-12-16] MEDS ORDERED: MIDAZOLAM INJ 2MG/2ML VIAL As Ordered ONE (07:12)
[2022-12-16] MEDS ORDERED: ONDANSETRON 4MG 2ML VIAL As Ordered ONE (07:12)
[2022-12-16] MEDS ORDERED: fentaNYL 100 MCG/2 ML INJECTION As Ordered ONE (07:12)
[2022-12-16] MEDS ORDERED: LIDOCAINE 2% 100MG/5ML SDV (FOR ANES.) As Ordered ONE (07:12)
[2022-12-16] MEDS ORDERED: propofoL 200 MG/20 ML VIAL As Ordered ONE (07:12)
[2022-12-16] MEDS ORDERED: ISOVUE-300 61% 100ML VIAL As Ordered ONE (07:12)
[2022-12-16] MEDS ORDERED: MACR100C43 PO (08:12)
[2022-12-16] MEDS ORDERED: fentaNYL 100 MCG/2 ML INJECTION IV PRN (08:20)
[2022-12-16] MEDS ORDERED: oxyCODONE 5MG TAB PO PRN (08:20)
[2022-12-16] MEDS ORDERED: ONDANSETRON 4MG 2ML VIAL IV PRN (08:20)
[2022-12-16 11:41] VITALS: BP 145/78
== END 2022-12-16 11:59 | disposition home or self-care (01) ==
LOC: M SDC 06:15
PROVIDERS: ATTEND Urology
DX: N30.01 Acute cystitis with hematuria (principal); I48.91 Unspecified atrial fibrillation; E03.9 Hypothyroidism, unspecified; K57.92 Diverticulitis of intestine, part unspecified, without perforation or abscess without bleeding; K59.00 Constipation, unspecified; D64.9 Anemia, unspecified; M81.0 Age-related osteoporosis without current pathological fracture; F03.90 Unspecified dementia, unspecified severity, without behavioral disturbance, psychotic disturbance, mood disturbance, and anxiety; G47.33 Obstructive sleep apnea (adult) (pediatric); Z79.01 Long term (current) use of anticoagulants; Z79.899 Other long term (current) drug therapy
CPT/HCPCS: 52204; 74420; 87070; 87075; 87205; 88108; 88305; J0690; J1100; J2250; J2405; J3010; Q9967

== ENCOUNTER → 2023-06-03 | Outpatient (REF) | payer MEDICARE, MEDICAID ==
[~2023-06-03] MED LIST changes: +MACR100C43 PO
[2023-06-03 18:25] LABS: HEMATOCRIT 45.5 % (42.0-52.0); HEMOGLOBIN 15.6 g/dl (13.5-17.5); MEAN CORPUSCULAR HEMOGLOBIN 33.9 pg (27.0-33.0); MEAN CORPUSCULAR HGB CONC 34.3 g/dl (32.0-36.5); MEAN CORPUSCULAR VOLUME 98.9 fl (80.0-96.0); PLATELET COUNT, AUTOMATED 269 10^3/uL (150-450); WHITE BLOOD COUNT 6.2 10^3/uL (4.0-10.0)
[2023-06-03 18:49] LABS: TOTAL 25(OH) VITAMIN D 46.6 NG/ML (20.0-100.0)
[2023-06-03 18:50] LABS: FERRITIN 127.1 NG/ML (10.5-307.3); VALPROIC ACID (DEPAKOTE) 101.2 UG/ML (50.0-100.0)
[2023-06-03 18:51] LABS: THYROID STIMULATING HORMONE 4.719 uIU/ML (0.55-4.78)
[2023-06-03 18:52] LABS: ALBUMIN 3.3 G/DL (3.2-5.2); ALKALINE PHOSPHATASE 78 U/L (46-116); ALT/SGPT 17 U/L (7.0-40); AST/SGOT 32 U/L (<34); BILIRUBIN,TOTAL 0.3 MG/DL (0.3-1.2); BLOOD UREA NITROGEN 16 MG/DL (9-23); CALCIUM LEVEL 9.9 MG/DL (8.3-10.6); CARBON DIOXIDE LEVEL 25 MMOL/L (20-31); CHLORIDE LEVEL 100 MMOL/L (98-107); CREATININE FOR GFR 0.61 MG/DL (0.70-1.30); DIGOXIN LEVEL 0.7 NG/ML (0.8-2.0); GLOMERULAR FILTRATION RATE > 60.0 (>49); GLUCOSE, FASTING 93 MG/DL (74-106); POTASSIUM SERUM 5.2 MMOL/L (3.5-5.1); SODIUM LEVEL 133 MMOL/L (136-145); TOTAL PROTEIN 7.3 G/DL (5.7-8.2)
== END ==
LOC: M SFHCPLAZ 17:48
PROVIDERS: ATTEND Nurse Practitioner Adult Health
DX: Z00.00 Encounter for general adult medical examination without abnormal findings (principal); D64.9 Anemia, unspecified; G40.909 Epilepsy, unspecified, not intractable, without status epilepticus; I48.0 Paroxysmal atrial fibrillation; E55.9 Vitamin D deficiency, unspecified; E03.9 Hypothyroidism, unspecified; F03.90 Unspecified dementia, unspecified severity, without behavioral disturbance, psychotic disturbance, mood disturbance, and anxiety; Z79.899 Other long term (current) drug therapy

== ENCOUNTER → 2023-07-24 | Outpatient (REF) | payer MEDICARE, MEDICAID | LOC: M LABWUC 09:25 | PROVIDERS: ATTEND Psychiatry & Neurology Neurology | DX: G40.89 Other seizures (principal) ==

== ENCOUNTER → 2023-12-03 | Outpatient (CLI) | payer MEDICARE, MEDICAID ==
[2023-12-03 18:24] LABS: HEMATOCRIT 45.3 % (42.0-52.0); HEMOGLOBIN 15.1 g/dl (13.5-17.5); MEAN CORPUSCULAR HEMOGLOBIN 33.4 pg (27.0-33.0); MEAN CORPUSCULAR HGB CONC 33.3 g/dl (32.0-36.5); MEAN CORPUSCULAR VOLUME 100.2 fl (80.0-96.0); PLATELET COUNT, AUTOMATED 334 10^3/uL (150-450); RED BLOOD COUNT 4.52 10^6/uL (4.30-6.10); WHITE BLOOD COUNT 8.7 10^3/uL (4.0-10.0)
[2023-12-03 18:34] LABS: VALPROIC ACID (DEPAKOTE) 105.8 UG/ML (50.0-100.0)
[2023-12-03 18:35] LABS: PERCENT SATURATION 18.6 % (19.7-50.0)
[2023-12-03 18:36] LABS: CHOLESTEROL RISK RATIO 3.05 (<5); HDL CHOLESTEROL 63.1 MG/DL (>40); LDL CHOLESTEROL 73.9 MG/DL (<100); NON-HDL-C 129.9 MG/DL
[2023-12-03 18:38] LABS: FERRITIN 88.5 NG/ML (10.5-307.3)
== END ==
LOC: M PLALAB 16:13
PROVIDERS: ATTEND Nurse Practitioner Adult Health
DX: F03.90 Unspecified dementia, unspecified severity, without behavioral disturbance, psychotic disturbance, mood disturbance, and anxiety (principal); G40.909 Epilepsy, unspecified, not intractable, without status epilepticus; D64.9 Anemia, unspecified; I10 Essential (primary) hypertension; E55.9 Vitamin D deficiency, unspecified; I48.0 Paroxysmal atrial fibrillation; N39.42 Incontinence without sensory awareness; E03.9 Hypothyroidism, unspecified; K59.00 Constipation, unspecified; I48.92 Unspecified atrial flutter; F32.9 Major depressive disorder, single episode, unspecified
CPT/HCPCS: 36415; 80061; 80162; 80164; 80167; 82306; 82728; 83550; 85027; G0463

== ENCOUNTER → 2023-12-25 | Outpatient (CLI) | payer MEDICARE, MEDICAID | LOC: M PLARAD 13:32 | PROVIDERS: ATTEND Psychiatry & Neurology Neurology | DX: G40.309 Generalized idiopathic epilepsy and epileptic syndromes, not intractable, without status epilepticus (principal); G93.89 Other specified disorders of brain ==

== ENCOUNTER 2024-04-01 18:53 | Inpatient (IN) | payer MEDICAID, MEDICARE ==
[~2024-04-01] VITALS: Ht 170.2 cm; Wt 66.2 kg
[2024-04-01] MEDS: NS 1,000 ML IV ONE (20:45)
[2024-04-01 20:54] LABS: BASO % 0.5 % (0.0-1.0); EOS # 0.1 10^3/uL (0.0-0.5); EOS % 1.1 % (0.0-3.0); HEMATOCRIT 41.7 % (42.0-52.0); LYMPH # 1.5 10^3/uL (1.5-5.0); LYMPH % 26.4 % (24.0-44.0); MEAN CORPUSCULAR HEMOGLOBIN 34.3 pg (27.0-33.0); MEAN CORPUSCULAR HGB CONC 33.6 g/dl (32.0-36.5); MEAN CORPUSCULAR VOLUME 102.2 fl (80.0-96.0); MONO # 1.3 10^3/uL (0.0-0.8); MONO % 23.4 % (2.0-8.0); NEUTROPHILS # 2.7 10^3/uL (1.5-8.5); NEUTROPHILS % 48.4 % (36.0-66.0); PLATELET COUNT, AUTOMATED 161 10^3/uL (150-450); RED BLOOD COUNT 4.08 10^6/uL (4.30-6.10); WHITE BLOOD COUNT 5.6 10^3/uL (4.0-10.0)
[2024-04-01 21:10] LABS: LIPASE 18 U/L (12-53)
[2024-04-01 21:12] LABS: ALBUMIN 2.8 G/DL (3.2-5.2); ALKALINE PHOSPHATASE 111 U/L (46-116); ALT/SGPT 14 U/L (7.0-40); AST/SGOT 38 U/L (<34); BILIRUBIN,DIRECT < 0.1 MG/DL (<0.4); BILIRUBIN,TOTAL 0.2 MG/DL (0.3-1.2); BLOOD UREA NITROGEN 21 MG/DL (9-23); CALCIUM LEVEL 9.6 MG/DL (8.3-10.6); CARBON DIOXIDE LEVEL 26 MMOL/L (20-31); CHLORIDE LEVEL 103 MMOL/L (98-107); CREATININE FOR GFR 0.58 MG/DL (0.70-1.30); GLOMERULAR FILTRATION RATE > 60.0 (>49); GLUCOSE, FASTING 92 MG/DL (74-106); POTASSIUM SERUM 4.6 MMOL/L (3.5-5.1); SODIUM LEVEL 136 MMOL/L (136-145); TOTAL PROTEIN 6.5 G/DL (5.7-8.2)
[2024-04-01] MEDS ORDERED: FERR325T18 PO (23:38)
[2024-04-01] MEDS ORDERED: LACT20EL PO (23:38)
[2024-04-01] MEDS ORDERED: SYNT75TA PO (23:38)
[2024-04-01] MEDS ORDERED: GUAI400T9 PO (23:42)
[2024-04-01] MEDS ORDERED: HOME MED LIST COMPLETE! XX SCH (23:45)
[2024-04-02] VITALS (8 sets, daily range): BP systolic 136–150; BP diastolic 68–88; TEMP 96.8–97; O2SAT 94–98
[2024-04-02] MEDS ORDERED: ACETAMINOPHEN TAB 650MG DOSE (2X325MG) PO PRN (00:15)
[2024-04-02] MEDS ORDERED: MAALOX 30 ML SUSP *UDC PO PRN (00:15)
[2024-04-02] MEDS ORDERED: ALBUTEROL 90 MCG/ACT 8GM HFA INHALER INH PRN (00:50)
[2024-04-02] MEDS ORDERED: GLUCOSE 4 GM CHEW PO PRN (00:50)
[2024-04-02] MEDS ORDERED: DEXTROSE 50% 50ML SYRINGE IV PRN (00:50)
[2024-04-02] MEDS ORDERED: LACTULOSE 20GM/30ML SYRUP UDC PO PRN (00:50)
[2024-04-02] MEDS ORDERED: GLUCAGON INJ 1MG VIAL SC PRN (00:50)
[2024-04-02] MEDS: NS 1,000 ML IV SCH ×2 (01:10→14:47)
[2024-04-02 01:21] LABS: INR 1.29; PARTIAL THROMBOPLASTIN TIME 34.5 SECONDS (24.8-34.2); PROTHROMBIN TIME 15.7 SECONDS (12.5-14.5)
[2024-04-02 01:28] LABS: C REACTIVE PROTEIN QUANTITATIV 4.6 MG/DL (<1.0)
[2024-04-02 01:32] LABS: FERRITIN 74.8 NG/ML (10.5-307.3)
[2024-04-02 01:41] LABS: PROCALCITONIN 0.09 ng/ml
[2024-04-02 06:17] LABS: HEMATOCRIT 41.2 % (42.0-52.0); HEMOGLOBIN 14.3 g/dl (13.5-17.5); MEAN CORPUSCULAR HEMOGLOBIN 34.8 pg (27.0-33.0); MEAN CORPUSCULAR HGB CONC 34.7 g/dl (32.0-36.5); MEAN CORPUSCULAR VOLUME 100.2 fl (80.0-96.0); PLATELET COUNT, AUTOMATED 200 10^3/uL (150-450); RED BLOOD COUNT 4.11 10^6/uL (4.30-6.10); WHITE BLOOD COUNT 5.4 10^3/uL (4.0-10.0)
[2024-04-02 06:28] LABS: INR 1.22
[2024-04-02 06:45] LABS: ALBUMIN 2.8 G/DL (3.2-5.2); ALKALINE PHOSPHATASE 125 U/L (46-116); ALT/SGPT 22 U/L (7.0-40); AST/SGOT 28 U/L (<34); BILIRUBIN,TOTAL 0.3 MG/DL (0.3-1.2); BLOOD UREA NITROGEN 17 MG/DL (9-23); CALCIUM LEVEL 9.5 MG/DL (8.3-10.6); CARBON DIOXIDE LEVEL 25 MMOL/L (20-31); CHLORIDE LEVEL 105 MMOL/L (98-107); CREATININE FOR GFR 0.48 MG/DL (0.70-1.30); GLOMERULAR FILTRATION RATE > 60.0 (>49); GLUCOSE, FASTING 95 MG/DL (74-106); MAGNESIUM LEVEL 1.6 MG/DL (1.8-2.4); POTASSIUM SERUM 4.5 MMOL/L (3.5-5.1); SODIUM LEVEL 136 MMOL/L (136-145); TOTAL PROTEIN 6.6 G/DL (5.7-8.2)
[2024-04-02] MEDS: SINEMET 25-100 MG TAB PO SCH (06:46)
[2024-04-02] MEDS: LEVOTHYROXINE 75MCG TABLET (0.075MG) PO SCH (06:46)
[2024-04-02] MEDS: FERROUS SULFATE 325MG TAB PO SCH (09:00)
[2024-04-02] MEDS: PARoxetine 20MG TABLET PO SCH (09:00)
[2024-04-02] MEDS: DIVALPROEX SPRINKLE 125 MG CAP PO SCH (09:00)
[2024-04-02] MEDS: MAGNESIUM OXIDE 400MG TAB (MAG-OX) PO SCH (09:37)
[2024-04-02] MEDS: APIXABAN 5 MG TAB (ELIQUIS) PO SCH (09:38)
[2024-04-02] MEDS: DIGOXIN 0.25 MG TAB PO SCH (09:38)
[2024-04-02] MEDS: guaiFENesin 200 MG TAB PO SCH (09:39)
[2024-04-02] MEDS: bisoproloL fumarate 5 MG TAB PO SCH (09:40)
[2024-04-02] MEDS: MAG SULF 1GM/100ML (MAG RUN) 1 GM in IV 1 EA IV SCH (09:42)
[2024-04-02] MEDS ORDERED: VALPROIC ACID XX SCH (10:25)
[2024-04-02 11:55] LABS: VENOUS BASE EXCESS -0.1 (-2.0-2.0); VENOUS HCO3 24.2 MMOL/L (23.0-27.0); VENOUS O2 SATURATION 98.5 % (60.0-80.0); VENOUS PARTIAL PRESSURE CO2 38.3 mmHg (38.0-50.0); VENOUS PARTIAL PRESSURE O2 139.2 mmHg (30.0-50.0); VENOUS PH 7.418 UNITS (7.330-7.430); VENOUS STANDARD HCO3 24.4 MMOL/L; VENOUS TOTAL CO2 25.3 MMOL/L (24.0-28.0)
[2024-04-02] MEDS: REMDESIVIR 200 MG in NS 250 ML IV ONE (14:01)
[2024-04-02] MEDS: D5W IV SCH (17:31)
[2024-04-02] MEDS: VANCOMYCIN HCL 1,000 MG, VIAL MATE ADAPTER 1 EACH in D5W 250 ML IV ONE (17:31)
[2024-04-02] MEDS: VALPROATE SOD IV SCH (17:31)
[2024-04-02] MEDS ORDERED: VALPROIC ACID 500MG/10ML SOL ORAL SYRINGE XX SCH (21:00)
[2024-04-02] MEDS: TAMSULOSIN 0.4 MG CAP PO SCH (21:00)
[2024-04-02] MEDS ORDERED: DIVALPROEX SPRINKLE 125 MG CAP PO SCH (21:00)
[2024-04-02] MEDS: VANCOMYCIN HCL 1,000 MG, VIAL MATE ADAPTER 1 EACH in D5W 250 ML IV SCH (22:36)
[2024-04-03] VITALS (24 sets, daily range): BP systolic 112–170; BP diastolic 70–100; TEMP 96.3–98.2; O2SAT 94–98
[2024-04-03 05:43] LABS: HEMATOCRIT 42.6 % (42.0-52.0); HEMOGLOBIN 14.4 g/dl (13.5-17.5); MEAN CORPUSCULAR HEMOGLOBIN 33.5 pg (27.0-33.0); MEAN CORPUSCULAR HGB CONC 33.8 g/dl (32.0-36.5); MEAN CORPUSCULAR VOLUME 99.1 fl (80.0-96.0); PLATELET COUNT, AUTOMATED 192 10^3/uL (150-450); WHITE BLOOD COUNT 8.7 10^3/uL (4.0-10.0)
[2024-04-03 05:57] LABS: ALBUMIN 2.5 G/DL (3.2-5.2); ALKALINE PHOSPHATASE 111 U/L (46-116); ALT/SGPT 21 U/L (7.0-40); AST/SGOT 25 U/L (<34); BILIRUBIN,TOTAL 0.3 MG/DL (0.3-1.2); BLOOD UREA NITROGEN 15 MG/DL (9-23); CALCIUM LEVEL 9.1 MG/DL (8.3-10.6); CARBON DIOXIDE LEVEL 22 MMOL/L (20-31); CHLORIDE LEVEL 107 MMOL/L (98-107); CREATININE FOR GFR 0.51 MG/DL (0.70-1.30); GLOMERULAR FILTRATION RATE > 60.0 (>49); GLUCOSE, FASTING 82 MG/DL (74-106); MAGNESIUM LEVEL 1.5 MG/DL (1.8-2.4); POTASSIUM SERUM 4.3 MMOL/L (3.5-5.1); SODIUM LEVEL 136 MMOL/L (136-145); TOTAL PROTEIN 6.2 G/DL (5.7-8.2)
[2024-04-03] MEDS: MAG SULF 1GM/100ML (MAG RUN) 1 GM in IV 1 EA IV ONE (06:21)
[2024-04-03] MEDS: PANTOPRAZOLE 40MG VIAL IV SCH (08:24)
[2024-04-03] MEDS: MAGNESIUM OXIDE 400MG TAB (MAG-OX) PO SCH (08:26)
[2024-04-03] MEDS: FELBAMATE 600 MG PO SCH (12:51)
[2024-04-03] MEDS: REMDESIVIR 100 MG in NS 250 ML IV SCH (14:25)
[2024-04-03] MEDS ORDERED: PILL CUTTER 1 EACH XX ONE (16:24)
[2024-04-03] MEDS: VALPROATE SOD INJ 500 MG in D5W 50 ML IV STA (16:27)
[2024-04-03] MEDS: MAG SULF 1GM/100ML (MAG RUN) 1 GM in IV 1 EA IV SCH (18:09)
[2024-04-03] MEDS: LORazepam 2 MG/ML 1ML VIAL IV PRN (18:52)
[2024-04-03] MEDS: METOPROLOL 5 MG/5 ML VIAL IV STA (19:30)
[2024-04-03] MEDS: DIVALPROEX SPRINKLE 125 MG CAP PO SCH (21:14)
[2024-04-03 22:22] LABS: DIGOXIN LEVEL 0.7 NG/ML (0.8-2.0)
[2024-04-03 22:23] LABS: ALBUMIN 2.3 G/DL (3.2-5.2); ALKALINE PHOSPHATASE 127 U/L (46-116); ALT/SGPT 11 U/L (7.0-40); AST/SGOT 33 U/L (<34); BILIRUBIN,TOTAL 0.3 MG/DL (0.3-1.2); BLOOD UREA NITROGEN 8 MG/DL (9-23); CALCIUM LEVEL 8.6 MG/DL (8.3-10.6); CARBON DIOXIDE LEVEL 24 MMOL/L (20-31); CHLORIDE LEVEL 100 MMOL/L (98-107); CREATININE FOR GFR 0.37 MG/DL (0.70-1.30); GLOMERULAR FILTRATION RATE > 60.0 (>49); GLUCOSE, FASTING 104 MG/DL (74-106); MAGNESIUM LEVEL 1.9 MG/DL (1.8-2.4); POTASSIUM SERUM 3.6 MMOL/L (3.5-5.1); SODIUM LEVEL 128 MMOL/L (136-145); TOTAL PROTEIN 5.6 G/DL (5.7-8.2)
[2024-04-04] VITALS (30 sets, daily range): BP systolic 102–146; BP diastolic 60–87; TEMP 96.6–98.3; O2SAT 93–98
[2024-04-04] MEDS: VANCOMYCIN HCL 1,000 MG, VIAL MATE ADAPTER 1 EACH in D5W 250 ML IV SCH ×2 (00:36→12:44)
[2024-04-04 06:20] LABS: BLOOD UREA NITROGEN 8 MG/DL (9-23); CALCIUM LEVEL 8.4 MG/DL (8.3-10.6); CARBON DIOXIDE LEVEL 25 MMOL/L (20-31); CHLORIDE LEVEL 102 MMOL/L (98-107); CREATININE FOR GFR 0.42 MG/DL (0.70-1.30); GLOMERULAR FILTRATION RATE > 60.0 (>49); GLUCOSE, FASTING 74 MG/DL (74-106); POTASSIUM SERUM 3.6 MMOL/L (3.5-5.1); SODIUM LEVEL 133 MMOL/L (136-145)
[2024-04-04] MEDS: DIVALPROEX SPRINKLE 125 MG CAP PO SCH (08:15)
[2024-04-04] MEDS ORDERED: BISOPROLOL FUM 2.5 MG PER 1/2TAB PO SCH (21:00)
[2024-04-05] VITALS (11 sets, daily range): BP systolic 127–133; BP diastolic 75–81; TEMP 97–97.4; O2SAT 94–97
[2024-04-05 05:52] LABS: BASO % 0.4 % (0.0-1.0); EOS # 0.1 10^3/uL (0.0-0.5); EOS % 1.4 % (0.0-3.0); HEMATOCRIT 37.8 % (42.0-52.0); HEMOGLOBIN 12.9 g/dl (13.5-17.5); LYMPH % 27.5 % (24.0-44.0); MEAN CORPUSCULAR HEMOGLOBIN 33.9 pg (27.0-33.0); MEAN CORPUSCULAR HGB CONC 34.1 g/dl (32.0-36.5); MEAN CORPUSCULAR VOLUME 99.5 fl (80.0-96.0); MONO % 13.8 % (2.0-8.0); NEUTROPHILS % 56.5 % (36.0-66.0); PLATELET COUNT, AUTOMATED 163 10^3/uL (150-450); WHITE BLOOD COUNT 7.2 10^3/uL (4.0-10.0)
[2024-04-05 06:22] LABS: BLOOD UREA NITROGEN 9 MG/DL (9-23); CALCIUM LEVEL 8.7 MG/DL (8.3-10.6); CARBON DIOXIDE LEVEL 24 MMOL/L (20-31); CHLORIDE LEVEL 105 MMOL/L (98-107); CREATININE FOR GFR 0.48 MG/DL (0.70-1.30); GLOMERULAR FILTRATION RATE > 60.0 (>49); GLUCOSE, FASTING 67 MG/DL (74-106); MAGNESIUM LEVEL 1.7 MG/DL (1.8-2.4); POTASSIUM SERUM 3.7 MMOL/L (3.5-5.1); SODIUM LEVEL 134 MMOL/L (136-145)
[2024-04-05 06:24] LABS: FREE T4 1.26 NG/DL (0.89-1.76); THYROID STIMULATING HORMONE 2.151 uIU/ML (0.55-4.78)
[2024-04-05] MEDS: MAG SULF 1GM/100ML (MAG RUN) 1 GM in IV 1 EA IV SCH (09:24)
[2024-04-05] MEDS: POTASSIUM CHLORIDE 10MEQ SR TABLET PO SCH (09:25)
[2024-04-05] MEDS: BISOPROLOL FUM 2.5 MG PER 1/2TAB PO SCH (12:40)
[2024-04-05] MEDS: SODIUM CHLORIDE NASAL 0.65% SPRAY BTL (OCEAN) SCH (12:40)
[2024-04-05] MEDS: FLUTICASONE PROP 0.05% NASAL SPRAY 16 GM (FLONASE) NARES SCH (12:40)
[2024-04-05] MEDS: POLYTRIM OPTH DROPS 10ML OU SCH (12:41)
[2024-04-05] MEDS ORDERED: VARIBAR PUDDING 40% w/v 230ML TUBE As Ordered ONE (14:18)
[2024-04-05] MEDS ORDERED: E-Z-PAQUE 96% w/w SUSP 176GM BTL As Ordered ONE (14:19)
[2024-04-05] MEDS ORDERED: VARIBAR NECTAR 40% w/v 240ML SUSP BTL As Ordered ONE (14:19)
[2024-04-05] MEDS ORDERED: BARIUM SULFATE 700 MG TABLET (E-Z-DISK) As Ordered ONE (14:19)
[2024-04-05] MEDS ORDERED: FLUTISP NARES (15:37)
[2024-04-05] MEDS ORDERED: BISO5TAB14 PO (15:37)
[2024-04-05] MEDS ORDERED: POLY2.5S OU (15:37)
== END 2024-04-05 16:38 | disposition home health service (06) | DRG 137 ==
LOC: M ED 18:53 → EDBD 18:53 → M ED INP 23:33 → M PCU 04-02 16:11
PROVIDERS: ADMIT Preventive Medicine Undersea and Hyperbaric Medicine; ATTEND Preventive Medicine Undersea and Hyperbaric Medicine
PROC: XW033E5 Introduction of Remdesivir Anti-infective into Peripheral Vein, Percutaneous Approach, New Technology Group 5 (ICD-10-PCS; principal; 2024-04-02)
DX: U07.1 COVID-19 (principal); G93.41 Metabolic encephalopathy; G20.C Parkinsonism, unspecified; I48.92 Unspecified atrial flutter; I48.91 Unspecified atrial fibrillation; E83.42 Hypomagnesemia; F03.90 Unspecified dementia, unspecified severity, without behavioral disturbance, psychotic disturbance, mood disturbance, and anxiety; G40.909 Epilepsy, unspecified, not intractable, without status epilepticus; I10 Essential (primary) hypertension; E03.9 Hypothyroidism, unspecified; Q90.9 Down syndrome, unspecified; R32 Unspecified urinary incontinence; M81.0 Age-related osteoporosis without current pathological fracture; G47.33 Obstructive sleep apnea (adult) (pediatric); Z83.3 Family history of diabetes mellitus; Z79.01 Long term (current) use of anticoagulants; Z79.890 Hormone replacement therapy; Z79.899 Other long term (current) drug therapy

== ENCOUNTER → 2024-04-13 | Outpatient (CLI) | payer MEDICARE, MEDICAID ==
[~2024-04-13] MED LIST changes: +FERR325T18 PO; +FLUTISP NARES; +GUAI400T9 PO; +LACT20EL PO; +POLY2.5S OU; +SYNT75TA PO
[2024-04-13 19:24] LABS: BASO % 0.3 % (0.0-1.0); EOS # 0.2 10^3/uL (0.0-0.5); HEMATOCRIT 41.3 % (42.0-52.0); HEMOGLOBIN 13.9 g/dl (13.5-17.5); LYMPH % 40.9 % (24.0-44.0); MEAN CORPUSCULAR HEMOGLOBIN 33.5 pg (27.0-33.0); MEAN CORPUSCULAR HGB CONC 33.7 g/dl (32.0-36.5); MEAN CORPUSCULAR VOLUME 99.5 fl (80.0-96.0); MONO # 0.9 10^3/uL (0.0-0.8); MONO % 11.5 % (2.0-8.0); NEUTROPHILS # 3.3 10^3/uL (1.5-8.5); NEUTROPHILS % 44.8 % (36.0-66.0); PLATELET COUNT, AUTOMATED 371 10^3/uL (150-450); RED BLOOD COUNT 4.15 10^6/uL (4.30-6.10); WHITE BLOOD COUNT 7.4 10^3/uL (4.0-10.0)
[2024-04-13 19:56] LABS: FREE T4 1.38 NG/DL (0.89-1.76); THYROID STIMULATING HORMONE 1.403 uIU/ML (0.55-4.78); VITAMIN B12 LEVEL 1235 PG/ML (211-911)
[2024-04-13 19:57] LABS: ALKALINE PHOSPHATASE 115 U/L (46-116); ALT/SGPT < 9 U/L (7.0-40); AST/SGOT 11 U/L (<34); BILIRUBIN,TOTAL 0.2 MG/DL (0.3-1.2); BLOOD UREA NITROGEN 16 MG/DL (9-23); CALCIUM LEVEL 10.2 MG/DL (8.3-10.6); CARBON DIOXIDE LEVEL 24 MMOL/L (20-31); CHLORIDE LEVEL 102 MMOL/L (98-107); CREATININE FOR GFR 0.56 MG/DL (0.70-1.30); GLOMERULAR FILTRATION RATE > 60.0 (>49); GLUCOSE, FASTING 93 MG/DL (74-106); MAGNESIUM LEVEL 1.8 MG/DL (1.8-2.4); POTASSIUM SERUM 4.8 MMOL/L (3.5-5.1); SODIUM LEVEL 133 MMOL/L (136-145); TOTAL PROTEIN 7.1 G/DL (5.7-8.2)
[2024-04-15 07:47] LABS: HEMATOCRIT 41.3 % (42.0-52.0)
== END ==
LOC: M PLALAB 15:19
PROVIDERS: ATTEND Student in an Organized Health Care Education/Training Program
DX: G93.41 Metabolic encephalopathy (principal); E03.9 Hypothyroidism, unspecified; F03.90 Unspecified dementia, unspecified severity, without behavioral disturbance, psychotic disturbance, mood disturbance, and anxiety; G40.909 Epilepsy, unspecified, not intractable, without status epilepticus; I45.5 Other specified heart block; I10 Essential (primary) hypertension; Q90.9 Down syndrome, unspecified; D64.9 Anemia, unspecified; E55.9 Vitamin D deficiency, unspecified

== ENCOUNTER 2024-09-16 06:45 | Inpatient (IN) | payer MEDICARE, MEDICAID ==
[~2024-09-16] VITALS: Ht 165.1 cm; Wt 55.4 kg
[~2024-09-16 06:45] MED LIST changes: +GABA-1172 PO; -GABA-282 PO; -LACT10SO3; +LACT10SO94
[2024-09-16] MEDS: ACETAMINOPHEN *IV* 500 MG in IV 1 EA IV ONE (07:44)
[2024-09-16] MEDS: NS (Normal Saline) 0.9% 1,000 ML IV ONE ×2 (07:45→09:38)
[2024-09-16 07:49] LABS: BASO # 0.1 10^3/uL (0.0-0.2); HEMATOCRIT 48.8 % (42.0-52.0); HEMOGLOBIN 15.7 g/dl (13.5-17.5); LYMPH # 1.1 10^3/uL (1.5-5.0); LYMPH % 20.9 % (24.0-44.0); MEAN CORPUSCULAR HEMOGLOBIN 34.1 pg (27.0-33.0); MEAN CORPUSCULAR HGB CONC 32.2 g/dl (32.0-36.5); MEAN CORPUSCULAR VOLUME 106.1 fl (80.0-96.0); MONO # 0.6 10^3/uL (0.0-0.8); MONO % 10.9 % (2.0-8.0); NEUTROPHILS # 3.4 10^3/uL (1.5-8.5); NEUTROPHILS % 66.6 % (36.0-66.0); PLATELET COUNT, AUTOMATED 319 10^3/uL (150-450); WHITE BLOOD COUNT 5.1 10^3/uL (4.0-10.0)
[2024-09-16 07:54] LABS: RSV AMPLIFICATION NEGATIVE (NEGATIVE)
[2024-09-16 08:33] LABS: KETONE, URINE AUTO RFX TRACE mg/dL (NEGATIVE); LEUKOCYTE ESTERASE UR AUTO RFX NEGATIVE (NEGATIVE); MUCUS, URINE RFX LARGE (NEGATIVE); NITRITE, URINE AUTO RFX NEGATIVE (NEGATIVE); RBC, URINE AUTO RFX TNTC /HPF (0-3); SQUAM EPITHELIAL CELL UR AURFX 4 /HPF (0-6)
[2024-09-16] MEDS ORDERED: FERROUS SULFATE 325MG TAB PO SCH (09:00)
[2024-09-16] MEDS ORDERED: TAMSULOSIN 0.4 MG CAP PO SCH ×3 (09:00)
[2024-09-16] MEDS ORDERED: PARoxetine 20MG TABLET PO SCH (09:00)
[2024-09-16] MEDS: APIXABAN 5 MG TAB (ELIQUIS) PO SCH (09:00)
[2024-09-16 09:16] LABS: WBC, URINE AUTO RFX 19 /HPF (0-3)
[2024-09-16 09:29] LABS: ALBUMIN 1.8 G/DL (3.2-5.2); ALKALINE PHOSPHATASE 142 U/L (40-129); ALT/SGPT < 9 U/L (7.0-40); AST/SGOT 14 U/L (<34); BILIRUBIN,TOTAL 0.5 MG/DL (0.3-1.2); BLOOD UREA NITROGEN 28 MG/DL (9-23); CALCIUM LEVEL 9.1 MG/DL (8.3-10.6); CARBON DIOXIDE LEVEL 30 MMOL/L (20-31); CHLORIDE LEVEL 105 MMOL/L (98-107); CPK CREATINE PHOSPHOKINASE 43 U/L (46-171); CREATININE FOR GFR 0.59 MG/DL (0.70-1.30); GLOMERULAR FILTRATION RATE > 60.0 (>49); GLUCOSE, FASTING 78 MG/DL (74-106); MB/CK RELATIVE INDEX 2.32 (< OR =4); POTASSIUM SERUM 4.5 MMOL/L (3.5-5.1); SODIUM LEVEL 142 MMOL/L (136-145); TOTAL PROTEIN 5.3 G/DL (5.7-8.2)
[2024-09-16 09:36] LABS: PROCALCITONIN 0.15 ng/ml
[2024-09-16] MEDS: cefTRIAXone SOD 1 GM in DEXTROSE 5% (D5W) ADV/MINI-BAG 50 ML IV ONE (09:38)
[2024-09-16 09:59] LABS: VALPROIC ACID (DEPAKOTE) 62.7 UG/ML (50.0-100.0)
[2024-09-16] MEDS ORDERED: ISOVUE-370 76% 100ML VIAL As Ordered ONE (10:56)
[2024-09-16] MEDS ORDERED: FLON1SPR NARES (11:19)
[2024-09-16] MEDS ORDERED: BISO5TAB14 PO (11:19)
[2024-09-16] MEDS ORDERED: HOME MED LIST COMPLETE! XX SCH (11:25)
[2024-09-16] MEDS: metroNIDAZOLE 500 MG in IV 1 EA IV ONE (12:32)
[2024-09-16] MEDS ORDERED: FLUTICASONE PROP 0.05% NASAL SPRAY 16 GM (FLONASE) NARES PRN (12:45)
[2024-09-16] MEDS ORDERED: LACTULOSE 20GM/30ML SYRUP UDC PO PRN (12:45)
[2024-09-16] MEDS ORDERED: PIPERACILLIN/TAZOBACTAM SOD 3.375 GM in DEXTROSE 5% (D5W) ADV/MINI-BAG 50 ML IV SCH (12:50)
[2024-09-16] MEDS: SINEMET 25-100 MG TAB PO SCH (13:00)
[2024-09-16 14:08] LABS: C REACTIVE PROTEIN QUANTITATIV 5.12 MG/DL (<1.0)
[2024-09-16 14:12] LABS: FOLATE 4.03 NG/ML (>5.4); THYROID STIMULATING HORMONE 1.393 uIU/ML (0.55-4.78)
[2024-09-16 14:13] LABS: VITAMIN B12 LEVEL 1624 PG/ML (211-911)
[2024-09-16] MEDS: PIPERACILLIN/TAZOBACTAM SOD 4.5 GM in DEXTROSE 5% (D5W) ADV/MINI-BAG 50 ML IV SCH (14:20)
[2024-09-16] MEDS: METOPROLOL 5 MG/5 ML VIAL IV STA (14:21)
[2024-09-16] MEDS: guaiFENesin 200 MG TAB PO SCH (16:44)
[2024-09-16] MEDS: DOXYCYCLINE HYCLATE 100MG TABLET PO SCH (16:45)
[2024-09-16] MEDS: LEVOTHYROXINE 75MCG TABLET (0.075MG) PO SCH (16:59)
[2024-09-16] MEDS: FERROUS SULFATE 300MG/5ML UDC LIQUID PO SCH (18:26)
[2024-09-16] MEDS: DIVALPROEX SPRINKLE 125 MG CAP PO SCH ×2 (18:27→21:00)
[2024-09-16] MEDS: bisoproloL fumarate 5 MG TAB PO SCH (18:27)
[2024-09-16] MEDS: FELBAMATE 600 MG PO SCH (21:00)
[2024-09-16] MEDS ORDERED: DOXYCYCLINE HYCLATE 100 MG in DEXTROSE 5% (D5W) MINI-BAG PLU 100 ML IV SCH (21:00)
[2024-09-17] VITALS (8 sets, daily range): BP systolic 92–135; BP diastolic 57–75; TEMP 97.3–99.7; O2SAT 94–99
[2024-09-17 04:35] LABS: HEMOGLOBIN 11.3 g/dl (13.5-17.5); MEAN CORPUSCULAR HEMOGLOBIN 34.7 pg (27.0-33.0); MEAN CORPUSCULAR HGB CONC 33.2 g/dl (32.0-36.5); MEAN CORPUSCULAR VOLUME 104.3 fl (80.0-96.0); PLATELET COUNT, AUTOMATED 246 10^3/uL (150-450); RED BLOOD COUNT 3.26 10^6/uL (4.30-6.10); WHITE BLOOD COUNT 14.8 10^3/uL (4.0-10.0)
[2024-09-17 04:51] LABS: BLOOD UREA NITROGEN 30 MG/DL (9-23); CALCIUM LEVEL 8.4 MG/DL (8.3-10.6); CARBON DIOXIDE LEVEL 26 MMOL/L (20-31); CHLORIDE LEVEL 106 MMOL/L (98-107); GLOMERULAR FILTRATION RATE > 60.0 (>49); GLUCOSE, FASTING 75 MG/DL (74-106); MAGNESIUM LEVEL 1.5 MG/DL (1.8-2.4); POTASSIUM SERUM 3.1 MMOL/L (3.5-5.1); SODIUM LEVEL 144 MMOL/L (136-145)
[2024-09-17] MEDS: KCL 20MEQ in NS 1000ML 1,000 ML IV SCH (06:53)
[2024-09-17] MEDS: MAG SULF 1GM/100ML (MAG RUN) 1 GM in IV 1 EA IV SCH (06:58)
[2024-09-17] MEDS ORDERED: [UNRECOGNIZED DRUG - CODE] TOP (09:48)
[2024-09-17] MEDS: FOLIC ACID 1 MG in NS 50 ML IV SCH (10:39)
[2024-09-17] MEDS: DIGOXIN INJ 0.5 MG/2 ML AMP IV ONE (10:41)
[2024-09-17] MEDS: FIDAXOMICIN 200 MG TAB (DIFICID) PO SCH (11:15)
[2024-09-17] MEDS ORDERED: VARIBAR NECTAR 40% w/v 240ML SUSP BTL As Ordered ONE (11:19)
[2024-09-17] MEDS ORDERED: VARIBAR PUDDING 40% w/v 230ML TUBE As Ordered ONE (11:19)
[2024-09-17] MEDS ORDERED: E-Z-PAQUE 96% w/w SUSP 176GM BTL As Ordered ONE (11:19)
[2024-09-17] MEDS ORDERED: BARIUM SULFATE 700 MG TABLET (E-Z-DISK) As Ordered ONE (11:20)
[2024-09-17] MEDS: KCL 40MEQ in NS 1000ML 1,000 ML IV SCH (11:28)
[2024-09-17] MEDS: AZITHROMYCIN INJ 500 MG, VIAL MATE ADAPTER 1 EACH in NS 250 ML IV SCH (12:39)
[2024-09-17 17:15] LABS: BLOOD UREA NITROGEN 27 MG/DL (9-23); CALCIUM LEVEL 8.5 MG/DL (8.3-10.6); CARBON DIOXIDE LEVEL 26 MMOL/L (20-31); CHLORIDE LEVEL 115 MMOL/L (98-107); CREATININE FOR GFR 0.59 MG/DL (0.70-1.30); GLOMERULAR FILTRATION RATE > 60.0 (>49); GLUCOSE, FASTING 66 MG/DL (74-106); MAGNESIUM LEVEL 2.1 MG/DL (1.8-2.4); SODIUM LEVEL 148 MMOL/L (136-145)
[2024-09-17] MEDS: D5W 1,000 ML IV SCH (19:56)
[2024-09-17] MEDS ORDERED: VALPROATE SOD INJ 500 MG in D5W 50 ML IV SCH (21:00)
[2024-09-17] MEDS: VALPROATE SOD INJ 500 MG in DEXTROSE 5% (D5W) ADV/MINI-BAG 50 ML IV SCH (21:10)
[2024-09-18] VITALS (7 sets, daily range): BP systolic 94–134; BP diastolic 56–73; TEMP 97.2–98.5; O2SAT 93–97
[2024-09-18 04:46] LABS: BASO % 0.3 % (0.0-1.0); EOS # 0.1 10^3/uL (0.0-0.5); EOS % 0.5 % (0.0-3.0); HEMATOCRIT 30.2 % (42.0-52.0); HEMOGLOBIN 9.7 g/dl (13.5-17.5); LYMPH # 1.6 10^3/uL (1.5-5.0); LYMPH % 12.1 % (24.0-44.0); MEAN CORPUSCULAR HEMOGLOBIN 34.2 pg (27.0-33.0); MEAN CORPUSCULAR HGB CONC 32.1 g/dl (32.0-36.5); MEAN CORPUSCULAR VOLUME 106.3 fl (80.0-96.0); MONO # 0.8 10^3/uL (0.0-0.8); MONO % 6.3 % (2.0-8.0); NEUTROPHILS # 10.7 10^3/uL (1.5-8.5); NEUTROPHILS % 79.4 % (36.0-66.0); PLATELET COUNT, AUTOMATED 199 10^3/uL (150-450); RED BLOOD COUNT 2.84 10^6/uL (4.30-6.10); WHITE BLOOD COUNT 13.4 10^3/uL (4.0-10.0)
[2024-09-18 05:09] LABS: BLOOD UREA NITROGEN 23 MG/DL (9-23); CALCIUM LEVEL 8.4 MG/DL (8.3-10.6); CARBON DIOXIDE LEVEL 25 MMOL/L (20-31); CHLORIDE LEVEL 113 MMOL/L (98-107); CREATININE FOR GFR 0.54 MG/DL (0.70-1.30); GLOMERULAR FILTRATION RATE > 60.0 (>49); GLUCOSE, FASTING 80 MG/DL (74-106); MAGNESIUM LEVEL 1.7 MG/DL (1.8-2.4); POTASSIUM SERUM 3.4 MMOL/L (3.5-5.1); SODIUM LEVEL 148 MMOL/L (136-145)
[2024-09-18] MEDS ORDERED: POTASSIUM CHLORIDE 10% LIQ 20MEQ/15ML UDC PO ONE (06:05)
[2024-09-18] MEDS: MAG SULF 1GM/100ML (MAG RUN) 1 GM in IV 1 EA IV SCH (06:52)
[2024-09-18] MEDS: DIGOXIN INJ 0.5 MG/2 ML AMP IV ONE (08:35)
[2024-09-18] MEDS: KCL 10MEQ/100ML SWI (KRUN) 10 MEQ in IV 1 EA IV SCH (08:35)
[2024-09-18] MEDS: BISOPROLOL FUM 2.5 MG PER 1/2TAB PO SCH (09:00)
[2024-09-18] MEDS: VALPROATE SOD INJ 750 MG in D5W 50 ML IV SCH (09:02)
[2024-09-18 12:58] LABS: CREATININE FOR GFR 0.52 MG/DL (0.70-1.30); GLOMERULAR FILTRATION RATE > 60.0 (>49)
[2024-09-18] MEDS: ENOXAPARIN 60MG/0.6ML SYRINGE (J1650 PER 10MG) SC ONE (13:00)
[2024-09-18] MEDS: ENOXAPARIN 60MG/0.6ML SYRINGE (J1650 PER 10MG) SC SCH (22:03)
[2024-09-19 04:09] VITALS: BP 126/63; TEMP 97.1; O2SAT 96
[2024-09-19 07:51] VITALS: BP 130/80; TEMP 97.2; O2SAT 96
[2024-09-19 08:33] LABS: BASO # 0.1 10^3/uL (0.0-0.2); BASO % 0.5 % (0.0-1.0); EOS # 0.2 10^3/uL (0.0-0.5); EOS % 1.4 % (0.0-3.0); HEMOGLOBIN 11.2 g/dl (13.5-17.5); LYMPH # 2.1 10^3/uL (1.5-5.0); LYMPH % 19.6 % (24.0-44.0); MEAN CORPUSCULAR HEMOGLOBIN 34.1 pg (27.0-33.0); MEAN CORPUSCULAR HGB CONC 32.9 g/dl (32.0-36.5); MEAN CORPUSCULAR VOLUME 103.7 fl (80.0-96.0); MONO # 0.6 10^3/uL (0.0-0.8); MONO % 5.8 % (2.0-8.0); NEUTROPHILS # 7.8 10^3/uL (1.5-8.5); NEUTROPHILS % 71.8 % (36.0-66.0); PLATELET COUNT, AUTOMATED 186 10^3/uL (150-450); RED BLOOD COUNT 3.28 10^6/uL (4.30-6.10); WHITE BLOOD COUNT 10.9 10^3/uL (4.0-10.0)
[2024-09-19 09:00] LABS: BLOOD UREA NITROGEN 15 MG/DL (9-23); CALCIUM LEVEL 8.4 MG/DL (8.3-10.6); CARBON DIOXIDE LEVEL 26 MMOL/L (20-31); CHLORIDE LEVEL 106 MMOL/L (98-107); CREATININE FOR GFR 0.43 MG/DL (0.70-1.30); GLOMERULAR FILTRATION RATE > 60.0 (>49); GLUCOSE, FASTING 89 MG/DL (74-106); MAGNESIUM LEVEL 1.6 MG/DL (1.8-2.4); POTASSIUM SERUM 3.1 MMOL/L (3.5-5.1); SODIUM LEVEL 143 MMOL/L (136-145)
[2024-09-19] MEDS: SINEMET 25-100 MG TAB PO SCH (09:53)
[2024-09-19] MEDS: MAG SULF 1GM/100ML (MAG RUN) 1 GM in IV 1 EA IV SCH (11:42)
[2024-09-19] MEDS: KCL 40MEQ IN D5/0.45NS 1000ML 1,000 ML IV SCH (11:42)
[2024-09-19] MEDS: metroNIDAZOLE 500 MG in IV 1 EA IV SCH (11:42)
[2024-09-19 12:00] VITALS: TEMP 97.4; O2SAT 98
[2024-09-19] MEDS ORDERED: DEXTROSE 50% 50ML SYRINGE IV PRN (14:25)
[2024-09-19] MEDS ORDERED: GLUCOSE 4 GM CHEW PO PRN (14:25)
[2024-09-19] MEDS ORDERED: GLUCAGON INJ 1MG VIAL SC PRN (14:25)
[2024-09-19 16:00] VITALS: BP 114/75; TEMP 97.2; O2SAT 100
[2024-09-19] MEDS: KCL 10MEQ/100ML SWI (KRUN) 10 MEQ in IV 1 EA IV SCH (17:44)
[2024-09-19 20:03] VITALS: BP 146/75; TEMP 97.4; O2SAT 98
[2024-09-19 23:42] VITALS: BP 136/79; TEMP 97.2; O2SAT 96
[2024-09-20 03:17] VITALS: BP 128/86; TEMP 98.4; O2SAT 98
[2024-09-20] MEDS: D5W 500 ML IV SCH (04:17)
[2024-09-20 06:12] LABS: BASO # 0.1 10^3/uL (0.0-0.2); BASO % 0.7 % (0.0-1.0); EOS # 0.2 10^3/uL (0.0-0.5); EOS % 2.3 % (0.0-3.0); HEMATOCRIT 34.1 % (42.0-52.0); HEMOGLOBIN 11.2 g/dl (13.5-17.5); LYMPH # 1.9 10^3/uL (1.5-5.0); MEAN CORPUSCULAR HEMOGLOBIN 33.7 pg (27.0-33.0); MEAN CORPUSCULAR HGB CONC 32.8 g/dl (32.0-36.5); MEAN CORPUSCULAR VOLUME 102.7 fl (80.0-96.0); MONO # 0.9 10^3/uL (0.0-0.8); MONO % 10.3 % (2.0-8.0); NEUTROPHILS # 5.3 10^3/uL (1.5-8.5); NEUTROPHILS % 62.9 % (36.0-66.0); PLATELET COUNT, AUTOMATED 190 10^3/uL (150-450); RED BLOOD COUNT 3.32 10^6/uL (4.30-6.10); WHITE BLOOD COUNT 8.4 10^3/uL (4.0-10.0)
[2024-09-20 06:29] LABS: BLOOD UREA NITROGEN 10 MG/DL (9-23); CALCIUM LEVEL 8.4 MG/DL (8.3-10.6); CARBON DIOXIDE LEVEL 22 MMOL/L (20-31); CHLORIDE LEVEL 107 MMOL/L (98-107); CREATININE FOR GFR 0.41 MG/DL (0.70-1.30); GLOMERULAR FILTRATION RATE > 60.0 (>49); GLUCOSE, FASTING 90 MG/DL (74-106); MAGNESIUM LEVEL 1.7 MG/DL (1.8-2.4); POTASSIUM SERUM 4.5 MMOL/L (3.5-5.1); SODIUM LEVEL 139 MMOL/L (136-145)
[2024-09-20 08:15] VITALS: BP 138/94; TEMP 97.7; O2SAT 97
[2024-09-20] MEDS: LR 1,000 ML IV ONE (09:17)
[2024-09-20] MEDS: MAG SULF 1GM/100ML (MAG RUN) 1 GM in IV 1 EA IV ONE (10:56)
[2024-09-20] MEDS: cefTRIAXone SOD 1 GM in DEXTROSE 5% (D5W) ADV/MINI-BAG 50 ML IV ONE (12:49)
[2024-09-20 16:00] VITALS: BP 139/92; TEMP 98.3; O2SAT 96
[2024-09-20 19:00] VITALS: BP 123/78; TEMP 97.6; O2SAT 96
[2024-09-20 19:31] LABS: URINE STREP PNEUMONIAE ANTIGEN NOT DETECTED (NOT DETECT)
[2024-09-20 23:51] VITALS: BP 121/71; TEMP 97.1; O2SAT 95
[2024-09-21 04:03] VITALS: BP 121/65; TEMP 97.6; O2SAT 95
[2024-09-21 05:48] LABS: BASO % 0.7 % (0.0-1.0); EOS # 0.2 10^3/uL (0.0-0.5); EOS % 3.8 % (0.0-3.0); HEMATOCRIT 28.7 % (42.0-52.0); HEMOGLOBIN 9.6 g/dl (13.5-17.5); LYMPH # 2.3 10^3/uL (1.5-5.0); LYMPH % 40.8 % (24.0-44.0); MEAN CORPUSCULAR HEMOGLOBIN 34.2 pg (27.0-33.0); MEAN CORPUSCULAR HGB CONC 33.4 g/dl (32.0-36.5); MEAN CORPUSCULAR VOLUME 102.1 fl (80.0-96.0); MONO # 0.6 10^3/uL (0.0-0.8); MONO % 11.3 % (2.0-8.0); NEUTROPHILS # 2.2 10^3/uL (1.5-8.5); PLATELET COUNT, AUTOMATED 129 10^3/uL (150-450); RED BLOOD COUNT 2.81 10^6/uL (4.30-6.10); WHITE BLOOD COUNT 5.6 10^3/uL (4.0-10.0)
[2024-09-21 06:14] LABS: BLOOD UREA NITROGEN 8 MG/DL (9-23); CALCIUM LEVEL 7.8 MG/DL (8.3-10.6); CARBON DIOXIDE LEVEL 23 MMOL/L (20-31); CHLORIDE LEVEL 104 MMOL/L (98-107); CREATININE FOR GFR 0.41 MG/DL (0.70-1.30); GLOMERULAR FILTRATION RATE > 60.0 (>49); GLUCOSE, FASTING 86 MG/DL (74-106); MAGNESIUM LEVEL 1.4 MG/DL (1.8-2.4); POTASSIUM SERUM 3.7 MMOL/L (3.5-5.1); SODIUM LEVEL 135 MMOL/L (136-145)
[2024-09-21] MEDS: NS 500 ML IV ONE (07:20)
[2024-09-21 07:49] VITALS: BP 132/62; TEMP 97; O2SAT 90
[2024-09-21] MEDS: MAG SULF 1GM/100ML (MAG RUN) 1 GM in IV 1 EA IV SCH (09:33)
[2024-09-21 12:11] VITALS: BP 122/71; TEMP 97.3; O2SAT 99
[2024-09-21 16:12] VITALS: BP 100/64; TEMP 96.8; O2SAT 97
[2024-09-21 19:06] VITALS: BP 112/74; TEMP 97.6; O2SAT 98
[2024-09-21] MEDS: FIDAXOMICIN 200 MG TAB (DIFICID) PO SCH (21:51)
[2024-09-22] VITALS (9 sets, daily range): BP systolic 86–140; BP diastolic 50–80; TEMP 96.7–98.4; O2SAT 93–98
[2024-09-22 06:17] LABS: BASO # 0.1 10^3/uL (0.0-0.2); BASO % 0.9 % (0.0-1.0); EOS # 0.2 10^3/uL (0.0-0.5); EOS % 2.9 % (0.0-3.0); HEMATOCRIT 29.9 % (42.0-52.0); HEMOGLOBIN 9.9 g/dl (13.5-17.5); LYMPH # 2.6 10^3/uL (1.5-5.0); LYMPH % 45.2 % (24.0-44.0); MEAN CORPUSCULAR HEMOGLOBIN 33.8 pg (27.0-33.0); MEAN CORPUSCULAR HGB CONC 33.1 g/dl (32.0-36.5); MONO # 0.6 10^3/uL (0.0-0.8); MONO % 9.6 % (2.0-8.0); NEUTROPHILS # 2.2 10^3/uL (1.5-8.5); NEUTROPHILS % 38.1 % (36.0-66.0); PLATELET COUNT, AUTOMATED 152 10^3/uL (150-450); RED BLOOD COUNT 2.93 10^6/uL (4.30-6.10); WHITE BLOOD COUNT 5.8 10^3/uL (4.0-10.0)
[2024-09-22 06:37] LABS: BLOOD UREA NITROGEN 7 MG/DL (9-23); CARBON DIOXIDE LEVEL 23 MMOL/L (20-31); CHLORIDE LEVEL 108 MMOL/L (98-107); CREATININE FOR GFR 0.48 MG/DL (0.70-1.30); GLOMERULAR FILTRATION RATE > 60.0 (>49); GLUCOSE, FASTING 80 MG/DL (74-106); MAGNESIUM LEVEL 1.6 MG/DL (1.8-2.4); SODIUM LEVEL 138 MMOL/L (136-145)
[2024-09-22] MEDS: MAG SULF 1GM/100ML (MAG RUN) 1 GM in IV 1 EA IV SCH (07:26)
[2024-09-22] MEDS: MAGNESIUM GLUCONATE 500 MG TAB PO SCH (09:40)
[2024-09-22] MEDS: NS (Normal Saline) 0.9% 1,000 ML IV ONE (15:22)
[2024-09-23 00:15] VITALS: O2SAT 94
[2024-09-23 00:30] VITALS: O2SAT 95
[2024-09-23 03:39] VITALS: BP 130/69; TEMP 97.2; O2SAT 96
[2024-09-23 06:16] LABS: BASO % 0.5 % (0.0-1.0); EOS # 0.1 10^3/uL (0.0-0.5); EOS % 1.7 % (0.0-3.0); HEMATOCRIT 31.1 % (42.0-52.0); HEMOGLOBIN 10.3 g/dl (13.5-17.5); LYMPH # 2.8 10^3/uL (1.5-5.0); LYMPH % 48.3 % (24.0-44.0); MEAN CORPUSCULAR HGB CONC 33.1 g/dl (32.0-36.5); MEAN CORPUSCULAR VOLUME 102.6 fl (80.0-96.0); MONO # 0.6 10^3/uL (0.0-0.8); MONO % 10.7 % (2.0-8.0); NEUTROPHILS # 2.1 10^3/uL (1.5-8.5); NEUTROPHILS % 36.9 % (36.0-66.0); PLATELET COUNT, AUTOMATED 203 10^3/uL (150-450); RED BLOOD COUNT 3.03 10^6/uL (4.30-6.10); WHITE BLOOD COUNT 5.7 10^3/uL (4.0-10.0)
[2024-09-23] MEDS: DEXTROSE 50% 50ML SYRINGE IV STA (06:41)
[2024-09-23 06:47] LABS: BLOOD UREA NITROGEN 8 MG/DL (9-23); CALCIUM LEVEL 8.7 MG/DL (8.3-10.6); CARBON DIOXIDE LEVEL 23 MMOL/L (20-31); CHLORIDE LEVEL 108 MMOL/L (98-107); CREATININE FOR GFR 0.48 MG/DL (0.70-1.30); GLOMERULAR FILTRATION RATE > 60.0 (>49); GLUCOSE, FASTING 71 MG/DL (74-106); MAGNESIUM LEVEL 1.9 MG/DL (1.8-2.4); POTASSIUM SERUM 4.1 MMOL/L (3.5-5.1); SODIUM LEVEL 140 MMOL/L (136-145)
[2024-09-23 07:37] VITALS: BP 116/77; TEMP 97.5; O2SAT 96
[2024-09-23] MEDS: D5W 1,000 ML IV SCH (09:59)
[2024-09-23 12:00] VITALS: BP 115/68; TEMP 98.3; O2SAT 96
[2024-09-23] MEDS ORDERED: SCOPOLAMINE 1MG TRANSDERMAL PATCH TOP PRN (15:15)
[2024-09-23] MEDS ORDERED: ONDANSETRON 4MG 2ML VIAL IV PRN (15:15)
[2024-09-23] MEDS ORDERED: FLEET ENEMA PR PRN (15:15)
[2024-09-23] MEDS ORDERED: MORPHINE 2 MG/ML 1ML VIAL IV PRN (15:15)
[2024-09-23] MEDS ORDERED: ONDANSETRON 4MG ORAL DISINTEGRATING TAB PO PRN (15:15)
[2024-09-23] MEDS ORDERED: BISACODYL 10MG SUPP PR PRN (15:15)
[2024-09-23] MEDS ORDERED: ATROPINE SULFATE 1% OPHTH SOLN 2ML BTL SL PRN (15:15)
[2024-09-23] MEDS ORDERED: HYOSCYAMINE SULFATE 0.125 MG SUBL TABLET PO PRN (15:15)
[2024-09-23] MEDS ORDERED: ACETAMINOPHEN 325 MG TAB PO PRN (15:15)
[2024-09-23] MEDS ORDERED: LORazepam 2 MG/ML 1ML VIAL IV PRN (15:15)
[2024-09-23] MEDS ORDERED: ACETAMINOPHEN 650MG SUPP PR PRN (15:15)
[2024-09-23 16:00] VITALS: BP 116/75; TEMP 96.8; O2SAT 97
[2024-09-24] MEDS: LORazepam 1 MG TAB PO PRN (03:31)
[2024-09-24] MEDS: MORPHINE 10MG/0.5ML ORAL CONCENTRATE SOLUTION U/D SL PRN (03:31)
[2024-09-24] MEDS ORDERED: VANC1CAP6 PO (09:54)
[2024-09-24] MEDS ORDERED: HYOS125TA PO (10:00)
[2024-09-24] MEDS ORDERED: MORP1SOL5 PO (10:00)
[2024-09-24] MEDS ORDERED: ATIV1TAB10 PO (10:00)
== END 2024-09-24 11:30 | disposition hospice, home (50) | DRG 871 ==
LOC: M ED 06:45 → M ED INP 12:44 → M PCU 09-17 01:06 → M MS5PR 09-23 17:23
PROVIDERS: ADMIT Internal Medicine; ATTEND Internal Medicine
DX: A41.9 Sepsis, unspecified organism (principal); J69.0 Pneumonitis due to inhalation of food and vomit; A04.72 Enterocolitis due to Clostridium difficile, not specified as recurrent; E87.0 Hyperosmolality and hypernatremia; E46 Unspecified protein-calorie malnutrition; Z68.1 Body mass index [BMI] 19.9 or less, adult; I48.92 Unspecified atrial flutter; E87.20 Acidosis, unspecified; G93.40 Encephalopathy, unspecified; R65.20 Severe sepsis without septic shock; I48.91 Unspecified atrial fibrillation; G20.A1 Parkinson's disease without dyskinesia, without mention of fluctuations; F02.80 Dementia in other diseases classified elsewhere, unspecified severity, without behavioral disturbance, psychotic disturbance, mood disturbance, and anxiety; F39 Unspecified mood [affective] disorder; G40.909 Epilepsy, unspecified, not intractable, without status epilepticus; E87.6 Hypokalemia; E83.42 Hypomagnesemia; E03.9 Hypothyroidism, unspecified; L89.156 Pressure-induced deep tissue damage of sacral region; Z79.01 Long term (current) use of anticoagulants; R13.12 Dysphagia, oropharyngeal phase; N40.0 Benign prostatic hyperplasia without lower urinary tract symptoms; Z66 Do not resuscitate; Z79.899 Other long term (current) drug therapy; Z51.5 Encounter for palliative care

== ENCOUNTER → 2024-10-10 | Outpatient (REF) | payer MEDICARE, MEDICAID ==
[~2024-10-10] MED LIST changes: +ATIV1TAB10 PO; +FLON1SPR NARES; +HYOS125TA PO; +MORP1SOL5 PO; +VANC1CAP6 PO; +[UNRECOGNIZED DRUG - CODE] TOP
[2024-10-10 21:02] LABS: APPEARANCE, URINE HAZY (CLEAR); BACTERIA, URINE AUTO NEGATIVE (NEGATIVE); BILIRUBIN, URINE AUTO NEGATIVE (NEGATIVE); BLOOD, URINE BLOOD 3+ (NEGATIVE); COLOR, URINE RED (YELLOW); GLUCOSE, URINE (UA) AUTO NEGATIVE (NEGATIVE); KETONE, URINE AUTO TRACE mg/dL (NEGATIVE); LEUKOCYTE ESTERASE, URINE AUTO NEGATIVE (NEGATIVE); MUCUS, URINE SMALL (NEGATIVE); NITRITE, URINE AUTO NEGATIVE (NEGATIVE); PROTEIN, URINE AUTO 2+ mg/dL (NEGATIVE); RBC, URINE AUTO TNTC /HPF (0-3); SPECIFIC GRAVITY URINE AUTO 1.013 (1.002-1.035); SQUAMOUS EPITHELIAL CELL UR AU 0 /HPF (0-6); UROBILINOGEN, URINE AUTO 0.2 mg/dL (0.0-2.0); WBC, URINE AUTO 0 /HPF (0-3)
== END ==
LOC: M LAB REF 20:44
PROVIDERS: ATTEND Family Medicine
DX: N39.0 Urinary tract infection, site not specified (principal)